=== PATIENT | female | born 1950 | race Caucasian/White ===

== ENCOUNTER 2017-11-27 02:08 | Emergency (ER) | payer MEDICARE, SELFPAY ==
[2017-11-27 02:10] VITALS: BP 146/85; PULSE 65; RESP 23; TEMP 35.8; O2SAT 98; BMI 32.9
--- NOTE | 2017-11-27 02:29 | RAD_ITS ---
STUDY: X-RAY CHEST REASON FOR EXAM: Female, 67 years old. Chest pressure TECHNIQUE: Frontal view COMPARISON: None. FINDINGS: There are NO active infiltrates. There are mild fibrotic changes. There is NO pleural effusion. There is NO pneumothorax. Normal size heart. Normal mediastinum and felicitas. Normal visualized pulmonary arteries. Normal visualized aortic arch and descending thoracic aorta. Normal visualized thoracic spine. Normal visualized ribs, clavicles, and shoulders. There is no demonstrated abnormality of the visualized soft tissue structures of the upper abdomen. RAD/Chest 1 View (Portable) IMPRESSION: There are NO active infiltrates. There are mild fibrotic changes. There is NO pleural effusion. There is NO pneumothorax. Normal size heart. Electronically Signed: Alex Rios MD at 3:19 EDT , Service support ,
--- NOTE | 2017-11-27 02:29 | EKG12_ITS ---
Test Reason : CP Blood Pressure : / mmHG Vent. Rate : 062 BPM Atrial Rate : 062 BPM P-R Int : 212 ms QRS Dur : 102 ms QT Int : 434 ms P-R-T Axes : 031 -52 010 degrees QTc Int : 440 ms Sinus rhythm with 1st degree A-V block Left axis deviation Incomplete right bundle branch block Cannot rule out Anterior infarct , age undetermined Abnormal ECG Confirmed by HANNAH DE PAZ, BETTY ([id number]), script editor LILIBETH PATRICIA ([id number]) on 11/30/2017 3:08:43 PM Referred By: MIKKI Confirmed By:BETTY YOUNG MD
--- NOTE | 2017-11-27 02:29 | CT_ITS ---
STUDY: CT ABDOMEN AND PELVIS WITHOUT CONTRAST REASON FOR EXAM: Female, 67 years old. Abdominal pain RADIATION DOSAGE (If Supplied By Facility): CTDIvol = ( 18.68 ) mGy, DLP = ( 1202.27 ) mGycm TECHNIQUE: Transaxial images were obtained from the dome of the diaphragm to the symphysis pubis without oral contrast, and without intravenous contrast. Sagittal and coronal images were reconstructed. Individualized dose optimization techniques were used for this CT. COMPARISON: None. FINDINGS: There is a 5 mm noncalcified nodule at the RIGHT lung base which could be a granuloma. Liver is fatty. There is NO mass. There has been a cholecystectomy. Normal spleen. Normal pancreas. Normal bilateral adrenal glands. Normal right kidney. There is a 5 mm stone in the proximal LEFT ureter causing mild LEFT hydronephrosis and hydroureter. There is a 2 mm stone in the lower pole of the LEFT kidney. Normal visualized stomach. Normal small intestine. Normal colon. The appendix is visualized and appears normal. Normal abdominal aorta. Normal inferior vena cava. Normal retroperitoneum. Normal urinary bladder. Uterus and ovaries are unremarkable. There is NO ascites or free air, abscess or adenopathy. Normal abdominal wall. Normal osseous structures. CT/Abdomen/Pelvis W IV Cont ONLY IMPRESSION: Liver is fatty. There is NO mass. There has been a cholecystectomy. There is a 5 mm stone in the proximal LEFT ureter causing mild LEFT hydronephrosis and hydroureter. There is a 2 mm stone in the lower pole of the LEFT kidney. Normal visualized stomach. Normal small intestine. Normal colon. The appendix is visualized and appears normal. Uterus and ovaries are unremarkable. There is NO ascites or free air, abscess or adenopathy. Electronically Signed: Alex Rios MD at 3:40 EDT , Service support ,
[2017-11-27 02:40] LABS: Absolute Lymphocyte Count 5.15 X10^3/ul (0.83-4.51); Absolute Neutrophil Count 6.2 X10^3/uL (2.0-7.7); Basophil# 0.04 X10^3/uL; Basophil% 0.3 % (0-1); Eosinophil# 0.13 X10^3/uL; Eosinophils% 1.1 % (0-5); Hematocrit 40.9 % (37-47); Hemoglobin 14.1 g/dl (12.0-15.0); Lymphocyte # 5.15 X10^3/ul (4.0); Lymphocyte % 42.3 % (19-41); Mean Corp Hgb Conc 34.5 g/gl (32-36); Mean Corpuscular Hgb 30.1 pg (27.0-32.0); Mean Corpuscular Volume 87.4 fL (81-99); Mean Platelet Vol. 10.3 fl (6.2-12.0); Monocyte# 0.65 X10^3/uL; Monocyte% 5.3 % (0-10); Neutrophil % 50.9 % (47-70); Platelet Count 234 K/mm3 (150-450); RBC Distribution Width CV 12.9 % (11.6-14.6); RBC Distribution Width SD 40.6 fl (35.1-43.9); Red Blood Count 4.68 M/mm3 (4.2-5.4); White Blood Count 12.2 K/mm3 (4.4-11.0)
[2017-11-27] MEDS: 0.9% Normal Saline 1,000 ML 1000 ML IV (02:42)
[2017-11-27] MEDS: Ondansetron 4 MG/2 ML Vial IV (02:43)
[2017-11-27 02:44] LABS: Differential Indicated SCAN CRITERIA MET; POSITIVE COUNT NO; POSITIVE DIFFERENTIAL YES; POSITIVE MORPHOLOGY NO
[2017-11-27] MEDS: Morphine 4 MG/ML Syringe IV ×2 (02:48→04:08)
[2017-11-27 02:49] LABS: Bacteria 0 SEEN /hpf (None Seen); Color, Urine Yellow (Yellow); Glucose, Dipstick Normal (Normal); Ketone-Dipstick Negative (Negative); Leukocyte Esterase-Dipstick 25 /ul (Negative); Mucous, Urine 0 SEEN /hpf (<or=2+); Nitrite-Dipstick Negative (Negative); Occult Blood-Urine 250 /ul (Negative); Protein-Dipstick 30 mg/dl (Negative); Urine Bilirubin Dipstick Negative (Negative); Urine Clarity Sl. Cloudy (Clear); Urine Urobilinogen Normal (Normal)
[2017-11-27 02:51] LABS: ALB/GLOB Ratio 1.2 RATIO (0.9-2.4); AST(SGOT) 16 U/L (15-37); Alanine Aminotransfer ALT/SGPT 23 U/L (13-56); Albumin, Serum 3.8 g/dL (3.2-5.0); Alkaline Phosphatase 78 U/L (45-117); Anion Gap 10 (5-15); BUN 24 mg/dL (7-18); BUN/Creat Ratio 21.1 RATIO (10-20); Calcium,Total 9.5 mg/dL (8.5-10.1); Chloride 105 mmol/L (98-107); Creatinine, Serum 1.14 mg/dL (0.55-1.02); EST Glomerular Filtration Rate 50 mL/min (>60); Est Glom Filt Rate - Afr Amer 61 mL/min (>60); Globulin 3.1 g/dL (2.2-4.2); Glucose 146 mg/dL (74-106); Lipase 349 U/L (73-393); Potassium 3.3 mmol/L (3.5-5.1); Protein, Total 6.9 g/dL (6.4-8.2); Sodium Level 142 mmol/L (136-145)
[2017-11-27 03:08] LABS: Red Blood Cells-Urine > 100 SEEN /hpf (0-5); White Blood Cells 5-10 SEEN /hpf (0-5)
[2017-11-27 03:09] LABS: Squamous Epithelial Cells - UA 5-10 SEEN /hpf (5-10)
--- NOTE | 2017-11-27 03:55 | ED.VISSUMM ---
- ER Visit Summary Date of Service: 11/27/17 Chief Complaint: Chest pain and back pain History of Present Illness: The patient is a 67 F with left sided chest pain that radiates into her left mid back and also lower abdomen. This started suddenly around midnight this evening. Associated with nausea and vomiting. Nothing seemed to make this better or worse. Patient has a history of kidney stones, hypertension, osteoarthritis, and skin cancer. She also has a history of lithotripsy, cholecystectomy, and knee surgery. Denies any history of coronary disease. She had a negative stress test years ago. No history of DVT or PE. No history of aortic disease. Non-smoker. No fevers or chills. No shortness of breath or respiratory symptoms. No other GI symptoms. No weakness or numbness. No urinary symptoms. Physical Examination: Blood pressure 146/85. Respiratory rate 23. Otherwise vitals unremarkable. Afebrile. Patient appears uncomfortable but not toxic or in distress. Heart regular rate and rhythm. Lungs clear throughout. Abdomen soft and nontender. Left CVA tender palpation. Extremities nontender with no edema. Skin is normal in color without diaphoresis or pallor. Test Results: EKG on arrival showed sinus rhythm with an incomplete right bundle branch block pattern. Rate is 62. No sign of acute ischemia or infarction pattern. White count 12.2. Potassium 3.3. Glucose 146. BUN 24. Creatinine 1.14. Hepatic panel and lipase normal. Urinalysis shows 5-10 white cells, 5-10 epithelial cells, and over 100 red cells. Troponin normal. Urine culture pending. Chest x-ray showed chronic changes. Nothing acute. CT abdomen showed fatty liver, lung nodule, postoperative changes, and a 5 mm proximal left ureter stone with hydronephrosis and hydroureter. Emergency Department Course and Treatment: Patient treated with fluids, Zofran, and morphine while awaiting results. I did consider cardiac, respiratory, GI, , RESIN SHAVER, and vascular etiologies primarily. Patient did have multiple episodes of emesis while awaiting workup. On reevaluation, she was feeling better. Workup showed a 5 mm stone on the left. I believe this is causing her pain and nausea, and vomiting. She has a white count of 12.2. No fevers. We will send a culture. Her urinalysis does not show definite signs of infection. I have low suspicion for infection. Creatinine stable. Hepatic and lipase normal. Troponin, EKG, and chest x-ray unremarkable. I have low suspicion for ACS. Nothing to suggest PE or dissection. No further workup indicated. This was discussed with the patient who agreed. Patient was advised that she may not pass the stone spontaneously. She would like to try outpatient follow-up with Dr. Orta. She was given a prescription for Ultram as this has helped in the past. Also Zofran and Flomax. Return for any new or worsening issues. Treatment Plan: As above Disposition: Discharged Impression: 1. Left ureteral colic This note was generated with [employer] dictation software. It may contain incorrect words, spelling, and punctuation that were not noted in review of the chart prior to signing ED Disposition - Plan for ED Patient: Chief Complaint: Chest Pain Referrals: Keith Garcia MD [Primary Care Provider] -
--- NOTE | 2017-11-27 04:04 | ED.DEP ---
ED Disposition - Plan for ED Patient: Chief Complaint: Chest Pain Instructions: ED Stone Renal W Colic Prescriptions: traMADol [Ultram] 50 mg PO Q6H PRN PRN 2 Days #8 tab PRN Reason: Pain Ondansetron [Zofran Odt] 4 mg PO Q8H PRN PRN #10 tab PRN Reason: Nausea Tamsulosin HCl [Flomax] 0.4 mg PO DAILY #7 cap Referrals: Homar Orta MD [STAFF PHYSICIAN] -
[2017-11-27 04:07] VITALS: BP 139/74; PULSE 82; RESP 16; O2SAT 95
[2017-11-27] MEDS: traMADol 50 MG Tablet PO (04:08)
== END 2017-11-27 04:20 | disposition home or self-care (01) ==
PROVIDERS: Emergency Provider Emergency Medicine; Family Provider Family Medicine; PCP Family Medicine
DX: N13.2 Hydronephrosis with renal and ureteral calculous obstruction (principal); I45.10 Unspecified right bundle-branch block; K76.0 Fatty (change of) liver, not elsewhere classified; R91.1 Solitary pulmonary nodule; I10 Essential (primary) hypertension; M19.90 Unspecified osteoarthritis, unspecified site; Z87.442 Personal history of urinary calculi; Z85.828 Personal history of other malignant neoplasm of skin; Z90.49 Acquired absence of other specified parts of digestive tract; Z79.899 Other long term (current) drug therapy
CPT/HCPCS: 71045; 74177; 80053; 81001; 83690; 84484; 85025; 87086; 87088; 93005; 96361; 96374; 96375; 96376; 99285; J7030; A4216; J2405

== ENCOUNTER → 2017-11-30 10:54 | Outpatient (CLI) | payer MEDICARE, SELFPAY ==
--- NOTE | 2017-11-30 10:58 | RAD_ITS ---
STUDY: X-RAY - ABDOMEN/PELVIS REASON FOR EXAM: Female, 67 years old. Kidney stone TECHNIQUE: Two AP supine views of the abdomen and pelvis. COMPARISON: CT abdomen and pelvis dated 11/27/2017 FINDINGS: Normal visualized lung bases. There is an abundance of fecal material throughout the colon. There is no demonstrated free abdominal air. The visualized liver, spleen and kidneys are grossly normal in size and morphology. Normal soft tissue structures. There are diffuse degenerative changes of the visualized lumbar spine. Probable stone in the mid left ureter measuring 6.1 mm, corresponding to recent CT findings. RAD/Abdomen Single View IMPRESSION: As above Electronically Signed: Dutch Mar DO at 8:27 EDT Tel , Service support ,
== END ==
PROVIDERS: Family Provider Family Medicine; PCP Family Medicine; Visit Provider Urology
DX: N20.0 Calculus of kidney (principal)
CPT/HCPCS: 74018

== ENCOUNTER 2017-12-01 02:50 | Observation (INO) | payer MEDICARE, SELFPAY ==
[2017-12-01] VITALS (11 sets, daily range): BP systolic 116–178; BP diastolic 65–91; PULSE 70–90; RESP 16–18; TEMP 36.6–37.6; O2SAT 92–97; BMI 29.0; BMI 35.6
[2017-12-01 03:06] LABS: Absolute Lymphocyte Count 2.71 X10^3/ul (0.83-4.51); Absolute Neutrophil Count 8.3 X10^3/uL (2.0-7.7); Basophil# 0.02 X10^3/uL; Basophil% 0.2 % (0-1); Eosinophil# 0.08 X10^3/uL; Eosinophils% 0.7 % (0-5); Hemoglobin 14.3 g/dl (12.0-15.0); Lymphocyte # 2.71 X10^3/ul (4.0); Lymphocyte % 23.1 % (19-41); Mean Corpuscular Volume 88.1 fL (81-99); Mean Platelet Vol. 9.9 fl (6.2-12.0); Monocyte# 0.61 X10^3/uL; Monocyte% 5.2 % (0-10); Neutrophil % 70.6 % (47-70); Platelet Count 206 K/mm3 (150-450); RBC Distribution Width CV 13.2 % (11.6-14.6); RBC Distribution Width SD 42.1 fl (35.1-43.9); Red Blood Count 4.77 M/mm3 (4.2-5.4); White Blood Count 11.7 K/mm3 (4.4-11.0)
[2017-12-01] MEDS: 0.9% Normal Saline 1,000 ML 250 ML IV (03:06)
[2017-12-01 03:07] LABS: POSITIVE COUNT NO; POSITIVE DIFFERENTIAL NO; POSITIVE MORPHOLOGY NO
[2017-12-01] MEDS: Ondansetron 4 MG/2 ML Vial IV (03:07)
[2017-12-01] MEDS: Ketorolac 15 MG/ML Vial IV (03:08)
[2017-12-01] MEDS: Morphine 4 MG/ML Syringe IV (03:09)
[2017-12-01 03:14] LABS: Mucous, Urine 0 SEEN /hpf (<or=2+)
[2017-12-01 03:15] LABS: Glucose, Dipstick Normal (Normal); Ketone-Dipstick Negative (Negative); Leukocyte Esterase-Dipstick 25 /ul (Negative); Nitrite-Dipstick Negative (Negative); Occult Blood-Urine 250 /ul (Negative); Protein-Dipstick 30 mg/dl (Negative); Specific Gravity, Urine 1.025 (1.002-1.030); Urine Bilirubin Dipstick Negative (Negative); Urine Urobilinogen Normal (Normal)
[2017-12-01 03:17] LABS: Color, Urine Straw (Yellow); Urine Clarity Sl Cloudy (Clear)
[2017-12-01 03:20] LABS: Anion Gap 9 (5-15); BUN 17 mg/dL (7-18); BUN/Creat Ratio 13.1 RATIO (10-20); Calcium,Total 9.6 mg/dL (8.5-10.1); Chloride 104 mmol/L (98-107); EST Glomerular Filtration Rate 43 mL/min (>60); Est Glom Filt Rate - Afr Amer 52 mL/min (>60); Estimated Creatinine Clearance 38.23 ml/min; Glucose 130 mg/dL (74-106); Potassium 4.2 mmol/L (3.5-5.1); Sodium Level 142 mmol/L (136-145)
[2017-12-01 03:25] LABS: Squamous Epithelial Cells - UA 5-10 SEEN /hpf (5-10); White Blood Cells 0-5 SEEN /hpf (0-5)
[2017-12-01 03:26] LABS: Red Blood Cells-Urine > 100 SEEN /hpf (0-5)
[2017-12-01 03:27] LABS: Bacteria RARE /hpf (None Seen)
--- NOTE | 2017-12-01 05:24 | ED.VISSUMM ---
- ER Visit Summary Date of Service: 12/01/17 Chief Complaint: Left flank pain History of Present Illness: The patient is a 67 F with left-sided kidney stone diagnosed on the . Measured 5 mm in the proximal to mid left ureter. Patient states she took tramadol for 1 or 2 days and her pain improved. She was seen by Dr. Orta in the office yesterday. Plan is to lithotripsy next week. Pain returned around 11:30 PM last evening. She took tramadol at that time and took Zofran 03/16/1931. She presented here shortly after 230. Patient states the tramadol has not helped her pain this morning. She did vomit ?2. Physical Examination: Blood pressure is 178/80, temperature 99.5, heart rate 74, respiratory rate 16, pulse ox 96% on room air. Head and neck examination unremarkable. Heart is regular rate and rhythm. Lung sounds are clear. Abdomen is soft with tenderness in the most lateral portion of the left lower quadrant. No guarding or rebound. Back examination was no true CVA tenderness but she does have left lower lumbar tenderness. Test Results: CBC was a white count 11.7 with 70% neutrophils. Chemistry studies revealed creatinine 1.3. Urinalysis shows grade 100 RBCs but no sign of section. Patient had a KUB performed yesterday that I did review, although official read is not back. There appears to be a calcification around the level of L4 which likely corresponds to a ureteral stone. This looks to be in similar location as the CT on the . Emergency Department Course and Treatment: Patient was given morphine, Zofran, 15 mg of Toradol, IV fluids. On repeat evaluation she is resting comfortably. I spoke with Dr. Orta and he will admit the patient for a stent. Treatment Plan: [] Disposition: Admit Impression: Left ureterolithiasis This note was generated with [employer] dictation software. It may contain incorrect words, spelling, and punctuation that were not noted in review of the chart prior to signing ED Disposition - Plan for ED Patient: Chief Complaint: Flank Pain Referrals: Keith Garcia MD [Primary Care Provider] -
[2017-12-01] MEDS: 0.9% Normal Saline 1,000 ML 75 ML IV ×2 (07:05→13:07)
--- NOTE | 2017-12-01 07:53 | HP.PCM_ITS ---
Problem List (1) Left ureteral calculus Status: Acute History of Present Illness Date of Admission: 12/01/17 Chief Complaint: Kidney stone The patient is a 67 year old female with a stone in the left mid ureter I saw her in the office yesterday we are planning for surgery and at this point she presented to the ER in severe pain again so we will take her to surgery today and place a stent to the left side and then plan for left left ESWL when the machine is available. Past Medical History Past Medical History (Chronic Problems): Chronic Problems Hypertension (Chronic) Skin cancer of forehead (Chronic) Osteoarthritis (Chronic) Nephrolithiasis (Chronic) Allergies Penicillins Allergy (Verified 12/01/17 02:51) Swelling Home Medications: Ambulatory Orders Medication Instructions Recorded Amlodipine [Norvasc] 10 mg PO DAILY 06/07/13 Cholecalciferol (Vitamin D3) 1,000 unit PO DAILY 06/07/13 [Vitamin D] Lisinopril/Hydrochlorothiazide 2.5 tablet PO DAILY 06/07/13 [Zestoretic 12/25.5 Tablet] Multivitamins,Ther W-Minerals 1 tablet PO DAILY 06/07/13 [Multivitamin With Minerals] Potassium Chloride [Klor-Con 10] 20 meq PO DAILY 06/07/13 Sertraline HCl [Zoloft] 50 mg PO DAILY 06/07/13 Latanoprost [Latanoprost] 1 drop EACH EYE DAILY 01/03/14 Lactobacillus Rhamnosus GG 1 each PO DAILY 11/27/17 [Culturelle] Ondansetron [Zofran Odt] 4 mg PO Q8H PRN PRN #10 tab 11/27/17 Tamsulosin HCl [Flomax] 0.4 mg PO DAILY #7 cap 11/27/17 traMADol [Ultram] 50 mg PO Q6H PRN PRN 2 Days #8 tab 11/27/17 Surgical History: noncontributory, - - BL TKR, dental implants, x 2, skin CA excisions. 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 Smoking Status: Never smoker Review of Systems Constitutional: Denies: Chills, Fever, Weight Change HEENT: Denies: Head Aches, Sinus Congestion, Sinus Drainage Cardiovascular: Denies: Chest Pain, Palpitations Respiratory: Denies: Cough, Shortness of breath at rest, Sputum production Gastrointestinal: Denies: Abdominal Pain, Nausea, Vomiting Genitourinary: Denies: Dysuria Musculoskeletal: Denies: Joint Pain, Joint Tenderness Skin: Denies: Rash, Wounds Neurological: Denies: Numbness, Tingling, Focal weakness Psychiatric: Denies: Anxiety, Depression, Homicidal Ideations, Suicidal Ideations Hematologic/ Lymphatic: Denies: Easy Bruising, Easy Bleeding VTE Information - Inpt Only VTE Present on Admission: No VTE Mechan Device Prophylaxis: SCD's Patient Problems: Active and Suspected Problems Left ureteral calculus (Acute) - Physical Exam General: Alert, Oriented x3, Cooperative HEENT: Atraumatic, PERRLA, EOMI, Normocephalic Neck: Supple, No JVD, Negative Carotid Bruits Lungs: Clear to auscultation, Normal air movement Cardiovascular: Regular rate, No murmurs Abdomen: Bowel Sounds Present, Soft, Non Tender Extremities: No edema, Capillary Refill Less than 3 Seconds Skin: No rashes, No breakdown Musculoskeletal: No Tenderness to Palpation of Joints or Extremities Neurological: Cranial nerves II-XII grossly intact Psych/Mental Status: Normal Affect, Appropriate Vital Signs Temp Pulse Resp BP Pulse Ox 98.6 F 90 16 149/83 H 94 12/01/17 06:36 12/01/17 06:36 12/01/17 06:36 12/01/17 06:36 12/01/17 06:36 Oxygen Delivery Method Room Air Weight: 100.1 kg Body Mass Index (BMI) 35.6 Intake and Output for Last 24 Hours 11/29/17 11/30/17 12/01/17 23:59 23:59 23:59 Output Total 50 / 50 Balance -50 / -50 Assessment/Plan All Active Problems Left ureteral calculus (Acute) Plan for cystoscopy and left stent placement today and will discharge plan for outpatient treatment of the stone. Plan to place a stent today to control pain.
[2017-12-01] MEDS: Morphine 2 MG/ML Syringe IV (10:44)
--- NOTE | 2017-12-01 11:23 | NURSING ---
REPORT CALLED TO [facility]
--- NOTE | 2017-12-01 12:46 | PCM.OPRPT ---
Problem List (1) Left ureteral calculus Status: Acute Report of Operation Date of Procedure: 12/01/17 Pre-Operative Diagnosis: Obstructing left ureteral calculi with severe pain Post-Operative Diagnosis: Same Surgery/Procedure Performed:: Cystoscopy and left stent placement Description of Surgical Findings:: 67-year-old female taken back to the operating room after smooth induction of MAC local she is placed in dorsal lithotomy position went to the bladder with a 21 Serbian rigid cystourethroscope identified the left ureteral orifice advanced a wire up the left kidney I then saw the stone in the distal left ureter over the wire then place a stent stent coiled in the kidney bladder good position a lot of purulent debris in urine from the left kidney this was sent off for culture the bladder was drained the patient's anesthetic anesthesia was reversed taken back to PACU good condition plan to keep her on the schedule for shockwave lithotripsy of the stone. Type of Anesthesia:: Local MAC Drains: stent left side - Admit VTE Documentation VTE Present on Admission: No VTE Mechan Device Prophylaxis: SCD's
--- NOTE | 2017-12-01 12:47 | PCM.DC.URO ---
Discharge Diet: No Restrictions Discharge Activity: Return to Normal Activity, May Not Drive - for 2 days. Additional Activity Instructions:: f you have a catheter, remove on ___. If you have any problems after catheter is removed, call [phone] and ask for your doctor to be paged. Please be aware that pain medications may cause nausea. You should typically eat light foods as you take your pain medication. Pain medication may cause constipation, if this is a problem for you, please discuss with your doctor. Allergies/Adverse Reactions: Allergies Penicillins Allergy (Verified 12/01/17 02:51) Swelling Medications to take at Discharge Amlodipine [Norvasc] 10 mg PO DAILY 06/07/13 Cholecalciferol (Vitamin D3) [Vitamin D] 1,000 unit PO DAILY 06/07/13 Lisinopril/Hydrochlorothiazide [Zestoretic 10.5 Tablet] 2.5 tablet PO DAILY 06/07/13 Multivitamins,Ther W-Minerals [Multivitamin With Minerals] 1 tablet PO DAILY 06/07/13 Potassium Chloride [Klor-Con 10] 20 meq PO DAILY 06/07/13 Sertraline HCl [Zoloft] 50 mg PO DAILY 06/07/13 Latanoprost [Latanoprost] 1 drop EACH EYE DAILY 01/03/14 Lactobacillus Rhamnosus GG [Culturelle] 1 each PO DAILY 11/27/17 Ondansetron [Zofran Odt] 4 mg PO Q8H PRN PRN #10 tab 11/27/17 Tamsulosin HCl [Flomax] 0.4 mg PO DAILY #7 cap 11/27/17 traMADol [Ultram] 50 mg PO Q6H PRN PRN 2 Days #8 tab 11/27/17 Hydrocodone/Acetaminophen [Coello 5-325 Tablet] 1 ea PO Q4H PRN PRN 5 Days #14 tab 12/01/17 The following prescriptions were given: Hydrocodone/Acetaminophen [Coello 5-325 Tablet] 1 ea PO Q4H PRN PRN 5 Days #14 tab PRN Reason: Pain Primary Care Physician: Keith Garcia MD [Primary Care Provider] - Test Results: Test results from this visit will be discussed in further detail at your follow-up appointment, if applicable. Please Follow Up With: Homar Orta MD
--- NOTE | 2017-12-01 13:14 | PCA ---
pt off floor
== END 2017-12-01 17:20 | disposition home or self-care (01) ==
LOC: ED 03:27 → MS3 05:47
PROVIDERS: Admitting Provider Urology; Emergency Provider Emergency Medicine; Family Provider Family Medicine; PCP Family Medicine; Visit Provider Urology
PROC: (CPT 52332; principal; 2017-12-01 09:20)
DX: N20.1 Calculus of ureter (principal); F32.9 Major depressive disorder, single episode, unspecified; K58.9 Irritable bowel syndrome, unspecified; Z79.899 Other long term (current) drug therapy; I10 Essential (primary) hypertension; M19.90 Unspecified osteoarthritis, unspecified site
CPT/HCPCS: 52332; 76000; 80048; 81001; 85025; 87086; 96361; 96374; 96375; 96376; 99218; 99283; J7030; A4216; C1769; C2617; G0378; J2405

== ENCOUNTER 2017-12-09 10:27 | Day surgery (SDC) | payer MEDICARE, SELFPAY ==
[2017-12-09] VITALS (8 sets, daily range): BP systolic 128–158; BP diastolic 53–96; PULSE 71–81; RESP 16–18; TEMP 36.3–36.6; O2SAT 92–99; BMI 34.6
[2017-12-09] MEDS: Cefazolin 2 GM in 0.9% Normal Saline 100 ML IV (13:00)
--- NOTE | 2017-12-09 13:44 | DCINST_ITS ---
Discharge Diet: No Restrictions Discharge Activity: Return to Normal Activity, May Not Drive - for 2 days. Additional Activity Instructions:: Please be aware that pain medications may cause nausea. You should typically eat light foods as you take your pain medication. Pain medication may cause constipation, if this is a problem for you, please discuss with your doctor. Allergies/Adverse Reactions: Allergies Penicillins Allergy (Verified 12/04/17 14:04) Swelling Medications to take at Discharge Amlodipine [Norvasc] 10 mg PO DAILY 06/07/13 Cholecalciferol (Vitamin D3) [Vitamin D] 1,000 unit PO DAILY 06/07/13 Lisinopril/Hydrochlorothiazide [Zestoretic 10/.5 Tablet] 0.5 tablet PO DAILY 06/07/13 Multivitamins,Ther W-Minerals [Multivitamin With Minerals] 1 tablet PO DAILY 06/07/13 Potassium Chloride [Klor-Con 10] 20 meq PO DAILY 06/07/13 Sertraline HCl [Zoloft] 50 mg PO DAILY 06/07/13 Latanoprost 1 drop EACH EYE DAILY 01/03/14 Lactobacillus Rhamnosus GG [Culturelle] 1 each PO DAILY 11/27/17 traMADol [Ultram] 50 mg PO Q6H PRN PRN 2 Days #8 tab 11/27/17 Primary Care Physician: Keith Garcia MD [Primary Care Provider] - Test Results: Test results from this visit will be discussed in further detail at your follow- up appointment, if applicable. Please Follow Up With: Homar Orta MD When: in 2 weeks, please call to make an appointment.
--- NOTE | 2017-12-09 13:56 | PCM.OPRPT ---
Report of Operation Date of Procedure: 12/09/17 Pre-Operative Diagnosis: Left ureteral calculi status post stent Post-Operative Diagnosis: The same Surgery/Procedure Performed:: Left extracorporeal shockwave lithotripsy and cystoscopy and left stent removal Description of Surgical Findings:: 67-year-old female taken back to the operating room at the smooth induction of general anesthesia she was placed supine on the table, the stent on the left side was a seen by fluoroscopy we could identify a stone in the distal left ureter next to the stent. We placed the stone in the F2 focal point of the lithotripter machine and delivered a total of 4000 shockwaves to the stone fragment. The fragment change significantly in the's broke up in the tiny little pieces. We completed 4000 shockwaves. The urethra and vaginal area were then prepped and draped in usual sterile fashion went into the bladder with a 21 Hebrew rigid cystourethroscope grabbed the existing stent pulled out the meatus and remove the entire stent. Patient bladder was then drained. After fragmenting and breaking the stone completely the stent was removed patient has anesthetic was reversed taken back to PACU in good condition will see her back in a few weeks. Type of Anesthesia:: General Drains: stent removed. - Admit VTE Documentation VTE Present on Admission: No VTE Mechan Device Prophylaxis: SCD's
[2017-12-09] MEDS: Ketorolac 15 MG/ML Vial IV (15:37)
== END 2017-12-09 16:29 | disposition home or self-care (01) ==
LOC: SDC 10:28 → AC 10:29
PROVIDERS: Family Provider Family Medicine; PCP Family Medicine; Visit Provider Urology
PROC: (CPT 50590; principal; 2017-12-09 12:20)
DX: N20.1 Calculus of ureter (principal); F32.9 Major depressive disorder, single episode, unspecified; Z79.899 Other long term (current) drug therapy; K58.9 Irritable bowel syndrome, unspecified; I10 Essential (primary) hypertension; F41.9 Anxiety disorder, unspecified; M19.90 Unspecified osteoarthritis, unspecified site; Z85.828 Personal history of other malignant neoplasm of skin
CPT/HCPCS: 50590; J7120; J2405

== ENCOUNTER → 2017-12-29 12:48 | Outpatient (CLI) | payer MEDICARE, SELFPAY ==
--- NOTE | 2017-12-29 12:51 | RAD_ITS ---
STUDY: X-RAY - ABDOMEN/PELVIS REASON FOR EXAM: Female, 67 years old. Kidney stone follow-up TECHNIQUE: Single AP view of the abdomen / pelvis. COMPARISON: None. FINDINGS: There is a moderate amount of colonic fecal material. There is no demonstrated free abdominal air. The visualized liver, spleen and kidneys are grossly normal in size and morphology. Previously identified stone in the mid left ureter is no longer identified Normal soft tissue structures. There are diffuse degenerative changes of the visualized lumbar spine. RAD/Abdomen Single View IMPRESSION: Previously identified left mid ureteral stone is no longer seen. Electronically Signed: Dutch Mar DO at 11:59 EDT Tel , Service support ,
== END ==
PROVIDERS: Family Provider Family Medicine; PCP Family Medicine; Referring Provider Urology; Visit Provider Urology
DX: N20.0 Calculus of kidney (principal)
CPT/HCPCS: 74018

== ENCOUNTER → 2018-11-10 | Outpatient (CLI) | payer MEDICARE, SELFPAY ==
--- NOTE | 2018-11-10 12:58 | BI_ITS ---
MAMMOGRAPHY - BILATERAL SCREENING REASON FOR EXAM: Female, 68 years old. Routine annual screening examination. PERTINENT HISTORY: Mother with breast cancer. Remote right excisional breast biopsy. TECHNIQUE: Digital bilateral breast adelfo (3D mammographic acquisition) in the CC and MLO projections. 2-D mediolateral oblique (MLO) and craniocaudad (CC) views of both breasts were obtained. CAD: Full Field Digital Mammography with Computer Added Detection was performed. COMPARISON: Comparison is made with prior examination is December 04, 2016 and February 22, 2015. FINDINGS: Breast Composition: There are scattered areas of fibroglandular density. There are no dominant masses or suspicious calcifications. Stable small bilateral axillary lymph nodes. No other significant abnormalities are identified. There has been no significant change since the prior study. BI/SCREEN MAMM (CAD) W/ADELFO BILAT IMPRESSION: Stable bilateral screening mammogram. Yearly follow-up mammogram recommended. (A) ASSESSMENT CATEGORY: BIRADS Category 2: Benign. A letter regarding these results will be sent to the patient by the facility within 30 days. Approximately 10% of breast cancers are not detected by mammography. A normal mammogram should not delay biopsy of a clinically suspicious abnormality. [id number] Electronically Signed: Pierre Hollins, at 14:41 EDT , Service support ,
== END | disposition home or self-care (01) ==
PROVIDERS: Family Provider Family Medicine; PCP Family Medicine; Referring Provider Family Medicine; Visit Provider Family Medicine
DX: Z12.31 Encounter for screening mammogram for malignant neoplasm of breast (principal)
CPT/HCPCS: 77063; 77067

== ENCOUNTER → 2018-12-21 09:22 | Outpatient (CLI) | payer MEDICARE, SELFPAY ==
[2017-12-09 10:46] VITALS: BMI 34.6
[2018-12-21 10:46] LABS: Anion Gap 7 (5-15); BUN 17 mg/dL (7-18); BUN/Creat Ratio 17.1 RATIO (10-20); Chloride 108 mmol/L (98-107); Cholesterol 211 mg/dL (200); Creatinine, Serum 0.99 mg/dL (0.55-1.02); EST Glomerular Filtration Rate 59 mL/min (>60); Est Glom Filt Rate - Afr Amer 71 mL/min (>60); Glucose 93 mg/dL (74-106); High Density Lipoprotein 60 mg/dL; Potassium 3.7 mmol/L (3.5-5.1); Sodium Level 144 mmol/L (136-145); Triglycerides 94 mg/dL; Very Low Density Lipoprotein 19 mg/dL (5-40)
== END ==
PROVIDERS: Family Provider Family Medicine; PCP Family Medicine; Referring Provider Family Medicine; Visit Provider Family Medicine
DX: E78.00 Pure hypercholesterolemia, unspecified (principal); I10 Essential (primary) hypertension
CPT/HCPCS: 36415; 80048; 80061

== ENCOUNTER → 2018-12-23 10:16 | Outpatient (CLI) | payer MEDICARE, SELFPAY ==
[2017-12-09 10:46] VITALS: BMI 34.6
[2018-12-23 10:29] LABS: Mucous, Urine 0 SEEN /hpf (<or=2+); Red Blood Cells-Urine 0 SEEN /hpf (0-5); White Blood Cells 0 SEEN /hpf (0-5)
[2018-12-23 12:24] LABS: Absolute Lymphocyte Count 2.67 X10^3/uL (0.83-4.51); Basophil# 0.05 X10^3/uL; Basophil% 0.8 % (0-1); Eosinophil# 0.09 X10^3/uL; Eosinophils% 1.4 % (0-5); Hematocrit 43.8 % (37-47); Hemoglobin 14.6 g/dL (12.0-15.0); Lymphocyte # 2.67 X10^3/ul (4.0); Lymphocyte % 42.8 % (19-41); Mean Corp Hgb Conc 33.3 g/dL (32-36); Mean Corpuscular Hgb 29.7 pg (27.0-32.0); Mean Platelet Vol. 10.3 fl (6.2-12.0); Monocyte# 0.43 X10^3/uL; Monocyte% 6.9 % (0-10); NRBC Flagged by Analyzer 0 % (0-5); Neutrophil # 2.98 X10^3/uL (2.7-7.7); Neutrophil % 47.8 % (47-70); Platelet Count 207 K/mm3 (150-450); RBC Distribution Width CV 12.5 % (11.6-14.6); RBC Distribution Width SD 41.2 fl (35.1-43.9); Red Blood Count 4.92 M/mm3 (4.2-5.4); White Blood Count 6.2 K/mm3 (4.4-11.0)
[2018-12-23 12:26] LABS: Color, Urine Yellow (Yellow); Glucose, Dipstick Normal (Normal); Ketone-Dipstick Negative (Negative); Leukocyte Esterase-Dipstick Negative /ul (Negative); Nitrite-Dipstick Negative (Negative); Occult Blood-Urine Negative /ul (Negative); Protein-Dipstick Negative (Negative); Urine Bilirubin Dipstick Negative (Negative); Urine Clarity Sl. Cloudy (Clear); Urine Urobilinogen Normal (Normal)
[2018-12-23 12:31] LABS: Protein, Urine (Random) 18.7 mg/dL (<11.9); Protein:Creat Ratio 122 mg/g CRE (0-200)
[2018-12-23 12:44] LABS: Vitamin D,25 Hydroxy 61.7 ng/mL (29.95-100.01)
[2018-12-23 12:46] LABS: PTHIN 33.1 pg/mL (18.4-80.1)
[2018-12-23 12:51] LABS: AST(SGOT) 20 U/L (15-37); Alanine Aminotransfer ALT/SGPT 29 U/L (13-56); Albumin, Serum 3.8 g/dL (3.2-5.0); Alkaline Phosphatase 82 U/L (45-117); Bilirubin, Direct 0.12 mg/dL (0.00-0.30); Globulin 3.3 g/dL (2.2-4.2); Phosphorus 2.6 mg/dL (2.5-4.9); Protein, Total 7.1 g/dL (6.4-8.2); Thyroid Stim Hormone (TSH) 0.34 uIU/mL (0.358-3.74)
[2018-12-23 12:54] LABS: Bacteria RARE /hpf (None Seen); Calcium Oxalate Crystals Ur 2+ /hpf (<or=2+); Squamous Epithelial Cells - UA 0-5 SEEN /hpf (5-10)
[2018-12-24 13:10] LABS: T4 Free Direct 0.84 ng/dL (0.76-1.46)
[2018-12-27 20:08] LABS: Thyroid Stim Immunoglob <0.10 IU/L (0.00-0.55)
[2018-12-27 20:54] LABS: Anti-Thyroglobulin AB < 1.0 IU/mL (0.0-0.9); Thyroglobulin, Serum Qt. 90.9 ng/mL (1.5-38.5); Thyroid Peroxidase AB 15 IU/mL (0-34)
== END ==
PROVIDERS: Family Provider Family Medicine; PCP Family Medicine; Referring Provider Family Medicine; Visit Provider Family Medicine
DX: I12.9 Hypertensive chronic kidney disease with stage 1 through stage 4 chronic kidney disease, or unspecified chronic kidney disease (principal); N18.3 Chronic kidney disease, stage 3 (moderate); E66.9 Obesity, unspecified; M85.80 Other specified disorders of bone density and structure, unspecified site; R79.89 Other specified abnormal findings of blood chemistry
CPT/HCPCS: 80076; 81001; 82306; 82570; 83970; 84100; 84156; 84432; 84439; 84443; 84445; 85025; 86376; 86800

== ENCOUNTER → 2018-12-28 09:50 | Outpatient (CLI) | payer MEDICARE, SELFPAY ==
--- NOTE | 2018-12-28 09:59 | BD_ITS ---
STUDY: DUAL ENERGY X-RAY ABSORPTIOMETRY / DXA REASON FOR EXAM: Female, 68 years old. The patient is postmenopausal. No loss of height. TECHNIQUE: Bone Mineral Density (BMD) measurements of lumbar spine and bilateral hips were obtained. COMPARISON: Comparison is made with prior study dated October 12, 2012. FINDINGS: Lumbar Spine (L1-L4): g/cm2 (1.865) / T-score (5.5) / Z-score (7.2) Findings are suggestive of normal bone density with a low fracture risk. Left Femur Total: g/cm2 (0.820) / T-score (-1.5) / Z-score (0.0) Left Femoral Neck: g/cm2 (0.769) / T-score (-1.9) / Z-score (-0.2) Right Femur Total: g/cm2 (0.864) / T-score (-1.1) / Z-score (0.4) Right Femoral Neck: g/cm2 (0.748) / T-score (-2.1) / Z-score (-0.4) The T-Scores on the most recent prior examination were: Lumbar Spine (L1-L4): There has been worsening of bone density since the previous examination. Left Femur Total: which represents a worsening of 8.4%. Right Femur Total: which represents a worsening of 6.6%. BD/Dexa Bone Density Study IMPRESSION: The patient is considered osteopenic as outlined below according to World Bill Organization (WHO) criteria with a moderate fracture risk. There has been worsening of bone density since the previous examination. Reference Information: The T-score is the number of standard deviations above or below the standard which is normal for young adults at their peak bone mineral density. The World Health Organization (WHO) interprets the T-scores as follows: Above -1 Normal bone density Between -1 and -2.5 Osteopenia Equal to / or below -2.5 Osteoporosis As a practical clinical guideline, osteopenia may be graded as follows: Mild -1 through -1.5 Moderate -1.6 through -2.0 Severe -2.1 through -2.4 The Z-score is the number of standard deviations above or below age-matched controls. A Z-score of less than -1.5 would be considered abnormal. References: 1. NIH Osteoporosis and Related Bone Diseases http://www.osteo.org 2. International Society for Clinical Densitometry http://www.iscd.org 3. National Osteoporosis Foundation http://www.nof.org Electronically Signed: Pierre Hollins, at 15:38 EDT , Service support ,
== END ==
PROVIDERS: Family Provider Family Medicine; PCP Family Medicine; Referring Provider Family Medicine; Visit Provider Family Medicine
DX: M85.80 Other specified disorders of bone density and structure, unspecified site (principal); Z78.0 Asymptomatic menopausal state
CPT/HCPCS: 77080

== ENCOUNTER → 2019-01-03 12:07 | Outpatient (CLI) | payer MEDICARE, SELFPAY ==
--- NOTE | 2019-01-03 12:11 | US_ITS ---
STUDY: THYROID ULTRASOUND REASON FOR EXAM: Female, 68 years old. Elevated TSH TECHNIQUE: Ultrasound evaluation of the thyroid was performed with real-time and static good-scale imaging. COMPARISON: None. FINDINGS: RIGHT LOBE: The right lobe of the thyroid gland measures 4.6 x 1.7 x 2.1 cm. There is a heterogeneous echotexture. There is a solid/cystic 2.2 cm nodule LEFT LOBE: The left lobe of the thyroid gland measures 4.3 x 1.7 x 1.7 cm. There is a heterogeneous echotexture. There is a solid 1.5 cm nodule ISTHMUS: The isthmus measures 0.3 cm. The regional lymph nodes are normal. US/Thyroid IMPRESSION: Normal size heterogeneous thyroid gland. There is a solid 1.5 cm nodule in the left thyroid lobe which needs further evaluation with a thyroid uptake study. If the nodule should demonstrate suspicious characteristics on the uptake study, biopsy would be recommended for further evaluation, if not, six-month follow-up recommended Complex 2.2 cm solid/cystic nodule in the right thyroid lobe Electronically Signed: Perry Lopez MD at 14:44 EDT , Service support ,
== END ==
PROVIDERS: Family Provider Family Medicine; PCP Family Medicine; Referring Provider Family Medicine; Visit Provider Family Medicine
DX: R79.89 Other specified abnormal findings of blood chemistry (principal)
CPT/HCPCS: 76536

== ENCOUNTER → 2019-01-18 12:42 | Outpatient (CLI) | payer MEDICARE, SELFPAY ==
[2019-01-18 08:10] VITALS: BMI 34.6
--- NOTE | 2019-01-18 08:10 | ASPS_PTH ---
PATIENT: DANIELE TOLEDO [facility] U#:[id number] AGE/SX: 74/F ROOM: RE01/18/[address]: Dr. Cornelio Mayberry MD : 1950 BED: DIS: SPEC #: [id number] RECD: 01/18/19 11:13 STATUS: TAMERA WILLIAM #: [id number] YOLANDA: 01/18/19 08:[address]: Cornelio Mayberry DEPT: CYTOLOGY RECD BY: Alejandro Maldonado ENTERED: 01/18/19 13:05 SP TYPE: ASPIRATION OTHR DR: Dr. Keith Nichole MD Tissues: A - Thyroid gland, NOS B - Thyroid gland, NOS Procedures: Special Stain Group II Cytology Other HEADER OPERATION: Ultrasound-guided fine needle aspiration bilateral thyroid PRE-OP DIAGNOSIS: Multinodular goiter E04.2 TISSUE SUBMITTED: A - Fine needle aspiration right thyroid (12 slides), B - Fine needle aspiration left thyroid (12 slides) DIAGNOSIS CYTOLOGY A. Fine needle aspiration, right thyroid nodule (smears): Adequate for evaluation. Consistent with cystic colloid nodule. B. Fine needle aspiration, left thyroid nodule (smears): Adequate for evaluation. Consistent with cystic colloid nodule. AM:marquez 01/19/19 COMMENT This case was reviewed and diagnosis discussed with Dr. Mayberry on 01/25/19. CYTOLOGY STUDY Slides are reviewed. CYTOLOGY GROSS A - Received are 12 smears labeled with the patient's name and designated per the requisition as right thyroid. Submitted for staining. B - Received are 12 smears labeled with the patient's name and designated per the requisition as left thyroid. Submitted for staining. / marquez 01/18/19 TC:5 : 80692 x2 ADDENDUM ADDENDUM ADDENDUM ADDENDUM ADDENDUM ADDENDUM ADDENDUM ADDENDUM 01/25/2019 11:44 ADDENDUM 01/25/2019 11:44 ADDENDUM 01/25/2019 11:44 ADDENDUM 01/25/2019 11:44 ADDENDUM 01/25/2019 11:44 A & B. Focal H?rthle cell change and mild reactive epithelial changes noted. AM:marquez 01/19/19 AM:marquez 01/25/19 Case has been reviewed in consultation with Dr. Lawrence who concurs with the above diagnosis. IDC:SJ
--- NOTE | 2019-01-18 08:10 | ASPS_PTH ---
PATIENT: DANIELE TOLEDO [facility] U[facility][id number] AGE/SX: 74/F ROOM: RE01/18/[address]: Dr. Cornelio Mayberry MD : 1950 BED: DIS: SPEC #: [id number] RECD: 01/18/19 11:13 STATUS: TAMERA WILLIAM #: [id number] YOLANDA: 01/18/19 08:[address]: Cornelio Mayberry DEPT: CYTOLOGY RECD BY: Alejandro Maldonado ENTERED: 01/18/19 13:05 SP TYPE: ASPIRATION OTHR DR: Dr. Keith Nichole MD Tissues: A - Thyroid gland, NOS B - Thyroid gland, NOS Procedures: Special Stain Group II Cytology Other HEADER OPERATION: Ultrasound-guided fine needle aspiration bilateral thyroid PRE-OP DIAGNOSIS: Multinodular goiter E04.2 TISSUE SUBMITTED: A - Fine needle aspiration right thyroid (12 slides), B - Fine needle aspiration left thyroid (12 slides) DIAGNOSIS CYTOLOGY A. Fine needle aspiration, right thyroid nodule (smears): Adequate for evaluation. Consistent with cystic colloid nodule. B. Fine needle aspiration, left thyroid nodule (smears): Adequate for evaluation. Consistent with cystic colloid nodule. AM:marquez 01/19/19 CYTOLOGY STUDY Slides are reviewed. CYTOLOGY GROSS A - Received are 12 smears labeled with the patient's name and designated per the requisition as right thyroid. Submitted for staining. B - Received are 12 smears labeled with the patient's name and designated per the requisition as left thyroid. Submitted for staining. / marquez 01/18/19 TC:5 CPT: 24352 x2 ADDENDUM ADDENDUM ADDENDUM ADDENDUM ADDENDUM ADDENDUM ADDENDUM 01/19/2019 15:09 ADDENDUM 01/19/2019 15:09 ADDENDUM 01/19/2019 15:09 ADDENDUM 01/19/2019 15:09 ADDENDUM 01/19/2019 15:09 A & B. Focal H?rthle cell change and mild reactive atypia noted. AM:rg 01/19/19 Case has been reviewed in consultation with Dr. Lawrence who concurs with the above diagnosis. IDC:SJ
== END ==
PROVIDERS: Family Provider Family Medicine; PCP Family Medicine; Visit Provider Surgery
DX: E04.2 Nontoxic multinodular goiter (principal)
CPT/HCPCS: 88161; 88313

== ENCOUNTER → 2019-05-23 15:46 | Outpatient (CLI) | payer MEDICARE, SELFPAY ==
[2019-01-25 09:39] VITALS: BMI 34.6
[2019-05-23 18:12] LABS: Absolute Neutrophil Count 3.6 X10^3/uL (2.0-7.7); Basophil# 0.04 X10^3/uL; Basophil% 0.5 % (0-1); Eosinophil# 0.15 X10^3/uL; Eosinophils% 1.9 % (0-5); Hematocrit 44.2 % (37-47); Hemoglobin 14.6 g/dL (12.0-15.0); Lymphocyte % 45.1 % (19-41); Mean Corpuscular Hgb 29.6 pg (27.0-32.0); Mean Corpuscular Volume 89.5 fL (81-99); Mean Platelet Vol. 10.6 fl (6.2-12.0); Monocyte# 0.59 X10^3/uL; Monocyte% 7.4 % (0-10); NRBC Flagged by Analyzer 0 % (0-5); Neutrophil # 3.58 X10^3/uL (2.7-7.7); Neutrophil % 44.7 % (47-70); Platelet Count 222 K/mm3 (150-450); RBC Distribution Width CV 12.7 % (11.6-14.6); Red Blood Count 4.94 M/mm3 (4.2-5.4)
[2019-05-23 18:37] LABS: Vitamin D,25 Hydroxy 62.8 ng/mL
[2019-05-23 18:46] LABS: Anion Gap 6 (5-15); BUN 18 mg/dL (7-18); BUN/Creat Ratio 17.5 RATIO (10-20); Calcium,Total 9.5 mg/dL (8.5-10.1); Chloride 110 mmol/L (98-107); Creatinine, Serum 1.03 mg/dL (0.55-1.02); EST Glomerular Filtration Rate 56 mL/min (>60); Est Glom Filt Rate - Afr Amer 68 mL/min (>60); Glucose 88 mg/dL (74-106); Potassium 3.9 mmol/L (3.5-5.1); Sodium Level 143 mmol/L (136-145); T4 Free Direct 0.84 ng/dL (0.76-1.46); Thyroid Stim Hormone (TSH) 0.26 uIU/mL (0.358-3.74)
== END ==
PROVIDERS: PCP Family Medicine; Referring Provider Family Medicine; Visit Provider Family Medicine
DX: I12.9 Hypertensive chronic kidney disease with stage 1 through stage 4 chronic kidney disease, or unspecified chronic kidney disease (principal); N18.3 Chronic kidney disease, stage 3 (moderate); R79.89 Other specified abnormal findings of blood chemistry
CPT/HCPCS: 36415; 80048; 82306; 84439; 84443; 85025

== ENCOUNTER → 2019-06-01 10:32 | Outpatient (CLI) | payer MEDICARE, SELFPAY ==
[2019-01-25 09:39] VITALS: BMI 34.6
[2019-06-01 13:00] LABS: ALB/GLOB Ratio 1.5 RATIO (0.9-2.4); AST(SGOT) 18 U/L (15-37); Alanine Aminotransfer ALT/SGPT 32 U/L (13-56); Alkaline Phosphatase 84 U/L (45-117); Anion Gap 8 (5-15); BUN 20 mg/dL (7-18); BUN/Creat Ratio 21.7 RATIO (10-20); Calcium,Total 9.6 mg/dL (8.5-10.1); Chloride 109 mmol/L (98-107); Creatinine, Serum 0.92 mg/dL (0.55-1.02); EST Glomerular Filtration Rate 64 mL/min (>60); Est Glom Filt Rate - Afr Amer 77 mL/min (>60); Globulin 2.7 g/dL (2.2-4.2); Glucose 111 mg/dL (74-106); Potassium 4.2 mmol/L (3.5-5.1); Protein, Total 6.7 g/dL (6.4-8.2); Sodium Level 144 mmol/L (136-145)
[2019-06-02 09:41] LABS: Hemoglobin A1c 5.7 % (4.2-6.3)
== END ==
PROVIDERS: PCP Family Medicine; Referring Provider Family Medicine; Visit Provider Family Medicine
DX: I10 Essential (primary) hypertension (principal); R73.09 Other abnormal glucose
CPT/HCPCS: 36415; 80053; 83036

== ENCOUNTER → 2019-07-25 08:51 | Outpatient (CLI) | payer MEDICARE, SELFPAY ==
[2019-01-25 09:39] VITALS: BMI 34.6
--- NOTE | 2019-07-25 08:52 | US_ITS ---
STUDY: THYROID ULTRASOUND REASON FOR EXAM: Female, 69 years old. NODULE TECHNIQUE: Ultrasound evaluation of the thyroid was performed with real-time and static good-scale imaging. COMPARISON: Comparison is made with prior examination January 03, 2019. FINDINGS: RIGHT LOBE: The right lobe of the thyroid gland measures 4.6 cm x 2.1 cm x 2.0 cm. There is a homogeneous echotexture. There is a 2.4 cm x 1.8 cm x 1.8 cm inhomogeneous solid/cystic nodule in the midpole of the right lobe. This has increased slightly in size as compared to prior study. LEFT LOBE: The left lobe of the thyroid gland measures 4.2 cm x 1.9 cm x 1.8 cm. There is a homogeneous echotexture. Stable 1.1 cm x 1 cm x 0.9 cm solid nodule in the lower pole. There are 3 subcentimeters cyst in the left lobe as well. ISTHMUS: The isthmus measures 3.0 mm. The regional lymph nodes are normal. US/Thyroid IMPRESSION: Mild enlargement of the complex nodule in the midpole of the right lobe. A biopsy is recommended. Electronically Signed: Pierre Hollins, at 10:28 EDT , Service support ,
== END ==
PROVIDERS: PCP Family Medicine; Referring Provider Surgery; Visit Provider Surgery
DX: E04.2 Nontoxic multinodular goiter (principal)
CPT/HCPCS: 76536

== ENCOUNTER → 2019-10-31 09:27 | Outpatient (CLI) | payer MEDICARE, SELFPAY ==
[2019-07-27 13:07] VITALS: BMI 34.6
[2019-10-31 12:21] LABS: Absolute Neutrophil Count 3.3 X10^3/uL (2.0-7.7); Basophil# 0.07 X10^3/uL; Basophil% 0.9 % (0-1); Eosinophil# 0.42 X10^3/uL; Eosinophils% 5.6 % (0-5); Hematocrit 44.9 % (37-47); Hemoglobin 14.8 g/dL (12.0-15.0); Lymphocyte % 42.8 % (19-41); Mean Corpuscular Hgb 29.6 pg (27.0-32.0); Mean Corpuscular Volume 89.8 fL (81-99); Mean Platelet Vol. 10.8 fl (6.2-12.0); Monocyte# 0.46 X10^3/uL; Monocyte% 6.1 % (0-10); NRBC Flagged by Analyzer 0 % (0-5); Neutrophil # 3.32 X10^3/uL (2.7-7.7); Neutrophil % 44.5 % (47-70); Platelet Count 206 K/mm3 (150-450); RBC Distribution Width CV 12.8 % (11.6-14.6); RBC Distribution Width SD 42.2 fl (35.1-43.9); White Blood Count 7.5 K/mm3 (4.4-11.0)
[2019-10-31 12:37] LABS: ALB/GLOB Ratio 1.3 RATIO (0.9-2.4); AST(SGOT) 17 U/L (15-37); Alanine Aminotransfer ALT/SGPT 25 U/L (13-56); Albumin, Serum 3.9 g/dL (3.2-5.0); Alkaline Phosphatase 73 U/L (45-117); Anion Gap 6 (5-15); BUN 20 mg/dL (7-18); BUN/Creat Ratio 19.6 RATIO (10-20); Calcium,Total 9.7 mg/dL (8.5-10.1); Chloride 110 mmol/L (98-107); Cholesterol 223 mg/dL (200); Creatinine, Serum 1.02 mg/dL (0.55-1.02); EST Glomerular Filtration Rate 57 mL/min (>60); Est Glom Filt Rate - Afr Amer 69 mL/min (>60); Glucose 102 mg/dL (74-106); High Density Lipoprotein 54 mg/dL; Phosphorus 3.4 mg/dL (2.5-4.9); Potassium 3.7 mmol/L (3.5-5.1); Protein, Total 6.9 g/dL (6.4-8.2); Sodium Level 143 mmol/L (136-145); Triglycerides 140 mg/dL; Very Low Density Lipoprotein 28 mg/dL (5-40)
[2019-10-31 12:39] LABS: Vitamin D,25 Hydroxy 66.6 ng/mL
[2019-10-31 12:44] LABS: Hemoglobin A1c 5.4 % (3.8-5.6)
[2019-10-31 12:48] LABS: Protein, Urine (Random) 14.8 mg/dL (<11.9); Protein:Creat Ratio 114 mg/g CRE (0-200)
[2019-10-31 12:53] LABS: PTHIN 35.7 pg/mL (18.4-80.1)
== END ==
PROVIDERS: PCP Family Medicine; Referring Provider Family Medicine; Visit Provider Family Medicine
DX: M85.80 Other specified disorders of bone density and structure, unspecified site (principal); R73.02 Impaired glucose tolerance (oral); I12.9 Hypertensive chronic kidney disease with stage 1 through stage 4 chronic kidney disease, or unspecified chronic kidney disease; N18.3 Chronic kidney disease, stage 3 (moderate); E78.00 Pure hypercholesterolemia, unspecified
CPT/HCPCS: 36415; 80053; 80061; 82306; 82570; 83036; 83970; 84100; 84156; 85025

== ENCOUNTER → 2020-02-10 09:16 | Outpatient (CLI) | payer MEDICARE, SELFPAY ==
[2019-07-27 13:07] VITALS: BMI 34.6
[2020-02-10 11:06] LABS: Protein, Urine (Random) 17.6 mg/dL (<11.9); Protein:Creat Ratio 97 mg/g CRE (0-200)
[2020-02-10 11:13] LABS: ALB/GLOB Ratio 1.3 RATIO (0.9-2.4); AST(SGOT) 21 U/L (15-37); Alanine Aminotransfer ALT/SGPT 25 U/L (13-56); Albumin, Serum 3.7 g/dL (3.2-5.0); Alkaline Phosphatase 72 U/L (45-117); Anion Gap 5 (5-15); BUN 22 mg/dL (7-18); BUN/Creat Ratio 22.2 RATIO (10-20); Calcium,Total 9.3 mg/dL (8.5-10.1); Chloride 109 mmol/L (98-107); Cholesterol 135 mg/dL (200); Creatinine, Serum 0.99 mg/dL (0.55-1.02); EST Glomerular Filtration Rate 59 mL/min (>60); Est Glom Filt Rate - Afr Amer 71 mL/min (>60); Globulin 2.9 g/dL (2.2-4.2); Glucose 102 mg/dL (74-106); High Density Lipoprotein 64 mg/dL; Phosphorus 2.9 mg/dL (2.5-4.9); Potassium 3.9 mmol/L (3.5-5.1); Protein, Total 6.6 g/dL (6.4-8.2); Sodium Level 142 mmol/L (136-145); Triglycerides 89 mg/dL; Very Low Density Lipoprotein 18 mg/dL (5-40)
[2020-02-10 11:14] LABS: Hemoglobin A1c 5.3 % (3.8-5.6)
[2020-02-10 14:35] LABS: Vitamin D,25 Hydroxy 55.9 ng/mL
== END ==
PROVIDERS: PCP Family Medicine; Referring Provider Family Medicine; Visit Provider Family Medicine
DX: R73.02 Impaired glucose tolerance (oral) (principal); E78.00 Pure hypercholesterolemia, unspecified; M85.80 Other specified disorders of bone density and structure, unspecified site; I12.9 Hypertensive chronic kidney disease with stage 1 through stage 4 chronic kidney disease, or unspecified chronic kidney disease; N18.30 Chronic kidney disease, stage 3 unspecified
CPT/HCPCS: 36415; 80053; 80061; 82306; 82570; 83036; 84100; 84156

== ENCOUNTER → 2020-02-17 07:53 | Outpatient (CLI) | payer MEDICARE, SELFPAY ==
[2019-07-27 13:07] VITALS: BMI 34.6
--- NOTE | 2020-02-17 07:58 | US_ITS ---
STUDY: THYROID ULTRASOUND REASON FOR EXAM: Female, 69 years old. F/u nodules TECHNIQUE: Ultrasound evaluation of the thyroid was performed with real-time and static good-scale imaging. COMPARISON: Comparison is made with prior examination dated 07/25/2019. FINDINGS: RIGHT LOBE: The right lobe of the thyroid gland measures 4.6 cm x 2.1 cm x 1.9 cm. There is a heterogeneous echotexture. There is a dominant 2.4 cm x 2 cm x 1.9 cm heterogeneous solid/cystic nodule in the midpole of the right lobe. There are nodular and intralobular nodular vascularity is seen. This is unchanged. There is also evidence of a 5 mm x 5 mm x 4 mm hypoechoic nodule in the upper pole. LEFT LOBE: The left lobe of the thyroid gland measures 4.2 cm x 1.9 cm x 1.4 cm. There is a heterogeneous echotexture. 5 nodules are seen. The largest nodule measures 1.2 cm x 1.2 cm x 0.8 cm. This is a solid nodule in the lower pole. This is essentially unchanged. ISTHMUS: The isthmus measures 3 mm. There is a 6 mm x 5 mm x 4 mm solid nodule in the isthmus. Adjacent to this, a similar-appearing nodule measuring 6 mm x 6 mm x 4 mm is seen as well. The regional lymph nodes are normal. US/Thyroid IMPRESSION: Multiple bilateral thyroid nodules with dominant nodule in the midpole of the right lung. This is unchanged. Electronically Signed: Pierre Hollins, at 10:39 EST , Service support ,
== END ==
PROVIDERS: PCP Family Medicine; Referring Provider Family Medicine; Visit Provider Family Medicine
DX: E04.1 Nontoxic single thyroid nodule (principal)
CPT/HCPCS: 76536

== ENCOUNTER → 2020-03-28 14:46 | Outpatient (CLI) | payer MEDICARE, SELFPAY ==
[2019-07-27 13:07] VITALS: BMI 34.6
--- NOTE | 2020-03-28 14:50 | RAD_ITS ---
STUDY: X-RAY - LEFT FOOT CLINICAL: Female, 69 years old. Injury to left foot, bruising and pain to lateral foot, across 5th metatarsal TECHNIQUE: 3 view(s) of the foot. COMPARISON: None. FINDINGS: Normal talus, calcaneus, and tarsal bones. Normal visualized subtalar, talonavicular, calcaneocuboid, tarsal and tarsometatarsal articulations. Nondisplaced oblique fracture through the mid and distal shaft of the fifth metatarsal. There is degenerative arthrosis of the metatarsophalangeal joint of the hallux . Normal tibial and fibular sesamoid bones. Normal interphalangeal joint of the great toe. Normal phalanges of the great toe. Normal second through fifth metatarsophalangeal joints. Normal interphalangeal joints and phalanges of the lesser toes. Soft tissue swelling. RAD/Foot min 3 Views IMPRESSION: Nondisplaced oblique fracture of the mid and distal portion of the fifth metatarsal with overlying soft tissue swelling. Electronically Signed: Pierre Hollins, at 15:12 EST , Service support ,
== END ==
PROVIDERS: PCP Family Medicine; Referring Provider Family Medicine; Visit Provider Family Medicine
DX: M79.672 Pain in left foot (principal)
CPT/HCPCS: 73630

== ENCOUNTER → 2020-06-19 08:49 | Outpatient (CLI) | payer MEDICARE, SELFPAY ==
[2019-07-27 13:07] VITALS: BMI 34.6
[2020-06-19 10:06] LABS: Absolute Lymphocyte Count 3.25 X10^3/uL (0.83-4.51); Absolute Neutrophil Count 3.1 X10^3/uL (2.0-7.7); Basophil# 0.08 X10^3/uL; Basophil% 1.1 % (0-1); Eosinophil# 0.24 X10^3/uL; Eosinophils% 3.4 % (0-5); Hemoglobin 14.4 g/dL (12.0-15.0); Lymphocyte # 3.25 X10^3/ul (4.0); Lymphocyte % 45.6 % (19-41); Mean Corp Hgb Conc 32.7 g/dL (32-36); Mean Corpuscular Hgb 29.5 pg (27.0-32.0); Mean Corpuscular Volume 90.2 fL (81-99); Mean Platelet Vol. 10.4 fl (6.2-12.0); Monocyte# 0.43 X10^3/uL; NRBC Flagged by Analyzer 0 % (0-5); Neutrophil # 3.11 X10^3/uL (2.7-7.7); Neutrophil % 43.8 % (47-70); Platelet Count 207 K/mm3 (150-450); RBC Distribution Width CV 12.9 % (11.6-14.6); RBC Distribution Width SD 42.1 fl (35.1-43.9); Red Blood Count 4.88 M/mm3 (4.2-5.4); White Blood Count 7.1 K/mm3 (4.4-11.0)
[2020-06-19 10:36] LABS: ALB/GLOB Ratio 1.2 RATIO (0.9-2.4); AST(SGOT) 20 U/L (15-37); Alanine Aminotransfer ALT/SGPT 26 U/L (13-56); Albumin, Serum 3.7 g/dL (3.2-5.0); Alkaline Phosphatase 75 U/L (45-117); Anion Gap 3 (5-15); BUN 22 mg/dL (7-18); BUN/Creat Ratio 19.6 RATIO (10-20); Calcium,Total 9.2 mg/dL (8.5-10.1); Chloride 107 mmol/L (98-107); Cholesterol 139 mg/dL (200); Creatinine, Serum 1.12 mg/dL (0.55-1.02); EST Glomerular Filtration Rate 51 mL/min (>60); Est Glom Filt Rate - Afr Amer 62 mL/min (>60); Globulin 3.1 g/dL (2.2-4.2); Glucose 103 mg/dL (74-106); High Density Lipoprotein 65 mg/dL; Potassium 3.9 mmol/L (3.5-5.1); Protein, Total 6.8 g/dL (6.4-8.2); Sodium Level 142 mmol/L (136-145); Triglycerides 81 mg/dL; Very Low Density Lipoprotein 16 mg/dL (5-40)
[2020-06-19 10:44] LABS: Hemoglobin A1c 5.4 % (3.8-5.6); Vitamin D,25 Hydroxy 52.6 ng/mL
== END ==
PROVIDERS: PCP Family Medicine; Referring Provider Family Medicine; Visit Provider Family Medicine
DX: I10 Essential (primary) hypertension (principal); R73.02 Impaired glucose tolerance (oral); M85.80 Other specified disorders of bone density and structure, unspecified site; E78.00 Pure hypercholesterolemia, unspecified
CPT/HCPCS: 36415; 80053; 80061; 82306; 83036; 85025

== ENCOUNTER → 2020-11-06 08:18 | Outpatient (CLI) | payer MEDICARE, SELFPAY ==
[2019-07-27 13:07] VITALS: BMI 34.6
--- NOTE | 2020-11-06 08:19 | BI_ITS ---
MAMMOGRAPHY - BILATERAL SCREENING REASON FOR EXAM: Female, 70 years old. Routine annual screening examination. PERTINENT HISTORY: Mother with breast cancer. Remote right excisional breast biopsy. TECHNIQUE: Digital bilateral breast adelfo (3D mammographic acquisition) in the CC and MLO projections. 2-D mediolateral oblique (MLO) and craniocaudad (CC) views of both breasts were obtained. CAD: Full Field Digital Mammography with Computer Added Detection was performed. COMPARISON: Comparison is made with prior study dated 11/10/2018 and 12/04/2016. FINDINGS: Breast Composition: There are scattered areas of fibroglandular density. There are no dominant masses or suspicious calcifications. Stable small benign-appearing bilateral axillary lymph nodes. No other significant abnormalities are identified. There has been no significant change since the prior study. BI/SCRN MAMM (CAD)W/ADELFO BILAT IMPRESSION: Stable bilateral screening mammogram. Yearly follow-up mammogram recommended. (A) ASSESSMENT CATEGORY: BIRADS Category 2: Benign. A letter regarding these results will be sent to the patient by the facility within 30 days. Approximately 10% of breast cancers are not detected by mammography. A normal mammogram should not delay biopsy of a clinically suspicious abnormality. [id number] Electronically Signed: Pierre Hollins MD at 9:23 EDT , Service support ,
== END ==
PROVIDERS: PCP Family Medicine; Referring Provider Family Medicine; Visit Provider Family Medicine
DX: Z12.31 Encounter for screening mammogram for malignant neoplasm of breast (principal)
CPT/HCPCS: 77063; 77067

== ENCOUNTER → 2020-12-21 09:02 | Outpatient (CLI) | payer MEDICARE, SELFPAY ==
[2020-12-21 13:10] LABS: Absolute Lymphocyte Count 3.96 X10^3/uL (0.83-4.51); Absolute Neutrophil Count 3.1 X10^3/uL (2.0-7.7); Basophil# 0.06 X10^3/uL; Basophil% 0.8 % (0-1); Eosinophil# 0.31 X10^3/uL; Eosinophils% 3.9 % (0-5); Hematocrit 44.1 % (37-47); Hemoglobin 14.6 g/dL (12.0-15.0); Lymphocyte # 3.96 X10^3/ul (0.83-4.51); Lymphocyte % 49.9 % (19-41); Mean Corp Hgb Conc 33.1 g/dL (32-36); Mean Corpuscular Hgb 29.7 pg (27.0-32.0); Mean Corpuscular Volume 89.6 fL (81-99); Mean Platelet Vol. 10.3 fl (6.2-12.0); Monocyte# 0.44 X10^3/uL; Monocyte% 5.5 % (0-10); NRBC Flagged by Analyzer 0 % (0-5); Neutrophil # 3.14 X10^3/uL (2.7-7.7); Neutrophil % 39.6 % (47-70); Platelet Count 220 K/mm3 (150-450); RBC Distribution Width CV 12.9 % (11.6-14.6); RBC Distribution Width SD 42.5 fl (35.1-43.9); Red Blood Count 4.92 M/mm3 (4.2-5.4); White Blood Count 7.9 K/mm3 (4.4-11.0)
[2020-12-21 13:38] LABS: Hemoglobin A1c 5.4 % (3.8-5.6)
[2020-12-21 13:40] LABS: ALB/GLOB Ratio 1.2 RATIO (0.9-2.4); AST(SGOT) 18 U/L (15-37); Alanine Aminotransfer ALT/SGPT 23 U/L (13-56); Albumin, Serum 3.8 g/dL (3.2-5.0); Alkaline Phosphatase 71 U/L (45-117); Anion Gap 7 (5-15); BUN 21 mg/dL (7-18); Calcium,Total 9.7 mg/dL (8.5-10.1); Chloride 108 mmol/L (98-107); Cholesterol 217 mg/dL (200); EST Glomerular Filtration Rate 58 mL/min (>60); Est Glom Filt Rate - Afr Amer 70 mL/min (>60); Globulin 3.1 g/dL (2.2-4.2); Glucose 90 mg/dL (74-106); High Density Lipoprotein 59 mg/dL; Phosphorus 2.9 mg/dL (2.5-4.9); Potassium 3.8 mmol/L (3.5-5.1); Protein, Total 6.9 g/dL (6.4-8.2); Sodium Level 143 mmol/L (136-145); Triglycerides 151 mg/dL; Very Low Density Lipoprotein 30 mg/dL (5-40)
[2020-12-21 13:46] LABS: Vitamin D,25 Hydroxy 58.8 ng/mL
[2020-12-21 13:48] LABS: Protein, Urine (Random) 19.2 mg/dL (<11.9); Protein:Creat Ratio 122 mg/g CRE (0-200)
== END ==
PROVIDERS: PCP Family Medicine; Referring Provider Family Medicine; Visit Provider Family Medicine
DX: R73.02 Impaired glucose tolerance (oral) (principal); N18.30 Chronic kidney disease, stage 3 unspecified; E78.00 Pure hypercholesterolemia, unspecified
CPT/HCPCS: 36415; 80053; 80061; 82306; 82570; 83036; 83970; 84100; 84156; 85025

== ENCOUNTER 2021-05-21 08:25 | Outpatient (CLI) | payer MEDICARE, SELFPAY ==
[2021-05-21 10:13] LABS: Absolute Lymphocyte Count 3.71 X10^3/uL (0.83-4.51); Absolute Neutrophil Count 4.5 X10^3/uL (2.0-7.7); Basophil# 0.08 X10^3/uL; Basophil% 0.9 % (0-1); Eosinophil# 0.26 X10^3/uL; Eosinophils% 2.8 % (0-5); Hematocrit 42.5 % (37-47); Hemoglobin 13.9 g/dL (12.0-15.0); Lymphocyte # 3.71 X10^3/ul (0.83-4.51); Lymphocyte % 40.5 % (19-41); Mean Corp Hgb Conc 32.7 g/dL (32-36); Mean Corpuscular Hgb 29.6 pg (27.0-32.0); Mean Corpuscular Volume 90.6 fL (81-99); Mean Platelet Vol. 10.6 fl (6.2-12.0); Monocyte# 0.56 X10^3/uL; Monocyte% 6.1 % (0-10); NRBC Flagged by Analyzer 0 % (0-5); Neutrophil # 4.54 X10^3/uL (2.7-7.7); Neutrophil % 49.6 % (47-70); Platelet Count 209 K/mm3 (150-450); RBC Distribution Width CV 13.2 % (11.6-14.6); RBC Distribution Width SD 43.8 fl (35.1-43.9); Red Blood Count 4.69 M/mm3 (4.2-5.4); White Blood Count 9.2 K/mm3 (4.4-11.0)
[2021-05-21 10:33] LABS: ALB/GLOB Ratio 1.2 RATIO (0.9-2.4); AST(SGOT) 18 U/L (15-37); Alanine Aminotransfer ALT/SGPT 28 U/L (13-56); Albumin, Serum 3.7 g/dL (3.2-5.0); Alkaline Phosphatase 68 U/L (45-117); Anion Gap 3 (5-15); BUN 23 mg/dL (7-18); BUN/Creat Ratio 21.5 RATIO (10-20); Calcium,Total 9.6 mg/dL (8.5-10.1); Chloride 108 mmol/L (98-107); Cholesterol 142 mg/dL (200); Creatinine, Serum 1.07 mg/dL (0.55-1.02); EST Glomerular Filtration Rate 53 mL/min (>60); Est Glom Filt Rate - Afr Amer 65 mL/min (>60); Globulin 3.1 g/dL (2.2-4.2); Glucose 92 mg/dL (74-106); High Density Lipoprotein 67 mg/dL; Potassium 3.8 mmol/L (3.5-5.1); Protein, Total 6.8 g/dL (6.4-8.2); Sodium Level 142 mmol/L (136-145); Triglycerides 69 mg/dL; Very Low Density Lipoprotein 14 mg/dL (5-40); Vitamin D,25 Hydroxy 60.6 ng/mL
[2021-05-21 11:38] LABS: Hemoglobin A1c 5.5 % (3.8-5.6)
== END 2021-05-21 23:59 | disposition home or self-care (01) ==
LOC: MTLAB 08:26
PROVIDERS: PCP Family Medicine; Referring Provider Family Medicine; Visit Provider Family Medicine
DX: I10 Essential (primary) hypertension (principal); M85.80 Other specified disorders of bone density and structure, unspecified site; E78.00 Pure hypercholesterolemia, unspecified; R73.02 Impaired glucose tolerance (oral)
CPT/HCPCS: 36415; 80053; 80061; 82306; 83036; 85025

== ENCOUNTER 2021-10-15 10:26 | Outpatient (CLI) | payer MEDICARE, SELFPAY ==
--- NOTE | 2021-10-15 10:31 | BD_ITS ---
STUDY: DUAL ENERGY X-RAY ABSORPTIOMETRY / DXA REASON FOR EXAM: Female, 71 years old. M85.89. Patient is postmenopausal. TECHNIQUE: Bone Mineral Density (BMD) measurements of lumbar spine and bilateral hips were obtained. COMPARISON: Comparison is made with prior study dated 12/28/2018. FINDINGS: Lumbar Spine (L1-L4): g/cm2 (0.998) / T-score (0.2) / Z-score (2.3) Findings are suggestive of normal bone density with a low fracture risk. Left Femur Total: g/cm2 (0.782) / T-score (-1.3) / Z-score (0.4) Left Femoral Neck: g/cm2 (0.658) / T-score (-1.7) / Z-score (0.3) Right Femur Total: g/cm2 (0.808) / T-score (-1.1) / Z-score (0.6) Right Femoral Neck: g/cm2 (0.665) / T-score (-1.7) / Z-score (0.3) The T-Scores on the most recent prior examination were: Lumbar Spine (L1-L4): There has been worsening of bone density since the previous examination. Left Femur Total: which represents an improvement of 3%. Right Femur Total: which represents an improvement of 0.7%. BD/Dexa Bone Density Study IMPRESSION: The patient is considered osteopenic as outlined below according to World Bill Organization (WHO) criteria with a moderate fracture risk. There has been improvement of bone density since the previous examination. Reference Information: The T-score is the number of standard deviations above or below the standard which is normal for young adults at their peak bone mineral density. The World Health Organization (WHO) interprets the T-scores as follows: Above -1 Normal bone density Between -1 and -2.5 Osteopenia Equal to / or below -2.5 Osteoporosis As a practical clinical guideline, osteopenia may be graded as follows: Mild -1 through -1.5 Moderate -1.6 through -2.0 Severe -2.1 through -2.4 The Z-score is the number of standard deviations above or below age-matched controls. A Z-score of less than -1.5 would be considered abnormal. References: 1. NIH Osteoporosis and Related Bone Diseases www osteo.org 2. International Society for Clinical Densitometry www iscd.org 3. National Osteoporosis Foundation www nof.org Electronically Signed: Pierre Hollins MD at 9:03 EDT ,
== END 2021-10-15 23:59 | disposition home or self-care (01) ==
LOC: OPBD 10:27
PROVIDERS: PCP Family Medicine; Visit Provider Family Medicine
DX: M85.89 Other specified disorders of bone density and structure, multiple sites (principal); Z78.0 Asymptomatic menopausal state
CPT/HCPCS: 77080

== ENCOUNTER → 2021-11-28 | Outpatient (CLI) | payer MEDICARE, SELFPAY ==
[2021-11-28 10:01] LABS: Absolute Lymphocyte Count 4.51 X10^3/uL (0.83-4.51); Absolute Neutrophil Count 3.2 X10^3/uL (2.0-7.7); Basophil# 0.05 X10^3/uL; Basophil% 0.6 % (0-1); Eosinophil# 0.23 X10^3/uL; Eosinophils% 2.7 % (0-5); Hematocrit 43.7 % (37-47); Hemoglobin 14.3 g/dL (12.0-15.0); Lymphocyte # 4.51 X10^3/ul (0.83-4.51); Lymphocyte % 53.6 % (19-41); Mean Corp Hgb Conc 32.7 g/dL (32-36); Mean Corpuscular Hgb 29.6 pg (27.0-32.0); Mean Corpuscular Volume 90.5 fL (81-99); Mean Platelet Vol. 10.8 fl (6.2-12.0); Monocyte# 0.45 X10^3/uL; Monocyte% 5.4 % (0-10); NRBC Flagged by Analyzer 0 % (0-5); Neutrophil # 3.16 X10^3/uL (2.7-7.7); Neutrophil % 37.6 % (47-70); Platelet Count 205 K/mm3 (150-450); RBC Distribution Width CV 12.7 % (11.6-14.6); RBC Distribution Width SD 41.8 fl (35.1-43.9); Red Blood Count 4.83 M/mm3 (4.2-5.4); White Blood Count 8.4 K/mm3 (4.4-11.0)
[2021-11-28 10:20] LABS: Color, Urine Yellow (Yellow); Glucose, Dipstick Normal (Normal); Ketone-Dipstick Negative (Negative); Leukocyte Esterase-Dipstick 25 /ul (Negative); Nitrite-Dipstick Negative (Negative); Occult Blood-Urine 25 /ul (Negative); Protein-Dipstick 30 mg/dl (Negative); Specific Gravity, Urine 1.025 (1.002-1.030); Urine Bilirubin Dipstick Negative (Negative); Urine Clarity Clear (Clear); Urine Urobilinogen Normal (Normal); Vitamin D,25 Hydroxy 65.7 ng/mL
[2021-11-28 10:22] LABS: ALB/GLOB Ratio 1.2 RATIO (0.9-2.4); AST(SGOT) 16 U/L (15-37); Alanine Aminotransfer ALT/SGPT 26 U/L (13-56); Albumin, Serum 3.7 g/dL (3.2-5.0); Alkaline Phosphatase 66 U/L (45-117); Anion Gap 8 (5-15); BUN 17 mg/dL (7-18); BUN/Creat Ratio 15.3 RATIO (10-20); Calcium,Total 9.4 mg/dL (8.5-10.1); Chloride 107 mmol/L (98-107); Cholesterol 128 mg/dL (200); Creatinine, Serum 1.11 mg/dL (0.55-1.02); EST Glomerular Filtration Rate 51 mL/min (>60); Est Glom Filt Rate - Afr Amer 62 mL/min (>60); Globulin 3.2 g/dL (2.2-4.2); Glucose 107 mg/dL (74-106); High Density Lipoprotein 53 mg/dL; Phosphorus 3.1 mg/dL (2.5-4.9); Potassium 3.8 mmol/L (3.5-5.1); Protein, Total 6.9 g/dL (6.4-8.2); Sodium Level 142 mmol/L (136-145); Triglycerides 119 mg/dL; Very Low Density Lipoprotein 24 mg/dL (5-40)
[2021-11-28 10:23] LABS: Hemoglobin A1c 5.5 % (3.8-5.6)
[2021-11-28 10:30] LABS: Protein, Urine (Random) 30.1 mg/dL (<11.9); Protein:Creat Ratio 148 mg/g CRE (0-200)
[2021-11-28 10:40] LABS: PTHIN 40.9 pg/mL (18.4-80.1)
== END | disposition home or self-care (01) ==
LOC: MFPLAB 08:16
PROVIDERS: PCP Family Medicine; Referring Provider Family Medicine; Visit Provider Family Medicine
DX: I12.9 Hypertensive chronic kidney disease with stage 1 through stage 4 chronic kidney disease, or unspecified chronic kidney disease (principal); N18.30 Chronic kidney disease, stage 3 unspecified; R73.02 Impaired glucose tolerance (oral); E78.00 Pure hypercholesterolemia, unspecified; M85.80 Other specified disorders of bone density and structure, unspecified site
CPT/HCPCS: 36415; 80053; 80061; 81002; 82306; 82570; 83036; 83970; 84100; 84156; 85025

== ENCOUNTER 2022-02-13 23:57 | Observation (INO) | payer MEDICARE, SELFPAY ==
[2022-02-13 23:58] VITALS: BP 159/85; PULSE 79; RESP 16; TEMP 36.1; O2SAT 98; BMI 36.1
[2022-02-14] VITALS (12 sets, daily range): BP systolic 113–153; BP diastolic 52–84; PULSE 68–93; RESP 16–18; TEMP 36.6–37.8; O2SAT 87–100; BMI 35.9
--- NOTE | 2022-02-14 00:21 | EDS_ITS ---
HPI History of Present Illness Chief Complaint: Flank Pain Narrative Narrative: 71-year-old female here with flank pain. Pain is located left side. Pain started tonight has been constant severe nonradiating with no alleviating factors. Denies any shortness of breath. Nausea vomiting, fever, frequency urgency or dysuria. Old chart reviewed: History of nephrolithiasis CT scan from November 2017 shows a 5 mm left ureteral calculus with left hydronephrosis PFSH PFS Medical History (Updated 02/14/22 @ 05:12 by Nila Grady) Depression High cholesterol Hypertension Left ureteral calculus Multinodular goiter Nephrolithiasis Osteoarthritis Post-menopausal Skin cancer of forehead Home Medications amlodipine 10 mg tablet 10 mg PO QHS blood pressure 06/07/13 [History Last Taken 12/09/17 09:00 Y] multivitamin,wu-uraa-[id number] 27 mg-0.4 mg tablet 1 tab PO DAILY supplement 06/07/13 [History Last Taken 06/07/13] sertraline 50 mg tablet 50 mg PO DAILY mood 06/07/13 [History Last Taken 06/07/13] lisinopril 10 mg-hydrochlorothiazide 12.5 mg tablet 0.5 tab PO QHS blood pressure 01/11/19 [History Last Taken Unknown] calcium carbonate 500 mg calcium (1,250 mg) tablet (Calcium 500) 1,200 mg PO BID supplement 07/27/19 [History Last Taken Unknown] lactobacillus combination no.4 3 billion cell capsule (Probiotic) 3,000 mmu cells PO DAILY supplement 02/14/22 [History Last Taken Unknown] latanoprost 0.005 % eye drops 1 drp EACH EYE QHS glaucoma 02/14/22 [History Last Taken Unknown] rosuvastatin 10 mg tablet 10 mg PO QHS cholesterol 02/14/22 [History Last Taken Unknown] Allergy/AdvReac Type Severity Reaction Status Date / Time Penicillins Allergy Swelling Verified 02/13/22 23:58 Family History Father Diabetes Heart disease Mother Breast cancer Surgical History (Updated 02/14/22 @ 05:12 by Nila Grady) History of blepharoplasty History of History of knee replacement History of laparoscopic cholecystectomy History of lithotripsy History of Mohs micrographic surgery for skin cancer Social History (Updated 07/27/19 @ 13:[address] Cornelio Mayberry MD) Smoking Status: Never smoker alcohol intake: current substance use type: does not use ROS ROS ED ROS Narrative Constitutional: Denies fever HEENT: Denies sore throat Neck: Denies neck pain Cardiovascular: Denies chest pain, syncope Respiratory: Denies shortness of breath GI: Denies nausea vomiting or abdominal pain : endorses flank pain Musculoskeletal: Denies muscle or joint pain Neurologic: Denies numbness weakness or loss of sensation Skin denies rash EXAM Physical Exam Narrative Exam Narrative: Nursing triage notes reviewed, Vital signs reviewed Constitutional: please see mdm HENT: MMM Eyes: Pupils equal round and reactive to light, Extraocular muscles intact Neck: No stridor, no JVD, full neck ROM Lungs: Clear to auscultation, No wheezing or rales. No increased work of breathing, no conversational dyspnea, no accessory muscle use, no nasal flaring. No respiratory distress noted Heart: Regular rate and rhythm, No murmurs, No rubs and No gallops, 2+ distal pulses (radial, femoral, posterior tibial) in all extremities Abdomen: Soft, there is no tenderness, rigidity, rebound or guarding, no obvious peritoneal signs, no palpable pulsatile abdominal masses, no auscultated abdominal bruit : Left CVAT Extremities: No edema Neuro: Mental status at baseline, does not respond to commands, moves all 4 extremities, appears to have sensation all 4 extremities. Skin: No rash or lesions noted Const Vital Signs: 02/13/22 23:58 02/14/22 00:09 02/14/22 02:40 Temperature 96.9 F L 98.2 F Temperature Source Temporal Temporal Pulse Rate 79 72 Respiratory Rate 16 16 Respiratory Pattern Normal Blood Pressure 159/85 H 113/70 Blood Pressure Mean 109 84 Pulse Ox 98 97 Oxygen Delivery Method Room Air Room Air [facility] [place] Narrative Medical decision making narrative: 71-year-old female here with left flank pain in setting of nephrolithiasis. Patient was hemodynamically stable, afebrile, nontoxic-appearing. Exam with positive CVA tenderness. CT scan showed evidence of an 11 mm left UPJ stone. Given this large size and low likelihood of spontaneous resolution I consulted urology spoke with Dr. Orta (urology) who recommended admission to his service for likely surgical intervention. Gave the patient 1 dose of ceftriaxone given elevated leukocyte esterase. Patient remained hemodynamically stable is appropriate for inpatient admission. Accepted by Dr. Orta (urology). Gave ceftriaxone given leukocytosis and signs of urinary inflammation. Lab Data Attestation: I reviewed the patient's lab results. Lab results narrative: CBC with leukocytosis, no anemia, no thrombocytopenia BMP without significant electrolyte abnormalities, no anion gap, mild renal insufficiency Urinalysis with evidence of urinary inflammation Labs: Laboratory Results - last 24 hr 02/14/22 02/14/22 02/14/22 00:10 00:10 00:10 WBC 15.1 H RBC 4.79 Hgb 14.3 Hct 42.9 MCV 89.6 MCH 29.9 MCHC 33.3 RDW Std Deviation 42.0 RDW Coeff of Alphonso 12.8 Plt Count 223 MPV 10.5 Immature Gran % (Auto) 0.300 Neut % (Auto) 62.9 Lymph % (Auto) 29.6 [place] % (Auto) 5.2 Eos % (Auto) 1.6 Baso % (Auto) 0.4 Absolute Neuts (auto) 9.5 H Absolute Lymphs (auto) 4.47 Nucleated RBC % 0 Sodium 142 Potassium 3.7 Chloride 106 Carbon Dioxide 31.0 Anion Gap 5 BUN 18 Creatinine 1.29 H Estim Creat Clear Calc 36.36 Est GFR (MDRD) Af Amer 52 L Est GFR (MDRD) Non-Af 43 L BUN/Creatinine Ratio 14.0 Glucose 123 H Calcium 10.0 Troponin I High Sens Urine Color Yellow Urine Clarity Sl. Cloudy Urine pH 6.0 Ur Specific [place] 1.025 Urine Protein 30 H Urine Glucose (UA) Normal Urine Ketones Negative Urine Occult Blood 250 H Urine Nitrite Negative Urine Bilirubin Negative Urine Urobilinogen Normal Ur Leukocyte Esterase 25 H Urine RBC 50-100 SEEN Urine WBC 0 SEEN Ur Squamous Epith Cells 5-10 SEEN Calcium Oxalate Crystal 2+ Urine Bacteria 1+ Urine Mucus 0 SEEN 02/14/22 03:03 WBC RBC Hgb Hct MCV MCH MCHC RDW Std Deviation RDW Coeff of Alphonso Plt Count MPV Immature Gran % (Auto) Neut % (Auto) Lymph % (Auto) [place] % (Auto) Eos % (Auto) Baso % (Auto) Absolute Neuts (auto) Absolute Lymphs (auto) Nucleated RBC % Sodium Potassium Chloride Carbon Dioxide Anion Gap BUN Creatinine Estim Creat Clear Calc Est GFR (MDRD) Af Amer Est GFR (MDRD) Non-Af BUN/Creatinine Ratio Glucose Calcium Troponin I High Sens 7 Urine Color Urine Clarity Urine pH Ur Specific [place] Urine Protein Urine Glucose (UA) Urine Ketones Urine Occult Blood Urine Nitrite Urine Bilirubin Urine Urobilinogen Ur Leukocyte Esterase Urine RBC Urine WBC Ur Squamous Epith Cells Calcium Oxalate Crystal Urine Bacteria Urine Mucus Radiography Diagnostic Testing: Clinical Impression(s) from Imaging Studies Abdomen/Pelvis CT 02/14/22 00:23 IMPRESSION: 1. Bilateral nephrolithiasis with moderate left obstructive uropathy secondary to 11 mm left UPJ stone. 2. Other nonurgent findings within body of report. Electronically Signed: Zak Cedillo MD at 1:27 EST , EKG Initial EKG: Comments: EKG with normal sinus rhythm, left axis deviation, prolonged MS interval, no STEMI Treatment and Re-Evaluation Narrative: Patient's pain improved after morphine she remained hemodynamically stable and appropriate for discharge home. The patient did complain of some chest tightness to me during my reevaluation her EKG was nonischemic I did add on a troponin level. Troponin negative making ACS less likely. Discharge Plan Dx/Rx/DC Orders Clinical Impression: Nephrolithiasis, Leukocytosis, Hydronephrosis Disposition Disposition: Acute Care Hospital [facility] Discharge Date/Time: 02/14/22 05:00
--- NOTE | 2022-02-14 00:23 | CT_ITS ---
INDICATION: Kidney Stone. Left flank pain with history of kidney stones. EXAMINATION: CT ABDOMEN AND PELVIS WITHOUT CONTRAST TECHNIQUE: Helically acquired images were obtained of the abdomen and pelvis without IV contrast. 2-D reconstructions reviewed. A radiation dose optimization technique was used for this scan. IV Contrast dosage and agent: None. Oral contrast: None. COMPARISON: Contrast-enhanced CT of abdomen and pelvis from 11/27/2017 FINDINGS: LOWER CHEST: Mild dependent atelectatic changes. Heart size within normal limits. LIVER: Homogeneous. No discrete mass. GALLBLADDER AND BILIARY TREE: Status post cholecystectomy. No significant biliary ductal dilation. PANCREAS: No discrete mass or peripancreatic edema. SPLEEN: Normal size without discrete mass. ADRENAL GLANDS: Unremarkable. KIDNEYS AND URETERS: Edematous left kidney with perinephric fat stranding. Moderate left hydronephrosis secondary to 11 mm craniocaudal length ureteropelvic junction stone. There are a few small 2 to 3 mm bilateral renal calyceal stones. No hydronephrosis on the right. PERITONEUM: No peritoneal free air or significant free fluid. No other fluid collection. RETROPERITONEUM: No retroperitoneal mass or pathologic fluid collection. BOWEL: No evidence of acute appendicitis. No abnormal stomach or bowel distension. No focal inflammatory change. LYMPH NODES: No enlarged mesenteric or retroperitoneal lymph nodes. URINARY BLADDER: Unremarkable as visualized. REPRODUCTIVE ORGANS: No pelvic masses. ABDOMINAL WALL: Stable small umbilical and left inguinal fat hernias. BONES: Degenerative changes and mild scoliotic curvature along spine. CT/Abdomen/Pelvis without Cont IMPRESSION: 1. Bilateral nephrolithiasis with moderate left obstructive uropathy secondary to 11 mm left UPJ stone. 2. Other nonurgent findings within body of report. Electronically Signed: Zak Cedillo MD at 1:27 EST ,
[2022-02-14 00:36] LABS: Mucous, Urine 0 SEEN /hpf (<or=2+); White Blood Cells 0 SEEN /hpf (0-5)
[2022-02-14 00:37] LABS: Absolute Lymphocyte Count 4.47 X10^3/uL (0.83-4.51); Absolute Neutrophil Count 9.5 X10^3/uL (2.0-7.7); Basophil# 0.06 X10^3/uL; Basophil% 0.4 % (0-1); Eosinophil# 0.24 X10^3/uL; Eosinophils% 1.6 % (0-5); Hematocrit 42.9 % (37-47); Hemoglobin 14.3 g/dL (12.0-15.0); Lymphocyte # 4.47 X10^3/ul (0.83-4.51); Lymphocyte % 29.6 % (19-41); Mean Corp Hgb Conc 33.3 g/dL (32-36); Mean Corpuscular Hgb 29.9 pg (27.0-32.0); Mean Corpuscular Volume 89.6 fL (81-99); Mean Platelet Vol. 10.5 fl (6.2-12.0); Monocyte# 0.78 X10^3/uL; Monocyte% 5.2 % (0-10); NRBC Flagged by Analyzer 0 % (0-5); Neutrophil # 9.52 X10^3/uL (2.7-7.7); Neutrophil % 62.9 % (47-70); Platelet Count 223 K/mm3 (150-450); RBC Distribution Width CV 12.8 % (11.6-14.6); Red Blood Count 4.79 M/mm3 (4.2-5.4); White Blood Count 15.1 K/mm3 (4.4-11.0)
[2022-02-14] MEDS: 0.9% Normal Saline 1,000 ML 999 ML IV (00:38)
[2022-02-14] MEDS: Ondansetron 4 MG/2 ML Vial IV ×2 (00:40→06:54)
[2022-02-14] MEDS: Ketorolac 15 MG/ML Vial IV (00:40)
[2022-02-14] MEDS: Morphine 4 MG/ML Syringe IV (00:40)
[2022-02-14 00:45] LABS: Color, Urine Yellow (Yellow); Glucose, Dipstick Normal (Normal); Ketone-Dipstick Negative (Negative); Leukocyte Esterase-Dipstick 25 /ul (Negative); Nitrite-Dipstick Negative (Negative); Occult Blood-Urine 250 /ul (Negative); Protein-Dipstick 30 mg/dl (Negative); Specific Gravity, Urine 1.025 (1.002-1.030); Urine Bilirubin Dipstick Negative (Negative); Urine Clarity Sl. Cloudy (Clear); Urine Urobilinogen Normal (Normal)
[2022-02-14 00:56] LABS: Anion Gap 5 (5-15); BUN 18 mg/dL (7-18); Chloride 106 mmol/L (98-107); Creatinine, Serum 1.29 mg/dL (0.55-1.02); EST Glomerular Filtration Rate 43 mL/min (>60); Est Glom Filt Rate - Afr Amer 52 mL/min (>60); Estimated Creatinine Clearance 36.36 ml/min; Glucose 123 mg/dL (74-106); Potassium 3.7 mmol/L (3.5-5.1); Sodium Level 142 mmol/L (136-145)
[2022-02-14 01:06] LABS: Red Blood Cells-Urine 50-100 SEEN /hpf (0-5)
[2022-02-14 01:08] LABS: Bacteria 1+ /hpf (None Seen); Calcium Oxalate Crystals Ur 2+ /hpf (<or=2+); Squamous Epithelial Cells - UA 5-10 SEEN /hpf (5-10)
[2022-02-14] MEDS: Ceftriaxone 1 GM/50 ML BAG IV (02:34)
[2022-02-14 03:44] LABS: Troponin-I HS 7 pg/mL (3.0-54.0)
[2022-02-14] MEDS: 0.9% Normal Saline 1,000 ML 50 ML IV (05:48)
[2022-02-14 06:04] LABS: Absolute Lymphocyte Count 1.39 X10^3/uL (0.83-4.51); Absolute Neutrophil Count 7.3 X10^3/uL (2.0-7.7); Basophil# 0.03 X10^3/uL; Basophil% 0.3 % (0-1); Eosinophil# 0.01 X10^3/uL; Eosinophils% 0.1 % (0-5); Hematocrit 38.9 % (37-47); Hemoglobin 12.7 g/dL (12.0-15.0); Lymphocyte # 1.39 X10^3/ul (0.83-4.51); Lymphocyte % 15.4 % (19-41); Mean Corp Hgb Conc 32.6 g/dL (32-36); Mean Corpuscular Hgb 29.6 pg (27.0-32.0); Mean Corpuscular Volume 90.7 fL (81-99); Mean Platelet Vol. 10.6 fl (6.2-12.0); Monocyte# 0.26 X10^3/uL; Monocyte% 2.9 % (0-10); NRBC Flagged by Analyzer 0 % (0-5); Neutrophil # 7.33 X10^3/uL (2.7-7.7); Platelet Count 173 K/mm3 (150-450); RBC Distribution Width CV 12.9 % (11.6-14.6); RBC Distribution Width SD 41.9 fl (35.1-43.9); Red Blood Count 4.29 M/mm3 (4.2-5.4); White Blood Count 9.1 K/mm3 (4.4-11.0)
[2022-02-14 06:34] LABS: Anion Gap 6 (5-15); BUN 19 mg/dL (7-18); BUN/Creat Ratio 14.4 RATIO (10-20); Calcium,Total 8.8 mg/dL (8.5-10.1); Chloride 108 mmol/L (98-107); Creatinine, Serum 1.32 mg/dL (0.55-1.02); EST Glomerular Filtration Rate 42 mL/min (>60); Est Glom Filt Rate - Afr Amer 51 mL/min (>60); Estimated Creatinine Clearance 35.53 ml/min; Glucose 137 mg/dL (74-106); Sodium Level 140 mmol/L (136-145)
[2022-02-14] MEDS: 0.9% Saline Lock 10 ML Syringe IV (06:54)
[2022-02-14] MEDS: Morphine 2 MG/ML Syringe IV ×2 (06:54→14:18)
--- NOTE | 2022-02-14 07:31 | HP.PCM_ITS ---
HPI - General General Date of Admission: 02/14/22 HPI Narrative DANIELE TOLEDO, is a 71 F who presents with a left kindey stone large and obstruction admitted to resolve obstructing stone. ?Bilateral nephrolithiasis with moderate left obstructive uropathy secondary to 11 mm left UPJ stone. 2.? Other nonurgent findings within body of report. [facility] Medical History (Updated 02/14/22 @ 07:[address] Homar Orta MD) Depression High cholesterol Hypertension Left ureteral calculus Multinodular goiter Nephrolithiasis Osteoarthritis Post-menopausal Skin cancer of forehead Home Medications amlodipine 10 mg tablet 10 mg PO QHS blood pressure 06/07/13 [History Last Taken 12/09/17 09:00 Y] multivitamin,wm-arrn-[id number] 27 mg-0.4 mg tablet 1 tab PO DAILY supplement [History Last Taken 06/07/13] sertraline 50 mg tablet 50 mg PO DAILY mood 06/07/13 [History Last Taken 06/07/13] lisinopril 10 mg-hydrochlorothiazide 12.5 mg tablet 0.5 tab PO QHS blood pressure 01/11/19 [History Last Taken Unknown] calcium carbonate 500 mg calcium (1,250 mg) tablet (Calcium 500) 1,200 mg PO BID supplement 07/27/19 [History Last Taken Unknown] lactobacillus combination no.4 3 billion cell capsule (Probiotic) 3,000 mmu cells PO DAILY supplement 02/14/22 [History Last Taken Unknown] latanoprost 0.005 % eye drops 1 drp EACH EYE QHS glaucoma 02/14/22 [History Last Taken Unknown] rosuvastatin 10 mg tablet 10 mg PO QHS cholesterol 02/14/22 [History Last Taken Unknown] Allergy/AdvReac Type Severity Reaction Status Date / Time Penicillins Allergy Swelling Verified 02/13/22 23:58 Family History Father Diabetes Heart disease Mother Breast cancer Surgical History (Updated 02/14/22 @ 05:12 by Nila Grady) History of blepharoplasty History of History of knee replacement History of laparoscopic cholecystectomy History of lithotripsy History of Mohs micrographic surgery for skin cancer Social History (Updated 07/27/19 @ 13:[address] Cornelio Mayberry MD) Smoking Status: Never smoker alcohol intake: current substance use type: does not use ROS Constitutional Constitutional: Denies chills, fever(s) or malaise Eyes Eyes: Denies blurry vision or change in vision ENT HEENT: Reports none Cardiovascular Cardiovascular: Denies chest pain or palpitations Respiratory/Chest Respiratory/Chest: Denies cough or shortness of breath with exertion Gastrointestinal Gastrointestinal: Denies abdominal pain, constipation or diarrhea Musculoskeletal Musculoskeletal: Denies back pain, joint stiffness or joint swelling Integumentary Integumentary: Denies dry skin, jaundice, lesions or rash Neurologic Neurologic: Denies confusion, syncope or weakness Psychiatric Psychiatric: Reports none; Denies anxiety or depression Endocrine Endocrinology: Denies excessive sweating, fatigue or flushing Hematologic/Lymphatic Hematologic/Lymphatic: Denies anemia, easy bleeding or easy bruising Vital Signs Vital Signs Vital Signs: 02/13/22 23:58 02/14/22 00:09 02/14/22 02:40 Temperature 96.9 F L 98.2 F Temperature Source Temporal Temporal Pulse Rate 79 72 Respiratory Rate 16 16 Respiratory Effort Respiratory Depth Respiratory Pattern Normal Blood Pressure 159/85 H 113/70 Blood Pressure Mean 109 84 Blood Pressure Source Blood Pressure Position Blood Pressure Location Pulse Ox 98 97 Oxygen Delivery Method Room Air Room Air 02/14/22 04:47 02/14/22 04:47 02/14/22 06:02 Temperature 97.9 F 97.9 F Temperature Source Oral Oral Pulse Rate 75 75 Respiratory Rate 16 16 Respiratory Effort Normal Non-Labored Respiratory Depth Normal Respiratory Pattern Normal Blood Pressure 131/84 H 131/84 H Blood Pressure Mean 99 99 Blood Pressure Source Monitor Blood Pressure Position Semi-Fowlers Blood Pressure Location Left Arm Pulse Ox 93 93 Oxygen Delivery Method Room Air Room Air Room Air Weight Weight: 100.788 kg Body Mass Index (BMI) 35.9 Physical Exam Const alert and oriented x3 General Appearance: cooperative HEENT normocephalic, head/scalp atraumatic, EAC's normal and TM's normal bilaterally Eyes PERRL and EOMs intact bilaterally Pupil: sluggish Neck no lymphadenopathy, supple and no JVD General: trachea midline Lymph Lymphatic: no lymphadenopathy noted, lymphedema and lymphadenopathy Resp normal respiratory effort, normal air movement and clear to auscultation bilaterally Cardio regular rate, regular rhythm and peripheral pulses 2+ throughout GI soft to palpation, non-tender and non-distended Extremity normal capillary refill and no clubbing, cyanosis or edema General Extremity: no tenderness to palpation of joints or extremities Skin no rashes or lesions noted General Skin Exam: turgor normal Lesions: no lesions Rashes: no rashes Neuro CN's II-XII intact bilaterally Speech: speech normal Motor Exam: strength 5/5 throughout; Negative for general weakness Psych thought process normal, cooperative and affect normal Appearance: appropriate Results Lab / Micro Data Result Diagrams: 02/14/22 05:32 02/14/22 05:32 Labs: Laboratory Results - last 24 hr 02/14/22 00:10: WBC 15.1 H, RBC 4.79, Hgb 14.3, Hct 42.9, MCV 89.6, MCH 29.9, MCHC 33.3, RDW Std Deviation 42.0, RDW Coeff of Alphonso 12.8, Plt Count 223, MPV 10.5, Immature Gran % (Auto) 0.300, Neut % (Auto) 62.9, Lymph % (Auto) 29.6, [place] % (Auto) 5.2, Eos % (Auto) 1.6, Baso % (Auto) 0.4, Absolute Neuts (auto) 9.5 H, Absolute Lymphs (auto) 4.47, Nucleated RBC % 0 02/14/22 00:10: Sodium 142, Potassium 3.7, Chloride 106, Carbon Dioxide 31.0, Anion Gap 5, BUN 18, Creatinine 1.29 H, Estim Creat Clear Calc 36.36, Est GFR (MDRD) Af Amer 52 L, Est GFR (MDRD) Non-Af 43 L, BUN/Creatinine Ratio 14.0, Glucose 123 H, Calcium 10.0 02/14/22 00:10: Urine Color Yellow, Urine Clarity Sl. Cloudy, Urine pH 6.0, Ur Specific Key[place] 1.025, Urine Protein 30 H, Urine Glucose (UA) Normal, Urine Ketones Negative, Urine Occult Blood 250 H, Urine Nitrite Negative, Urine Bilirubin Negative, Urine Urobilinogen Normal, Ur Leukocyte Esterase 25 H, Urine RBC 50-100 SEEN, Urine WBC 0 SEEN, Ur Squamous Epith Cells 5-10 SEEN, Calcium Oxalate Crystal 2+, Urine Bacteria 1+, Urine Mucus 0 SEEN 02/14/22 03:03: Troponin I High Sens 7 02/14/22 05:32: WBC 9.1, RBC 4.29, Hgb 12.7, Hct 38.9, MCV 90.7, MCH 29.6, MCHC 32.6, RDW Std Deviation 41.9, RDW Coeff of Alphonso 12.9, Plt Count 173, MPV 10.6, Immature Gran % (Auto) 0.300, Neut % (Auto) 81.0 H, Lymph % (Auto) 15.4 L, [place] % (Auto) 2.9, Eos % (Auto) 0.1, Baso % (Auto) 0.3, Absolute Neuts (auto) 7.3, Absolute Lymphs (auto) 1.39, Nucleated RBC % 0 02/14/22 05:32: Sodium 140, Potassium 4.0, Chloride 108 H, Carbon Dioxide 26.0, Anion Gap 6, BUN 19 H, Creatinine 1.32 H, Estim Creat Clear Calc 35.53, Est GFR (MDRD) Af Amer 51 L, Est GFR (MDRD) Non-Af 42 L, BUN/Creatinine Ratio 14.4, Glucose 137 H, Calcium 8.8 Radiology Impression Abdomen/Pelvis CT 02/14/22 00:23 IMPRESSION: 1. Bilateral nephrolithiasis with moderate left obstructive uropathy secondary to 11 mm left UPJ stone. 2. Other nonurgent findings within body of report. Electronically Signed: Zak Cedillo MD at 1:27 EST , Assessment & Plan Assessment/Plan (1) Left renal stone: PLAN: plan for left eswl and stent today., NPO
--- NOTE | 2022-02-14 09:49 | NURSING ---
pt made aware, planned poultry picker time for surgery is [id number]
--- NOTE | 2022-02-14 10:18 | CASEMGMT ---
HERIBERTO VEGAS Assessment: Face to Face with pt for initial transition planning/care coordination assessment. RN SHASTA introduced self and role at [facility], pt voices understanding and consents to assessment. Pt is A/O x4 and answers all questions appropriately at this time. Pt lying in bed in no distress. Care providers, pharmacy, and demographics verified/updated. Admitting Dx: nephrolithiasis PCP:[facility] Specialists:Macy, gurmeet; Joni, derm; You uro Preferred Pharmacy: [facility] Insurance: [facility] Prescription Benefit: yes LNOK: Haris Clarke, ; Terry Clarke, son Living Arrangements: Pt lives with in a single story house with 4 steps to enter. Pt reports being I in ADL's and denies concerns at home. Transportation: Pt drives self and denies concerns with transportation. DME/HHC/SNF: Pt has a grab bar in the tub, no other AD. Pt denies hx of HHC or SNF stays. Pt states no concerns with going home at time of dc. Pt states no further concerns/needs. CM to follow. Advised pt to ask CM if any further question/concerns/needs arise, voices understanding. Pt Goal: Home Plan: Home
--- NOTE | 2022-02-14 15:14 | NURSING ---
pt off floor for surgery
[2022-02-14] MEDS: Cefazolin 2 GM in 0.9% Normal Saline 100 ML IV (16:01)
--- NOTE | 2022-02-14 16:21 | DCINST_ITS ---
Discharge Instructions Diet Discharge Diet: No restrictions, Light diet - advance as tolerated and Soft diet Activity Discharge Activity: Return to Normal Activity Follow Up Care Please Follow Up With: Homar Orta MD When: call for appt to remove stent Test Results: Test results from this visit will be discussed in further detail at your follow- up appointment, if applicable. Discharge Plan Admission Admit Date/Time: 02/14/22 03:13 Primary Reason for Your Visit: kidney stone Attending Provider: Homar Orta Primary Care Provider: Keith Nichole Discharge Orders/Prescriptions Prescriptions: New ciprofloxacin HCl [Cipro] 500 mg tablet 500 mg PO BID Qty: 10 0RF oxycodone-acetaminophen 5-325 mg tablet 1 tab PO Q6H PRN (Reason: pain) 7 Days Qty: 20 0RF Continued calcium carbonate [Calcium 500] 500 mg calcium (1,250 mg) tablet 1,200 mg PO BID amlodipine 10 MG tablet 10 mg PO QHS Label Comments: blood pressure sertraline 50 MG tablet 50 mg PO DAILY Label Comments: depression multivitamin,ih-oucn-tvgtgogo 1 TABLET tablet 1 tab PO DAILY Label Comments: vitamin lisinopril-hydrochlorothiazide 10-12.5 mg tablet 0.5 tab PO QHS Label Comments: blood pressure latanoprost 0.005 % drops 1 drp EACH EYE QHS Label Comments: instill 1 drop into both eyes at bedtime rosuvastatin 10 mg tablet 10 mg PO QHS Probiotic 3 billion cell Capsule 3,000 mmu cells PO DAILY Rx Instructions: administer with a meal Referrals / Follow Up: Homar Orta MD [Med Staff - Active Staff] - Keith Nichole MD [Primary Care Provider] - Disposition Discharge Orders: Discharge Patient (Routine); Ordered 02/14/22 Ordered By: Dr. Homar Orta
--- NOTE | 2022-02-14 16:22 | PCM.OPRPT ---
Report of Operation Date of Procedure: 02/14/22 Pre-Operative Diagnosis: left kidney stone Post-Operative Diagnosis: same Surgery/Procedure Performed:: cystoscopy and left stent placement, and extracorporeal shockwave lithotripsy Description of Surgical Findings:: Patient presents to the hospital for treatment of a kidney stone with shockwave lithotripsy. In the preoperative area and x-ray was done to confirm the location of the stone. The x-ray was reviewed and the stone location was reviewed. In the preoperative setting I spoke with the patient regarding the treatment of the stone how the treatment would be conducted and the expectations after surgery. The patient understands there is a risk of bleeding and infection. Also discussed the very rare risk of hematoma or damage to the kidney. We also discussed the risk that the shockwave machine will fail to break the stone adequately and that the patient may need other surgical procedures. We also discussed the possibility that the patient may need a stent after the procedure. After reviewing the procedure with the patient, the patient is signed the consent form all the patient's questions were addressed and was taken back to the operating room for treatment of a kidney stone. The urethra and genitals were prepped and draped in usual sterile fashion. Using a 21 Italian rigid cystourethroscope the entire length of the urethra was normal then went into the bladder. Identified the trigone the left and right ureteral orifice. I then cannulated the Left orifice and advanced a wire up into the kidney. I then backloaded a 5 Italian open ended catheter over the wire and injected contrast to delineate the anatomy. After the retrograde was performed I then used fluoroscopic images and guidance to advanced a wire up into the kidney and over the 0.038 glidewire I advanced a 6 Italian by 26 cm double pigtail stent. I then pulled the 0.038 Glidewire off and the stent coiled in the kidney bladder good position. The bladder was then drained. We confirmed the position of the stent by fluoroscopy. Patient was taken back to the operating room, patient was identified by the nursing staff, we identified the side of the treatment and the patient side of treatment had been marked by my initials. The patient underwent general anesthetic and was placed supine on the lithotripter table. We then used fluoroscopy to identify the stone on the left side. We then positioned the patient under the lithotripter and we used triangulation technique to identify the location of the stone and then we made sure that the stone was engaged in the F2 focal point of F2 Donier lithoprior machine. Once the patient was positioned appropriately and the stone was identified and placed in the F2 focal point of the lithotripter machine we then proceeded with shockwave lithotripsy. In the beginning the shockwave was delivered at a rate of 90 shocks per minute, we monitor the EKG for any ectopy. The power was slowly increased to 5 kV and subsequently at the 7 kV. We then proceeded with the treatment we move the therapy had around during the treatment to make sure the stone stayed in the F2 focal point during the entire treatment and after 3000 shockwaves were delivered to the stone under fluoroscopic guidance the treatment was completed. The patient was given instructions to call the office to make an a follow-up appointment with an xray to evaluate the success of the treatment, pateint understands that its possible the stones may need another procedure.At this point the patient's anesthetic was reversed patient was extubated and taken back to the PACU in stable condition. Surgeon: Homar Orta Type of Anesthesia: General Drains: stent Admit VTE Documentation VTE Present on Admission: No VTE Mechan Device Prophylaxis: SCD's VTE Pharm Prophylaxis ordered?: No
--- NOTE | 2022-02-14 17:24 | CHAPLAIN ---
Type of Pastoral Visit ___ Initial Visit ___ Follow-up Visit ___ On-call Visit ___ General Patient Visit ___ Spiritual Assessment ___ Family Conference ___ Bereavement ___ Rapid Response ___ Code Blue ___ Other (describe below) Pastoral Care Referral From ___ Patient ___ Family ___ Nurse ___ Physician ___ Cable Mechanic ___ Medical Billing Specialist ___ Other (describe below) Sacrament/Intervention ___ Active listening ___ Anointing ___ Scientologist ___ Bereavement ___ Communion ___ Concepcion exploration ___ ___ Life review ___ Prayer ___ Reconciliation ___ Sacrament of Sick ___ Supportive presence ___ Wedding ___ Other (describe below) Pastoral Comments patient and bed are not in the room; calling card left
== END 2022-02-14 18:55 | disposition home or self-care (01) | DRG 661 ==
LOC: ED 02-14 02:45 → MS3 02-14 03:27
PROVIDERS: Admitting Provider Urology; Emergency Provider Emergency Medicine; PCP Family Medicine; Visit Provider Urology
PROC: (CPT 50590; principal; 2022-02-14 09:15)
DX: N13.2 Hydronephrosis with renal and ureteral calculous obstruction (principal); E78.00 Pure hypercholesterolemia, unspecified; I10 Essential (primary) hypertension; M19.90 Unspecified osteoarthritis, unspecified site; Z78.0 Asymptomatic menopausal state; F32.A Depression, unspecified; Z79.899 Other long term (current) drug therapy
CPT/HCPCS: 52332; 36415; 74176; 80048; 81001; 84484; 85025; 93005; 96365; 96375; 96376; 99218; 99283; J7030; A4216; C1769; C2617; G0378; J2405

== ENCOUNTER → 2022-03-18 | Outpatient (CLI) | payer MEDICARE, SELFPAY ==
[2022-03-18 12:18] LABS: Absolute Lymphocyte Count 3.63 X10^3/uL (0.83-4.51); Absolute Neutrophil Count 3.2 X10^3/uL (2.0-7.7); Basophil# 0.06 X10^3/uL; Basophil% 0.8 % (0-1); Eosinophil# 0.15 X10^3/uL; Hematocrit 41.9 % (37-47); Hemoglobin 14.6 g/dL (12.0-15.0); Lymphocyte # 3.63 X10^3/ul (0.83-4.51); Lymphocyte % 48.1 % (19-41); Mean Corp Hgb Conc 34.8 g/dL (32-36); Mean Corpuscular Hgb 30.6 pg (27.0-32.0); Mean Corpuscular Volume 87.8 fL (81-99); Mean Platelet Vol. 10.8 fl (6.2-12.0); Monocyte# 0.47 X10^3/uL; Monocyte% 6.2 % (0-10); NRBC Flagged by Analyzer 0 % (0-5); Neutrophil # 3.22 X10^3/uL (2.7-7.7); Neutrophil % 42.6 % (47-70); Platelet Count 202 K/mm3 (150-450); RBC Distribution Width SD 42.2 fl (35.1-43.9); Red Blood Count 4.77 M/mm3 (4.2-5.4); White Blood Count 7.6 K/mm3 (4.4-11.0)
[2022-03-18 12:21] LABS: Color, Urine Yellow (Yellow); Glucose, Dipstick Normal (Normal); Ketone-Dipstick Negative (Negative); Leukocyte Esterase-Dipstick 25 /ul (Negative); Nitrite-Dipstick Negative (Negative); Occult Blood-Urine Negative /ul (Negative); Protein-Dipstick 30 mg/dl (Negative); Specific Gravity, Urine 1.025 (1.002-1.030); Urine Bilirubin Dipstick Negative (Negative); Urine Clarity Clear (Clear); Urine Urobilinogen Normal (Normal)
[2022-03-18 12:42] LABS: Vitamin D,25 Hydroxy 71.9 ng/mL
[2022-03-18 12:48] LABS: ALB/GLOB Ratio 1.6 RATIO (0.9-2.4); AST(SGOT) 20 U/L (15-37); Alanine Aminotransfer ALT/SGPT 29 U/L (13-56); Albumin, Serum 3.9 g/dL (3.2-5.0); Alkaline Phosphatase 61 U/L (45-117); Anion Gap 8 (5-15); BUN 23 mg/dL (7-18); BUN/Creat Ratio 21.5 RATIO (10-20); Calcium,Total 9.5 mg/dL (8.5-10.1); Chloride 109 mmol/L (98-107); Cholesterol 138 mg/dL (200); Creatinine, Serum 1.07 mg/dL (0.55-1.02); EST Glomerular Filtration Rate 53 mL/min (>60); Est Glom Filt Rate - Afr Amer 65 mL/min (>60); Globulin 2.4 g/dL (2.2-4.2); Glucose 108 mg/dL (74-106); High Density Lipoprotein 60 mg/dL; Potassium 4.1 mmol/L (3.5-5.1); Protein, Total 6.3 g/dL (6.4-8.2); Sodium Level 143 mmol/L (136-145); Triglycerides 105 mg/dL; Very Low Density Lipoprotein 21 mg/dL (5-40)
[2022-03-18 12:57] LABS: Protein, Urine (Random) 23.1 mg/dL (<11.9); Protein:Creat Ratio 91 mg/g CRE (0-200)
[2022-03-18 13:28] LABS: Hemoglobin A1c 5.5 % (3.8-5.6)
== END | disposition home or self-care (01) ==
LOC: MFPLAB 09:32
PROVIDERS: PCP Family Medicine; Referring Provider Family Medicine; Visit Provider Family Medicine
DX: N18.30 Chronic kidney disease, stage 3 unspecified (principal); R73.02 Impaired glucose tolerance (oral); E78.00 Pure hypercholesterolemia, unspecified; M85.80 Other specified disorders of bone density and structure, unspecified site; I12.9 Hypertensive chronic kidney disease with stage 1 through stage 4 chronic kidney disease, or unspecified chronic kidney disease
CPT/HCPCS: 36415; 80053; 80061; 81001; 81002; 82306; 82570; 83036; 84156; 85025

== ENCOUNTER → 2022-04-03 | Outpatient (CLI) | payer MEDICARE, SELFPAY ==
--- NOTE | 2022-04-03 09:30 | RAD_ITS ---
EXAM: XR RIGHT FOOT COMPLETE, 3 OR MORE VIEWS CLINICAL INDICATION: pain TECHNIQUE: Frontal, lateral and oblique views of the right foot. This report was created using Loop report generation technology. COMPARISON: None. FINDINGS: BONES/JOINTS: There is a calcaneal spur. There is an enthesophyte involving the posterior superior calcaneus at the site of insertion of the Achilles tendon. No acute fracture. No subluxation. Normal alignment. Preservation of the joint space. No sclerotic or destructive changes observed. SOFT TISSUES: Unremarkable. No soft tissue swelling or gas. No radiopaque foreign body. RAD/Foot min 3 Views IMPRESSION: There is a calcaneal spur. There is an enthesophyte involving the posterior superior calcaneus at the site of insertion of the Achilles tendon. Electronically Signed: Anthony Solomon MD at 17:46 EST ,
== END | disposition home or self-care (01) ==
LOC: MTRAD 09:30
PROVIDERS: PCP Family Medicine; Referring Provider Nurse Practitioner Family; Visit Provider Nurse Practitioner Family
DX: M77.31 Calcaneal spur, right foot (principal)
CPT/HCPCS: 73630

== ENCOUNTER → 2022-06-12 | Outpatient (CLI) | payer MEDICARE, SELFPAY ==
--- NOTE | 2022-06-12 14:56 | CT_ITS ---
STUDY: CT ABDOMEN AND PELVIS WITHOUT CONTRAST REASON FOR EXAM: Female, 72 years old. GROSS HEMATURIA. PRIOR CHOLECYSTECTOMY RADIATION DOSAGE (If Supplied By Facility): CTDIvol = ( 18.22 ) mGy, DLP = ( 879.33 ) mGycm TECHNIQUE: Transaxial images were obtained from the dome of the diaphragm to the symphysis pubis without oral contrast, and without intravenous contrast. Sagittal and coronal images were reconstructed. Individualized dose optimization techniques were used for this CT. COMPARISON: February 14, 2022. FINDINGS: The visualized lung bases are unremarkable. The visualized portions of the heart are within normal limits. Normal liver. Status post cholecystectomy. No significant dilatation of extrahepatic biliary system. Normal spleen. Normal pancreas. Normal bilateral adrenal glands. 6 mm stone in the right kidney. Normal left kidney. Normal visualized stomach. Normal small intestine. Normal colon. The appendix is visualized and appears normal. Normal abdominal aorta. Normal inferior vena cava. Normal retroperitoneum. Normal urinary bladder. Normal abdominal wall. Degenerative vertebral changes. CT/Abdomen/Pelvis without Cont IMPRESSION: Nonobstructive right renal stone. Electronically Signed: Magdaleno Cabezas DO at 21:43 EDT Reading Location ID and State: [facility] / [place] Tel [phone], Service support ,
== END | disposition home or self-care (01) ==
LOC: CT 14:55
PROVIDERS: PCP Family Medicine; Referring Provider Urology; Visit Provider Urology
DX: R31.0 Gross hematuria (principal); N20.0 Calculus of kidney
CPT/HCPCS: 74176

== ENCOUNTER → 2022-07-04 | Outpatient (CLI) | payer MEDICARE, SELFPAY ==
--- NOTE | 2022-07-04 13:31 | MRI_ITS ---
INDICATION: TORN FLEXOR TENDON 1ST METATARSAL EXAMINATION: MRI - RIGHT MR Forefoot W/O Contrast TECHNIQUE: Multiplanar and multisequence MR images of the RIGHT foot. IV Contrast Dosage and Agent: None. COMPARISON: Foot radiograph March 28, 2020. FINDINGS: BONE: Normal forefoot alignment.] [No fracture or marrow edema. JOINTS: No joint effusion. MUSCLES: Normal bulk and signal. LIGAMENTS: The Lisfranc ligament is intact. TENDONS: Normal internal signal within the flexor digitorum tendons and the flexor hallucis longus tendon. No evidence of complete flexor pollicis longus tendon disruption. There is mild circumferential peritendinous fluid about the flexor pollicis longus tendon at the first interphalangeal joint with mild thinning and increased signal along the medial lico. Subcutaneous soft tissue edema along the plantar medial aspect of the great toe superficial to the medial lico. The extensor tendons are intact. MISCELLANEOUS: Intact plantar fascia. OTHER SOFT TISSUES: Unremarkable. MRI/Lower Ext/No Jt/w/o IMPRESSION: Findings concerning for partial tear of the medial lico for flexor pollicis longus tendon at the first interphalangeal joint with mild flexor pollicis longus tenosynovitis. Electronically Signed: Kranthi Hanson MD at 7:55 EDT ,
== END | disposition home or self-care (01) ==
LOC: MRI 13:16
PROVIDERS: PCP Family Medicine; Referring Provider Podiatrist; Visit Provider Podiatrist
DX: M84.374A Stress fracture, right foot, initial encounter for fracture (principal)
CPT/HCPCS: 73718

== ENCOUNTER → 2022-08-21 | Outpatient (CLI) | payer MEDICARE, SELFPAY ==
[2022-08-21 08:32] LABS: Mucous, Urine 0 SEEN /hpf (<or=2+)
[2022-08-21 10:17] LABS: Absolute Lymphocyte Count 3.71 X10^3/uL (0.83-4.51); Absolute Neutrophil Count 2.6 X10^3/uL (2.0-7.7); Basophil# 0.04 X10^3/uL; Basophil% 0.6 % (0-1); Eosinophil# 0.13 X10^3/uL; Eosinophils% 1.9 % (0-5); Hematocrit 43.1 % (37-47); Hemoglobin 14.4 g/dL (12.0-15.0); Lymphocyte # 3.71 X10^3/ul (0.83-4.51); Lymphocyte % 53.8 % (19-41); Mean Corp Hgb Conc 33.4 g/dL (32-36); Mean Corpuscular Hgb 30.4 pg (27.0-32.0); Mean Corpuscular Volume 91.1 fL (81-99); Mean Platelet Vol. 10.6 fl (6.2-12.0); Monocyte# 0.43 X10^3/uL; Monocyte% 6.2 % (0-10); NRBC Flagged by Analyzer 0 % (0-5); Neutrophil # 2.58 X10^3/uL (2.7-7.7); Neutrophil % 37.4 % (47-70); Platelet Count 199 K/mm3 (150-450); RBC Distribution Width CV 12.6 % (11.6-14.6); RBC Distribution Width SD 41.7 fl (35.1-43.9); Red Blood Count 4.73 M/mm3 (4.2-5.4); White Blood Count 6.9 K/mm3 (4.4-11.0)
[2022-08-21 10:26] LABS: Color, Urine Yellow (Yellow); Glucose, Dipstick Normal (Normal); Ketone-Dipstick Negative (Negative); Leukocyte Esterase-Dipstick 500 /ul (Negative); Nitrite-Dipstick Negative (Negative); Occult Blood-Urine 25 /ul (Negative); Protein-Dipstick 30 mg/dl (Negative); Urine Bilirubin Dipstick Negative (Negative); Urine Clarity Sl. Cloudy (Clear); Urine Urobilinogen Normal (Normal)
[2022-08-21 10:32] LABS: Protein, Urine (Random) 31.6 mg/dL (<11.9); Protein:Creat Ratio 113 mg/g CRE (0-200)
[2022-08-21 10:39] LABS: Bacteria 1+ /hpf (None Seen); Red Blood Cells-Urine 0-5 SEEN /hpf (0-5); Squamous Epithelial Cells - UA 5-10 SEEN /hpf (5-10); White Blood Cells 25-50 SEEN /hpf (0-5)
[2022-08-21 10:40] LABS: Calcium Oxalate Crystals Ur RARE /hpf (<or=2+)
[2022-08-21 10:56] LABS: Hemoglobin A1c 5.4 % (3.8-5.6)
[2022-08-21 11:10] LABS: ALB/GLOB Ratio 1.3 RATIO (0.9-2.4); AST(SGOT) 20 U/L (15-37); Alanine Aminotransfer ALT/SGPT 26 U/L (13-56); Albumin, Serum 3.7 g/dL (3.2-5.0); Alkaline Phosphatase 66 U/L (45-117); Anion Gap 6 (5-15); BUN 20 mg/dL (7-18); BUN/Creat Ratio 19.6 RATIO (10-20); Calcium,Total 9.4 mg/dL (8.5-10.1); Chloride 110 mmol/L (98-107); Cholesterol 125 mg/dL (200); Creatinine, Serum 1.02 mg/dL (0.55-1.02); EST Glomerular Filtration Rate 56 mL/min (>60); Est Glom Filt Rate - Afr Amer 68 mL/min (>60); Globulin 2.9 g/dL (2.2-4.2); Glucose 106 mg/dL (74-106); High Density Lipoprotein 57 mg/dL; Phosphorus 3.1 mg/dL (2.5-4.9); Potassium 3.8 mmol/L (3.5-5.1); Protein, Total 6.6 g/dL (6.4-8.2); Sodium Level 141 mmol/L (136-145); Thyroid Stim Hormone (TSH) 0.18 uIU/mL (0.358-3.74); Triglycerides 122 mg/dL; Very Low Density Lipoprotein 24 mg/dL (5-40)
[2022-08-21 11:39] LABS: Vitamin D,25 Hydroxy 81.5 ng/mL
== END | disposition home or self-care (01) ==
LOC: MFPLAB 08:29
PROVIDERS: PCP Family Medicine; Visit Provider Family Medicine
DX: I12.9 Hypertensive chronic kidney disease with stage 1 through stage 4 chronic kidney disease, or unspecified chronic kidney disease (principal); N18.30 Chronic kidney disease, stage 3 unspecified; R73.02 Impaired glucose tolerance (oral); M85.80 Other specified disorders of bone density and structure, unspecified site
CPT/HCPCS: 36415; 80053; 80061; 81001; 82306; 82570; 83036; 83970; 84100; 84156; 84443; 85025

== ENCOUNTER → 2022-12-17 | Outpatient (CLI) | payer MEDICARE, SELFPAY ==
[2022-12-17 09:08] LABS: Bacteria 0 SEEN /hpf (None Seen); Mucous, Urine 0 SEEN /hpf (<or=2+)
[2022-12-17 10:11] LABS: Absolute Lymphocyte Count 3.67 X10^3/uL (0.83-4.51); Absolute Neutrophil Count 3.2 X10^3/uL (2.0-7.7); Basophil# 0.08 X10^3/uL; Eosinophil# 0.41 X10^3/uL; Eosinophils% 5.2 % (0-5); Hematocrit 43.6 % (37-47); Hemoglobin 14.4 g/dL (12.0-15.0); Lymphocyte # 3.67 X10^3/ul (0.83-4.51); Lymphocyte % 46.8 % (19-41); Mean Corpuscular Hgb 29.9 pg (27.0-32.0); Mean Corpuscular Volume 90.6 fL (81-99); Mean Platelet Vol. 10.3 fl (6.2-12.0); Monocyte# 0.44 X10^3/uL; Monocyte% 5.6 % (0-10); NRBC Flagged by Analyzer 0 % (0-5); Neutrophil # 3.24 X10^3/uL (2.7-7.7); Neutrophil % 41.3 % (47-70); Platelet Count 194 K/mm3 (150-450); RBC Distribution Width CV 12.8 % (11.6-14.6); Red Blood Count 4.81 M/mm3 (4.2-5.4); White Blood Count 7.9 K/mm3 (4.4-11.0)
[2022-12-17 10:23] LABS: Color, Urine Yellow (Yellow); Glucose, Dipstick Normal (Normal); Ketone-Dipstick Negative (Negative); Leukocyte Esterase-Dipstick 100 /ul (Negative); Nitrite-Dipstick Negative (Negative); Occult Blood-Urine 25 /ul (Negative); Protein-Dipstick 30 mg/dl (Negative); Urine Bilirubin Dipstick Negative (Negative); Urine Clarity Sl. Cloudy (Clear); Urine Urobilinogen Normal (Normal); Urine pH 6.5 (5.0 - 8.0)
[2022-12-17 10:39] LABS: Vitamin D,25 Hydroxy 68.6 ng/mL
[2022-12-17 11:09] LABS: Protein, Urine (Random) 19.3 mg/dL (<11.9); Protein:Creat Ratio 108 mg/g CRE (0-200)
[2022-12-17 11:13] LABS: ALB/GLOB Ratio 1.2 RATIO (0.9-2.4); AST(SGOT) 19 U/L (15-37); Alanine Aminotransfer ALT/SGPT 28 U/L (13-56); Albumin, Serum 3.7 g/dL (3.2-5.0); Alkaline Phosphatase 78 U/L (45-117); Anion Gap 5 (5-15); BUN 18 mg/dL (7-18); Calcium,Total 9.8 mg/dL (8.5-10.1); Chloride 109 mmol/L (98-107); Cholesterol 130 mg/dL (200); Creatinine, Serum 1.06 mg/dL (0.55-1.02); EST Glomerular Filtration Rate 54 mL/min (>60); Est Glom Filt Rate - Afr Amer 65 mL/min (>60); Globulin 3.1 g/dL (2.2-4.2); Glucose 101 mg/dL (74-106); High Density Lipoprotein 62 mg/dL; Potassium 3.6 mmol/L (3.5-5.1); Protein, Total 6.8 g/dL (6.4-8.2); Sodium Level 142 mmol/L (136-145); Thyroid Stim Hormone (TSH) 0.16 uIU/mL (0.358-3.74); Triglycerides 97 mg/dL; Very Low Density Lipoprotein 19 mg/dL (5-40)
[2022-12-17 11:23] LABS: Red Blood Cells-Urine 0-5 SEEN /hpf (0-5); Squamous Epithelial Cells - UA 0-5 SEEN /hpf (5-10); White Blood Cells 10-25 SEEN /hpf (0-5)
[2022-12-17 11:24] LABS: Calcium Oxalate Crystals Ur 2+ /hpf (<or=2+); Transitional Epithelial - Ur 0-5 SEEN /hpf (0-5)
[2022-12-17 11:25] LABS: Other Crystals-Urine RARE /hpf (None Seen)
[2022-12-17 12:37] LABS: Hemoglobin A1c 5.3 % (3.8-5.6)
[2022-12-18 16:32] LABS: T4 Total, Thyroxin 8.3 ug/dL (4.8-13.9)
[2022-12-23 09:09] LABS: Anti-Thyroglobulin AB < 1.0 IU/mL (0.0-0.9); Thyroglobulin, Serum Qt. 85.9 ng/mL (1.5-38.5); Thyroid Peroxidase AB < 9 IU/mL (0-34); Thyroid Stim Immunoglob <0.10 IU/L (0.00-0.55)
== END | disposition home or self-care (01) ==
PROVIDERS: PCP Family Medicine; Referring Provider Family Medicine; Visit Provider Family Medicine
DX: I12.9 Hypertensive chronic kidney disease with stage 1 through stage 4 chronic kidney disease, or unspecified chronic kidney disease (principal); N18.30 Chronic kidney disease, stage 3 unspecified; R73.02 Impaired glucose tolerance (oral); M85.80 Other specified disorders of bone density and structure, unspecified site; E78.00 Pure hypercholesterolemia, unspecified
CPT/HCPCS: 36415; 80053; 80061; 81001; 82306; 82570; 83036; 84156; 84432; 84436; 84443; 84445; 85025; 86376; 86800

== ENCOUNTER 2023-02-26 05:49 | Observation (INO) | payer MEDICARE, SELFPAY ==
[2023-02-26] VITALS (8 sets, daily range): BP systolic 96–164; BP diastolic 54–76; PULSE 51–73; RESP 12–18; TEMP 35.8–37.2; O2SAT 75–99; BMI 34.4; BMI 33.0
--- NOTE | 2023-02-26 06:15 | CT_ITS ---
EXAM: CT ABDOMEN AND PELVIS WITHOUT INTRAVENOUS CONTRAST CLINICAL INDICATION: Kidney Stone TECHNIQUE: Helically acquired images were obtained of the abdomen and pelvis without intravenous contrast. This CT exam was performed using one or more of the following dose reduction techniques: automated exposure control, adjustment of the mA and/or kV according to patient size, and/or use of iterative reconstruction technique. RADIATION DOSE: CTDIvol = 17.88 mGy, DLP = 893.17 mGy-cm COMPARISON: CT abdomen and pelvis 06/12/2022 FINDINGS: LOWER THORAX: Unremarkable. Lung bases are clear. No cardiomegaly. No significant pericardial effusion. ABDOMEN: LIVER: Unremarkable. Homogeneous. GALLBLADDER AND BILE DUCTS: Cholecystectomy. No intra- or extrahepatic biliary ductal dilation. PANCREAS: Unremarkable. No focal cystic mass. SPLEEN: Unremarkable. Normal size without focal cystic or solid mass. ADRENALS: Unremarkable. No nodules. KIDNEYS AND URETERS: There is a large, 1.1 cm stone in the right ureteropelvic junction causing moderate obstructive changes. Small nonobstructing stones in the kidneys bilaterally. STOMACH AND BOWEL: Unremarkable. No stomach or bowel distention. No focal inflammatory change. PELVIS: APPENDIX: The appendix is normal. BLADDER: Unremarkable. REPRODUCTIVE: Unremarkable as visualized. No mass. ABDOMEN and PELVIS: INTRAPERITONEAL SPACE: Unremarkable. No ascites or other fluid collection. No free air. BONES/JOINTS: Degenerative changes of the spine. No suspicious lytic or blastic abnormality. SOFT TISSUES: Unremarkable. No discrete abdominal or pelvic wall hernia. VASCULATURE: Unremarkable. Abdominal aorta is non-dilated. LYMPH NODES: Unremarkable. No enlarged lymph nodes. CT/Abdomen/Pelvis without Cont IMPRESSION: 1. There is a large, 1.1 cm stone in the right ureteropelvic junction causing moderate obstructive changes. 2. Small nonobstructing stones in the kidneys bilaterally. Electronically Signed: Anthony Monk MD at 7:08 EST ,
--- NOTE | 2023-02-26 06:20 | EDS_ITS ---
HPI History of Present Illness Chief Complaint: Flank Pain Informant: patient Narrative Narrative: Patient is a 72-year-old female with history of kidney stones, follows with Dr. Orta, presenting with sudden onset of right flank pain. Patient states it woke her up from sleep around 2 AM. The pain radiates to her back. Initially she thought she had a stomach ache but the pain is worsened. Initially she took Imodium thinking maybe that was what was causing her issues. She has some nausea but no vomiting. Denies any diarrhea. Denies any dysuria or hematuria. Notes that her urination flow has seemed off since the symptoms started at 2 AM. This does feel like her prior kidney stones. No other abdominal pain, chest pain, shortness of breath or any other complaints at this time. Was in her normal state of health when she went to bed last night. Did not take any other qvqw-tut-wjigzoi medications including Tylenol ibuprofen prior to arrival. States she has required instrumentation in the past for kidney stones. States her last kidney stone was a couple years ago. [facility] Medical History Depression High cholesterol Hypertension Left ureteral calculus Multinodular goiter Nephrolithiasis Osteoarthritis Post-menopausal Skin cancer of forehead Home Medications amlodipine 10 mg tablet 10 mg PO QHS blood pressure 06/07/13 [History Last Taken 12/09/17 09:00 Y] multivitamin,iq-kvnk-lpmlqtbj 27 mg-0.4 mg tablet 1 tab PO DAILY supplement 06/07/13 [History Last Taken 06/07/13] sertraline 50 mg tablet 50 mg PO DAILY mood 06/07/13 [History Last Taken 06/07/13] lisinopril 10 mg-hydrochlorothiazide 12.5 mg tablet 0.5 tab PO QHS blood pressure 01/11/19 [History Last Taken Unknown] calcium carbonate 500 mg calcium (1,250 mg) tablet (Calcium 500) 1,200 mg PO BID supplement 07/27/19 [History Last Taken Unknown] ciprofloxacin HCl 500 mg tablet (Cipro) 500 mg PO BID #10 tabs 02/14/22 [Rx Last Taken Unknown] lactobacillus combination no.4 3 billion cell capsule (Probiotic) 3,000 mmu cells PO DAILY supplement 02/14/22 [History Last Taken Unknown] latanoprost 0.005 % eye drops 1 p EACH EYE QHS glaucoma 02/14/22 [History Last Taken Unknown] oxycodone-acetaminophen 5 mg-325 mg tablet 1 tab PO Q6H PRN pain 7 days #20 tabs 02/14/22 [Rx Last Taken Unknown] rosuvastatin 10 mg tablet 10 mg PO QHS cholesterol 02/14/22 [History Last Taken Unknown] Allergy/AdvReac Type Severity Reaction Status Date / Time Penicillins Allergy Swelling Verified 02/26/23 05:52 Family History Father Diabetes Heart disease Mother Breast cancer Surgical History History of blepharoplasty History of History of knee replacement History of laparoscopic cholecystectomy History of lithotripsy History of Mohs micrographic surgery for skin cancer Social History Smoking Status: Never smoker alcohol intake: current substance use type: does not use ROS ROS ED Constitutional Constitutional ED: Denies chills or fever(s) Cardiovascular Cardiovascular: Denies chest pain Respiratory/Chest Respiratory/Chest: Denies cough Gastrointestinal Gastrointestinal: Reports abdominal pain and nausea; Denies constipation, diarrhea or vomiting Genitourinary Genitourinary ED: Denies dysuria, hematuria or urinary frequency Musculoskeletal Musculoskeletal: Reports back pain; Denies arthralgias or myalgias Integumentary Denies rash Neurologic Neurologic: Denies headache(s) Hematologic/Lymphatic Hematologic/Lymphatic: Denies easy bleeding or easy bruising EXAM Physical Exam Const Vital Signs: 02/26/23 05:49 02/26/23 08:14 Temperature 96.5 F L Temperature Source Temporal Pulse Rate 68 51 L Respiratory Rate 16 12 Blood Pressure 164/66 H 96/58 L Blood Pressure Mean 98 70 Pulse Ox 98 97 Oxygen Delivery Method Room Air Room Air Positive well nourished and well developed General Appearance ED: well developed and NAD HEENT Reports moist mucous membranes Eyes PERRL and EOMs intact bilaterally Neck supple Chest Wall inspection of chest normal and palpation of chest normal Resp normal respiratory effort and clear to auscultation bilaterally Cardio regular rate and regular rhythm GI normal to inspection, nondistended, normoactive bowel sounds and non-tender GI Narrative: Negative Chaudhry sign Palpation: Negative for guarding Back/Spine no CVA tenderness Back/Spine Narrative: Points to her right flank as area of pain however it is not reproducible on palpation Thoracic Spine / Upper Back: Negative for thoracic spinal tenderness or paraspinal muscle tenderness Extremity normal to inspection General Extremety ED: Negative for edema General Extremity: Negative for edema Neuro oriented x3 Sensorium / Orientation: alert Motor Exam: Negative for general weakness Psych mental status grossly normal Skin no rashes or lesions noted and no wounds MDM MDM MDM Narrative Medical decision making narrative: Evaluate for sudden onset of right flank pain. Given her history high suspicion for renal colic as a cause of her pain. Will obtain CT of the abdomen pelvis to further evaluate as well as CBC, BMP, liver panel and urinalysis. Patient is given IV morphine and Zofran as well as IV fluids for symptom control. CT reviewed by myself is consistent with a large obstructing proximal kidney stone. Radiologist read agreed shows a 1.1 cm stone at the right UPJ causing moderate obstructive changes. Patient does notify nursing staff that she is developing chest pain. She states it is on the left side of her chest. Does not radiate. Has not had chest pain like this before. EKG is obtained which shows sinus bradycardia no acute ischemic changes. Will add on a cardiac workup as well. Patient is then ordered fentanyl and Zofran. Her blood pressure is now soft at 96/58. She states she does not feel lightheaded. She notes her blood pressures normally 120s. Lab Data Attestation: I reviewed the patient's lab results. Labs: Laboratory Results - last 24 hr 02/26/23 02/26/23 06:05 07:20 WBC 11.2 H RBC 4.77 Hgb 14.0 Hct 42.6 MCV 89.3 MCH 29.4 MCHC 32.9 RDW Std Deviation 41.7 RDW Coeff of Alphonso 12.7 Plt Count 195 MPV 10.2 Immature Gran % (Auto) 0.300 Neut % (Auto) 61.2 Lymph % (Auto) 31.9 Stone % (Auto) 4.8 Eos % (Auto) 1.3 Baso % (Auto) 0.5 Absolute Neuts (auto) 6.8 Absolute Lymphs (auto) 3.56 Nucleated RBC % 0 Sodium 143 Potassium 3.5 Chloride 108 H Carbon Dioxide 29.0 Anion Gap 6 BUN 23 H Creatinine 1.11 H Estim Creat Clear Calc 43.24 Est GFR (MDRD) Af Amer 62 Est GFR (MDRD) Non-Af 51 L BUN/Creatinine Ratio 20.7 H Glucose 128 H Calcium 9.6 Total Bilirubin 0.40 Direct Bilirubin 0.13 AST 23 ALT 26 Alkaline Phosphatase 78 Troponin I High Sens 10 Total Protein 6.8 Albumin 3.9 Globulin 2.9 Urine Color Yellow Urine Clarity Clear Urine pH 6.0 Ur Specific [place] 1.025 Urine Protein 15 H Urine Glucose (UA) Normal Urine Ketones Negative Urine Occult Blood 150 H Urine Nitrite Negative Urine Bilirubin Negative Urine Urobilinogen Normal Ur Leukocyte Esterase 25 H Urine RBC 10-25 SEEN Urine WBC 0-5 SEEN Ur Squamous Epith Cells 0-5 SEEN Urine Bacteria RARE Urine Mucus 0 SEEN Radiography Diagnostic Testing: Clinical Impression(s) from Imaging Studies Abdomen/Pelvis CT 02/26/23 06:15 IMPRESSION: 1. There is a large, 1.1 cm stone in the right ureteropelvic junction causing moderate obstructive changes. 2. Small nonobstructing stones in the kidneys bilaterally. Electronically Signed: Anthony Monk MD at 7:08 EST , Rhythm Strip Rhythm Strip: Sinus Rhythm Rate: 55 Ectopy: None EKG Initial EKG: Attestation: I personally reviewed and interpreted this EKG as follows: Interpretation: Sinus Bradycardia Comments: Sinus bradycardia at a rate of 55 bpm Left axis deviation Incomplete right bundle tash block Normal ST segments Prior EKG tracings: available for review Prior: Unchanged Discharge Plan Triage Chief Complaint: Flank Pain ED Provider: Lina Berman Dx/Rx/DC Orders Prescriptions: No Action calcium carbonate [Calcium 500] 500 mg calcium (1,250 mg) tablet 1,200 mg PO BID amlodipine 10 MG tablet 10 mg PO QHS Patient Comments: blood pressure sertraline 50 MG tablet 50 mg PO DAILY Patient Comments: depression multivitamin,mu-djke-nmeqtqmz 1 TABLET tablet 1 tab PO DAILY Patient Comments: vitamin lisinopril-hydrochlorothiazide 10-12.5 mg tablet 0.5 tab PO QHS Patient Comments: blood pressure latanoprost 0.005 % drops 1 drp EACH EYE QHS Patient Comments: instill 1 drop into both eyes at bedtime rosuvastatin 10 mg tablet 10 mg PO QHS Probiotic 3 billion cell Capsule 3,000 mmu cells PO DAILY Rx Instructions: administer with a meal ciprofloxacin HCl [Cipro] 500 mg tablet 500 mg PO BID Qty: 10 0RF oxycodone-acetaminophen 5-325 mg tablet 1 tab PO Q6H PRN (Reason: pain) 7 Days Qty: 20 0RF Primary Care Provider: Keith Nichole Referrals: Keith Nichole MD [Primary Care Provider] -
[2023-02-26 06:35] LABS: Absolute Lymphocyte Count 3.56 X10^3/uL (0.83-4.51); Absolute Neutrophil Count 6.8 X10^3/uL (2.0-7.7); Basophil# 0.06 X10^3/uL; Basophil% 0.5 % (0-1); Eosinophil# 0.15 X10^3/uL; Eosinophils% 1.3 % (0-5); Hematocrit 42.6 % (37-47); Lymphocyte # 3.56 X10^3/ul (0.83-4.51); Lymphocyte % 31.9 % (19-41); Mean Corp Hgb Conc 32.9 g/dL (32-36); Mean Corpuscular Hgb 29.4 pg (27.0-32.0); Mean Corpuscular Volume 89.3 fL (81-99); Mean Platelet Vol. 10.2 fl (6.2-12.0); Monocyte# 0.54 X10^3/uL; Monocyte% 4.8 % (0-10); NRBC Flagged by Analyzer 0 % (0-5); Neutrophil # 6.83 X10^3/uL (2.7-7.7); Neutrophil % 61.2 % (47-70); Platelet Count 195 K/mm3 (150-450); RBC Distribution Width CV 12.7 % (11.6-14.6); RBC Distribution Width SD 41.7 fl (35.1-43.9); Red Blood Count 4.77 M/mm3 (4.2-5.4); White Blood Count 11.2 K/mm3 (4.4-11.0)
[2023-02-26] MEDS: Ondansetron 4 MG/2 ML Vial IV ×3 (06:46→22:26)
[2023-02-26] MEDS: 0.9% Normal Saline (1000mL) 1,000 ML 250 ML IV (06:46)
[2023-02-26] MEDS: Morphine 4 MG/ML Syringe IV (06:47)
[2023-02-26 06:53] LABS: Anion Gap 6 (5-15); BUN 23 mg/dL (7-18); BUN/Creat Ratio 20.7 RATIO (10-20); Calcium,Total 9.6 mg/dL (8.5-10.1); Chloride 108 mmol/L (98-107); Creatinine, Serum 1.11 mg/dL (0.55-1.02); EST Glomerular Filtration Rate 51 mL/min (>60); Est Glom Filt Rate - Afr Amer 62 mL/min (>60); Estimated Creatinine Clearance 43.24 ml/min; Glucose 128 mg/dL (74-106); Potassium 3.5 mmol/L (3.5-5.1); Sodium Level 143 mmol/L (136-145)
[2023-02-26 06:59] LABS: AST(SGOT) 23 U/L (15-37); Alanine Aminotransfer ALT/SGPT 26 U/L (13-56); Albumin, Serum 3.9 g/dL (3.2-5.0); Alkaline Phosphatase 78 U/L (45-117); Bilirubin, Direct 0.13 mg/dL (0.00-0.30); Globulin 2.9 g/dL (2.2-4.2); Protein, Total 6.8 g/dL (6.4-8.2)
[2023-02-26 07:36] LABS: Mucous, Urine 0 SEEN /hpf (<or=2+)
--- NOTE | 2023-02-26 07:36 | EKG12_ITS ---
Test Reason : CHEST PAIN Blood Pressure : / mmHG Vent. Rate : 055 BPM Atrial Rate : 055 BPM P-R Int : 198 ms QRS Dur : 096 ms QT Int : 456 ms P-R-T Axes : 039 -48 029 degrees QTc Int : 436 ms Sinus bradycardia Left axis deviation Incomplete right bundle branch block Possible Anterior infarct , age undetermined Abnormal ECG Confirmed by RACQUEL DE PAZ, CATHY ([id number]), order editor SAROJ RM ([id number]) on 03/02/2023 1:57:47 P M Referred By: NESSA Confirmed By:KIARA CLEMENT MD
[2023-02-26 07:44] LABS: Color, Urine Yellow (Yellow); Glucose, Dipstick Normal (Normal); Ketone-Dipstick Negative (Negative); Leukocyte Esterase-Dipstick 25 /ul (Negative); Nitrite-Dipstick Negative (Negative); Occult Blood-Urine 150 /ul (Negative); Protein-Dipstick 15 mg/dl (Negative); Specific Gravity, Urine 1.025 (1.002-1.030); Urine Bilirubin Dipstick Negative (Negative); Urine Clarity Clear (Clear); Urine Urobilinogen Normal (Normal)
[2023-02-26] MEDS: Aspirin 81 MG TAB.CHEW 324 MG PO (07:58)
[2023-02-26] MEDS: fentaNYL 100 MCG/2 ML Ampul 50 MCG IV (08:01)
[2023-02-26 08:02] LABS: Bacteria RARE /hpf (None Seen); Red Blood Cells-Urine 10-25 SEEN /hpf (0-5); Squamous Epithelial Cells - UA 0-5 SEEN /hpf (5-10); White Blood Cells 0-5 SEEN /hpf (0-5)
[2023-02-26 08:04] LABS: Troponin-I HS 10 pg/mL (3.0-54.0)
--- NOTE | 2023-02-26 08:41 | PCM.HP.STD ---
HPI - General General Date of Admission: 02/26/23 Date of Service: 02/26/23 HPI Narrative DANIELE TOLEDO, is a 72 F who presented to [facility] ED on 02/26/2023 with acute onset right flank pain. Patient seen at bedside in the ED, present. Patient received IV pain medication and IV nausea medication prior to my arrival to the room. On my exam, patient appeared fairly comfortable in bed and stated she felt significantly improved after those medications were given. States that she had acute onset right-sided flank pain earlier this morning. She has a history of recurrent kidney stones and this pain felt very similar to previous pain. She follows with urology outpatient. Her last kidney stone was back in February of last year and she required stent placement and lithotripsy at that time. Stent has since been removed. She otherwise states she has been fairly healthy at baseline, lives at home with her and does everything around home for his without issue. Denies any fevers or chills. No other acute concerns. [facility] Medical History Depression High cholesterol Hypertension Left ureteral calculus Multinodular goiter Nephrolithiasis Osteoarthritis Post-menopausal Skin cancer of forehead Home Medications amlodipine 10 mg tablet 10 mg PO QHS blood pressure 06/07/13 [History Last Taken 12/09/17 09:00 Y] multivitamin,rh-kflh-ltltygrb 27 mg-0.4 mg tablet 1 tab PO DAILY supplement 06/07/13 [History Last Taken 06/07/13] sertraline 50 mg tablet 50 mg PO DAILY mood 06/07/13 [History Last Taken 06/07/13] lisinopril 10 mg-hydrochlorothiazide 12.5 mg tablet 0.5 tab PO QHS blood pressure 01/11/19 [History Last Taken Unknown] calcium carbonate 500 mg calcium (1,250 mg) tablet (Calcium 500) 1,200 mg PO BID supplement 07/27/19 [History Last Taken Unknown] ciprofloxacin HCl 500 mg tablet (Cipro) 500 mg PO BID #10 tabs 02/14/22 [Rx Last Taken Unknown] lactobacillus combination no.4 3 billion cell capsule (Probiotic) 3,000 mmu cells PO DAILY supplement 02/14/22 [History Last Taken Unknown] latanoprost 0.005 % eye drops 1 drp EACH EYE QHS glaucoma 02/14/22 [History Last Taken Unknown] oxycodone-acetaminophen 5 mg-325 mg tablet 1 tab PO Q6H PRN pain 7 days #20 tabs 02/14/22 [Rx Last Taken Unknown] rosuvastatin 10 mg tablet 10 mg PO QHS cholesterol 02/14/22 [History Last Taken Unknown] Allergy/AdvReac Type Severity Reaction Status Date / Time Penicillins Allergy Swelling Verified 02/26/23 05:52 Family History Father Diabetes Heart disease Mother Breast cancer Surgical History History of blepharoplasty History of History of knee replacement History of laparoscopic cholecystectomy History of lithotripsy History of Mohs micrographic surgery for skin cancer Social History Smoking Status: Never smoker alcohol intake: current substance use type: does not use ROS Constitutional Constitutional: Denies change in weight, chills, fatigue, fever(s) or weakness Cardiovascular Cardiovascular: Denies chest pain or dyspnea on exertion Respiratory/Chest Respiratory/Chest: Denies cough Gastrointestinal Gastrointestinal: Reports nausea; Denies abdominal pain, constipation, diarrhea or vomiting Genitourinary Genitourinary: Reports dysuria, flank pain and low back pain Musculoskeletal Musculoskeletal: Denies arthralgias Neurologic Neurologic: Denies dizziness or focal weakness Vital Signs Vital Signs Vital Signs: 02/26/23 05:49 02/26/23 08:14 Temperature 96.5 F L Temperature Source Temporal Pulse Rate 68 51 L Respiratory Rate 16 12 Blood Pressure 164/66 H 96/58 L Blood Pressure Mean 98 70 Pulse Ox 98 97 Oxygen Delivery Method Room Air Room Air Weight Weight: 99.8 kg Body Mass Index (BMI) 34.4 Physical Exam Const alert, oriented x3, no apparent distress, healthy appearing and well nourished Constitutional Narrative: Pleasant elderly female, obese, sitting comfortably bed, conversing normally, no acute distress. General Appearance: cooperative, comfortable, well kempt and well developed HEENT normocephalic, head/scalp atraumatic, hearing grossly normal bilaterally, nasal mucous membranes and turbinates normal and moist oral mucous membranes Eyes PERRL, EOMs intact bilaterally and conjunctivae normal Neck full ROM, no lymphadenopathy and supple Lymph Lymphatic: no lymphadenopathy noted Chest inspection of chest normal Resp normal respiratory effort, normal air movement, no use of accessory muscles and clear to auscultation bilaterally Cardio regular rate, regular rhythm, no murmurs and peripheral pulses 2+ throughout GI normal to inspection, nondistended, normoactive bowel sounds, soft to palpation, non-tender and non-distended Back/Spine normal ROM Extremity normal to inspection, full ROM and no pedal edema Skin no rashes or lesions noted Neuro moves all extremities and no focal motor deficits Speech: speech normal Psych mental status grossly normal Results Lab / Micro Data 02/26/23 06:05 02/26/23 06:05 Labs: Laboratory Results - last 24 hr 02/26/23 06:05: WBC 11.2 H, RBC 4.77, Hgb 14.0, Hct 42.6, MCV 89.3, MCH 29.4, MCHC 32.9, RDW Std Deviation 41.7, RDW Coeff of Alphonso 12.7, Plt Count 195, MPV 10.2, Immature Gran % (Auto) 0.300, Neut % (Auto) 61.2, Lymph % (Auto) 31.9, [place] % (Auto) 4.8, Eos % (Auto) 1.3, Baso % (Auto) 0.5, Absolute Neuts (auto) 6.8, Absolute Lymphs (auto) 3.56, Nucleated RBC % 0, Sodium 143, Potassium 3.5, Chloride 108 H, Carbon Dioxide 29.0, Anion Gap 6, BUN 23 H, Creatinine 1.11 H, Estim Creat Clear Calc 43.24, Est GFR (MDRD) Af Amer 62, Est GFR (MDRD) Non-Af 51 L, BUN/Creatinine Ratio 20.7 H, Glucose 128 H, Calcium 9.6, Total Bilirubin 0.40, Direct Bilirubin 0.13, AST 23, ALT 26, Alkaline Phosphatase 78, Troponin I High Sens 10, Total Protein 6.8, Albumin 3.9, Globulin 2.9 02/26/23 07:20: Urine Color Yellow, Urine Clarity Clear, Urine pH 6.0, Ur Specific [place] 1.025, Urine Protein 15 H, Urine Glucose (UA) Normal, Urine Ketones Negative, Urine Occult Blood 150 H, Urine Nitrite Negative, Urine Bilirubin Negative, Urine Urobilinogen Normal, Ur Leukocyte Esterase 25 H, Urine RBC 10-25 SEEN, Urine WBC 0-5 SEEN, Ur Squamous Epith Cells 0-5 SEEN, Urine Bacteria RARE, Urine Mucus 0 SEEN Rhythm Strip Rhythm Strip: Sinus Rhythm Rate: 55 Ectopy: None Imagaing Radiology Impression Abdomen/Pelvis CT 02/26/23 06:15 IMPRESSION: 1. There is a large, 1.1 cm stone in the right ureteropelvic junction causing moderate obstructive changes. 2. Small nonobstructing stones in the kidneys bilaterally. Electronically Signed: Anthony Monk MD at 7:08 EST , Assessment & Plan Assessment/Plan (1) Right ureteral calculus: (2) Renal colic on right side: PLAN: Plan Patient is a 72-year-old female who presented to [facility] ED on 02/26/2023 with acute onset right flank pain. 1. Right sided nephrolithiasis with renal colic CT abdomen pelvis on admit showed a large 1.1 cm stone in the right ureteropelvic junction causing moderate obstructive changes. UA showed 150 occult blood, 15 protein, no findings concerning for UTI. Hemodynamically stable on admission. Patient had significant improvement in her pain in the ED with IV pain medication. S/p 1 L IV fluids in the ED as well. ? Admit under inpatient status to [facility]. Urology consulted. Planning for cystoscopy and right ureteral stent placement tomorrow afternoon. N.p.o. at midnight. Pain control with IV Toradol as needed, tramadol as needed. Zofran and Compazine as needed for nausea. Okay for p.o. intake for now, can consider maintenance IV fluids if patient's p.o. intake is very poor. 2. Mild leukocytosis ? WBC count 11.2 on admit. Suspect secondary to acute stress reaction in setting of nephrolithiasis noted above. Follow-up a.m. CBC. 3. History of recurrent nephrolithiasis ? Follows outpatient with Dr. Orta with urology. Last kidney stone was in 02/2022, had left kidney stone at that time that was 1.1 cm and required cystoscopy with left stent placement and extracorporeal shockwave lithotripsy. Stent has since been removed without issue. Chronic medical conditions: ? Hypertension: Holding home amlodipine, lisinopril and hydrochlorothiazide given mild hypotension on admission and was planned for procedure tomorrow. Will plan to restart postoperatively as able. ? Hyperlipidemia: Continue home rosuvastatin. ? Depression: Continue home sertraline. DVT prophylaxis: Lovenox CODE STATUS: Full code, verified Expected disposition: Home, 2 to 3 days Total clinical time spent by myself addressing the patient's medical issues, reviewing all the data, and collaborating with patient's care team: 55 minutes. Charges/Coding Visit Charges Inpatient E&M: 83595 Init Hosp L2
[2023-02-26] MEDS: Ketorolac 15 MG/ML Vial IV ×3 (10:10→22:24)
[2023-02-26] MEDS: 0.9% Saline Lock 10 ML Syringe IV ×3 (10:12→22:24)
[2023-02-26 10:13] LABS: Troponin-I HS 8 pg/mL (3.0-54.0)
[2023-02-26] MEDS: Sertraline 50 MG Tablet PO (10:13)
[2023-02-26] MEDS: Enoxaparin 40 MG/0.4 ML Syringe SC (10:13)
--- NOTE | 2023-02-26 13:44 | CON.PCM.UR_ITS ---
Assessment & Plan Assessment/Plan (1) Renal colic on right side: PLAN: npo at midnight plan for right stent placement at [facility] for stone. (2) Right ureteral calculus: HPI Consult Data Date of Consult: 02/26/23 HPI Narrative Reason for Consultation: right kidney stone HPI Narrative: DANIELE TOLEDO, is a 72 F who presents female admitted to hospital has a large stone in right UPJ plan do do a cysto and right stent placement for stone tomorrow. [facility] Medical History Depression High cholesterol Hypertension Left ureteral calculus Multinodular goiter Nephrolithiasis Osteoarthritis Post-menopausal Skin cancer of forehead Home Medications amlodipine 10 mg tablet 10 mg PO QHS blood pressure 06/07/13 [History Last Taken 12/09/17 09:00 Y] multivitamin,sd-gvvp-ujdvmsln 27 mg-0.4 mg tablet 1 tab PO DAILY supplement 06/07/13 [History Last Taken 06/07/13] sertraline 50 mg tablet 50 mg PO DAILY mood 06/07/13 [History Last Taken 06/07/13] lisinopril 10 mg-hydrochlorothiazide 12.5 mg tablet 0.5 tab PO QHS blood pressure 01/11/19 [History Last Taken Unknown] calcium carbonate 500 mg calcium (1,250 mg) tablet (Calcium 500) 1,200 mg PO BID supplement 07/27/19 [History Last Taken Unknown] ciprofloxacin HCl 500 mg tablet (Cipro) 500 mg PO BID #10 tabs 02/14/22 [Rx Last Taken Unknown] lactobacillus combination no.4 3 billion cell capsule (Probiotic) 3,000 mmu cells PO DAILY supplement 02/14/22 [History Last Taken Unknown] latanoprost 0.005 % eye drops 1 drp EACH EYE QHS glaucoma 02/14/22 [History Last Taken Unknown] oxycodone-acetaminophen 5 mg-325 mg tablet 1 tab PO Q6H PRN pain 7 days #20 tabs 02/14/22 [Rx Last Taken Unknown] rosuvastatin 10 mg tablet 10 mg PO QHS cholesterol 02/14/22 [History Last Taken Unknown] Allergy/AdvReac Type Severity Reaction Status Date / Time Penicillins Allergy Swelling Verified 02/26/23 05:52 Family History Father Diabetes Heart disease Mother Breast cancer Surgical History History of blepharoplasty History of History of knee replacement History of laparoscopic cholecystectomy History of lithotripsy History of Mohs micrographic surgery for skin cancer Social History Smoking Status: Never smoker alcohol intake: current substance use type: does not use Physical Exam Const alert and oriented x3 General Appearance: cooperative HEENT normocephalic, head/scalp atraumatic, EAC's normal and TM's normal bilaterally Eyes PERRL and EOMs intact bilaterally Pupil: sluggish Neck no lymphadenopathy, supple and no JVD General: trachea midline Lymph Lymphatic: no lymphadenopathy noted, lymphedema and lymphadenopathy Resp normal respiratory effort, normal air movement and clear to auscultation bi laterally Cardio regular rate, regular rhythm and peripheral pulses 2+ throughout GI soft to palpation, non-tender and non-distended Extremity normal capillary refill and no clubbing, cyanosis or edema General Extremity: no tenderness to palpation of joints or extremities Skin no rashes or lesions noted General Skin Exam: turgor normal Lesions: no lesions Rashes: no rashes Neuro CN's II-XII intact bilaterally Speech: speech normal Motor Exam: strength 5/5 throughout; Negative for general weakness Psych thought process normal, cooperative and affect normal Appearance: appropriate Medical Records Data Attestation: I reviewed the patient's medical records Lab / Micro Data 02/26/23 06:05 02/26/23 06:05 Labs: Laboratory Results - last 24 hr 02/26/23 06:05: WBC 11.2 H, RBC 4.77, Hgb 14.0, Hct 42.6, MCV 89.3, MCH 29.4, MCHC 32.9, RDW Std Deviation 41.7, RDW Coeff of Alphonso 12.7, Plt Count 195, MPV 10.2, Immature Gran % (Auto) 0.300, Neut % (Auto) 61.2, Lymph % (Auto) 31.9, [place] % (Auto) 4.8, Eos % (Auto) 1.3, Baso % (Auto) 0.5, Absolute Neuts (auto) 6.8, Absolute Lymphs (auto) 3.56, Nucleated RBC % 0, Sodium 143, Potassium 3.5, Chloride 108 H, Carbon Dioxide 29.0, Anion Gap 6, BUN 23 H, Creatinine 1.11 H, Estim Creat Clear Calc 43.24, Est GFR (MDRD) Af Amer 62, Est GFR (MDRD) Non-Af 51 L, BUN/Creatinine Ratio 20.7 H, Glucose 128 H, Calcium 9.6, Total Bilirubin 0.40, Direct Bilirubin 0.13, AST 23, ALT 26, Alkaline Phosphatase 78, Troponin I High Sens 10, Total Protein 6.8, Albumin 3.9, Globulin 2.9 02/26/23 07:20: Urine Color Yellow, Urine Clarity Clear, Urine pH 6.0, Ur Specific [place] 1.025, Urine Protein 15 H, Urine Glucose (UA) Normal, Urine Ketones Negative, Urine Occult Blood 150 H, Urine Nitrite Negative, Urine Bilirubin Negative, Urine Urobilinogen Normal, Ur Leukocyte Esterase 25 H, Urine RBC 10-25 SEEN, Urine WBC 0-5 SEEN, Ur Squamous Epith Cells 0-5 SEEN, Urine Bacteria RARE, Urine Mucus 0 SEEN 02/26/23 09:01: Troponin I High Sens 8 Rhythm Strip Rhythm Strip: Sinus Rhythm Rate: 55 Ectopy: None Imagaing Radiology Impression Abdomen/Pelvis CT 02/26/23 06:15 IMPRESSION: 1. There is a large, 1.1 cm stone in the right ureteropelvic junction causing moderate obstructive changes. 2. Small nonobstructing stones in the kidneys bilaterally. Electronically Signed: Anthony Monk MD at 7:08 EST ,
[2023-02-26] MEDS: Atorvastatin Calcium 20 MG Tablet PO (20:47)
[2023-02-26] MEDS: Calcium (Elemental) 500 MG Tablet PO (20:47)
[2023-02-26] MEDS: Latanoprost 0.005% 1 Bottle 1 DRP EACH EYE (20:50)
[2023-02-27] VITALS (7 sets, daily range): BP systolic 115–145; BP diastolic 56–84; PULSE 65–81; RESP 16–19; TEMP 36.2–37.4; O2SAT 95–99; BMI 33.0
[2023-02-27 06:42] LABS: Hematocrit 38.3 % (37-47); Hemoglobin 12.6 g/dL (12.0-15.0); Mean Corp Hgb Conc 32.9 g/dL (32-36); Mean Corpuscular Hgb 29.7 pg (27.0-32.0); Mean Corpuscular Volume 90.3 fL (81-99); Mean Platelet Vol. 10.3 fl (6.2-12.0); Platelet Count 160 K/mm3 (150-450); RBC Distribution Width CV 12.9 % (11.6-14.6); RBC Distribution Width SD 42.5 fl (35.1-43.9); Red Blood Count 4.24 M/mm3 (4.2-5.4); White Blood Count 7.2 K/mm3 (4.4-11.0)
[2023-02-27 07:03] LABS: Anion Gap 5 (5-15); BUN 25 mg/dL (7-18); Calcium,Total 9.1 mg/dL (8.5-10.1); Chloride 110 mmol/L (98-107); Creatinine, Serum 1.67 mg/dL (0.55-1.02); EST Glomerular Filtration Rate 32 mL/min (>60); Est Glom Filt Rate - Afr Amer 39 mL/min (>60); Estimated Creatinine Clearance 28.74 ml/min; Glucose 102 mg/dL (74-106); Sodium Level 143 mmol/L (136-145)
--- NOTE | 2023-02-27 10:50 | CASEMGMT ---
RN SHASTA Assessment: Face to Face with pt for initial transition planning/care coordination assessment. RN SHASTA introduced self and role at [facility], pt voices understanding and consents to assessment. Pt is A&O x4 and answers all questions appropriately at this time. Pt sitting up in bed in no distress with at bedside. Care providers, pharmacy, and demographics verified/updated. Admitting Dx: nephrolithiasis PCP:[facility] Specialists:You, uro; gurmeet Cavazos, Joni, srini Preferred [facility]: [facility] Prescription Benefit: yes LNOK: Haris Clarke, ; Terry Clarke, son Living Arrangements: Pt lives with in a single story home with 2 steps to enter. Pt reports she is I in ADL's and denies concerns at home. Transportation: Pt drives self and denies concerns with transportation. DME:cane, grab bars in the tub HHC/SNF: Denies hx of Pt states no concerns with going home at time of dc. Pt states no further concerns/needs. CM to follow. Advised pt to ask CM if any further question/concerns/needs arise, voices understanding. Pt Goal: Home Plan: Home
--- NOTE | 2023-02-27 13:51 | PN.HOSP_ITS ---
Reason for Visit Reason for Visit: Diagnoses Calculus of ureter (02/26/23) Unspecified renal colic (02/26/23) Subjective Subjective Patient seen at bedside this morning. Sitting comfortably in bed, conversing normally, no acute distress. Denies any right-sided flank pain or low back pain this morning, states pain medications have been very helpful for her. Is looking forward to her procedure today and wants to go home soon afterward if possible. No other acute concerns today. Objective Data Objective Data Vital Signs: Vital Signs Temp Pulse Resp BP Pulse Ox O2 Del Method O2 Flow Rate 97.8 F 66 16 126/63 H 99 Room Air 2 02/27/23 09:44 02/27/23 09:44 02/27/23 09:44 02/27/23 09:44 02/27/23 09:44 02/27/23 11:30 02/26/23 08:25 Oxygen Flow Rate (L/min) 2 Oxygen Delivery Method Room Air Weight: 95.5 kg Body Mass Index (BMI) 33.0 Intake & Output: Intake and Output for Last 24 Hours 02/25/23 02/26/23 02/27/23 23:59 23:59 23:59 Intake Total 1640 / 1640 Balance 1640 / 1640 Lab / Micro Data 02/27/23 06:27 02/27/23 06:27 Labs: Laboratory Results - last 24 hr 02/27/23 06:27: WBC 7.2, RBC 4.24, Hgb 12.6, Hct 38.3, MCV 90.3, MCH 29.7, MCHC 32.9, RDW Std Deviation 42.5, RDW Coeff of Alphonso 12.9, Plt Count 160, MPV 10.3, Sodium 143, Potassium 4.0, Chloride 110 H, Carbon Dioxide 28.0, Anion Gap 5, BUN 25 H, Creatinine 1.67 H, Estim Creat Clear Calc 28.74, Est GFR (MDRD) Af Amer 39 L, Est GFR (MDRD) Non-Af 32 L, BUN/Creatinine Ratio 15.0, Glucose 102, Calcium 9.1 Rhythm Strip Rhythm Strip: Sinus Rhythm Rate: 55 Ectopy: None Physical Exam Const alert, oriented x3, no apparent distress, healthy appearing and well nourished Constitutional Narrative: Pleasant elderly female, obese, sitting comfortably bed, conversing normally, no acute distress. General Appearance: cooperative, comfortable, well kempt and well developed HEENT normocephalic, head/scalp atraumatic, hearing grossly normal bilaterally, nasal mucous membranes and turbinates normal and moist oral mucous membranes Eyes PERRL, EOMs intact bilaterally and conjunctivae normal Neck full ROM, no lymphadenopathy and supple Lymph Lymphatic: no lymphadenopathy noted Chest inspection of chest normal Resp normal respiratory effort, normal air movement, no use of accessory muscles and clear to auscultation bilaterally Cardio regular rate, regular rhythm, no murmurs and peripheral pulses 2+ throughout GI normal to inspection, nondistended, normoactive bowel sounds, soft to palpation, non-tender and non-distended Negative for no CVA tenderness Back/Spine normal ROM Extremity normal to inspection, full ROM and no pedal edema Skin no rashes or lesions noted Neuro moves all extremities and no focal motor deficits Speech: speech normal Psych mental status grossly normal Assessment & Plan Assessment/Plan (1) Right ureteral calculus: (2) Renal colic on right side: PLAN: Plan Patient is a 72-year-old female who presented to [facility] ED on 02/26/2023 with acute onset right flank pain. 1. Right sided nephrolithiasis with renal colic CT abdomen pelvis on admit showed a large 1.1 cm stone in the right ureteropelvic junction causing moderate obstructive changes. UA showed 150 occult blood, 15 protein, no findings concerning for UTI. Hemodynamically stable on admission. Patient had significant improvement in her pain in the ED with IV pain medication. S/p 1 L IV fluids in the ED as well. ? Urology following. Planning for cystoscopy and right ureteral stent placement this afternoon. Pain control with IV Toradol as needed, tramadol as needed. Zofran and Compazine as needed for nausea. Possibly home this evening versus tomorrow depending on patient does with procedure. 2. Mild leukocytosis, resolved ? WBC count 11.2 on admit, improved to 7 on 02/27. Suspect secondary to acute stress reaction versus hemoconcentration. No need to monitor further. 3. History of recurrent nephrolithiasis ? Follows outpatient with Dr. Orta with urology. Last kidney stone was in 02/2022, had left kidney stone at that time that was 1.1 cm and required cystoscopy with left stent placement and extracorporeal shockwave lithotripsy. Stent has since been removed without issue. Chronic medical conditions: ? Hypertension: Holding home amlodipine, lisinopril and hydrochlorothiazide given mild hypotension on admission and procedure today. Will plan to restart postoperatively as able. ? Hyperlipidemia: Continue home rosuvastatin. ? Depression: Continue home sertraline. DVT prophylaxis: Lovenox CODE STATUS: Full code, verified Expected disposition: Home, 1 to 2 days Total clinical time spent by myself addressing the patient's medical issues, reviewing all the data, and collaborating with patient's care team: 35 minutes. Charges/Coding Visit Charges Inpatient E&M: 36021 Subs Hosp L2
--- NOTE | 2023-02-27 14:28 | NURSING ---
Pt taken via bed to surgery.
[2023-02-27] MEDS: Lactated Ringers 1,000 ML 15 ML IV (14:44)
--- NOTE | 2023-02-27 16:33 | DCINST_ITS ---
Discharge Instructions Diet Discharge Diet: No restrictions Activity Discharge Activity: Return to Normal Activity and May Not Drive (while taking narcotic pain medications.) Dressing / Incision Call your doctor if you observe: Fever of 101 or Higher Follow Up Care Please Follow Up With: Homar Orta MD When: Call [phone] for an appointment Test Results: Test results from this visit will be discussed in further detail at your follow- up appointment, if applicable. Discharge Plan Admission Admit Date/Time: 02/26/23 08:48 Attending Provider: Roberth Allison Primary Care Provider: Keith Nichole Consulting Providers: Homar Orta Discharge Orders/Prescriptions Prescriptions: No Action calcium carbonate [Calcium 500] 500 mg calcium (1,250 mg) tablet 1,200 mg PO BID amlodipine 10 MG tablet 10 mg PO QHS Patient Comments: blood pressure sertraline 50 MG tablet 50 mg PO DAILY Patient Comments: depression multivitamin,rn-kwkc-cxypnynh 1 TABLET tablet 1 tab PO DAILY Patient Comments: vitamin lisinopril-hydrochlorothiazide 10-12.5 mg tablet 0.5 tab PO QHS Patient Comments: blood pressure latanoprost 0.005 % drops 1 drp EACH EYE QHS Patient Comments: instill 1 drop into both eyes at bedtime rosuvastatin 10 mg tablet 10 mg PO QHS Probiotic 3 billion cell Capsule 3,000 mmu cells PO DAILY Rx Instructions: administer with a meal ciprofloxacin HCl [Cipro] 500 mg tablet 500 mg PO BID Qty: 10 0RF oxycodone-acetaminophen 5-325 mg tablet 1 tab PO Q6H PRN (Reason: pain) 7 Days Qty: 20 0RF lisinopril 20 mg tablet 20 mg PO BID Vitamin D 1000unit 1,000 units 1,000 unit PO DAILY calcium carbonate [Calcium 600] 600 mg calcium (1,500 mg) tablet 600 mg PO DAILY Referrals / Follow Up: Keith Nichole MD [Primary Care Provider] -
--- NOTE | 2023-02-27 16:35 | PCM.OPRPT ---
Report of Operation Date of Procedure: 02/27/23 Pre-Operative Diagnosis: Right kidney stone Post-Operative Diagnosis: same Surgery/Procedure Performed:: Cystoscopy, retrograde pyelogram and right stent placement Description of Surgical Findings:: Patient was taken back to the operating room after smooth induction of anesthesia she was placed in dorsolithotomy position the urethral vaginal area prepped and draped in usual sterile fashion went into the bladder with a 21 Stateless rigid cystourethroscope, cannulated the right ureteral orifice with a Glidewire advanced a wire up in the kidney could see a stone impacted in the right UPJ advance the stone passed the UPJ and passed the stone I then advanced the Pollick catheter performed retrograde pyelogram sick contrast going up past the stone and then beyond the stone and filling the kidney with calyx or severe hydronephrosis. Then after this then advance the wire past the stone and then I advanced the stent once the stent got to the stone it was quite difficult had to push a little bit hard and then finally the stent was able to get past the stone and pulled the wire and the stent appeared to coil above the stone in the renal pelvis in the bladder I then drained the bladder and remove the wire and the stent coil in the kidney and bladder good position and look like the stent was in good position above the stone alleviating the obstruction and in the bladder. She will be able to go home with antibiotics I will have my office call her to get her set up for outpatient treatment of the stone with laser lithotripsy. Surgeon: Homar Orta Type of Anesthesia: MAC and Topical Anesth Drains: stent right Estimated Blood Loss (mL): 0 Admit VTE Documentation VTE Present on Admission: No VTE Mechan Device Prophylaxis: SCD's VTE Pharm Prophylaxis ordered?: No
[2023-02-27] MEDS: Lidocaine Jelly 2% 20 ML Syringe (URO-JET) 1 APPLIC (16:50)
[2023-02-27] MEDS: traMADol 50 MG Tablet PO (17:50)
--- NOTE | 2023-02-27 19:10 | DCINST_ITS ---
Discharge Instructions Diet Discharge Diet: No restrictions Activity Discharge Activity: Return to Normal Activity Dressing / Incision Call your doctor if you observe: Fever of 101 or Higher Follow Up Care Please Follow Up With: Homar Orta MD Test Results: Test results from this visit will be discussed in further detail at your follow- up appointment, if applicable. Discharge Plan Admission Admit Date/Time: 02/26/23 08:48 Primary Reason for Your Visit: kidney stone Attending Provider: Roberth Allison Primary Care Provider: Keith Nichole Consulting Providers: Homar Orta Instructions Additional Instructions / Restrictions: Take new medications as noted below. Discharge Orders/Prescriptions Prescriptions: New tamsulosin [Flomax] 0.4 mg capsule 0.4 mg PO DAILY Qty: 10 0RF phenazopyridine [Pyridium] 100 mg tablet 100 mg PO TID Qty: 15 0RF No Action calcium carbonate [Calcium 500] 500 mg calcium (1,250 mg) tablet 1,200 mg PO BID amlodipine 10 MG tablet 10 mg PO QHS Patient Comments: blood pressure sertraline 50 MG tablet 50 mg PO DAILY Patient Comments: depression multivitamin,sg-nddi-fbbdxlqp 1 TABLET tablet 1 tab PO DAILY Patient Comments: vitamin lisinopril-hydrochlorothiazide 10-12.5 mg tablet 0.5 tab PO QHS Patient Comments: blood pressure latanoprost 0.005 % drops 1 drp EACH EYE QHS Patient Comments: instill 1 drop into both eyes at bedtime rosuvastatin 10 mg tablet 10 mg PO QHS Probiotic 3 billion cell Capsule 3,000 mmu cells PO DAILY Rx Instructions: administer with a meal ciprofloxacin HCl [Cipro] 500 mg tablet 500 mg PO BID Qty: 10 0RF oxycodone-acetaminophen 5-325 mg tablet 1 tab PO Q6H PRN (Reason: pain) 7 Days Qty: 20 0RF lisinopril 20 mg tablet 20 mg PO BID Vitamin D 1000unit 1,000 units 1,000 unit PO DAILY calcium carbonate [Calcium 600] 600 mg calcium (1,500 mg) tablet 600 mg PO DAILY Referrals / Follow Up: Keith Nichole MD [Primary Care Provider] - Disposition Disposition (needs filled in before D/C Order can be placed): Home, Self Care
--- NOTE | 2023-02-27 19:15 | DS.PCM_ITS ---
Providers Date of Admission: 02/26/23 Date of Discharge: 02/27/23 Primary Care Physician: Dr. Keith Nichole MD Consultations 02/26/23 08:46 Consult: Urology Routine Consulting Provider: Homar Orta Reason for Consult: stone EMERGENT Consult: No MD Notified: Yes Date Notified: 02/26/23 Time Notified: 08:47 Method of Notification: ED Physician Initiated Reason For Visit: NEPHROLITHIASIS Diagnosis Discharge Diagnosis (1) Right ureteral calculus: Status: Acute Code(s): N20.1 - Calculus of ureter (2) Renal colic on right side: Status: Acute Code(s): N23 - Unspecified renal colic Medications at Discharge Home Medications amlodipine 10 mg tablet 10 mg PO QHS blood pressure 06/07/13 multivitamin,pi-upld-ujzsobxr 27 mg-0.4 mg tablet 1 tab PO DAILY supplement 06/07/13 sertraline 50 mg tablet 50 mg PO DAILY mood 06/07/13 lisinopril 10 mg-hydrochlorothiazide 12.5 mg tablet 0.5 tab PO QHS blood pressure 01/11/19 calcium carbonate 500 mg calcium (1,250 mg) tablet (Calcium 500) 1,200 mg PO BID supplement 07/27/19 ciprofloxacin HCl 500 mg tablet (Cipro) 500 mg PO BID #10 tabs 02/14/22 lactobacillus combination no.4 3 billion cell capsule (Probiotic) 3,000 mmu cells PO DAILY supplement 02/14/22 latanoprost 0.005 % eye drops 1 drp EACH EYE QHS glaucoma 02/14/22 oxycodone-acetaminophen 5 mg-325 mg tablet 1 tab PO Q6H PRN pain 7 days #20 tabs 02/14/22 rosuvastatin 10 mg tablet 10 mg PO QHS cholesterol 02/14/22 Vitamin D 1000unit 1,000 unit PO DAILY supplement 02/27/23 calcium carbonate 600 mg calcium (1,500 mg) tablet (Calcium) 600 mg PO DAILY supplement 02/27/23 lisinopril 20 mg tablet 20 mg PO BID high blood pressure 02/27/23 phenazopyridine 100 mg tablet (Pyridium) 100 mg PO TID #15 tabs 02/27/23 tamsulosin 0.4 mg capsule (Flomax) 0.4 mg PO DAILY #10 caps 02/27/23 Hospital Course Operations None Procedures - (cystoscopy, retrograde pyelogram and right ureteral stent placement; CT abdomen/pelvis) Summary of Care Provided Minutes Spent on Discharge: 25 Hospital Course: Patient is a 72-year-old female who presented to [facility] ED on 02/26/2023 with acute onset right flank pain. Short hospital course as noted below. Patient was discharged home in stable condition on 02/27. 1. Right sided nephrolithiasis with renal colic CT abdomen pelvis on admit showed a large 1.1 cm stone in the right ureteropelvic junction causing moderate obstructive changes. UA showed 150 occult blood, 15 protein, no findings concerning for UTI. Hemodynamically stable on admission. Patient had significant improvement in her pain in the ED with IV pain medication. S/p 1 L IV fluids in the ED as well. ? Urology followed. S/p cystoscopy, retrograde pyelogram and right ureteral stent placement with Dr. Orta on 02/27. Patient tolerated procedure well. Per Urology, patient okay to go home with antibiotics and their office with call to get her set up for outpatient treatment of the stone with laser lithotripsy. 2. Mild leukocytosis, resolved ? WBC count 11.2 on admit, improved to 7 on 02/27. Suspect secondary to acute stress reaction versus hemoconcentration. No need to monitor further. 3. History of recurrent nephrolithiasis ? Follows outpatient with Dr. Orta with urology. Last kidney stone was in 02/2022, had left kidney stone at that time that was 1.1 cm and required cystoscopy with left stent placement and extracorporeal shockwave lithotripsy. Stent has since been removed without issue. Chronic medical conditions: ? Hypertension: Held home BP medications on day of procedure. Okay to resume on discharge. ? Hyperlipidemia: Continued home rosuvastatin. ? Depression: Continued home sertraline. Total clinical time spent by myself addressing the patient's discharge needs: 25 minutes. Physical Exam Const alert, oriented x3, no apparent distress, healthy appearing and well nourished Constitutional Narrative: Pleasant elderly female, obese, sitting comfortably bed, conversing normally, no acute distress. General Appearance: cooperative, comfortable, well kempt and well developed HEENT normocephalic, head/scalp atraumatic, hearing grossly normal bilaterally, nasal mucous membranes and turbinates normal and moist oral mucous membranes Eyes PERRL, EOMs intact bilaterally and conjunctivae normal Neck full ROM, no lymphadenopathy and supple Lymph Lymphatic: no lymphadenopathy noted Chest inspection of chest normal Resp normal respiratory effort, normal air movement, no use of accessory muscles and clear to auscultation bilaterally Cardio regular rate, regular rhythm, no murmurs and peripheral pulses 2+ throughout GI normal to inspection, nondistended, normoactive bowel sounds, soft to palpation, non-tender and non-distended Negative for no CVA tenderness Back/Spine normal ROM Extremity normal to inspection, full ROM and no pedal edema Skin no rashes or lesions noted Neuro moves all extremities and no focal motor deficits Speech: speech normal Psych mental status grossly normal Weight / BMI Weight Weight: 95.5 kg Body Mass Index (BMI) 33.0 ABG / Lab / Microbiology Data 02/27/23 06:27 02/27/23 06:27 Laboratory: Laboratory Results - last 24 hr 02/27/23 06:27: WBC 7.2, RBC 4.24, Hgb 12.6, Hct 38.3, MCV 90.3, MCH 29.7, MCHC 32.9, RDW Std Deviation 42.5, RDW Coeff of Alphonso 12.9, Plt Count 160, MPV 10.3, Sodium 143, Potassium 4.0, Chloride 110 H, Carbon Dioxide 28.0, Anion Gap 5, BUN 25 H, Creatinine 1.67 H, Estim Creat Clear Calc 28.74, Est GFR (MDRD) Af Amer 39 L, Est GFR (MDRD) Non-Af 32 L, BUN/Creatinine Ratio 15.0, Glucose 102, Calcium 9.1 D/C Instructions Discharge Diet: No restrictions Call your doctor if you observe: Fever of 101 or Higher Please Follow Up With: Homar Orta MD When: Call [phone] for an appointment Meaningful Use Info Meaningful Use Diagnoses (Choose all that apply): None applicable Discharge Plan Admission Admit Date/Time: 02/26/23 08:48 Primary Reason for Your Visit: kidney stone Attending Provider: Roberth Allison Primary Care Provider: Keith Nichole Consulting Providers: Homar Orta Instructions Additional Instructions / Restrictions: Take new medications as noted below. Discharge Orders/Prescriptions Prescriptions: New tamsulosin [Flomax] 0.4 mg capsule 0.4 mg PO DAILY Qty: 10 0RF phenazopyridine [Pyridium] 100 mg tablet 100 mg PO TID Qty: 15 0RF No Action calcium carbonate [Calcium 500] 500 mg calcium (1,250 mg) tablet 1,200 mg PO BID amlodipine 10 MG tablet 10 mg PO QHS Patient Comments: blood pressure sertraline 50 MG tablet 50 mg PO DAILY Patient Comments: depression multivitamin,em-oshx-yxoglbdo 1 TABLET tablet 1 tab PO DAILY Patient Comments: vitamin lisinopril-hydrochlorothiazide 10-12.5 mg tablet 0.5 tab PO QHS Patient Comments: blood pressure latanoprost 0.005 % drops 1 drp EACH EYE QHS Patient Comments: instill 1 drop into both eyes at bedtime rosuvastatin 10 mg tablet 10 mg PO QHS Probiotic 3 billion cell Capsule 3,000 mmu cells PO DAILY Rx Instructions: administer with a meal ciprofloxacin HCl [Cipro] 500 mg tablet 500 mg PO BID Qty: 10 0RF oxycodone-acetaminophen 5-325 mg tablet 1 tab PO Q6H PRN (Reason: pain) 7 Days Qty: 20 0RF lisinopril 20 mg tablet 20 mg PO BID Vitamin D 1000unit 1,000 units 1,000 unit PO DAILY calcium carbonate [Calcium 600] 600 mg calcium (1,500 mg) tablet 600 mg PO DAILY Referrals / Follow Up: Keith Nichole MD [Primary Care Provider] - Disposition Disposition (needs filled in before D/C Order can be placed): Home, Self Care Charges/Coding Visit Charges Inpatient E&M: 21243 Disch Hosp
== END 2023-02-27 20:15 | disposition home or self-care (01) | DRG 661 ==
LOC: ED 08:58 → MS3 10:44
PROVIDERS: Urology; Admitting Provider Hospitalist; Emergency Provider Emergency Medicine; PCP Family Medicine; Visit Provider Hospitalist
PROC: (CPT 52332; principal; 2023-02-27 15:20)
DX: N13.2 Hydronephrosis with renal and ureteral calculous obstruction (principal); E66.9 Obesity, unspecified; I10 Essential (primary) hypertension; F32.A Depression, unspecified; E78.00 Pure hypercholesterolemia, unspecified; Z68.33 Body mass index [BMI] 33.0-33.9, adult; Z90.49 Acquired absence of other specified parts of digestive tract; Z79.899 Other long term (current) drug therapy; Z87.442 Personal history of urinary calculi
CPT/HCPCS: 52332; 36415; 74176; 80048; 80076; 81001; 84484; 85025; 85027; 93005; 94668; 96361; 96372; 96374; 96375; 96376; 97802; 99221; 99283; A4216; C1769; C2617; G0378; J2405

== ENCOUNTER → 2023-05-21 | Outpatient (CLI) | payer MEDICARE, SELFPAY ==
--- OUTSIDE RECORDS SUMMARY | 2023-05-21 08:39 | XMS RPT_ITS | CCD ---
Author Name Unknown Address [address] [facility] [address] [place] [address] Organization [facility] Care Team Providers Care Talent Acquisition Relationship Manager Name Role Phone Mando Patricia MD Primary Care Provider [phone] RANI TREJO Attending Unavailable MANDO PATRICIA Referring Unavailable MANDO PATRICIA Primary Care Unavailable RANI TREJO Referring Unavailable MANDO PATRICIA Primary Care Unavailable Mando Patricia MD Primary Care Provider Allergies Allergy Classification Reported Allergen(s) Allergy Type Date of Onset Reaction(s) Facility (4 sources) Amoxicillin; Translations: [AMOXICILLIN] Drug Allergy 9 Other: See Comments [facility] (4 sources) Amoxicillin / Clavulanate; Translations: [AMOXICILLIN-POT CLAVULANATE] Drug Allergy 9 Diarrhea [facility] (4 sources) NITROFURANTOIN, MACROCRYSTALS / Nitrofurantoin, Monohydrate; Translations: [NITROFURANTOIN MONOHYD/M-CRYST] Drug Allergy 9 GI Upset [facility] (4 sources) Penicillin G; Translations: [PENICILLIN G] Drug Allergy 6 Other: See Comments [facility] Medications Completed/Discontinued Medications Medication Drug Class(es) Dates Sig (Normalized) Sig (Original) acetaminophen 500 mg oral tablet (3 sources) acetaminophen (T YLENOL) 500 mg tablet Take 500 mg by mouth as needed. 0 Active Problems Active Problems Problem Classification Problem Date Documented Da te Episodic/Chronic Adjustment disorders (3 sources) Adjustment disorder with depressed mood; Translations: [Adjustment disorder with depressed mood] 04-14-2005 Chronic Essential hypertension (3 sources) Benign essential hypertension; Translations: [Essential (primary) hypertension] 04-14-2005 Chronic Other connective tissue disease (2 sources) Pain in right foot; Translations: [Pain in right foot] Episodic Other connective tissue disease (2 sources) Dysfunction of posterior tibial tendon; Translations: [Posterior tibial tendinitis, unspecified leg] Episodic Other connective tissue disease (1 source) Pain in right foot; Translations: [Right foot pain] Onset: 04-16-2022 Episodic Other connective tissue disease (1 source) Posterior tibial tendinitis, unspecified leg; Translations: [Posterior tibial tendon dysfunction] Onset: 04-16-2022 Episodic Past or Other Problems Problem Classification Problem Date Documented Da te Episodic/Chronic Fracture of lower limb (3 sources) Closed fracture of metatarsal bone; Translations: [Fracture of unspecified metatarsal bone(s), unspecified foot, initial encounter for closed fracture] Onset: 04-28-2005 04-28-2005 Episodic Nonmalignant breast conditions (3 sources) Solitary cyst of breast; Translations: [Solitary cyst of unspecified breast] Onset: 09-13-2008 09-13-2008 Episodic Other connective tissue disease (3 sources) Ganglion of joint; Translations: [Ganglion, unspecified site] Onset: 05-19-2005 05-19-2005 Episodic Other screening for suspected conditions (not mental disorders or infectious disease) (3 sources) Mammography abnormal; Translations: [Other abnormal and inconclusive findings on diagnostic imaging of breast] Onset: 08-24-2008 08-24-2008 Episodic Results Test Name Value Interpretation Reference Range Facil ity Encounters Encounter Date Encounter Type Care Provider Facility Start: 04-21-2022 Telephone encounter Rani Sumeet pablo Work Phone: Podiatry Procedures Date Procedure Procedure Detail Performing Clinician Start: 04-16-2022 Radex foot complete minimum 3 views Rani Trejo Work Phone: Plan of Treatment Date Care Activity Detail Author Start: 11-14-2022 Covid-19 Vaccine ( season) Covid-19 Vaccine () [facility] Start: 11-14-2022 Influenza vaccination Influenza Vaccine (#1) [facility] Start: 03-16-2022 ADVANCE DIRECTIVE DISCUSSION ADVANCE DIRECTIVE DISCUSSION [facility] Start: 03-16-2022 DEPRESSION ASSESSMENT DEPRESSION ASSESSMENT [facility] Start: 2013 BONE DENSITY BONE DENSITY [facility] Start: 2013 Bone Density Screening Bone Density Screening [facility] Start: 2013 Pneumococcal Vaccine: 65+ (1 - PCV) Pneumococcal Vaccine: 65+ (1 - PCV) [facility] Start: 2013 PNEUMOCOCCAL: 65+ (1 - PCV) PNEUMOCOCCAL: 65+ (1 - PCV) [facility] Start: 1998 SHINGRIX VACCINE (1 of 2) SHINGRIX VACCINE (1 of 2) [facility] Start: 1993 COLOGUARD (FIT-DNA) COLOGUARD (FIT-DNA) [facility] Start: 1993 Colonoscopy COLONOSCOPY [facility] Start: 1993 COLORECTAL CANCER SCREENING COLORECTAL CANCER SCREENING [facility] Start: [address] COLONOGRAPHY [facility] Start: 1993 DIABETES SCREEN DIABETES SCREEN [facility] Start: 1993 Diabetes Screening Diabetes Screening [facility] Start: 1993 FECAL OCCULT BLOOD FECAL OCCULT BLOOD [facility] Start: 1993 Lipid 1996 panel - Serum or Plasma Lipid Screening [facility] Start: 1993 LIPID SCREEN LIPID SCREEN [facility] Start: 1993 SIGMOIDOSCOPY SIGMOIDOSCOPY [facility] Start: 1988 Mammography [facility] Start: 1967 Urine microalbumin profile [facility] Start: 1966 ANNUAL PCP TEAM CHRONIC DISEASE VISIT ANNUAL PCP TEAM CHRONIC DISEASE VISIT [facility] Start: 1966 BP CONTROLLED (<130/80) BP CONTROLLED (<130/80) [facility] Start: 1966 HEPATITIS C SCREENING HEPATITIS C SCREENING [facility] End: 05-16-2023 XR FOOT GENERAL 3V AP/LAT/OBL RIGHT XR FOOT GENERAL 3V AP/LAT/OBL RIGHT Radiology Routine Right foot pain Posterior tibial tendon dysfunction 1 Occurrences starting 04/16/2022 until 05/16/2023 Work Phone: Immunizations Immunization Date Immunization Notes Care Provider Naomie walton 12-23-2021 influenza virus vacc ine, unspecified formulation [employer] Work Phone: [facility] Payers Date Payer Category Payer Medicare [employer] MEDICARE A ETNA MEDICARE PPO [id number] 2018-Present [phone] [address] [place] [address] PPO [id number] 2018 Medicare [id number] Social History Date Type Detail Facility Start: 04-16-2022 Tobacco smoking stat us NHIS Never smoked tobacco [facility] Work Phone: Start: 04-16-2022 Tobacco use and exposure Smokeless tobacco non-user [facility] Work Phone: Start: 04-16-2022 Alcohol intake Current drinke r of alcohol (finding) [facility] Start: 1950 Sex Assigned At Not on file [facility] Start: 04-16-2022 History of Social function [facility] Start: 04-16-[address] [facility] Clinical Notes 10-01-2018 to 04-22-2022 Telephone Encounter - Marisela Grider LPN - 04/22/2022 9:21 AM ESTTelephone Encounter - Rani Trejo - 04/21/2022 7:45 PM Titus Decker RN - 04/16/2022 3:44 PM ESTPatient Instructions Note Date & Type Note Facility 04-22-2022 Miscellaneous Notes Patient notified of results and provider's instructions. Patient verbalizes understanding. Marisela Grider LPN Please call patient to inform her that her xrays do not show any acute findings Would continue with boot until pain resolves and then can use powerstep insert Rani Trejo DPM documented in this encounter [facility] 04-16-2022 Note HNO ID: [id number] Author: Corazon Decker RN Service: ? Author Type: Registered Nurse Type: Progress Notes Filed: 04/16/2022 7:05 PM Note Text: Per Dr. Trejo Tammi was provided with airselect short boot, size Large, and instructed/educated in its application, wear, and care. All questions were answered, and patient was able to demonstrate competence with the necessary skills to utilize the above equipment. Patient signed DJO Patient agreement. [employer] to bill patient's insurance for product. Corazon Decker RN [facility] 04-16-2022 Note HNO ID: [id number] Author: RT Gertrudis(R) Service: ? Author Type: Technologist Type: Progress Notes Filed: 04/16/2022 4:14 PM Note Text: Radiology Service Progress Note PATIENT NAME: Tammi Clarke DATE OF SERVICE: April 16, 2022 TIME: 4:14 PM PATIENT IDENTITY VERIFICATION COMPLETED USING TWO (2) IDENTIFIERS: Name and Date of confirmed by patient verbally. FALL SCREENING: Has the patient had 2 falls in the last year or 1 fall with injury or currently using an Ambulatory Assistive Device (Walker, Cane, Wheelchair, Crutches, etc.)? No PATIENT GENDER DATA: Female. status: : No status: NO. PATIENT RELEVANT IMPLANT DATA REVIEWED: Not Applicable RADIOLOGY DEPARTMENT: General X-ray: Exam(s) Completed: Lower Extremity X-Ray(s): Foot, Right and Wt. Bearing PERIPHERAL IV DATA: Not applicable SIGNED BY: RT Gertrudis(R) April 16, 2022 4:14 PM [facility] 04-16-2022 Note HNO ID: [id number] Author: Rani Trejo Service: ? Author Type: Physician Type: Progress Notes Filed: 04/16/2022 7:05 PM Note Text: Initial Podiatric Office Visit: Chief Complaint: This 72 year old female who presents with chief complaint:right foot pain HPI Patient presents to clinic for evaluation of her right foot. She complains of pain and swelling to her right medial instep and first ray. This has been going on since the middle of March. She states the pain in her right foot bothers her when she is more ambulatory and more active. Patient recently presented to her primary care provider. She saw the nurse practioner who recommended rest, ice and advil. She states that resting has helped but as soon as she walks long distance the pain returns. She does have xrays from an outside facility and was significant for posterior heel spur. PAIN EVALUATION 04/16/2022 1432 Pain Level: 7 Pain Location: Foot-Right Description: Sharp;Aching Duration Amount of Time: 1 Duration Units: Months Frequency: Intermittent Intervention/Comfort measure: Reposition;Relaxation;Medicatio n;Cold No results found for: HBA1C PCP: Mando Patricia MD PAST MEDICAL HISTORY Diagnosis Date Adjustment disorder with depressed mood Essential hypertension, benign Current Outpatient Medications Medication Sig rosuvastatin (CRESTOR) 10 mg tablet latanoprost (XALATAN) 0.005 % ophthalmic solution terbinafine HCl (LAMISIL) 250 mg tablet lactobacillus combination no.4 (PROBIOTIC) 3 billion cell cap Take by mouth. calcium carbonate (OS-MADALYN 500) 500 mg calcium (1,250 mg) tablet Take by mouth. Cholecalciferol, Vitamin D3, 25 mcg (1,000 unit) cap Cholecalciferol (Vitamin D3) Active 1000 UNIT DAILY June 07, 2013 3:57pm LISINOPRIL-HYDROCHLOROTHIAZIDE 10 MG-12.5 MG TAB TAKE 1/2 TAB DAILY amlodipine besylate(NORVASC 10 MG TAB) Take one(1) tablet daily. multivitamins(DAILY VITAMIN TAB) Take one(1) tablet daily. ZOLOFT 50 MG TAB Take one(1) tablet daily. acetaminophen (TYLENOL) 500 mg tablet Take 500 mg by mouth as needed. (Patient not taking: Reported on 04/16/2022) potassium chloride(KLOR-CON M20 20 MEQ TAB) Take one(1) tablet daily. (Patient not taking: Reported on 04/16/2022) ATIVAN 1 MG TAB Take one(1) tablet daily. No current facility-administered medications for this visit. ALLERGIES Allergen Reactions Amoxicillin Other: See Comments did not work Augmentin [Amoxicil* Diarrhea Macrobid [Nitrofura* GI Upset Penicillin G Other: See Comments patient states she got very weak and had to go to hospital . Not sure if reaction to PCN or the fact she had low potassium. Also lips and mouth tingling. PAST SURGICAL HISTORY Procedure Laterality Date ARTHROSCOPY KNEE DIAGNOSTIC W/WO SYNOVIAL BX SPX Arthroscopy, knee right DELIVERY ONLY , low cervical x2 LAPAROSCOPY SURG CHOLECYSTECTOMY Cholecystectomy, lap PAST SURGICAL HISTORY OF basket extraction of kidney stone US FNA BREAST 09/13/08 U/S FNA outer mid right breast cyst No family history on file. Social History Tobacco Use Smoking status: Never Smokeless tobacco: Never Substance Use Topics Alcohol use: Yes Comment: occassional Drug use: Never REVIEW OF SYSTEMS GENERAL: Negative for Malaise, significant weight loss, fever RESPIRATORY: Negative for cough, wheezing and shortness of breath CARDIOVASCULAR: Negative for chest pain, leg swelling and palpitations GI: Negative for abdominal discomfort, blood in stools or black stools and change in bowel habits : Negative for dysuria, frequency and incontinence MUSCULOSKELETAL: Negative for joint pain or swelling, back pain, and muscle pain. SKIN: Negative for lesions, rash, and itching. HEMATOLOGY/LYMPHOLOGY Negative for prolonged bleeding, bruising easily, and swollen nodes. ENDOCRINE: Negative for cold or heat intolerance, polyuria, polydipsia and goiter. NEURO: negative Physical Exam: Constitutional: Pt is a well developed 72 year old female who is alert, oriented and cooperative Eyes: Following during examination. No redness or drainage. Respiratory: RR normal and nonlabored. Even breathing. No evidence of distress or shortness of breath. Psychology: Patient is engaged during conversation. Normal affect and mood. Does not appear depressed or anxious during encounter. Vascular: Dorsalis pedis and posterior tibial pulses palpable as b/l Capillary Fill time < 5 seconds to digits 1-5 b/l Skin temperature warm to warm proximal to distal b/l Hair growth present to digits Neurological: intact light touch/epicritic sensation b/l intact protective sensation no significant neurological deficits Dermatological: Nails 1-5 b/l appear normal. Webspaces clean and dry 1-4 b/l. Skin appears well hydrated and supple. good color, texture, turgor. No open lesions present. No callosities present. Musculoskeletal/Orthopaedic: P (more content not included)... [facility] 04-16-2022 Note HNO ID: [id number] Author: Marisela Grider LPN Service: ? Author Type: LICENSED NURSE Type: Progress Notes Filed: 04/16/2022 7:05 PM Note Text: AMB ROOMING INTAKE FLOWSHEET DATA Risk Screening Do you have concerns about personal safety or safety in the home?: No Pain Pain Level: 7 Pain Location: Foot-Right Description: Sharp, Aching Duration Amount of Time: 1 Duration Units: Months Frequency: Intermittent Intervention/Comfort measure: Reposition, Relaxation, Medication, Cold Patient presents with: Right Foot - New, Pain Marisela JERRI Grider [facility] 04-16-2022 History of Presen t illness Narrative Per Dr. Trejo, Tammi was provided with airselect short boot, size Large, and instructed/educated in its application, wear, and care. All questions were answered, and patient was able to demonstrate competence with the necessary skills to utilize the above equipment. Patient signed DJO Patient agreement. [employer] to bill patient's insurance for product. Corazon Decker RN Initial Podiatric Office Visit: Chief Complaint: This 72 year old female who presents with chief complaint:right foot pain HPI Patient presents to clinic for evaluation of her right foot. She complains of pain and swelling to her right medial instep and first ray. This has been going on since the middle of March. She states the pain in her right foot bothers her when she is more ambulatory and more active. Patient recently presented to her primary care provider. She saw the nurse practioner who recommended rest, ice and advil. She states that resting has helped but as soon as she walks long distance the pain returns. She does have xrays from an outside facility and was significant for posterior heel spur. PAIN EVALUATION 04/16/2022 1432 Pain Level: 7 Pain Location: Foot-Right Description: Sharp;Aching Duration Amount of Time: 1 Duration Units: Months Frequency: Intermittent Intervention/Comfort measure: Reposition;Relaxation;Medicatio n;Cold No results found for: HBA1C PCP: Mando Patricia MD PAST MEDICAL HISTORY Diagnosis Date Adjustment disorder with depressed mood Essential hypertension, benign Current Outpatient Medications Medication Sig rosuvastatin (CRESTOR) 10 mg tablet latanoprost (XALATAN) 0.005 % ophthalmic solution terbinafine HCl (LAMISIL) 250 mg tablet lactobacillus combination no.4 (PROBIOTIC) 3 billion cell cap Take by mouth. calcium carbonate (OS-MADALYN 500) 500 mg calcium (1,250 mg) tablet Take by mouth. Cholecalciferol, Vitamin D3, 25 mcg (1,000 unit) cap Cholecalciferol (Vitamin D3) Active 1000 UNIT DAILY June 07, 2013 3:57pm LISINOPRIL-HYDROCHLOROTHIAZIDE 10 MG-12.5 MG TAB TAKE 1/2 TAB DAILY amlodipine besylate(NORVASC 10 MG TAB) Take one(1) tablet daily. multivitamins(DAILY VITAMIN TAB) Take one(1) tablet daily. ZOLOFT 50 MG TAB Take one(1) tablet daily. acetaminophen (TYLENOL) 500 mg tablet Take 500 mg by mouth as needed. (Patient not taking: Reported on 04/16/2022) potassium chloride(KLOR-CON M20 20 MEQ TAB) Take one(1) tablet daily. (Patient not taking: Reported on 04/16/2022) ATIVAN 1 MG TAB Take one(1) tablet daily. No current facility-administered medications for this visit. ALLERGIES Allergen Reactions Amoxicillin Other: See Comments did not work Augmentin [Amoxicil* Diarrhea Macrobid [Nitrofura* GI Upset Penicillin G Other: See Comments patient states she got very weak and had to go to hospital . Not sure if reaction to PCN or the fact she had low potassium. Also lips and mouth tingling. PAST SURGICAL HISTORY Procedure Laterality Date ARTHROSCOPY KNEE DIAGNOSTIC W/WO SYNOVIAL BX SPX Arthroscopy, knee right DELIVERY ONLY , low cervical x2 LAPAROSCOPY SURG CHOLECYSTECTOMY Cholecystectomy, lap PAST SURGICAL HISTORY OF basket extraction of kidney stone US FNA BREAST 09/13/08 U/S FNA outer mid right breast cyst No family history on file. Social History Tobacco Use Smoking status: Never Smokeless tobacco: Never Substance Use Topics Alcohol use: Yes Comment: occassional Drug use: Never REVIEW OF SYSTEMS GENERAL: Negative for Malaise, significant weight loss, fever RESPIRATORY: Negative for cough, wheezing and shortness of breath CARDIOVASCULAR: Negative for chest pain, leg swelling and palpitations GI: Negative for abdominal discomfort, blood in stools or black stools and change in bowel habits : Negative for dysuria, frequency and incontinence MUSCULOSKELETAL: Negative for joint pain or swelling, back pain, and muscle pain. SKIN: Negative for lesions, rash, and itching. HEMATOLOGY/LYMPHOLOGY Negative for prolonged bleeding, bruising easily, and swollen nodes. ENDOCRINE: Negative for cold or heat intolerance, polyuria, polydipsia and goiter. NEURO: negative Physical Exam: Constitutional: Pt is a well developed 72 year old female who is alert, oriented and cooperative Eyes: Following during examination. No redness or drainage. Respiratory: RR normal and nonlabored. Even breathing. No evidence of distress or shortness of breath. Psychology: Patient is engaged during conversation. Normal affect and mood. Does not appear depressed or anxious during encounter. Vascular: Dorsalis pedis and posterior tibial pulses palpable as b/l Capillary Fill time < 5 seconds to digits 1-5 b/l Skin temperature warm to warm proximal to distal b/l Hair growth present to digits Neurological: intact light touch/epicritic sensation b/l intact protective sensation no significant neurological deficits Dermatological: Nails 1-5 b/l appear normal. Webspaces clean and dry 1-4 b/l. Skin appears well hydrated and supple. good color, texture, turgor. No open lesions present. No callosities present. Musculoskeletal/Orthopaedic: Patient has pain to palpation of right medial arch along 1st metatarsal cun joint and medial navicular Foot type is pronated structurally AJ ROM is decreased with knee extended and flexed 1st MPJ is full when loaded and no pain or crepitus are noted with ROM. MTJ, STJ are full and free of pain and crepitus. +5/5 muscle strength dorsiflexion, plantarflexion, inversion, eversion b/l Radiographs: no xrays to review ASSESSMENT: (M79.671) Right foot pain (primary encounter diagnosis) (M76.829) Posterior tibial tendon dysfunction PLAN: 1. History and physical examination performed. 2. Discussed right ankle pain. Suspect component of flatfoot/posterior tibial tendon dysfunction. She has already used powerstep insert but no help. Will place her in boot. Discussed risk of dvt while in boot 3. Once pain resolves, return to powerstep insert 4. Oral steroid ordered 5. F/u in 3 weeks Rani Trejo DPM Podiatry [address] [facility] [address] Dept: [phone] Dept AMB ROOMING INTAKE FLOWSHEET DATA Risk Screening Do you have concerns about personal safety or safety in the home?: No Pain Pain Level: 7 Pain Location: Foot-Right Description: Sharp, Aching Duration Amount of Time: 1 Duration Units: Months Frequency: Intermittent Intervention/Comfort measure: Reposition, Relaxation, Medication, Cold Patient presents with: Right Foot - New, Pain Marisela Grider LPN documented in this encounter [facility] 04-16-2022 History of Presen t illness Narrative Radiology Service Progress Note PATIENT NAME: Tammi Clarke DATE OF SERVICE: April 16, 2022 TIME: 4:14 PM PATIENT IDENTITY VERIFICATION COMPLETED USING TWO (2) IDENTIFIERS: Name and Date of confirmed by patient verbally. FALL SCREENING: Has the patient had 2 falls in the last year or 1 fall with injury or currently using an Ambulatory Assistive Device (Walker, Cane, Wheelchair, Crutches, etc.)? No PATIENT GENDER DATA: Female. status: : No status: NO. PATIENT RELEVANT IMPLANT DATA REVIEWED: Not Applicable RADIOLOGY DEPARTMENT: General X-ray: Exam(s) Completed: Lower Extremity X-Ray(s): Foot, Right and Wt. Bearing PERIPHERAL IV DATA: Not applicable SIGNED BY: RT Gertrudis(R) April 16, 2022 4:14 PM documented in this encounter [facility] 04-16-2022 Instructions Rani Trejo - 04/16/2022 2:57 PM EST Recommend boot immobilization for 2-3 weeks or until pain is resolved One pain is resolved, return to powerstep insert Ice foot and ankle x10 minutes twice daily. Use of cold water bath tub would suffice. Take oral steroid as prescribed If you develop any shortness of breath or calf pain, present to the hospital ER. Rani Trejo DPM documented in this encounter [facility] documented as of this encounter (statuses as of 04/17/2022) [facility]07-19-2019 History of Past illness Narrative* Problem Noted Date Resolved Date Dermatochalasis of both upper eyelids 10/01/2018 10/01/2018 documented as of this encounter (statuses as of 04/22/2022) [facility]07-19-2019 History of Past illness Narrative* Problem Noted Date Diagnosed Date Resolved Date Dermatochalasis of both upper eyelids 10/01/2018 10/01/2018 documented as of this encounter (statuses as of 01/17/2023) [facility] Diagnosis Right foot pain- Primary Pain in limb Posterior tibial tendon dysfunction Other disorders of synovium, tendon, and bursa [facility] Diagnosis Right foot pain Pain in limb Posterior tibial tendon dysfunction Other disorders of synovium, tendon, and bursa documented in this encounter [facility] for referral (narrative)* Diagnostic Procedure Only (Routine) - Closed Specialty Diagnoses / Procedures Referred By Contac t Referred To Contact XR IMAGING Diagnoses Right foot pain Posterior tibial tendon dysfunction Procedures XR FOOT GENERAL 3V AP/LAT/OBL RIGHT RADEX FOOT COMPLETE MINIMUM 3 VIEWS Rani Trejo [address] [place] [address] Xr Imaging Referral ID Status Reason Start Date Expiration Date V isits Requested Visits Authorized [id number] Closed Auto-Generate d Referral 04/16/2022 05/16/2023 1 1 [facility] for referral (narrative)* Diagnostic Procedure Only (Routine) - Closed Specialty Diagnoses / Procedures Referred By Contac t Referred To Contact XR IMAGING Diagnoses Right foot pain Posterior tibial tendon dysfunction Procedures XR FOOT GENERAL 3V AP/LAT/OBL RIGHT RADEX FOOT COMPLETE MINIMUM 3 VIEWS Rani Trejo[address] [place] [address] [place] [address] Referral ID Status Reason Start Date Expiration Date V isits Requested Visits Authorized [id number] Closed Auto-Generate d Referral 04/16/2022 05/16/2023 1 1 [facility] for visit Narrative* Diagnostic Procedure Only (Routine) - Closed Specialty Diagnoses / Procedures Referred By Contac t Referred To Contact XR IMAGING Diagnoses Right foot pain Posterior tibial tendon dysfunction Procedures XR FOOT GENERAL 3V AP/LAT/OBL RIGHT RADEX FOOT COMPLETE MINIMUM 3 VIEWS Rani [address]jo[address] [place] [address] [place] [address] Referral ID Status Reason Start Date Expiration Date V isits Requested Visits Authorized [id number] Closed Auto-Generate d Referral 04/16/2022 05/16/2023 1 1 [facility] Summary Purpose Family History No Family History Records FoundNo Family History Records Found Advance Directives No Advanced Directives Records FoundNo Advanced Directives Records Found Additional Source Comments INFORMATION SOURCE (unrecogn ized section and content) DATE CREATED AUTHOR AUTHOR'S ORGANIZ ATION 04/23/2022 [facility] Source Comments (unrecognize d section and content) In the event this informatio n is protected by the Federal Confidentiality of Alcohol and Drug Abuse Patient Records regulations: The Federal rules restrict any use of the information to criminally investigate or prosecute any alcohol or drug abuse patient.[facility] the event this information is protected by the Federal Confidentiality of Alcohol and Drug Abuse Patient Records regulations: The Federal rules restrict any use of the information to criminally investigate or prosecute any alcohol or drug abuse patient.[facility] the event this information is protected by the Federal Confidentiality of Alcohol and Drug Abuse Patient Records regulations: The Federal rules restrict any use of the information to criminally investigate or prosecute any alcohol or drug abuse patient.[facility] Reason for Visit (unrecogniz ed section and content) Reason Comments Results Care Teams (unrecognized sec tion and content) Talent Acquisition Relationship Manager Relationship Specialty Start Date End Date Mando Patricia MD [address] [place] [address] PCP - General 06/26/00 Talent Acquisition Relationship Manager Relationship Specialty Start Date End Date Mando Patricia MD [address] [place] [address] PCP - General 06/26/00 FOR RECORDS PERTAINING TO PATIENTS WHO ARE OR HAVE BEEN ENROLLED IN A CHEMICAL DEPENDENCY/SUBSTANCEABUSE PROGRAM, SOME INFORMATION MAY BE OMITTED. This clinical summary was aggregated from multiple sources. Caution should be exercised in using it in the provision of clinical care. This summary normalizes information from multiple sources, and as a consequence, information in this document may materially change the coding, format and clinical context of patient data. In addition, data may be omitted in some cases. CLINICAL DECISIONS SHOULD BE BASED ON THE PRIMARY CLINICAL RECORDS. [facility] [employer] [facility]. provides no warranty or guarantee of the accuracy or completeness of information in this document.
[2023-05-21 10:06] LABS: Absolute Lymphocyte Count 3.71 X10^3/uL (0.83-4.51); Absolute Neutrophil Count 3.7 X10^3/uL (2.0-7.7); Basophil# 0.05 X10^3/uL; Basophil% 0.6 % (0-1); Eosinophil# 0.19 X10^3/uL; Eosinophils% 2.3 % (0-5); Hematocrit 42.6 % (37-47); Hemoglobin 14.1 g/dL (12.0-15.0); Lymphocyte # 3.71 X10^3/ul (0.83-4.51); Lymphocyte % 45.4 % (19-41); Mean Corp Hgb Conc 33.1 g/dL (32-36); Mean Corpuscular Hgb 29.4 pg (27.0-32.0); Mean Corpuscular Volume 88.8 fL (81-99); Mean Platelet Vol. 10.5 fl (6.2-12.0); Monocyte# 0.49 X10^3/uL; NRBC Flagged by Analyzer 0 % (0-5); Neutrophil # 3.73 X10^3/uL (2.7-7.7); Neutrophil % 45.6 % (47-70); Platelet Count 208 K/mm3 (150-450); RBC Distribution Width CV 12.9 % (11.6-14.6); RBC Distribution Width SD 42.4 fl (35.1-43.9); White Blood Count 8.2 K/mm3 (4.4-11.0)
[2023-05-21 10:52] LABS: Vitamin D,25 Hydroxy 68.5 ng/mL
[2023-05-21 11:02] LABS: Color, Urine Yellow (Yellow); Glucose, Dipstick Normal (Normal); Ketone-Dipstick Negative (Negative); Leukocyte Esterase-Dipstick 500 /ul (Negative); Nitrite-Dipstick Negative (Negative); Occult Blood-Urine 250 /ul (Negative); Protein-Dipstick 100 mg/dl (Negative); Urine Bilirubin Dipstick Negative (Negative); Urine Clarity Cloudy (Clear); Urine Urobilinogen Normal (Normal); Urine pH 6.5 (5.0 - 8.0)
[2023-05-21 11:12] LABS: Protein, Urine (Random) 35.9 mg/dL (<11.9); Protein:Creat Ratio 188 mg/g CRE (0-200)
[2023-05-21 11:19] LABS: Red Blood Cells-Urine 25-50 SEEN /hpf (0-5); White Blood Cells 0-5 SEEN /hpf (0-5)
[2023-05-21 11:20] LABS: Bacteria 2+ /hpf (None Seen); Mucous, Urine RARE /hpf (<or=2+); Squamous Epithelial Cells - UA 5-10 SEEN /hpf (5-10)
[2023-05-21 11:21] LABS: ALB/GLOB Ratio 1.3 RATIO (0.9-2.4); AST(SGOT) 21 U/L (15-37); Alanine Aminotransfer ALT/SGPT 23 U/L (13-56); Albumin, Serum 3.9 g/dL (3.2-5.0); Alkaline Phosphatase 76 U/L (45-117); Anion Gap 9 (5-15); BUN 19 mg/dL (7-18); BUN/Creat Ratio 18.6 RATIO (10-20); Calcium,Total 9.6 mg/dL (8.5-10.1); Chloride 109 mmol/L (98-107); Cholesterol 151 mg/dL (200); Creatinine, Serum 1.02 mg/dL (0.55-1.02); EST Glomerular Filtration Rate 56 mL/min (>60); Est Glom Filt Rate - Afr Amer 68 mL/min (>60); Globulin 2.9 g/dL (2.2-4.2); Glucose 104 mg/dL (74-106); High Density Lipoprotein 59 mg/dL; Potassium 3.7 mmol/L (3.5-5.1); Protein, Total 6.8 g/dL (6.4-8.2); Sodium Level 144 mmol/L (136-145); Triglycerides 102 mg/dL; Very Low Density Lipoprotein 20 mg/dL (5-40)
[2023-05-21 12:05] LABS: Hemoglobin A1c 5.3 % (3.8-5.6)
== END | disposition home or self-care (01) ==
LOC: MTLAB 08:18
PROVIDERS: PCP Family Medicine; Referring Provider Family Medicine; Visit Provider Family Medicine
DX: R73.02 Impaired glucose tolerance (oral) (principal); N18.30 Chronic kidney disease, stage 3 unspecified; I12.9 Hypertensive chronic kidney disease with stage 1 through stage 4 chronic kidney disease, or unspecified chronic kidney disease; M85.80 Other specified disorders of bone density and structure, unspecified site
CPT/HCPCS: 80053; 80061; 81001; 82306; 82570; 83036; 84156; 85025

== ENCOUNTER 2023-06-11 11:52 | Outpatient (CLI) | payer MEDICARE, SELFPAY ==
--- NOTE | 2023-06-11 11:52 | US_ITS ---
INDICATION: NODULE EXAMINATION: Ultrasound US Thyroid (eg thyroid, parathyroid, parotid) TECHNIQUE: Aquino scale and color doppler imaging was performed of the thyroid gland. COMPARISON: No relevant prior comparison studies available. FINDINGS: RIGHT THYROID LOBE: 4.8 x 1.8 x 2.0 cm. Homogeneous echotexture with normal vascularity. [ 8 x 6 x 4 mm solid, isoechoic, wider than tall, smoothly marginated nodule without calcifications; Ti RADS Category 3 mildly suspicious nodule for which no follow-up is indicated. 19 x 17 x 20 mm, mixed solid and cystic, isoechoic, wider than tall, smoothly marginated nodule without echogenic foci, not suspicious, category 2 nodule; no follow-up indicated. 7 x 4 x 7 mm solid, isoechoic, wider than tall, smoothly margined nodule without calcifications; Ti RADS category 3, mildly suspicious nodule for which no follow-up indicated. LEFT THYROID LOBE: 4.9 x 1.7 x 1.5 cm. Homogeneous echotexture with normal vascularity. [Superior pole, 12 x 10 x 6 mm, mixed, solid and cystic isoechoic nodule, wider than tall with smooth margins and no echogenic foci; Ti RADS category 2 not suspicious nodule. No follow-up indicated. Mid pole, 12 x 10 mm x 13 mixed solid and cystic, isoechoic, wider than tall, smooth margin nodule without calcifications; Ti RADS category 2, not suspicious nodule. No follow-up indicated. 7 x 7 x 4 mm, lower pole, mixed solid and cystic, isoechoic, wider than tall, smoothly marginated nodule without calcifications. Not suspicious nodule. No follow-up indicated. ISTHMUS: 2 mm. 12 x 7 x 4 mm solid, hypoechoic, wider than tall, smooth margined nodule without calcifications. US/Thyroid IMPRESSION: Heterogeneous multinodular thyroid gland with numerous not suspicious or mildly suspicious nodules. None of which meet [employer] Ti RADS criteria for follow-up imaging. Electronically Signed: Amol Quiros DO at 20:35 EDT ,
== END 2023-06-11 23:59 | disposition home or self-care (01) ==
LOC: US 11:52
PROVIDERS: PCP Family Medicine; Referring Provider Family Medicine; Visit Provider Family Medicine
DX: E04.1 Nontoxic single thyroid nodule (principal)
CPT/HCPCS: 76536

== ENCOUNTER → 2023-09-29 | Outpatient (CLI) | payer MEDICARE, SELFPAY ==
[2023-09-29 12:20] LABS: Vitamin D,25 Hydroxy 69.3 ng/mL
[2023-09-29 12:22] LABS: Absolute Lymphocyte Count 3.47 X10^3/uL (0.83-4.51); Absolute Neutrophil Count 2.5 X10^3/uL (2.0-7.7); Basophil# 0.07 X10^3/uL; Eosinophil# 0.26 X10^3/uL; Eosinophils% 3.9 % (0-5); Hemoglobin 13.9 g/dL (12.0-15.0); Lymphocyte # 3.47 X10^3/ul (0.83-4.51); Lymphocyte % 51.6 % (19-41); Mean Corp Hgb Conc 33.1 g/dL (32-36); Mean Corpuscular Hgb 29.5 pg (27.0-32.0); Mean Corpuscular Volume 89.2 fL (81-99); Mean Platelet Vol. 11.1 fl (6.2-12.0); NRBC Flagged by Analyzer 0 % (0-5); Neutrophil # 2.51 X10^3/uL (2.7-7.7); Neutrophil % 37.4 % (47-70); Platelet Count 197 K/mm3 (150-450); RBC Distribution Width CV 13.2 % (11.6-14.6); RBC Distribution Width SD 42.9 fl (35.1-43.9); Red Blood Count 4.71 M/mm3 (4.2-5.4); White Blood Count 6.7 K/mm3 (4.4-11.0)
[2023-09-29 12:25] LABS: PTHIN 58.3 pg/mL (18.4-80.1)
[2023-09-29 12:52] LABS: ALB/GLOB Ratio 1.4 RATIO (0.9-2.4); AST(SGOT) 20 U/L (15-37); Alanine Aminotransfer ALT/SGPT 23 U/L (13-56); Albumin, Serum 3.8 g/dL (3.2-5.0); Alkaline Phosphatase 65 U/L (45-117); Anion Gap 8 (5-15); BUN 22 mg/dL (7-18); BUN/Creat Ratio 21.6 RATIO (10-20); Calcium,Total 9.6 mg/dL (8.5-10.1); Chloride 108 mmol/L (98-107); Cholesterol 136 mg/dL (200); Creatinine, Serum 1.02 mg/dL (0.55-1.02); EST Glomerular Filtration Rate 56 mL/min (>60); Est Glom Filt Rate - Afr Amer 68 mL/min (>60); Globulin 2.8 g/dL (2.2-4.2); Glucose 97 mg/dL (74-106); High Density Lipoprotein 63 mg/dL; Phosphorus 2.7 mg/dL (2.5-4.9); Potassium 3.7 mmol/L (3.5-5.1); Protein, Total 6.6 g/dL (6.4-8.2); Sodium Level 140 mmol/L (136-145); T4 Free Direct 0.87 ng/dL (0.76-1.46); Triglycerides 89 mg/dL; Very Low Density Lipoprotein 18 mg/dL (5-40)
[2023-09-29 13:22] LABS: Hemoglobin A1c 5.2 % (3.8-5.6)
[2023-10-01 08:13] LABS: Thyroid Stim Immunoglob <0.10 IU/L (0.00-0.55)
== END | disposition home or self-care (01) ==
LOC: MTLAB 09:15
PROVIDERS: PCP Family Medicine; Referring Provider Family Medicine; Visit Provider Family Medicine
DX: R79.89 Other specified abnormal findings of blood chemistry (principal); N18.30 Chronic kidney disease, stage 3 unspecified; E04.1 Nontoxic single thyroid nodule; E78.00 Pure hypercholesterolemia, unspecified; M85.80 Other specified disorders of bone density and structure, unspecified site; R73.02 Impaired glucose tolerance (oral)
CPT/HCPCS: 36415; 80053; 80061; 82306; 83036; 83970; 84100; 84439; 84443; 84445; 85025

== ENCOUNTER → 2023-11-20 | Outpatient (CLI) | payer MEDICARE, SELFPAY ==
--- NOTE | 2023-11-20 09:54 | BD_ITS ---
STUDY: DUAL ENERGY X-RAY ABSORPTIOMETRY / DXA REASON FOR EXAM: Female, 73 years old. 733.90OsteopeniaBONE DENSITY REASON FOR EXAM TECHNIQUE: Bone Mineral Density (BMD) measurements of lumbar spine and bilateral hips were obtained. COMPARISON: Comparison is made with prior study October 15, 2021. FINDINGS: Lumbar Spine (L1-L4): g/cm2 (1.004) / T-score (0.2) / Z-score (2.5) Findings are suggestive of normal bone density with a low fracture risk. Left Femur Total: g/cm2 (0.773) / T-score (-1.4) / Z-score (0.4) Left Femoral Neck: g/cm2 (0.643) / T-score (-1.9) / Z-score (0.3) Right Femur Total: g/cm2 (0.783) / T-score (-1.3) / Z-score (0.5) Right Femoral Neck: g/cm2 (0.6-0) / T-score (-2.1) / Z-score (0.0) The T-Scores on the most recent prior examination were: Lumbar Spine (L1-L4): There has been improvement of bone density since the previous examination. Left Femur Total: which represents a worsening of 1.1%. Right Femur Total: which represents a worsening of 3%. BD/Dexa Bone Density Study IMPRESSION: The patient is considered osteopenic as outlined below according to World Bill Organization (WHO) criteria with a high fracture risk. There has been worsening of bone density since the previous examination. Reference Information: The T-score is the number of standard deviations above or below the standard which is normal for young adults at their peak bone mineral density. The World Health Organization (WHO) interprets the T-scores as follows: Above -1 Normal bone density Between -1 and -2.5 Osteopenia Equal to / or below -2.5 Osteoporosis As a practical clinical guideline, osteopenia may be graded as follows: Mild -1 through -1.5 Moderate -1.6 through -2.0 Severe -2.1 through -2.4 The Z-score is the number of standard deviations above or below age-matched controls. A Z-score of less than -1.5 would be considered abnormal. References: 1. NIH Osteoporosis and Related Bone Diseases www osteo.org 2. International Society for Clinical Densitometry www iscd.org 3. National Osteoporosis Foundation www nof.org Electronically Signed: Pierre Hollins MD at 14:32 EDT ,
--- NOTE | 2023-11-20 09:54 | BI_ITS ---
MAMMOGRAPHY - BILATERAL SCREENING REASON FOR EXAM: Female, 73 years old. Routine annual screening examination. PERTINENT HISTORY: Mother with breast cancer. Remote right excisional breast biopsy. TECHNIQUE: Digital bilateral breast adelfo (3D mammographic acquisition) in the CC and MLO projections. 2-D mediolateral oblique (MLO) and craniocaudad (CC) views of both breasts were obtained. CAD: Full Field Digital Mammography with Computer Added Detection was performed. COMPARISON: Comparison is made with prior study dated November 06, 2020. FINDINGS: Breast Composition: The breasts are heterogeneously dense, which may obscure small masses. There are no dominant masses or suspicious calcifications. Stable small benign-appearing bilateral axillary lymph nodes. No other significant abnormalities are identified. There has been no significant change since the prior study. BI/SCRN MAMM (CAD)W/ADELFO BILAT IMPRESSION: Stable bilateral screening mammogram. Yearly follow-up mammogram recommended. (A) ASSESSMENT CATEGORY: BIRADS Category 2: Benign. A letter regarding these results will be sent to the patient by the facility within 30 days. Approximately 10% of breast cancers are not detected by mammography. A normal mammogram should not delay biopsy of a clinically suspicious abnormality. [id number] Electronically Signed: Pierre Hollins MD at 11:51 EDT ,
== END | disposition home or self-care (01) ==
LOC: OPBD 09:53
PROVIDERS: PCP Family Medicine; Referring Provider Family Medicine; Visit Provider Family Medicine
DX: Z12.31 Encounter for screening mammogram for malignant neoplasm of breast (principal); Z80.3 Family history of malignant neoplasm of breast; M85.80 Other specified disorders of bone density and structure, unspecified site
CPT/HCPCS: 77063; 77067; 77080

== ENCOUNTER → 2023-12-01 | Outpatient (CLI) | payer MEDICARE, SELFPAY ==
--- NOTE | 2023-12-01 10:05 | RAD_ITS ---
STUDY: X-RAY CHEST REASON FOR EXAM: Female, 73 years old. Preoperative evaluation. TECHNIQUE: Frontal and lateral views of the chest. COMPARISON: November 27, 2017 FINDINGS: The lungs are clear and expanded. There is no demonstrated pleural abnormality. Stable borderline cardiomegaly. Normal mediastinum and felicitas. Normal visualized pulmonary arteries. Aortic tortuosity with calcification unchanged. Stable mild thoracic spondylosis. Normal visualized ribs, clavicles, and shoulders. No abnormality of the visualized soft tissue structures of the upper abdomen. RAD/Chest PA and Lateral IMPRESSION: Stable chest with no acute or active cardiopulmonary disease. Electronically Signed: Coy Lorenzo MD at 10:35 EDT ,
[2023-12-01 10:52] LABS: Absolute Lymphocyte Count 3.31 X10^3/uL (0.83-4.51); Basophil# 0.07 X10^3/uL; Eosinophil# 0.18 X10^3/uL; Eosinophils% 2.6 % (0-5); Hematocrit 43.4 % (37-47); Hemoglobin 14.1 g/dL (12.0-15.0); Lymphocyte # 3.31 X10^3/ul (0.83-4.51); Lymphocyte % 47.5 % (19-41); Mean Corp Hgb Conc 32.5 g/dL (32-36); Mean Corpuscular Hgb 29.3 pg (27.0-32.0); Mean Corpuscular Volume 90.2 fL (81-99); Monocyte# 0.43 X10^3/uL; Monocyte% 6.2 % (0-10); NRBC Flagged by Analyzer 0 % (0-5); Neutrophil # 2.97 X10^3/uL (2.7-7.7); Neutrophil % 42.6 % (47-70); Platelet Count 205 K/mm3 (150-450); RBC Distribution Width CV 12.7 % (11.6-14.6); RBC Distribution Width SD 41.9 fl (35.1-43.9); Red Blood Count 4.81 M/mm3 (4.2-5.4)
[2023-12-01 11:19] LABS: Albumin, Serum 3.8 g/dL (3.2-5.0); Anion Gap 4 (5-15); BUN 17 mg/dL (7-18); BUN/Creat Ratio 15.2 RATIO (10-20); Calcium,Total 10.6 mg/dL (8.5-10.1); Chloride 107 mmol/L (98-107); Creatinine, Serum 1.12 mg/dL (0.55-1.02); EST Glomerular Filtration Rate 50 mL/min (>60); Est Glom Filt Rate - Afr Amer 61 mL/min (>60); Glucose 94 mg/dL (74-106); Potassium 3.8 mmol/L (3.5-5.1); Sodium Level 143 mmol/L (136-145)
== END | disposition home or self-care (01) ==
PROVIDERS: PCP Family Medicine; Referring Provider Orthopaedic Surgery; Visit Provider Orthopaedic Surgery
DX: Z01.810 Encounter for preprocedural cardiovascular examination (principal); Z01.811 Encounter for preprocedural respiratory examination; Z01.818 Encounter for other preprocedural examination
CPT/HCPCS: 36415; 71046; 80048; 82040; 85025; 93005

== ENCOUNTER → 2023-12-11 | Outpatient (CLI) | payer MEDICARE, SELFPAY ==
[2023-12-11 17:43] LABS: Absolute Lymphocyte Count 4.05 X10^3/uL (0.83-4.51); Absolute Neutrophil Count 2.8 X10^3/uL (2.0-7.7); Basophil# 0.06 X10^3/uL; Basophil% 0.8 % (0-1); Eosinophil# 0.21 X10^3/uL; Eosinophils% 2.8 % (0-5); Hematocrit 43.8 % (37-47); Hemoglobin 14.5 g/dL (12.0-15.0); Lymphocyte # 4.05 X10^3/ul (0.83-4.51); Lymphocyte % 53.4 % (19-41); Mean Corp Hgb Conc 33.1 g/dL (32-36); Mean Corpuscular Hgb 29.7 pg (27.0-32.0); Mean Corpuscular Volume 89.6 fL (81-99); Monocyte% 6.6 % (0-10); NRBC Flagged by Analyzer 0 % (0-5); Neutrophil # 2.75 X10^3/uL (2.7-7.7); Neutrophil % 36.1 % (47-70); Platelet Count 195 K/mm3 (150-450); RBC Distribution Width CV 12.5 % (11.6-14.6); RBC Distribution Width SD 41.1 fl (35.1-43.9); Red Blood Count 4.89 M/mm3 (4.2-5.4); White Blood Count 7.6 K/mm3 (4.4-11.0)
[2023-12-11 18:30] LABS: Vitamin D,25 Hydroxy 74.2 ng/mL
[2023-12-11 18:36] LABS: Hemoglobin A1c 5.5 % (3.8-5.6)
[2023-12-11 18:38] LABS: ALB/GLOB Ratio 1.2 RATIO (0.9-2.4); AST(SGOT) 23 U/L (15-37); Alanine Aminotransfer ALT/SGPT 27 U/L (13-56); Albumin, Serum 3.8 g/dL (3.2-5.0); Alkaline Phosphatase 80 U/L (45-117); Anion Gap 6 (5-15); BUN 16 mg/dL (7-18); BUN/Creat Ratio 15.8 RATIO (10-20); Calcium,Total 9.8 mg/dL (8.5-10.1); Chloride 109 mmol/L (98-107); Cholesterol 141 mg/dL (200); Creatinine, Serum 1.01 mg/dL (0.55-1.02); EST Glomerular Filtration Rate 57 mL/min (>60); Est Glom Filt Rate - Afr Amer 69 mL/min (>60); Globulin 3.2 g/dL (2.2-4.2); Glucose 115 mg/dL (74-106); High Density Lipoprotein 62 mg/dL; Phosphorus 2.8 mg/dL (2.5-4.9); Potassium 3.7 mmol/L (3.5-5.1); Sodium Level 142 mmol/L (136-145); Triglycerides 183 mg/dL; Very Low Density Lipoprotein 37 mg/dL (5-40)
== END | disposition home or self-care (01) ==
LOC: MFPLAB 15:57
PROVIDERS: PCP Family Medicine; Visit Provider Family Medicine
DX: R73.02 Impaired glucose tolerance (oral) (principal); N18.30 Chronic kidney disease, stage 3 unspecified; E78.00 Pure hypercholesterolemia, unspecified
CPT/HCPCS: 36415; 80053; 80061; 82306; 83036; 83970; 84100; 85025

== ENCOUNTER → 2023-12-28 | Outpatient (CLI) | payer MEDICARE, SELFPAY ==
--- NOTE | 2023-12-28 | FEM._PTH ---
PATIENT: DANIELE [place]OL[place]O [facility] U#:[id number] AGE/SX: 73/F ROOM: RE12/28/[address]: Dr. Glenroy Garcia MD : 1950 BED: DIS: 12/28/2023 SPEC #: [id number] RECD: 12/29/23 11:05 STATUS: TAMERA REDaniel #: [id number] YOLANDA: 12/28/23 00:[address]: Glenroy Garcia DEPT: SURGICAL PATHOLOGY RECD BY: Paolo Waddell ENTERED: 12/29/23 11:05 SP TYPE: FEM HEAD OTHR DR: Dr. Keith Nichole MD [facility] Tissues: Hip, NOS Procedures: Decalcification bone/plaque Surgery Specimen Level IV HEADER OPERATION: Left total hip replacement PRE-OP DIAGNOSIS: Left hip progressive primary osteoarthritis TISSUE SUBMITTED: Left femoral head, bone and soft tissue MICROSCOPIC DIAGNOSIS Bone and tissue of left hip, total hip resection: Degenerative joint disease. AM: 01/01/2024 MICROSCOPIC DESCRIPTION Slides are reviewed. GROSS DESCRIPTION Received is one container labeled with the patient's name and designated bone and soft tissue left hip. The specimen consists of a dorantes femoral head with portion of femoral neck. The femoral head measures 4.5 x 4.5 x 3.5 cm and portion of the femoral neck measures 1.5 cm in length. The articular surface displays prominent osteophyte formation, eburnation and bone erosion. Also present in the specimen container are multiple irregular fragments of pink-yellow soft tissue and multiple pieces of fibrocartilaginous tissue measuring in aggregate 7.0 x 6.0 x 1.5 cm. Carrot Tier sections are submitted in two cassettes as follows: 1 - soft tissue, 2 - bone after decalcification. 12/29/2023 TC:5 CPT: 24651, 01219
== END | disposition home or self-care (01) ==
PROVIDERS: PCP Family Medicine; Referring Provider Orthopaedic Surgery; Visit Provider Orthopaedic Surgery
DX: M16.12 Unilateral primary osteoarthritis, left hip (principal)
CPT/HCPCS: 88305; 88311

== ENCOUNTER → 2024-03-25 | Outpatient (CLI) | payer MEDICARE, SELFPAY ==
[2024-03-25 12:04] LABS: Hematocrit 42.2 % (37-47); Hemoglobin 13.9 g/dL (12.0-15.0); Mean Corp Hgb Conc 32.9 g/dL (32-36); Mean Corpuscular Volume 88.1 fL (81-99); Mean Platelet Vol. 10.7 fl (6.2-12.0); Platelet Count 215 K/mm3 (150-450); RBC Distribution Width CV 12.9 % (11.6-14.6); RBC Distribution Width SD 41.8 fl (35.1-43.9); Red Blood Count 4.79 M/mm3 (4.2-5.4); White Blood Count 7.6 K/mm3 (4.4-11.0)
[2024-03-25 12:24] LABS: Anion Gap 5 (5-15); BUN 18 mg/dL (7-18); BUN/Creat Ratio 17.5 RATIO (10-20); Chloride 108 mmol/L (98-107); Cholesterol 124 mg/dL (200); Creatinine, Serum 1.03 mg/dL (0.55-1.02); EST Glomerular Filtration Rate 55 mL/min (>60); Est Glom Filt Rate - Afr Amer 67 mL/min (>60); Glucose 100 mg/dL (74-106); High Density Lipoprotein 53 mg/dL; Potassium 3.6 mmol/L (3.5-5.1); Sodium Level 141 mmol/L (136-145); T4 Free Direct 0.92 ng/dL (0.76-1.46); Thyroid Stim Hormone (TSH) 0.122 uIU/mL (0.358-3.740); Triglycerides 113 mg/dL; Very Low Density Lipoprotein 23 mg/dL (5-40)
[2024-03-25 12:38] LABS: Protein, Urine (Random) 23.6 mg/dL (<11.9); Protein:Creat Ratio 170 mg/g CRE (0-200)
[2024-03-25 14:28] LABS: Hemoglobin A1c 5.5 % (3.8-5.6)
[2024-03-28 18:07] LABS: Vitamin D 1,25-Dihydroxy 43.1 pg/mL (24.8-81.5)
== END | disposition home or self-care (01) ==
LOC: MFPLAB 09:41
PROVIDERS: PCP Family Medicine; Referring Provider Family Medicine; Visit Provider Family Medicine
DX: R73.02 Impaired glucose tolerance (oral) (principal); N18.30 Chronic kidney disease, stage 3 unspecified; E78.00 Pure hypercholesterolemia, unspecified; R79.89 Other specified abnormal findings of blood chemistry; I12.9 Hypertensive chronic kidney disease with stage 1 through stage 4 chronic kidney disease, or unspecified chronic kidney disease
CPT/HCPCS: 80048; 80061; 82570; 82652; 83036; 84156; 84439; 84443; 85027

== ENCOUNTER → 2024-07-20 | Outpatient (CLI) | payer MEDICARE, SELFPAY ==
--- NOTE | 2024-07-20 08:02 | CT_ITS ---
PROCEDURE: SOFT TISSUE NECK WITH CONTRAST 07/20/2024 REASON FOR EXAM: NECK MASS TECHNIQUE: CT of the soft tissues of the neck from the orbits to the upper mediastinum with intravenous contrast. CONTRAST: 75 cc Isovue 370 One or more dose reduction techniques were used (e.g., Automated exposure control, adjustment of the mA and/or kV according to patient size, use of iterative reconstruction technique). RADIATION DOSE SUMMARY: CTDlvol: ? MGy DLP: ? MGycm COMPARISON: None FINDINGS: Scanning performed from inferior to superior. Orbits symmetric. Nasopharynx unremarkable. No parotid mass or asymmetry. No submandibular glandular asymmetry. Heterogeneous density seen in both thyroid lobes. No proximal esophageal compression. No mucosal asymmetry. No pathologic adenopathy. CT/Soft Tissue Neck WITH Contrast IMPRESSION: No visible neck mass or mucosal abnormality. Reading [facility]
== END | disposition home or self-care (01) ==
PROVIDERS: PCP Family Medicine; Referring Provider Otolaryngology; Visit Provider Otolaryngology
DX: R22.1 Localized swelling, mass and lump, neck (principal)
CPT/HCPCS: 70491; Q9967

== ENCOUNTER 2024-07-22 09:04 | Outpatient (CLI) | payer MEDICARE, SELFPAY ==
[2024-07-22 10:25] LABS: Absolute Lymphocyte Count 2.73 X10^3/uL (0.83-4.51); Absolute Neutrophil Count 1.2 X10^3/uL (2.0-7.7); Basophil# 0.04 X10^3/uL; Basophil% 0.9 % (0-1); Eosinophil# 0.21 X10^3/uL; Eosinophils% 4.6 % (0-5); Hematocrit 41.1 % (37-47); Hemoglobin 13.7 g/dL (12.0-15.0); Lymphocyte # 2.73 X10^3/ul (0.83-4.51); Lymphocyte % 59.7 % (19-41); Mean Corp Hgb Conc 33.3 g/dL (32-36); Mean Corpuscular Hgb 29.5 pg (27.0-32.0); Mean Corpuscular Volume 88.4 fL (81-99); Mean Platelet Vol. 10.7 fl (6.2-12.0); Monocyte# 0.35 X10^3/uL; Monocyte% 7.7 % (0-10); NRBC Flagged by Analyzer 0 % (0-5); Neutrophil # 1.24 X10^3/uL (2.7-7.7); Neutrophil % 27.1 % (47-70); Platelet Count 135 K/mm3 (150-450); RBC Distribution Width CV 12.8 % (11.6-14.6); RBC Distribution Width SD 41.1 fl (35.1-43.9); Red Blood Count 4.65 M/mm3 (4.2-5.4); White Blood Count 4.6 K/mm3 (4.4-11.0)
[2024-07-22 10:59] LABS: ALB/GLOB Ratio 1.5 RATIO (0.9-2.4); AST(SGOT) 29 U/L (<=31); Alanine Aminotransfer ALT/SGPT 22 U/L (<=34); Albumin, Serum 4.1 g/dL (3.4-4.8); Alkaline Phosphatase 79 U/L (35-104); Anion Gap 13 (5-15); BUN 15 mg/dL (4-19); BUN/Creat Ratio 15.4 RATIO (10-20); Calcium,Total 9.2 mg/dL (7.6-11.0); Chloride 107 mmol/L (98-108); Cholesterol 132 mg/dL (<=200); Creatinine, Serum 0.95 mg/dL (0.70-1.20); EST Glomerular Filtration Rate 62 (>60); Globulin 2.7 g/dL (2.2-4.2); Glucose 107 mg/dL (70-99); High Density Lipoprotein 44 mg/dL; Low Density Lipoprotein Calc. 70 mg/dL; Potassium 3.5 mmol/L (3.3-5.1); Protein, Total 6.7 g/dL (5.9-8.4); Sodium Level 143 mmol/L (133-145); Thyroid Stim Hormone (TSH) 0.207 uIU/mL (0.300-4.200); Total Bilirubin 0.45 mg/dL (0.00-1.30); Triglycerides 87 mg/dL; Very Low Density Lipoprotein 17 mg/dL (5-40); Vitamin D,25 Hydroxy 67.9 ng/mL (30-100); cholesterol:hdl ratio screen 2.99
[2024-07-22 11:10] LABS: Hemoglobin A1c 5.5 % (<=5.6)
== END 2024-07-22 23:59 | disposition home or self-care (01) ==
LOC: MFPLAB 09:04
PROVIDERS: PCP Family Medicine; Referring Provider Family Medicine; Visit Provider Family Medicine
DX: E78.00 Pure hypercholesterolemia, unspecified (principal); R79.89 Other specified abnormal findings of blood chemistry; R73.02 Impaired glucose tolerance (oral); M85.80 Other specified disorders of bone density and structure, unspecified site
CPT/HCPCS: 36415; 80053; 80061; 82306; 83036; 84439; 84443; 85025

== ENCOUNTER → 2025-01-13 | Outpatient (CLI) | payer MEDICARE, SELFPAY ==
--- NOTE | 2025-01-13 12:24 | BI_ITS ---
EXAM: SCRN MAMM (CAD)W/ADELFO BILAT DATE: 01/13/2025 CLINICAL HISTORY: F, Age 74 y/o , SCREENING TECHNIQUE: Procedure Code: [id number] Modality: MG Procedure: SCRN MAMM (CAD)W/ADELFO BILAT COMPARISON: Prior exam(s) dated 11/20/2023, 11/06/2020. FINDINGS: TISSUE DENSITY: There are scattered areas of fibroglandular density. Bilateral Breast Mammographic Findings: There is an irregular high density spiculated mass in the lower inner left breast at middle depth. No significant masses, calcifications or other abnormalities are identified in the right breast. BI/SCRN MAMM (CAD)W/ADELFO BILAT IMPRESSION: The irregular high density spiculated mass in the lower inner left breast at mi ddle depth requires further evaluation. Recommend diagnostic mammogram and ultrasound of the left breast. OVERALL FINAL ASSESSMENT BI-RADS 0: INCOMPLETE - NEED ADDITIONAL IMAGING EVALUATION. RECOMMENDATION: Additional Views obtained/call backs Additional Recommendation none A letter with findings and recommendations will be mailed to the patient. Reading Location: [id number]
== END | disposition home or self-care (01) ==
LOC: OPBI 12:22
PROVIDERS: PCP Family Medicine; Referring Provider Family Medicine; Visit Provider Family Medicine
DX: Z12.31 Encounter for screening mammogram for malignant neoplasm of breast (principal)
CPT/HCPCS: 77063; 77067

== ENCOUNTER → 2025-01-18 | Outpatient (CLI) | payer MEDICARE, SELFPAY ==
--- NOTE | 2025-01-18 13:46 | NEURO ---
NCS and/or EMG Patient Report Ordering Doctor: Keith Nichole DATE OF SERVICE: 01/18/25 Tammi presents for electrodiagnostic testing of the lower limbs. She reports numbness and tingling in both feet and ankles. Electrodiagnostic findings: Peroneal motor nerve demonstrates normal distal latency, amplitude on the right side with diminished conduction velocity. Left peroneal motor nerve demonstrates normal distal latency with normal amplitude and reduced conduction velocity. Tibial motor conduction velocity is borderline slowed. Prolonged tibial and peroneal F–waves. Prolonged H–reflex bilaterally. Decreased right sural conduction velocity. Needle EMG testing was performed in the lower limbs. All muscles tested showed no evidence of denervation with normal motor unit action potentials. Electrodiagnostic impression: This an abnormal study in the lower limbs. 1. Electrodiagnostic findings are suggestive of peripheral polyneuropathy, motor and sensory, with evidence of demyelination. Multi Select Codes Neurology Neurology Interp Codes: 89837-04 Musc test done w/n test comp (interp) (2) and 16619-53 Nrv cndj test 9-10 studies (interp)
== END | disposition home or self-care (01) ==
PROVIDERS: PCP Family Medicine; Referring Provider Family Medicine; Visit Provider Family Medicine
DX: G57.93 Unspecified mononeuropathy of bilateral lower limbs (principal)
CPT/HCPCS: 95886; 95911

== ENCOUNTER → 2025-01-19 | Outpatient (CLI) | payer MEDICARE, SELFPAY ==
--- NOTE | 2025-01-19 12:53 | BI_ITS ---
EXAM: DIAG MAMM W/CAD, UNILAT 01/19/2025 CLINICAL HISTORY: F, Age 74 y/o , DENSITY. Abnormal screening mammogram. TECHNIQUE: Procedure Code: [id number] Modality: MG Procedure: DIAG MAMM W/CAD, UNILAT. Compression spot views of the left breast were obtained. COMPARISON: Prior exam(s) dated prior mammogram dated January 13, 2025.. FINDINGS: TISSUE DENSITY: There are scattered areas of fibroglandular density. Bilateral Breast Mammographic Findings: Persistent 1.8 cm in the of the left breast. This is suspicious. Sonographic correlation recommended. BI/DIAG MAMM W/CAD, UNILAT IMPRESSION: Persistent spiculated nodule in the central medial aspect of the left breast as described. Sonographic correlation recommended. OVERALL FINAL ASSESSMENT BI-RADS 0: INCOMPLETE - NEED ADDITIONAL IMAGING EVALUATION. RECOMMENDATION: Ultrasound Recommended Additional Recommendation none A letter with findings and recommendations will be mailed to the patient. Reading Location: [facility]
--- NOTE | 2025-01-19 12:53 | US_ITS ---
PROCEDURE: BREAST LIMITED UNILATERAL 01/19/2025 REASON FOR EXAM: F, Age 74 y/o , ABNORMAL MAMMOGRAM DIAGNOSITC LEFT BREAST Abnormal screening mammogram. COMPARISON: . TECHNIQUE: Procedure Code: USBRSTLIMIT Modality: US Procedure: BREAST LIMITED UNILATERAL. The mid inferior quadrant of the left breast was examined with ultrasound. FINDINGS: The mammographic abnormality corresponds to a 1.8 cm 1.5 cm 2.1 cm irregular spiculated mass at the 8 o'clock position of the breast at 4 cm from the nipple. There is posterior acoustical shadowing. A neoplastic process should be ruled out. Biopsy recommended. There is also evidence of a 3 mm x 4 mm x 3 mm hypoechoic nodular density at the 8 o'clock position of the breast at 6 cm pole. A similar-appearing hypoechoic nodule is seen at the 9 o'clock position of the breast at 4 cm from the nipple from the nipple measuring 4 mm 3 mm. These are not typical cysts. Imaging of the left axilla was obtained. There is a 2.5 cm 1.4 cm x 0.7 cm. 4 cm lymph node. US/Breast Limited Unilateral IMPRESSION: Complex dominant measuring 1.8 cm by 92 1 cm at. Nodules and 9 o'clock positio n of the breast this is commended. Enlarged left axillary lymph nodes. BI-RADS 4: SUSPICIOUS RECOMMENDATION: Biopsy Recommended Reading Location: [id number]
== END | disposition home or self-care (01) ==
LOC: OPBI 12:51
PROVIDERS: PCP Family Medicine; Referring Provider Family Medicine; Visit Provider Family Medicine
DX: R92.8 Other abnormal and inconclusive findings on diagnostic imaging of breast (principal)
CPT/HCPCS: 76642; 77061; 77065; G0279

== ENCOUNTER → 2025-01-25 | Outpatient (CLI) | payer MEDICARE, SELFPAY ==
--- NOTE | 2025-01-25 | BRBX_PTH ---
PATIENT: DANIELE TOLEDO LOC: [facility] U#:[id number] AGE/SX: 74/F ROOM: RE01/25/[address]: Dr. Nataliya Chavez MD : 1950 BED: DIS: 01/25/2025 SPEC #: [id number] RECD: 01/25/25 12:18 STATUS: TAMERA REDaniel #: [id number] YOLANDA: 01/25/25 00:[address]: Nataliya Chavez DEPT: SURGICAL PATHOLOGY RECD BY: Kam Allen ENTERED: 01/25/25 13:42 SP TYPE: BREAST BX OTHR DR: Dr. Keith Nichole MD Tissues: A - Left breast, NOS B - Left breast, NOS C - Left breast, NOS D - LYMPH NODE BIOPSY Procedures: Immunohistochemical Stains Surgery Specimen Level IV IHC Stain ADDITIONAL HEADER OPERATION: Left breast biopsy x3, left axilla lymph node PRE-OP DIAGNOSIS: Left breast masses, abnormal lymph node TISSUE SUBMITTED: A- Left breast, 9:30, 5cm from nipple, B- Left breast, 9o'clock, 5cm from nipple, C- Left breast mass, 8:30, 4cm from nipple, D- Left lymph node MICROSCOPIC DIAGNOSIS A. Left breast, 930, 5 cm FN, needle biopsies: - Focus of atypical ductal hyperplasia - One atrophic breast lobule with an intraductal aggregate of acellular calcification B. Left breast, 9:00, 5 cm FN: * Small amount of atrophic breast tissue and adipose tissue with extensive areas of extravasated blood C. Left breast, 830, 4 cm FN: * Infiltrating ductal adenocarcinoma, grade III (See Comments) D. Left axilla lymph node: - Benign lymph node COMMENT The longest positive core length is 11 mm. The tubule formation score = 3, the nuclear pleomorphism score = 2, and the mitoses score = 3, for a total of 8, consistent with grade III. ER: positive (>90%, strong intensity) SD: positive (~ 50%, strong intensity) Her-2/lanette overexpression: negative (1+) E-cadherin: positive, consistent with infiltrating ductal adenocarcinoma ll controls have appropriate reactivity. Estrogen receptor (ER) and progesterone receptor (SD) are evaluated by manual quantitative immunohistochemistry on formalin-fixed (for >6 hours and <72 hours if possible), paraffin-embedded tissue, using clone SP1 ([place]) for ER, clone SD 1E2 ([place]) for SD, and polymer detection system on a [place] auto-stainer. For both ER and SD, the percentage of positive tumor cell nuclei is determined; <1% is considered negative, and =1% positive. For both ER and SD, the overall intensity of staining in the tumor is categorized as weak, moderate, or strong. HER2 protein expression is evaluated by manual quantitative immunohistochemistry on formalin-fixed (for >6 hours and <72 hours if possible), paraffin-embedded tissue, using FDA approved clone [id number] (rabbit monoclonal, [place]) on a [place] autostainer, and scored according to ASCO/CAP criteria. Membrane staining of tumor cells is evaluated and graded as follows, as readily appreciated using a low power objective. 0 (negative): no staining, or membrane staining that is incomplete and faint/barely perceptible in <10% of invasive tumor cells; 1+ (negative): incomplete membrane staining that is faint/barely perceptible in >10% of invasive tumor cells; 2+ (equivocal): circumferential membrane staining that is incomplete, and/or weak/moderate in a homogeneous, contiguous population within >10% of invasive tumor cells or complete and circumferential membrane staining that is intense within <10% of invasive tumor cells; 3+ (positive): circumferential, complete, intense membrane staining observed in a homogeneous contiguous population within >10% of invasive tumor cells. If the specimen has been decalcified, exceeds cold-ischemic time, or is outside the recommended range for formalin fixation time, the results should be interpreted with caution. This assay has not been validated for decalcified specimens, cytology specimens, and specimens in which the cold ischemic time/fixation time is unknown. These tests were developed and their performance characteristics determined by [facility]. They may not have been cleared or approved by the U.S. Food and Drug Administration. [facility], [address] [place] [address] Rory SEGURA, et al. [place] Society of Clinical Oncology/College of [place]ologists Guideline Recommendations for Immunohistochemical Testing of Estrogen and Progesterone Receptors in Breast Cancer, Arch Pathol Lab Med, 2010; 134:907-922. Nanci SMITH, et al. Human Epidermal Growth Factor Receptor 2 Testing in Breast Cancer: [place] Society of Clinical Oncology/College of [place] Pathologists Clinical Practice Guideline Focused Update; Arch Pathol Lab Med, 2018; 142:1364-138 MICROSCOPIC DESCRIPTION Slides are reviewed. . GROSS DESCRIPTION Received in 4 formalin containers labeled with the patient's name and date of . Designated as: A. Kelly breast blue 9:30 5 cm is a 1.4 x 0.8 x 0.2 cm aggregate of dorantes-pink to yellow tissue core fragments. Entirely submitted in 1 cassette. Cold ischemic time: <1-minuteFormalin fixation time: 8 hours, 30 minutes BAlexi Mendoza breast pink 9:00 5 cm is a is a 2.0 x 1.1 x 0.1 cm aggregate of clotted blood and dorantes-yellow fragmented tissue cores. Entirely submitted in 1 cassette. Cold ischemic time: <1-minuteFormalin fixation time: 8 hours, 20 minutes CAlexi Mendoza breast 8:30 4 cm are 4 dorantes-pink to yellow tissue core fragments, 0.3 cm to 1.6 cm in length by 0.1 cm in diameter. Entirely submitted in 1 cassette. Cold ischemic time: <1-minuteFormalin fixation time: 8 hours, 5 minutes D. Kelly axilla lymph node are 3 dorantes-pink to yellow tissue cores, 1.0 cm to 1.3 cm in length by 0.1 cm in diameter. Entirely submitted in 1 cassette. [place] 01/25/2025 CPT:24789b5,74193,97574b3
--- NOTE | 2025-01-25 09:42 | US_ITS ---
PROCEDURE: US BREAST BIOPSY 1ST LESION 01/25/2025 REASON FOR EXAM: F, Age 74 y/o , BREAST MASS Core biopsies of breast masses and axillary lymph nodes. TECHNIQUE: Procedure Code: [id number] Modality: US Procedure: US BREAST BIOPSY 1ST LESION. Under direct sonographic guidance, the surgeon performed core biopsies of the 1.2 cm 1.1 cm 1.3 cm hypoechoic nodule at the 9 o'clock position of the breast at 5 cm from the nipple as well as the 0.5 cm x 0.3 cm 0.4 cm hypoechoic nodule at the 9:30 position of the breast at 5 cm from the nipple. Core biopsies were also obtained of the 2.6 cm by 1.9 cm the 0.5 cm left axillary lymph node. Core biopsy also obtained from a subcentimeter hypoechoic nodule at the 8:30 position of the breast at 4 cm from the nipple. COMPARISON: Prior exam(s) dating back to January 19, 2025.. FINDINGS: Successful biopsies. US/US Breast Biopsy 1st Lesion IMPRESSION: OVERALL FINAL ASSESSMENT: BIRADS 11 WAITING PATHOLOGY RECOMMENDATION: Routine annual follow-up in 1 Year Reading Location: [place] [address]
--- NOTE | 2025-01-25 13:05 | OP.PCM_ITS ---
Operative Report (Standard) Operative Information Date of Procedure: 01/25/25 Pre-Operative Diagnosis: Left breast mass x 3, left axillary lymph node adenopathy Post-Operative Diagnosis: Same Surgery/Procedure Performed: Ultrasound-guided left breast mass x 3, left axillary lymph node ultrasound-guided biopsy nanny caregiver: No Type of Anesthesia: Local Procedure Start Time: 10:40 Procedure Stop Time: 11:10 Select all DRAINS/GRAFTS/IMPLANTS that apply: Implanted device Implanted device details: BARD MaxCore dual ultra clip ribbon at 930 5 cm from the nipple, coil at 9:00 5 cm from the nipple, left axillary lymph node, mammotome clip at 834 cm from nipple Estimated Blood Loss: 5 cc Specimen collected: Yes Description of specimen(s) removed: 1. Left breast mass 930 5 cm from the nipple, 2. Left breast mass 9:00 5 cm from the nipple, 3. Left breast mass a 830 4 cm from the nipple, left axillary lymph node Description of surgery: Procedure: Left breast ultrasound-guided core biopsy x 3, left axillary lymph node x 1 Indications: 74 year-old female with irregular hypoechoic nodule at 830 4 cm from the nipple as well as 2 smaller hypoechoic nodules at 930 and 9:00 5 cm from the nipple, an enlarged left axillary lymph node. Risk benefits were discussed the patient and she elected to proceed with ultrasound guided core biopsy with clip placement Description of procedure: Patient was brought into the ultrasound room in the le ft breast and axilla were marked. A timeout was completed verifying correct patient, procedure, site, specially, prior to beginning procedure. The left breast and axilla were prepped and draped in usual sterile fashion and using local anesthesia was obtained with 1% lidocaine with epi. All procedures were done similarly. The lesion was located with the ultrasound. Small incision was made with 11 blade to introduced the mammotome/BARD MaxCore (mammotome for 9:00 and 935 cm from nipple nodule; BARD MaxCore for the 830 4 cm and axillary lymph node) through the skin. Under ultrasound guidance multiple core samples were obtained using then 13-gauge mammotome/14-gauge BARD MaxCore and sent in formalin for pathology. The mammotome mammostar/Bard dual ultra clip (Bard dual ultra coil clip at 9:00 5 cm the nipple and left axilla, ribbon clip at 930 5 cm from nipple; Mammotome clip at 830 4 cm from nipple) was then deployed into the biopsy cavity under ultrasound guidance and a picture was taken. Upon completion procedure hemostasis was obtained and a Steri-Strip and OpSite were placed. Patient was then taken to the mammography suite for clip verification. The clips were verified. The patient tolerated the procedure well and was discharged from the breast imaging department good condition. Surgical Findings: See operative report Complications Complications: No
== END | disposition home or self-care (01) ==
PROVIDERS: PCP Family Medicine; Referring Provider Surgery; Visit Provider Surgery
DX: N63.23 Unspecified lump in the left breast, lower outer quadrant (principal); R59.0 Localized enlarged lymph nodes; N63.20 Unspecified lump in the left breast, unspecified quadrant; N63.25 Unspecified lump in the left breast, overlapping quadrants; R92.8 Other abnormal and inconclusive findings on diagnostic imaging of breast
CPT/HCPCS: 19083; 19084; 88305; 88341; 88342

== ENCOUNTER 2025-03-03 06:28 | Day surgery (SDC) | payer MEDICARE, SELFPAY ==
--- NOTE | 2025-02-24 16:08 | PAT.ANE_ITS ---
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 When Was Last Pacemaker Check QUESTION #4 FULL TEXT: You/Your Family Experience fever (hyperthermia) with Anesthesia Last Oral Intake Last Oral intake: Last Oral Intake NPO since Meds taken in AM with sips of water? Meds patient instructed to take am of surgery PONV PONV - parcel post weigher: PONV - parcel post weigher Female Yes 02/24/25 14:21 HX of Motion Sickness Yes 02/24/25 14:21 HX of N/V After Surgery Yes 02/24/25 14:21 Non-Smoker Yes 02/24/25 14:21 Duration of Surgery greater Yes 02/24/25 14:21 than 60 minutes Number of Risk Factors 5 02/24/25 14:21 PONV Score Severe Risk 02/24/25 14:21 Height & Weight Height & Weight: Anesthesia: Height & Weight Height 5 ft 7 in 02/21/25 08:59 Respiratory Assessment Respiratory Assessment - parcel post weigher: Respiratory Tract Infection Hx - parcel post weigher Hx Respiratory Tract Infection No 02/24/25 14:21 STOP Sleep Apnea STOP Sleep Apnea - parcel post weigher: STOP Sleep Apnea - parcel post weigher Hx Hypertension No 02/24/25 14:21 Hx Sleep Apnea No 02/24/25 14:21 CPAP No 02/27/23 17:02 BIPAP No 02/26/23 09:40 Do you snore loudly (louder No 02/24/25 14:21 than talking or can be heard Do you often feel tired/ No 02/24/25 14:21 fatigued/ sleepy during daytime? Has anyone observed you stop No 02/24/25 14:21 breathing during sleep? STOP Results Negative 02/24/25 14:21 QUESTION #5 FULL TEXT : Do you snore loudly (louder than talking or can be heard through closed doors)? 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 Specify any problems Hx of Preganancy in last 3 No 02/24/25 14:21 Months Nurse Filling Out Transfusion VCHRISTIN 02/24/25 14:21 & Questions: Date: 02/24/25 02/24/25 14:21 Time: 14:22 02/24/25 14:21 Patient unable to answer at this time (ie. confused, unrespo /Reproduction History /Reproductive History - parcel post weigher: /Reproductive Hx- parcel post weigher Hx Now No 02/24/25 14:21 Gestational Age (in weeks): EDC: Hx Hx Para Hx Section SAB No 02/24/25 14:21 Does the father of the baby or his family experience fever w Father of the baby Malignant Hypertension history comment [facility] Medical History (Updated 02/24/25 @ 14:20 by Neelima Joshua) Cancer Anxiety Alcohol use Arthritis Easy bruising Injury of head and neck GERD (gastroesophageal reflux disease) Neuropathy of both feet Post-menopausal High cholesterol Multinodular goiter Depression Left ureteral calculus Hypertension Skin cancer of forehead Osteoarthritis Nephrolithiasis Home Medications ?Medication ?Instructions ?Recorded ?Last Taken ?Type amlodipine 10 mg tablet 10 mg PO QHS blood pressure 06/07/13 12/09/17 09:00 History Y multivitamin,ht-rcle-jhprfivj 27 1 tab PO DAILY supple ment 06/07/13 06/07/13 History mg-0.4 mg tablet sertraline 50 mg tablet 50 mg PO DAILY mood 06/07/13 06/07/13 History lactobacillus combination no.4 3 3,000 mmu cells PO DA BOB supplement 02/14/22 Unknown History billion cell capsule (Probiotic) latanoprost 0.005 % eye drops 1 drp EACH EYE QHS glauc itz 02/14/22 Unknown History rosuvastatin 10 mg tablet 10 mg PO QHS cholesterol 05/07 Unknown History lisinopril 20 mg tablet 20 mg PO BID high blood pres sure 02/27/23 Unknown History omeprazole 20 mg capsule,delayed 20 mg PO QDAY 5 Unknown History release calcium 600 mg (as 1 tab PO DAILY 02/24/25 Unkn own History carbonate)-vitamin D3 5 mcg (200 unit) tablet (Calcium 600 + D(3)) Allergy/AdvReac Type Severity Reaction Status Date / Time Penicillins Allergy Swelling Verified 02/24/25 14:08 nitrofurantoin (From AdvReac Mild Other Verified 02/24/25 14:08 Macrobid) Family History Father Diabetes Heart disease Mother Breast cancer Surgical History (Updated 02/24/25 @ 14:20 by Neelima Joshua) History of total left hip arthroplasty History of cystoscopy History of Mohs micrographic surgery for skin cancer History of History of laparoscopic cholecystectomy History of lithotripsy History of knee replacement History of blepharoplasty Social History Smoking Status: Never smoker alcohol intake: current substance use type: does not use Audit: Pertinent Findings Pertinent Findings EKG Perinent findings: 12/01/2023. Normal sinus rhythm 76 bpm. Left axis deviation. Anterior lateral infarct, age undetermined. Recommendation Anesthesia Recommendation Anesthesia recommendation: OPTIMIZED for anesthesia
[2025-03-03] VITALS (13 sets, daily range): BP systolic 98–134; BP diastolic 60–92; PULSE 68–87; RESP 12–20; TEMP 36.2–37.2; O2SAT 85–98; BMI 34.2
--- OUTSIDE RECORDS SUMMARY | 2025-03-03 06:50 | XMS RPT_ITS | CCD ---
Author Organization [facility] Care Team Providers Care Account Advisor Name Role Phone Mando Patricia MD Primary Care Provider RANI ALVARADO Attending Unavailable MANDO PATRICIA Referring Unavailable MANDO PATRICIA Primary Care Unavailable RANI ALVARADO Referring Unavailable MANDO PATRICIA Primary Care Unavailable Mando Patricia MD Primary Care Provider Dr. Mando Nichole Primary Care Provider Dr. Lina Berman Emergency Provider [phone] Dr. Roberth Allison Admit Provider [phone] Roberth Allison Attending Provider Dr. Roberth Allison Other Provider [phone] Homar Orta Other Provider Dr. Mando Nichole Primary Care Provider Dr. Lina Berman Emergency Provider Dr. Roberth Allison Admit Provider [phone] Roberth Allison Attending Provider [phone] Dr. Roberth Allison Other Provider Dr. Homar Orta Other Provider Dr. Mando Nichole MD Primary Care Provider Dr. Nathaniel Henson MD Attending Provider Dr. Nathaniel Henson MD Referring Provider Dr. Mando Nichole MD Attending Provider Dr. Mando Nichole MD Referring Provider [phone] Mando Nichole Primary Care Unavailable SchMando bush E Consulting Unavailable Marcelo Conte Attending Unavailable DeidranerMando E Referring Unavailable SchnegarnerMando E Primary Care Unavailable Robotham, Nataliya Consulting Unavailable Robotham, Nataliya Attending Unavailable Robotham, Nataliya Referring Unavailable Schinner, Mando E Primary Care Unavailable Robotham, Nataliya Attending Unavailable Schinner, Mando E Referring Unavailable Schinner, Mando E Referring Unavailable SchinnerMando E Attending Unavailable Schinner, Mando E Primary Care Unavailable Schinner, Mando E Referring Unavailable Schinner, Mando E Attending Unavailable Schinner, Mando E Primary Care Unavailable Schinner, Mando E Primary Care Unavailable Robotham, Nataliya Attending Unavailable Robotham, Nataliya Referring Unavailable Schinner, Mando E Primary Care Unavailable Nathaniel Henson Attending Unavailabl e Nathaniel Henson Referring Unavailabl e SchMando bush E Attending Unavailable Schinner, Mando E Referring Unavailable Schinner, Mando E Primary Care Unavailable SchMando bush E Attending Unavailable Schinner, Mando E Referring Unavailable Schinner, Mando E Primary Care Unavailable Schinner, Mando E Referring Unavailable SchinnerMando E Attending Unavailable Schinner, Mando E Primary Care Unavailable Allergies Allergy Classification Reported Allergen(s) Allergy Type Date of Onset Reaction(s) Facility (14 sources) Penicillins; Translations: [Penicillins] Allergy to substance 0 Swelling [facility] (4 sources) Amoxicillin; Translations: [AMOXICILLIN] Drug Allergy 9 Other: See Comments [facility] (4 sources) Amoxicillin / Clavulanate; Translations: [AMOXICILLIN-POT CLAVULANATE] Drug Allergy 9 Diarrhea [facility] (4 sources) NITROFURANTOIN, MACROCRYSTALS / Nitrofurantoin, Monohydrate; Translations: [NITROFURANTOIN MONOHYD/M-CRYST] Drug Allergy 9 GI Upset [facility] (4 sources) Penicillin G; Translations: [PENICILLIN G] Drug Allergy 6 Other: See Comments [facility] (1 source) Nitrofurantoin Drug Allergy 5 [facility] Repository Medications Current Medications Medication Drug Class(es) Dates Sig (Normalized) Sig (Original) acetaminophen 325 mg / oxyCODONE hydrochloride 5 mg oral tablet (10 sources) Opioid Agonist Start: 02-14-2022 take 1 tablet by mouth every six hours as needed for pain Oxycodone-Acetami nophen 5-325 mg tablet Active 1 {tbl} PO EVERY 6 HOURS as needed for pain 02 10February 14, 2022 Start: 02-14-2022 take 1 tablet by marty th every six hours Oxycodone-Acetaminophen Active 1 TABLET PO EVERY 6 HOURS 02 10February 14, 2022 amLODIPine 10 mg oral tablet (16 sources) Dihydropyridine Calcium Channel Pam Start: 08-24-2008 take 1 tablet by mouth at bedtime Amlodipine 10 MG tablet Active 10 mg PO AT BEDTIME June 07, 2013 12:00am Comment on above: Take one(1) tablet d aily. calcium carbonate 1500 mg oral tablet (20 sources) Start: 02-27-2023 take 1 tablet by mouth once daily Calcium Carbonate (Calcium 600) 600 mg calcium (1,500 mg) tablet Active 600 mg PO DAILY February 27, 2023 1:00am Start: 07-27-2019 Calcium Carbon ate (Calcium 500) 500 mg calcium (1,250 mg) tablet Active 1200 mg PO TWICE A DAY July 27, 2019 12:00am Start: 07-27-2019 Calcium Carbon ate (Calcium 500) 500 mg calcium (1,250 mg) tablet Active 1200 MG PO DAILY July 26, 2019 11:00pm Start: 07-27-2019 take 1 tablet by marty th once daily Calcium Carbonate (Calcium 500) 500 mg calcium (1,250 mg) tablet Active 500 MG PO DAILY July 27, 2019 12:00am Comment on above: Take by mouth. ciprofloxacin 500 mg oral tablet (10 sources) Quinolone Antimicrobial Start: take 1 tablet by mouth twice daily Ciprofloxacin Hcl (Cipro) 500 mg tablet Active 500 mg PO TWICE A DAY February 14, 2022 1:00am hydroCHLOROthiazide 12.5 mg / lisinopril 10 mg oral tablet (20 sources) Thiazide Diuretic, Angiotensin Converting Enzyme Inhibitor Start: 019 Lisinopril-Hydrochl orothiazide 10-12.5 mg tablet Active 0.5 {tbl} PO AT BEDTIME January 11, 2019 8:35am Start: 01-11-2019 take 0.5 tablet by mouth at bedtime Lisinopril-Hydrochlorothiazide Active 0. 5 TABLET PO AT BEDTIME January 11, 2019 8:35am Start: 06-07-2013 End: 01-11-2019 take 0.5 tablet by mouth once daily Lisinopril-Hydrochlorothiazide Discontin ued 0.5 TABLET PO DAILY June 07, 2013 12:00am January 11, 2019 8:36am Start: 08-24-2008 End: 01-11-2019 Lisinopril-Hydrochlorothiazi de 1 TABLET tablet Discontinued 0.5 {tbl} PO DAILY June 07, 2013 12:00am January 11, 2019 8:36am Comment on above: TAKE 1/2 TAB DAILY Lactobacillus Combination No.4 (Probiotic) 3 billion cell Capsule (10 sources) Start: take 3 capsules by mouth once daily Lactobacillus Combination No.4 (Probiotic) 3 billion cell Capsule Active 3000 NMA PO DAILY February 14, 2022 1:00am administer with a meal Start: 02-14-2022 take 3 capsules by m outh once daily Lactobacillus Combination No.4 (Probiotic) 3 billion cell Capsule Active 3000 MMU CELLS PO DAILY February 14, 2022 1:00am administer with a meal Start: 02-14-2022 take 3 capsules by m outh once daily Lactobacillus Combination No.4 (Probiotic) 3 billion cell Capsule Active 3000 MMU CELLS PO DAILY February 14, 2022 12:00am administer with a meal latanoprost 0.05 mg/ml ophthalmic solution (20 sources) Prostaglandin Analog Start: 02-14-[address] 0.005 % drops Active 1 NMA EACH EYE AT BEDTIME February 14, 2022 1:00am Start: 02-14-2022 Latanoprost Ac tive 1 DRP EACH EYE AT BEDTIME February 14, 2022 1:00am Start: 01-06-2022 latanoprost (X ALATAN) 0.005 % ophthalmic solution Start: 01-03-2014 End: 01-11-2019 Latanoprost 2.5 ML drops Dis continued 1 NMA EACH EYE DAILY January 03, 2014 12:00am January 11, 2019 8:36am Start: 01-03-2014 End: 01-11-2019 Latanoprost Discontinued 1 D RP EACH EYE DAILY January 03, 2014 12:00am January 11, 2019 8:36am lisinopril 20 mg oral tablet (5 sources) Angiotensin Converting Enzyme Inhibitor Start: 02-27-2023 take 1 tablet by mouth twice daily Lisinopril 20 mg tablet Active 20 mg PO TWICE A DAY February 27, 2023 1:00am Multivitamin,Tx-Ir on-Minerals (11 sources) Start: 06-07-2013 take 1 tablet by mouth once daily Multivitamin,Tx-I jeannette-Minerals Active 1 TABLET PO DAILY June 06, 2013 11:00pm Start: 06-07-2013 take 1 tablet by marty th once daily Multivitamin,Ms-Cqml-Qmodspsh Active 1 T ABLET PO DAILY June 07, 2013 12:00am Multivitamin,Xu-Qilb-Qwcctcz s 1 TABLET tablet (2 sources) Start: 06-07-2013 take 1 tablet by mouth once daily Multivitamin,Jd-Mfod-Zojbgwzq 1 TABLET tablet Active 1 {tbl} PO DAILY June 07, 2013 12:00am phenazopyridine hydrochlorid e 100 mg oral tablet (5 sources) Start: 02-27-2023 take 1 tablet by mouth three times daily Phenazopyridine (Pyridium) 100 mg tablet Active 100 mg PO THREE TIMES A DAY February 27, 2023 1:00am rosuvastatin calcium 10 mg oral tablet (13 sources) HMG-Co A Reduct ase Inhibi tor Start: 01-27-2022 take 1 tablet by mouth at bedtime Rosuvastatin 10 mg tablet Active 10 mg PO AT BEDTIME February 14, 2022 1:00am sertraline 50 mg oral tablet (16 sources) Seroto jomar Reupta ke Inhibi tor Start: 04-14-2005 take 1 tablet by mouth once daily Sertraline 50 MG tablet Active 50 mg PO DAILY June 07, 2013 12:00am Comment on above: Take one(1) tablet d aily. tamsulosin hydrochloride 0.4 mg oral capsule (5 sources) alpha- Adrene alex louise Start: 02-27-2023 take 1 capsule by mouth once daily Tamsulosin (Flomax) 0.4 mg capsule Active 0.4 mg PO DAILY February 27, 2023 1:00am Vitamin D 1000unit (3 sources) Start: 02-27-2023 take 1000 [IU] by mouth once daily Vitamin D 1000unit Active 1000 UNIT PO DAILY February 27, 2023 1:00am Start: 02-27-2023 take 1000 [IU] by mo uth once daily Vitamin D 1000unit Active 1000 UNIT PO DAILY February 27, 2023 12:00am Vitamin D 1000unit 1,000 uni ts (2 sources) Start: 02-27-2023 Vitamin D 1000 unit 1,000 units Active 1000 U PO DAILY February 27, 2023 1:00am Completed/Discontinued Medications Medication Drug Class(es) Dates Sig (Normalized) Sig (Original) acetaminophen 500 mg oral tablet (3 sources) acetaminophen (TYLENOL) 500 mg tablet Take 500 mg by mouth as needed. 0 Active Comment on above: Take 500 mg by mouth as needed. cholecalciferol 0.025 mg oral capsule (5 sources) Vitamin D Start: 06-07-2013 Cholecalciferol, Vitamin D3, 25 mcg (1,000 unit) cap Cholecalciferol (Vitamin D3) Active 1000 UNIT DAILY June 07, 2013 3:57pm 0 06/07/2013 Active Comment on above: Cholecalciferol (Vit weldon D3) Active 1000 UNIT DAILY June 07, 2013 3:57pm lactobacillus combination no.4 (PROBIOTIC) 3 billion cell cap (3 sources) Start: 02-14-2022 lactobacillus combination no.4 (PROBIOTIC) 3 billion cell cap Take by mouth. 0 02/14/2022 Active Comment on above: Take by mouth. lactobacillus rhamnosus gg [id number] unt oral capsule (13 sources) Start: 11-27-2017 End: 01-11-2019 Lactobacillus Rhamnosus Gg 1 EACH capsule Discontinued 1 NMA PO DAILY November 27, 2017 12:00am January 11, 2019 8:36am Start: 11-27-2017 End: 01-11-2019 Lactobacillus Rhamnosus Gg D iscontinued 1 EACH PO DAILY November 27, 2017 12:00am January 11, 2019 8:36am LORazepam 1 mg oral tablet (3 sources) Benzodiazepine Start: 04-14-2005 ATIVAN 1 MG TAB Take one(1) tablet daily. 0 04/14/2005 Active Comment on above: Take one(1) tablet d aily. methylPREDNISolone (2 sources) Corticosteroid Start: 04-16-2022 End: 04-21-2022 methylPREDNISolone (MEDROL, CLAUDIA,) 4 mg Dose-Pack Take one package as directed 21 tablet 0 04/16/2022 04/21/2022 Start: 04-16-2022 End: 04-21-2022 methylPREDNISolone (MEDROL, CLAUDIA,) 4 mg Dose-Pack Take one package as directed 21 tablet 0 04/16/2022 04/21/2022 Active Comment on above: Take one package as directed multivitamins(DAILY VITAMIN TAB) (3 sources) Start: 08-24-2008 multivitamins(DAILY VITAMIN TAB) Take one(1) tablet daily. 0 08/24/2008 Active Comment on above: Take one(1) tablet d aily. potassium chloride 10 meq extended release oral tablet (16 sources) Start: 06-07-2013 End: 07-27-2019 take 2 tablets by mouth once daily Potassium Chloride 10 MEQ tablet extended release Discontinued 20 meq PO DAILY June 07, 2013 12:00am July 27, 2019 1:06pm Start: 06-07-2013 End: 07-27-2019 take 20 mEq by mouth once daily Potassium Chloride Discontinued 20 MEQ PO DAILY June 07, 2013 12:00am July 27, 2019 1:06pm Start: 08-24-2008 potassium chlo ride(KLOR-CON M20 20 MEQ TAB) Take one(1) tablet daily. 0 08/24/2008 Active Comment on above: Take one(1) tablet d aily. terbinafine 250 mg oral tablet (3 sources) Allylamine Antifungal Start: 2 terbinafine HCl (LAMISIL) 250 mg tablet traMADol hydrochloride 50 mg oral tablet (13 sources) Opioid Agonist Start: 8 End: 9 take 1 tablet by mouth every six hours as needed for pain Tramadol 50 MG tablet Discontinued 50 mg PO EVERY 6 HOURS NEEDED as needed for Pain 8 2 November 27, 2017 4:05am January 11, 2019 8:36am Problems Active Problems Problem Classification Problem Date Documented Date Episodic/Chronic Adjustment disorders (3 sources) Adjustment disorder with depressed mood; Translations: [Adjustment disorder with depressed mood] 04-14-2005 Chronic Calculus of urinary tract (20 sources) Kidney stone; Translations: [Calculus of kidney] Episodic Diseases of white blood cells (14 sources) Leukocytosis; Translations: [Elevated white blood cell count, unspecified] Chronic Disorders of lipid metabolism (1 source) Pure hypercholesterolemia, unspecified; Translations: [Pure hypercholesterolemia, unspecified] Onset: 07-28-2024 Chronic Essential hypertension (16 sources) Hypertensive disorder; Translations: [Essential (primary) hypertension] 04-14-2005 Chronic Lymphadenitis (1 source) Localized enlarged lymph nodes; Translations: [Localized enlarged lymph nodes] Onset: 01-25-2025 Episodic Nonmalignant breast conditions (5 sources) Solitary cyst of breast; Translations: [Solitary cyst of unspecified breast] Onset: 09-13-2008 09-13-2008 Episodic Nonspecific chest pain (10 sources) Chest pain; Translations: [Chest pain, unspecified] 02-26-2023 Episodic Osteoarthritis (13 sources) Osteoarthritis; Translations: [Unspecified osteoarthritis, unspecified site] 01-11-2019 Chronic Other connective tissue disease (2 sources) [...] [Posterior tibial tendon dysfunction] Onset: 04-16-2022 Episodic Other diseases of kidney and ureters (11 sources) Hydronephrosis; Translations: [Unspecified hydronephrosis] 02-14-2022 Episodic Other diseases of kidney and ureters (3 sources) Unspecified hydronephrosis; Translations: [Hydronephrosis] Episodic Other nervous system disorders (1 source) Unspecified mononeuropathy of bilateral lower limbs; Translations: [Unspecified mononeuropathy of bilateral lower limbs] Onset: 01-18-2025 Chronic Other non-epithelial cancer of skin (13 sources) Basal cell carcinoma of forehead; Translations: [Basal cell carcinoma of skin of other parts of face] 01-11-2019 Episodic Other screening for suspected conditions (not mental disorders or infectious disease) (5 sources) Mammography abnormal; Translations: [Other abnormal and inconclusive findings on diagnostic imaging of breast] Onset: 08-24-2008 08-24-2008 Episodic Unclassified (1 source) Unspecified lump in the left breast, overlapping quadrants; Translations: [Unspecified lump in the left breast, overlapping quadrants] Onset: 01-25-2025 Past or Other Problems Problem Classification Problem Date Documented Da te Episodic/Chronic Diabetes mellitus without complication (1 source) Impaired glucose tolerance (oral); Translations: [Impaired glucose tolerance (oral)] Onset: 04-18-2024 Episodic Fracture of lower limb (3 sources) Closed fracture of metatarsal bone; Translations: [Fracture of unspecified metatarsal bone(s), unspecified foot, initial encounter for closed fracture] Onset: 04-28-2005 04-28-2005 Episodic Other connective tissue disease (3 sources) Ganglion of joint; Translations: [Ganglion, unspecified site] Onset: 05-19-2005 05-19-2005 Episodic Other skin disorders (1 source) Localized swelling, mass and lump, neck; Translations: [Localized swelling, mass and lump, neck] Onset: 07-27-2024 Episodic Results Test Name Value Interpretation Reference Range Facility Operative Reporton Operative Report [facility] Medical Records Department [address] [place] [id number] Operative Report 01/25/25 1305 MR#: [id number] Acct: [id number] Name: TAMMI TOLEDO Rep #: [id number] : 1950 74 From: Nataliya Chavez MD PCP: Dr. Mando Nichole MD Status:REG CLI Location: OPUS Operative Report (Standard) Operative Information Date of Procedure: 01/25/25 Pre-Operative Diagnosis: Left breast mass x 3, left axillary lymph node adenopathy Post-Operative Diagnosis: Same Surgery/Procedure Performed: Ultrasound-guided left breast mass x 3, left axillary lymph node ultrasound-guided biopsy emr analyst: No Type of Anesthesia: Local Procedure Start Time: 10:40 Procedure Stop Time: 11:10 Select all DRAINS/GRAFTS/IMPLANTS that apply: Implanted device Implanted device details: BARD MaxCore dual ultra clip ribbon at 930 5 cm from the nipple, coil at 9:00 5 cm from the nipple, left axillary lymph node, mammotome clip at 834 cm from nipple Estimated Blood Loss: 5 cc Specimen collected: Yes Description of specimen(s) removed: 1. Left breast mass 930 5 cm from the nipple, 2. Left breast mass 9:00 5 cm from the nipple, 3. Left breast mass a 830 4 cm from the nipple, left axillary lymph node Description of surgery: Procedure: Left breast ultrasound-guided core biopsy x 3, left axillary lymph node x 1 Indications: 74 year-old female with irregular hypoechoic nodule at 830 4 cm from the nipple as well as 2 smaller hypoechoic nodules at 930 and 9:00 5 cm from the nipple, an enlarged left axillary lymph node. Risk benefits were discussed the patient and she elected to proceed with ultrasound guided core biopsy with clip placement Description of procedure: Patient was brought into the ultrasound room in the left breast and axilla were marked. A timeout was completed verifying correct patient, procedure, site, specially, prior to beginning procedure. The left breast and axilla were prepped and draped in usual sterile fashion and using local anesthesia was obtained with 1% lidocaine with epi. All procedures were done similarly. The lesion was located with the ultrasound. Small incision was made with 11 blade to introduced the mammotome/BARD MaxCore (mammotome for 9:00 and 935 cm from nipple nodule; BARD MaxCore for the 830 4 cm and axillary lymph node) through the skin. Under ultrasound guidance multiple core samples were obtained using then 13-gauge mammotome/14-gauge BARD MaxCore and sent in formalin for pathology. The mammotome mammostar/Bard dual ultra clip (Bard dual ultra coil clip at 9:00 5 cm the nipple and left axilla, ribbon clip at 930 5 cm from nipple; Mammotome clip at 830 4 cm from nipple) was then deployed into the biopsy cavity under ultrasound guidance and a picture was taken. Upon completion procedure hemostasis was obtained and a Steri-Strip and OpSite were placed. Patient was then taken to the mammography suite for clip verification. The clips were verified. The patient tolerated the procedure well and was discharged from the breast imaging department good condition. Surgical Findings: See operative report Complications Complications: No 01/25/25 1312 Cosigner Signature (if applicable): CC: Dr. Mando Nichole MD; Dr. Nataliya Chavez MD Signed Normal [facility] US Breast Biopsy 1st Lesiono n 01-25-2025 US Breast Biopsy 1st Lesion [facility] Imaging Services [address] [place] [address] US Breast Biopsy 1st Lesion MR#: [id number] Acct: [id number] Name: TAMMI TOLEDO Rep #: [id number] : 1950 F 74 From: Pierre solis MD PCP: Dr. Mando Nichole MD Status: [facility] CLI Study: US Breast Biopsy 1st Lesion Date of Exam: 01/14 05/10 Exam# [id number] Ordering Dr: Nataliya Chavez MD PROCEDURE: US BREAST BIOPSY 1ST LESION 01/25/2025 REASON FOR EXAM: F, Age 74 y/o , BREAST MASS Core biopsies of breast masses and axillary lymph nodes. TECHNIQUE: Procedure Code: [id number] Modality: US Procedure: US BREAST BIOPSY 1ST LESION. Under direct sonographic guidance, the surgeon performed core biopsies of the 1.2 cm 1.1 cm 1.3 cm hypoechoic nodule at the 9 o'clock position of the breast at 5 cm from the nipple as well as the 0.5 cm x 0.3 cm 0.4 cm hypoechoic nodule at the 9:30 position of the breast at 5 cm from the nipple. Core biopsies were also obtained of the 2.6 cm by 1.9 cm the 0.5 cm left axillary lymph node. Core biopsy also obtained from a subcentimeter hypoechoic nodule at the 8:30 position of the breast at 4 cm from the nipple. COMPARISON: Prior exam(s) dating back to January 19, 2025.. FINDINGS: Successful biopsies. US/US Breast Biopsy 1st Lesion IMPRESSION: OVERALL FINAL ASSESSMENT: BIRADS 11 WAITING PATHOLOGY RECOMMENDATION: Routine annual follow-up in 1 Year Reading Location: [facility] CC: Dr. Mando Nichole MD; Dr. Nataliya Chavez MD Control Clerk Auditing: Signed Normal [facility] Surgery Visit Reporton 01-24 Surgery Visit Report [facility] [address] [place] [address] OFFICE VISIT Date of Service: 01/24/25 MR#: [id number] Acct: [id number] Name: TAMMI TOLEDO Rep #: [id number] : 1950 Provider: Dr. Nataliya carbone MD Age/Sex: 74/F Location: [facility] Status: Signed Intake Vital Signs 02/27/23 14:09 01/24/25 15:22 Height 5 ft 7 in 5 ft 7 in Weight: 219 lb BMI 34.2 BP 163/84 H Blood Pressure Location Rt brachial Position Sitting Respiration 17 Pulse 77 Pulse Source Monitor Pulse Oximetry (%) 96 Oxygen Delivery Method room air Intake Visit Reasons: BIRADS 4 Chief Complaint: birads 4 Accompanied by: Is patient in pain?: No Allergies Penicillins Allergy (Verified 01/24/25 15:15) Swelling nitrofurantoin (From Macrobid) Adverse Reaction (Mild, Verified 01/24/25 15:15) Other Medications ???Medication ???Instructions ???Recorded ???Confirmed ???Type amlodipine 10 mg tablet 10 mg PO QHS blood pressure 01/24/25 History multivitamin,tx-iron-m inerals 27 1 tab PO DAILY supplement 06/07/13 01/24/25 History mg-0.4 mg tablet sertraline 50 mg tablet 50 mg PO DAILY mood 06/07/1301/24 History calcium carbonate (Calcium 500) 1,200 mg PO BID supplement 0 01/24/25 History lactobacillus combination no.4 3 3,000 mmu cells PO DAILY supplemen t 02/14/22 01/24/25 History billion cell capsule (Probiotic) latanoprost 0.005 % eye drops 1 drp EACH EYE QHS glaucoma 01/24/25 History rosuvastatin 10 mg tablet 10 mg PO QHS cholesterol 02/14/22 01/24/25 History Vitamin D 1000unit 1,000 unit PO DAILY supplement 01/24/25 History calcium carbonate (Calcium 600) 600 mg PO DAILY supplement 3 02/27/23 History lisinopril 20 mg tablet 20 mg PO BID high blood pressure 1 04/30/22 01/24/25 History aspirin 325 mg tablet 325 mg PO QDAY PRN 01/24/25 History omeprazole 20 mg capsule,delayed 20 mg PO QDAY 01/24/25 01/24/25 Hi story release Have you fallen in the past year?: No PFSH Medical History Depression High cholesterol Hypertension Left ureteral calculus Multinodular goiter Nephrolithiasis Osteoarthritis Post-menopausal Skin cancer of forehead Surgical History History of Mohs micrographic surgery for skin cancer History of History of laparoscopic cholecystectomy History of lithotripsy History of knee replacement History of blepharoplasty Family History Father Diabetes Heart disease Mother Breast cancer Social History Smoking Status: Never smoker alcohol intake: current substance use type: does not use HPI HPI HPI: 65-year-old female presents due to abnormal mammogram and ultrasound. Patient denies any breast lumps bilaterally or breast pain or nipple discharge. Patient's mammogram showed a spiculated mass on the left breast ultrasound showed a 1.8 x 2 cm irregular hypoechoic mass with posterior shadowing at 8:00 4 cm from the nipple as well as 2 small 3 x 4 cm hypoechoic lesions at 9:00 4 cm from nipple and as well as 8:00 6 cm from the nipple, as well as enlarged left axillary lymph nodes-- given a BI-RADS 4. Age of menses 11, age of of first child 28, family history of breast cancer mother in the late 70s, 1 previous breast biopsy was a cyst on the right. ROS General General: Yes fatigue; No weight change, appetite, colon cancer or breast cancer HEENT HEENT: Yes eye surgery; No difficulty swallowing, eye injury, swollen glands or hoarseness Endo Endocrine: No thyroid disease, diabetes mellitus, thyroid cancer, Hair loss, heat intolerance or cold intolerance Skin Skin: No rash or changing moles Breast Breast: Yes abnormal mammogram and abnormal US; No left breast lump, right breast lump, nipple discharge, breast pain or breast enlargement Musc Musculoskeletal: Yes arthritis; No back problems, rheumatoid arthritis, gout or joint pain Cardio Cardiovascular: Yes high blood pressure; No murmur, pacemaker, heart disease, atrial fibrillation, heart attack, heart stent, palpitations, shortness of breath with exertion or chest pain Psych Psychiatric: Yes depression and anxiety; No hearing voices Resp Respiratory: Yes shortness of breath, No sleep apnea, No cough, No COPD, No asthma, No emphysema and No wheezing Gastro Gastrointestinal: No abdominal pain, No nausea or vomiting, No diarrhea, No constipation, No blood in stool, Yes acid reflux, No hemorrhoids, No ulcers, No gallbladder problem and No black,tarry stools Paolo He (more content not included)... Normal [facility] Breast Limited Unilateralon 01-19-2025 Breast Limited Unilateral [facility] Imaging Services [address] [place] [address] Breast Limited Unilateral MR#: [id number] Acct: [id number] Name: TAMMI TOLEDO Rep #: [id number] : 1950 F 74 From: Pierre solis MD PCP: Dr. Mando Nichole MD Status: [facility] Study: Breast Limited Unilateral Date of Exam: Exam# [id number] Ordering Dr: Mando Nichole MD ADDENDUM by Dr. Pierre Hollins MD on 01/25/25 at 1137 Addendum report for voice recognition error. There is a 1.8 cm 1.5 cm 2.1 cm irregular heterogeneous spiculated mass with focal calcification at the 8 o'clock position of the breast at 4 cm from the nipple. Biopsy recommended. Prominent left axillary lymph nodes. Biopsy recommended. Reading Location: [facility] 01/25/25 1136 Date cc: Dr. Mando Nichole MD * Signed ADDENDUM by Dr. Pierre Hollins MD on 01/23/25 at 7019 Addendum report for voice recognition error. Impression 1.8 cm 1.5 cm 2.1 cm irregular spiculated mass at the 8 o'clock position of the breast at 4 cm from the nipple. Biopsy recommended. Reading Location: [facility] 01/23/25 1511 Date cc: Dr. Mando Nichole MD * Signed PROCEDURE: BREAST LIMITED UNILATERAL 01/19/2025 REASON FOR EXAM: F, Age 74 y/o , ABNORMAL MAMMOGRAM DIAGNOSITC LEFT BREAST Abnormal screening mammogram. COMPARISON: . TECHNIQUE: Procedure Code: USBRSTLIMIT Modality: US Procedure: BREAST LIMITED UNILATERAL. The mid inferior quadrant of the left breast was examined with ultrasound. FINDINGS: The mammographic abnormality corresponds to a 1.8 cm 1.5 cm 2.1 cm irregular spiculated mass at the 8 o'clock position of the breast at 4 cm from the nipple. There is posterior acoustical shadowing. A neoplastic process should be ruled out. Biopsy recommended. There is also evidence of a 3 mm x 4 mm x 3 mm hypoechoic nodular density at the 8 o'clock position of the breast at 6 cm pole. A similar-appearing hypoechoic nodule is seen at the 9 o'clock position of the breast at 4 cm from the nipple from the nipple measuring 4 mm 3 mm. These are not typical cysts. Imaging of the left axilla was obtained. There is a 2.5 cm 1.4 cm x 0.7 cm. 4 cm lymph node. US/Breast Limited Unilateral IMPRESSION: Complex dominant measuring 1.8 cm by 92 1 cm at. Nodules and 9 o'clock position of the breast this is commended. Enlarged left axillary lymph nodes. BI-RADS 4: SUSPICIOUS RECOMMENDATION: Biopsy Recommended Reading Location: [id number] CC: Dr. Mando Nichole MD Control Clerk Auditing: Signed Normal [facility] DIAG MAMM W/CAD, UNILATon DIAG MAMM W/CAD, UNILAT [facility] Imaging Services [address] [place] [address] DIAG MAMM W/CAD, UNILAT MR#: [id number] Acct: [id number] Name: TAMMI TOLEDO Rep #: [id number] : 1950 F 74 From: Pierre solis MD PCP: Dr. Mando Nichole MD Status: REG [facility] Study: DIAG MAMM W/CAD, UNILAT Date of Exam: 01/19/25 Exam# [id number] Ordering Dr: Mando Nichole MD EXAM: DIAG MAMM W/CAD, UNILAT 01/19/2025 CLINICAL HISTORY: F, Age 74 y/o , DENSITY. Abnormal screening mammogram. TECHNIQUE: Procedure Code: BIDMWCADU Modality: MG Procedure: DIAG MAMM W/CAD, UNILAT. Compression spot views of the left breast were obtained. COMPARISON: Prior exam(s) dated prior mammogram dated January 13, 2025.. FINDINGS: TISSUE DENSITY: There are scattered areas of fibroglandular density. Bilateral Breast Mammographic Findings: Persistent 1.8 cm in the of the left breast. This is suspicious. Sonographic correlation recommended. BI/DIAG MAMM W/CAD, UNILAT IMPRESSION: Persistent spiculated nodule in the central medial aspect of the left breast as described. Sonographic correlation recommended. OVERALL FINAL ASSESSMENT BI-RADS 0: INCOMPLETE - NEED ADDITIONAL IMAGING EVALUATION. RECOMMENDATION: Ultrasound Recommended Additional Recommendation none A letter with findings and recommendations will be mailed to the patient. Reading Location: [facility] CC: Dr. Mando Nichole MD Control Clerk Auditing: Signed Normal [facility] NCS and/or EMG Patienton NCS and/or EMG Patient [facility] Pulmonary Services/Neurology [address] [place] [address] MR#: [id number] Acct: [id number] Name: TAMMI TOLEDO Rep #: [id number] : 1950 74 From: Marcelo Conte MD Referring Dr: Mando Nichole MD Status: REG CL I Location: [facility] Date: 01/18/25 Sex: F C NCS and/or EMG Patient Report Ordering Doctor: Mando Nichole DATE OF SERVICE: 01/18/25 Tammi presents for electrodiagnostic testing of the lower limbs. She reports numbness and tingling in both feet and ankles. Electrodiagnostic findings: Peroneal motor nerve demonstrates normal distal latency, amplitude on the right side with diminished conduction velocity. Left peroneal motor nerve demonstrates normal distal latency with normal amplitude and reduced conduction velocity. Tibial motor conduction velocity is borderline slowed. Prolonged tibial and peroneal F???waves. Prolonged H???reflex bilaterally. Decreased right sural conduction velocity. Needle EMG testing was performed in the lower limbs. All muscles tested showed no evidence of denervation with normal motor unit action potentials. Electrodiagnostic impression: This an abnormal study in the lower limbs. 1. Electrodiagnostic findings are suggestive of peripheral polyneuropathy, motor and sensory, with evidence of demyelination. Multi Select Codes Neurology Neurology Interp Codes: 56597-46 Musc test done w/n test comp (interp) (2) and 56724-29 Nrv cndj test 9-10 studies (interp) 01/18/25 1434 Date Marcelo Conte MD CC: Dr. Marcelo Conte MD; Dr. Mando Nichole MD Date Dictated: 01/18/25 134 Date Transcribed: 01/18/251345 Control Clerk Auditing: CONCETTA Signed Normal [facility] SCRN MAMM (CAD)W/ADELFO BILATo n 01-13-2025 SCRN MAMM (CAD)W/ADELFO BILAT [facility] Imaging Services [address] [place] [address] SCRN MAMM (CAD)W/ADELFO BILAT MR#: [id number] Acct: [id number] Name: TAMMI TOLEDO Rep #: [id number] : 1950 F 74 From: Francia Drake MD PCP: Dr. Mando Nichole MD Status: [facility] Study: SCRN MAMM (CAD)W/ADELFO BILAT Date of Exam: 12/16 04/09 Exam# [id number] Ordering Dr: Mando Nichole MD EXAM: SCRN MAMM (CAD)W/ADELFO BILAT DATE: 01/13/2025 CLINICAL HISTORY: F, Age 74 y/o , SCREENING TECHNIQUE: Procedure Code: BISMWCADBTOM Modality: MG Procedure: SCRN MAMM (CAD)W/ADELFO BILAT COMPARISON: Prior exam(s) dated 11/20/2023, 11/06/2020. FINDINGS: TISSUE DENSITY: There are scattered areas of fibroglandular density. Bilateral Breast Mammographic Findings: There is an irregular high density spiculated mass in the lower inner left breast at middle depth. No significant masses, calcifications or other abnormalities are identified in the right breast. BI/SCRN MAMM (CAD)W/ADELFO BILAT IMPRESSION: The irregular high density spiculated mass in the lower inner left breast at middle depth requires further evaluation. Recommend diagnostic mammogram and ultrasound of the left breast. OVERALL FINAL ASSESSMENT BI-RADS 0: INCOMPLETE - NEED ADDITIONAL IMAGING EVALUATION. RECOMMENDATION: Additional Views obtained/call backs Additional Recommendation none A letter with findings and recommendations will be mailed to the patient. Reading Location: [facility] CC: Dr. Mando Nichole MD Control Clerk Auditing: Signed Normal [facility] Absolute lymphocyte countOrd ered By: Mando Nichole on 07-22-2024 Lymphocytes Auto (Unsp spec) [#/Vol] 2.73 10*3/uL 0.83-4.51 [facility] Absolute neutrophil countOrd ered By: Mando Nichole on 07-22-2024 Neutrophils (Bld) [#/Vol] 1.2 10*3/uL Low 2.0-7.7 [facility] Anion gap in Serum or Plasma Ordered By: Mando Nichole on 07-22-2024 Anion gap [Moles/Vol] 13 mmol/L 5-15 [facility] Automated lymphocyte count a s percentage of total leukocytesOrdered By: Mando Nichole on 07-22-2024 Lymphocytes/100 WBC Auto (Unsp spec) 59.7 % High 19-41 [facility] BUN/creatinine ratioOrdered By: Mando Nichole on 07-22-2024 Urea nitrogen/Creatinine [Mass ratio] 15.4 mg/mg 10-20 [facility] Basophil percentageOrdered B y: Mando Zunigaeleazar on 07-22-2024 Basophils/100 WBC (Bld) 0.9 % 0-1 [facility] Bilirubin, totalOrdered By: Mando Zunigaeleazar on 07-22-2024 Bilirubin [Mass/Vol] 0.45 mg/dL 0.00-1.30 [facility] CBC W/Diff, Automatedon Absolute Lymph 2.73 X10 3/uL Normal 0.83-4.51 [facility] Comment on above: Order Comment: Order Date: 03/25/24 Order Info: [id number] - CBC Performed By: #### L 100.0500 #### [facility] [address] [place], [address] Absolute Neut 1.2 X10 3/uL Low 2.0-7.7 [facility] Comment on above: Order Comment: Order Date: 03/25/24 Order Info: [id number] - CBC Performed By: #### L 100.0500 #### [facility] [address] [place], [address] Basophils/100 WBC (Bld) 0.9 % Normal 0-1 [facility] Comment on above: Order Comment: Order Date: 03/25/24 Order Info: [id number] - CBC Performed By: #### L 100.0500 #### [facility] [address] [place], [address] Eosinophils/100 WBC (Bld) 4.6 % Normal 0-5 [facility] Comment on above: Order Comment: Order Date: 03/25/24 Order Info: [id number] - CBC Performed By: #### L 100.0500 #### [facility] [address] [place], [address] Erythrocyte distribution width (RBC) [Ratio] 12.8 % Normal 11.6-14.6 [facility] Comment on above: Order Comment: Order Date: 03/25/24 Order Info: [id number] - CBC Performed By: #### L 100.0500 #### [facility] [address] [place], [address] Hematocrit (Bld) [Volume fraction] 41.1 % Normal 37-47 [facility] Comment on above: Order Comment: Order Date: 03/25/24 Order Info: [id number] - CBC Performed By: #### L 100.0500 #### [facility] [address] [place], [address] Hemoglobin (Bld) [Mass/Vol] 13.7 g/dL Normal 12.0-15.0 [facility] Comment on above: Order Comment: Order Date: 03/25/24 Order Info: [id number] - CBC Performed By: #### L 100.0500 #### [facility] [address] [place], [address] IG% 0.000 Normal 0.0-0.9 [facility] Comment on above: Order Comment: Order Date: 03/25/24 Order Info: [id number] - CBC Result Comment: IG% - Immature Granulocytes (promyelocytes, myelocytes and metamyelocytes) > 1% indicates that a LEFT SHIFT is Present. Performed By: #### L 100.0500 #### [facility] [address] [place], [address] Lymphocytes/100 WBC (Bld) 59.7 % High 19-41 [facility] Comment on above: Order Comment: Order Date: 03/25/24 Order Info: [id number] - CBC Performed By: #### L 100.0500 #### [facility] [address] [place], [address] MCH (RBC) [Entitic mass] 29.5 pg Normal 27.0-32.0 [facility] Comment on above: Order Comment: Order Date: 03/25/24 Order Info: [id number] - CBC Performed By: #### L 100.0500 #### [facility] [address] [place], [address] MCHC (RBC) [Mass/Vol] 33.3 g/dL Normal 32-36 [facility] Comment on above: Order Comment: Order Date: 03/25/24 Order Info: [id number] - CBC Performed By: #### L 100.0500 #### [facility] [address] [place], [address] MCV (RBC) [Entitic vol] 88.4 fL Normal 81-99 [facility] Comment on above: Order Comment: Order Date: 03/25/24 Order Info: [id number] - CBC Performed By: #### L 100.0500 #### [facility] [address] [place], [address] Monocytes/100 WBC (Bld) 7.7 % Normal 0-10 [facility] Comment on above: Order Comment: Order Date: 03/25/24 Order Info: [id number] - CBC Performed By: #### L 100.0500 #### [facility] [address] [place], [address] Neutrophils/100 WBC (Bld) 27.1 % Low 47-70 [facility] Comment on above: Order Comment: Order Date: 03/25/24 Order Info: [id number] - CBC Performed By: #### L 100.0500 #### [facility] [address] [place], [address] Nucleated RBC (Bld) [#/Vol] 0 10*3/uL Normal 0-5 [facility] Comment on above: Order Comment: Order Date: 03/25/24 Order Info: [id number] - CBC Performed By: #### L 100.0500 #### [facility] [address] [place], [address] Platelet mean volume (Bld) [Entitic vol] 10.7 fL Normal 6.2-12.0 [facility] Comment on above: Order Comment: Order Date: 03/25/24 Order Info: [id number] - CBC Performed By: #### L 100.0500 #### [facility] [address] [place], [address] Platelets (Bld) [#/Vol] 135 10*3/uL Low 150-450 [facility] Comment on above: Order Comment: Order Date: 03/25/24 Order Info: [id number] - CBC Performed By: #### L 100.0500 #### [facility] [address] [place], [address] RBC (Bld) [#/Vol] 4.65 10*6/uL Normal 4.2-5.4 [facility] Comment on above: Order Comment: Order Date: 03/25/24 Order Info: [id number] - CBC Performed By: #### L 100.0500 #### [facility] [address] [place], [address] RDW SD 41.1 fl Normal 35.1-43.9 [facility] Comment on above: Order Comment: Order Date: 03/25/24 Order Info: [id number] - CBC Performed By: #### L 100.0500 #### [facility] [address] [place], [address] WBC (Bld) [#/Vol] 4.6 10*3/uL Normal 4.4-11.0 [facility] Comment on above: Order Comment: Order Date: 03/25/24 Order Info: [id number] - CBC Performed By: #### L 100.0500 #### [facility] [address] [place], [address] Calculated very low density lipoprotein (VLDL) cholesterol measurementOrdered By: Mando Nichole on 07-22-2024 Calculated very low density lipoprotein (VLDL) cholesterol measurement 17 mg/dL 5-40 [facility] Carbon dioxide, total [Moles /volume] in Central venous bloodOrdered By: Mando Nichole on 07-22-2024 CO2 [Moles/Vol] 23.0 mmol/L 21.0-32.0 [facility] Chloride assayOrdered By: Bernie Nichole on 07-22-2024 Chloride [Moles/Vol] 107 mmol/L 98-108 [facility] Comprehensive Metabolic Prof ilon 07-22-2024 Albumin [Mass/Vol] 4.1 g/dL Normal 3.4-4.8 [facility] Comment on above: Order Comment: Order Date: 03/25/24 Order Info: [id number] - CBC Performed By: #### L 100.0500 #### [facility] [address] [place], [address] Albumin/Globulin [Mass ratio] 1.5 {ratio} Normal 0.9-2.4 [facility] Comment on above: Order Comment: Order Date: 03/25/24 Order Info: [id number] - CBC Performed By: #### L 100.0500 #### [facility] [address] [place], [address] ALK PHOS 79 U/L Normal 35-104 [facility] Comment on above: Order Comment: Order Date: 03/25/24 Order Info: [id number] - CBC Performed By: #### L 100.0500 #### [facility] [address] [place], [address] ALT [Catalytic activity/Vol] 22 U/L Normal <=34 [facility] Comment on above: Order Comment: Order Date: 03/25/24 Order Info: [id number] - CBC Performed By: #### L 100.0500 #### [facility] [address] [place], [address] AST [Catalytic activity/Vol] 29 U/L Normal <=31 [facility] Comment on above: Order Comment: Order Date: 03/25/24 Order Info: [id number] - CBC Performed By: #### L 100.0500 #### [facility] [address] [place], [address] Bilirubin [Mass/Vol] 0.45 mg/dL Normal 0.00-1.30 [facility] Comment on above: Order Comment: Order Date: 03/25/24 Order Info: [id number] - CBC Performed By: #### L 100.0500 #### [facility] [address] [place], [address] BUN/CRE 15.4 RATIO Normal 10-20 [facility] Comment on above: Order Comment: Order Date: 03/25/24 Order Info: [id number] - CBC Performed By: #### L 100.0500 #### [facility] [address] [place], [address] Calcium [Mass/Vol] 9.2 mg/dL Normal 7.6-11.0 [facility] Comment on above: Order Comment: Order Date: 03/25/24 Order Info: [id number] - CBC Performed By: #### L 100.0500 #### [facility] [address] [place], [address] Chloride [Moles/Vol] 107 mmol/L Normal 98-108 [facility] Comment on above: Order Comment: Order Date: 03/25/24 Order Info: [id number] - CBC Performed By: #### L 100.0500 #### [facility] [address] [place], [address] CO2 [Moles/Vol] 23.0 mmol/L Normal 21.0-32.0 [facility] Comment on above: Order Comment: Order Date: 03/25/24 Order Info: [id number] - CBC Performed By: #### L 100.0500 #### [facility] [address] [place], [address] Creatinine [Mass/Vol] 0.95 mg/dL Normal 0.70-1.20 [facility] Comment on above: Order Comment: Order Date: 03/25/24 Order Info: [id number] - CBC Performed By: #### L 100.0500 #### [facility] [address] [place], [address] GAP 13 Normal 5-15 [facility] Comment on above: Order Comment: Order Date: 03/25/24 Order Info: [id number] - CBC Performed By: #### L 100.0500 #### [facility] [address] [place], [address] GFR/1.73 sq M.predicted among non-blacks MDRD (S/P/Bld) [Vol rate/Area] 62 mL/min/{1.73_m2} Normal >60 [facility] Comment on above: Order Comment: Order Date: 03/25/24 Order Info: [id number] - CBC Result Comment: mL/m in/1.73m2 CKD-EPI Creatinine Equation (2020) Performed By: #### L 100.0500 #### [facility] [address] [place], [address] Globulin (S) [Mass/Vol] 2.7 g/dL Normal 2.2-4.2 [facility] Comment on above: Order Comment: Order Date: 03/25/24 Order Info: [id number] - CBC Performed By: #### L 100.0500 #### [facility] [address] [place], [address] Glucose [Mass/Vol] 107 mg/dL High 70-99 [facility] Comment on above: Order Comment: Order Date: 03/25/24 Order Info: [id number] - CBC Performed By: #### L 100.0500 #### [facility] [address] [place], [address] Potassium [Moles/Vol] 3.5 mmol/L Normal 3.3-5.1 [facility] Comment on above: Order Comment: Order Date: 03/25/24 Order Info: [id number] - CBC Performed By: #### L 100.0500 #### [facility] [address] [place], [id number] Sodium [Moles/Vol] 143 mmol/L Normal 133-145 [facility] Comment on above: Order Comment: Order Date: 03/25/24 Order Info: [id number] - CBC Performed By: #### L 100.0500 #### [facility] [address] [place], [id number] T PROT 6.7 g/dL Normal 5.9-8.4 [facility] Comment on above: Order Comment: Order Date: 03/25/24 Order Info: [id number] - CBC Performed By: #### L 100.0500 #### [facility] [address] [place], [address] Urea nitrogen [Mass/Vol] 15 mg/dL Normal 4-19 [facility] Comment on above: Order Comment: Order Date: 03/25/24 Order Info: [id number] - CBC Performed By: #### L 100.0500 #### [facility] [address] [place], [address] Eosinophil percentageOrdered By: Mando Nichole on 07-22-2024 Eosinophils/100 WBC (Bld) 4.6 % 0-5 [facility] Erythrocyte distribution wid th ratioOrdered By: Mando Nichole on 07-22-2024 Erythrocyte distribution width (RBC) [Ratio] 12.8 % 11.6-14.6 [facility] Erythrocyte distribution wid th standard deviationOrdered By: Mando Nichole on 07-22-2024 Erythrocyte distribution width (RBC) [Ratio] 41.1 fl 35.1-43.9 [facility] Glomerular filtration rate ( GFR) estimation/1.73 sq m using serum, plasma, or whole bOrdered By: Mando Nichole on 07-22-2024 GFR/1.73 sq M.predicted among non-blacks MDRD (S/P/Bld) [Vol rate/Area] 62 mL/min/{1.73_m2} >60 [facility] Comment on above: mL/min/1.73m2 CKD-EP I Creatinine Equation (2020) Hematocrit Auto (Bld) [Volum e fraction]Ordered By: Mando Nichole on 07-22-2024 Hematocrit (Bld) [Volume fraction] 41.1 % 37-47 [facility] Hemoglobin A1con 07-22-2024 HbA1c (Bld) [Mass fraction] 5.5 % Normal <=5.6 [facility] Comment on above: Order Comment: Order Date: 03/25/24 Order Info: [id number] - CBC Result Comment: Norm al < 5.7 % Prediabetic 5.7 - 6.4 % Diabetic >or= 6.5 % Please note range changes. Performed By: #### L 100.0500 #### [facility] [address] [place], [address] Hemoglobin A1c percentageOrd ered By: Mando Nichole on 07-22-2024 HbA1c (Bld) [Mass fraction] 5.5 % <5.7 [facility] Comment on above: Normal < 5.7 % Predi abetic 5.7 - 6.4 % Diabetic >or= 6.5 % Please note range changes. Hemoglobin measurementOrdere d By: Mando Nichole on 07-22-2024 Hemoglobin (Bld) [Mass/Vol] 13.7 g/dL 12.0-15.0 [facility] Immature granulocytes/100 WB C Auto (Bld)Ordered By: Mando Nichole on 07-22-2024 Immature granulocytes/100 WBC (Bld) 0.000 % 0.0-0.9 [facility] Comment on above: IG% - Immature Granu locytes (promyelocytes, myelocytes and metamyelocytes) > 1% indicates that a LEFT SHIFT is Present. LDL calc ser/plasOrdered By: Mando Nichole on 07-22-2024 Cholesterol in LDL [Mass/Vol] 70 mg/dL [facility] Comment on above: Rhivbgeqhi=423-756 m g/dL & Higher Lpvb=425 mg/dL or greater Laboratory - Chemistry and C hemistry - challengeOrdered By: Mando Nichole on 07-22-2024 AST [Catalytic activity/Vol] 29 U/L <32 [facility] Lipid Profileon 07-22-2024 CHOL:HDL 2.99 Normal [facility] Comment on above: Order Comment: Order Date: 03/25/24 Order Info: [id number] - CBC Performed By: #### L 100.0500 #### [facility] [address] [place], [address] Cholesterol [Mass/Vol] 132 mg/dL Normal <=200 [facility] Comment on above: Order Comment: Order Date: 03/25/24 Order Info: [id number] - CBC Result Comment: Chol esterol level, Desirable <200 mg/dL Borderline high cholesterol 200-239 mg/dL High cholesterol >=240 mg/dL Recommendations of the NCEP Adult Treatment Panel for the following risk-cutoff thresholds for the [place] population. Performed By: #### L 100.0500 #### [facility] [address] [place], [address] Cholesterol in HDL [Mass/Vol] 44 mg/dL Normal [facility] Comment on above: Order Comment: Order Date: 03/25/24 Order Info: [id number] - CBC Result Comment: Tram onal Cholesterol Education Program (NCEP) guidelines: <40 mg/dL: Low HDL-cholesterol (major risk factor for CHD) >= 60 mg/dL: High HDL-cholesterol (negative risk factor for CHD) HDL-cholesterol is affected by a number of factors, e.g. smoking, exercise, hormones, sex and age. Performed By: #### L 100.0500 #### [facility] [address] [place], [address] Cholesterol in LDL [Mass/Vol] 70 mg/dL Normal [facility] Comment on above: Order Comment: Order Date: 03/25/24 Order Info: [id number] - CBC Result Comment: Bord fqxieu=015-495 mg/dL Higher Mxxa=469 mg/dL or greater Performed By: #### L 100.0500 #### [facility] [address] [place], [address] Cholesterol in VLDL [Mass/Vol] 17 mg/dL Normal 5-40 [facility] Comment on above: Order Comment: Order Date: 03/25/24 Order Info: [id number] - CBC Performed By: #### L 100.0500 #### [facility] [address] [place], [address] Triglyceride [Mass/Vol] 87 mg/dL Normal [facility] Comment on above: Order Comment: Order Date: 03/25/24 Order Info: [id number] - CBC Result Comment: The drugs N-Acetylcysteine and Metamizole may falsely depress this assay. Normal range: <150 mg/dL Borderline High: 150-199 mg/dL High: 200-499 mg/dL Very High: >500 mg/dL Performed By: #### L 100.0500 #### [facility] [address] [place], [address] MCV (mean corpuscular volume ) determinationOrdered By: Mando Nichole on 07-22-2024 MCV (RBC) [Entitic vol] 88.4 fL 81-99 [facility] Mean corpuscular hemoglobin (MCH) determinationOrdered By: Mando Nichole on 07-22-2024 MCH (RBC) [Entitic mass] 29.5 pg 27.0-32.0 [facility] Mean corpuscular hemoglobin concentration (MCHC) determinationOrdered By: Mando Nichole on 07-22-2024 MCHC (RBC) [Mass/Vol] 33.3 g/dL 32-36 [facility] Mean platelet volume determi nationOrdered By: Mando Nichole on 07-22-2024 Platelet mean volume (Bld) [Entitic vol] 10.7 fL 6.2-12.0 [facility] Monocyte percentageOrdered B y: Mando Ncihole on 07-22-2024 Monocytes/100 WBC (Bld) 7.7 % 0-10 [facility] Neutrophil percentageOrdered By: Mando Nichole on 07-22-2024 Neutrophils/100 WBC (Bld) 27.1 % Low 47-70 [facility] Nucleated red blood cell per centageOrdered By: Mando Nichole on 07-22-2024 Nucleated RBC/100 WBC (Bld) [Ratio] 0 % 0-5 [facility] Platelet countOrdered By: Bernie Nichole on 07-22-2024 Platelets (Bld) [#/Vol] 135 10*3/uL Low 150-450 [facility] Potassium measurement (mass/ volume)Ordered By: Mando Nichole on 07-22-2024 Potassium (Unsp spec) [Mass/Vol] 3.5 mmol/L 3.3-5.1 [facility] RBC Auto (Bld) [#/Vol]Ordere d By: Mando Nichole on 07-22-2024 RBC (Bld) [#/Vol] 4.65 10*6/uL 4.2-5.4 [facility] Screening total cholesterol/ high density lipoprotein (HDL) cholesterol ratioOrdered By: Mando Nichole on 07-22-2024 Cholesterol.total/Choles terol in HDL [Mass ratio] 2.99 {ratio} [facility] Serum creatinine measurement (mass/volume)Ordered By: Mando Nichole on 07-22-2024 Creatinine [Mass/Vol] 0.95 mg/dL 0.70-1.20 [facility] Serum globulin measurementOr dered By: Mando Nichole on 07-22-2024 Globulin (S) [Mass/Vol] 2.7 g/dL 2.2-4.2 [facility] Serum glucose measurement (m ass/volume)Ordered By: Mando Nichole on 07-22-2024 Glucose [Mass/Vol] 107 mg/dL High 70-99 [facility] Serum or plasma alanine weldon otransferase (ALT) measurementOrdered By: Mando Nichole on 07-22-2024 ALT [Catalytic activity/Vol] 22 U/L <35 [facility] Serum or plasma albumin pascual urement (mass/volume)Ordered By: Mando Nichole on 07-22-2024 Albumin [Mass/Vol] 4.1 g/dL 3.4-4.8 [facility] Serum or plasma albumin/glob ulin mass ratioOrdered By: Mando Nichole on 05-09-2025 Albumin/Globulin [Mass ratio] 1.5 {ratio} 0.9-2.4 [facility] Serum or plasma alkaline maci sphatase measurementOrdered By: Mando Nichole on 07-22-2024 ALP [Catalytic activity/Vol] 79 U/L 35-104 [facility] Serum or plasma calcium pascual urement (mass/volume)Ordered By: Mando Nichole on 07-22-2024 Calcium [Mass/Vol] 9.2 mg/dL 7.6-11.0 [facility] Serum or plasma cholesterol in HDL measurement (mass/volume)Ordered By: Mando Nichole on 07-22-2024 Cholesterol in HDL [Mass/Vol] 44 mg/dL >40 [facility] Comment on above: National Cholesterol Education Program (NCEP) guidelines:<40 mg/dL: Low HDL-cholesterol (major risk factor for CHD)>= 60 mg/dL: High HDL-cholesterol (negative risk factor for CHD)HDL-cholesterol is affected by a number of factors, e.g. smoking, exercise, hormones, sex and age. Serum or plasma cholesterol measurement (mass/volume)Ordered By: Mando Nichole on 07-22-2024 Cholesterol [Mass/Vol] 132 mg/dL <201 [facility] Comment on above: Cholesterol level, D esirable <200 mg/dLBorderline high cholesterol 200-239 mg/dLHigh cholesterol >=240 mg/dLRecommendations of the NCEP Adult Treatment Panel for the following risk-cutoff thresholds for the [place] population. Serum or plasma urea nitroge n measurement (mass/volume)Ordered By: Mando Nichole on 07-22-2024 Urea nitrogen [Mass/Vol] 15 mg/dL 4-19 [facility] Sodium levelOrdered By: Mando Nichole on 07-22-2024 Sodium [Moles/Vol] 143 mmol/L 133-145 [facility] T4 Free Directon 07-22-2024 T4 FREE DIRECT 1.10 ng/dL Normal 0.76-1.46 [facility] Comment on above: Order Comment: Order Date: 03/25/24 Order Info: [id number] - CBC Performed By: #### L 100.0500 #### [facility] [address] [place], [place], [id number] T4 freeOrdered By: Mando fox on 07-22-2024 Free T4 [Mass/Vol] 1.10 ng/dL 0.76-1.46 [facility] TSH DL <= 0.005 mIU/L QnOrde red By: Mando Nichole on 07-22-2024 TSH Qn 0.207 uIU/mL Low 0.300-4.200 [facility] Thyroid Stim Hormone (TSH)on 07-22-2024 TSH 0.207 uIU/mL Low 0.300-4.200 [facility] Comment on above: Order Comment: Order Date: 03/25/24 Order Info: [id number] - CBC Performed By: #### L 100.0500 #### [facility] [address] [place], [address] Total proteinOrdered By: Stan Nichole on 07-22-2024 Protein [Mass/Vol] 6.7 g/dL 5.9-8.4 [facility] Triglycerides measurementOrd ered By: Mando Nichole on 07-22-2024 Triglyceride [Mass/Vol] 87 mg/dL <199 [facility] Comment on above: The drugs N-Acetylcy steine and Metamizole may falsely depress this assay. Normal range: <150 mg/dLBorderline High: 150-199 mg/dLHigh: 200-499 mg/dLVery High: >500 mg/dL Vitamin D,25 Hydroxyon 07-22 Vitamin D 25-OH 67.9 ng/mL Normal 30-100 [facility] Comment on above: Order Comment: Order Date: 04/01/24 Order Info: 0786-1 - CMP Order Info: [id number] - LIPID Order Info: 3016-3 - TSH Order Info: 3024-7 - T4F Result Comment: Nicole min D Status Deficiency: <20 ng/mL (50nmol/L) Insufficiency: 20-30 ng/mL (50-75 nmol/L) Sufficiency: 30-100 ng/mL (75-250 nmol/L) Toxicity: >100 ng/mL (>250 nmol/L) Performed By: #### L 506.1001 #### [facility] [address] [place], [place], [address] White blood cell (WBC) count Ordered By: Mando Nichole on 07-22-2024 WBC (Bld) [#/Vol] 4.6 10*3/uL 4.4-11.0 [facility] Soft Tissue Neck WITH Contra ston 07-20-2024 Soft Tissue Neck WITH Contrast [facility] Imaging Services [address] [place] [address] Soft Tissue Neck WITH Contrast MR#: [id number] Acct: [id number] Name: TAMMI TOLEDO Rep #: [id number] : [id number] F 74 From: Vin Umaña MD PCP: Dr. Mando Nichole MD Status: REG CLI Study: Soft Tissue Neck WITH Contrast Date of Exam: 0 07/20/24 Exam# [id number] Ordering Dr: Nathaniel Henson MD PROCEDURE: SOFT TISSUE NECK WITH CONTRAST 07/20/2024 REASON FOR EXAM: NECK MASS TECHNIQUE: CT of the soft tissues of the neck from the orbits to the upper mediastinum with intravenous contrast. CONTRAST: 75 cc Isovue 370 One or more dose reduction techniques were used (e.g., Automated exposure control, adjustment of the mA and/or kV according to patient size, use of iterative reconstruction technique). RADIATION DOSE SUMMARY: CTDlvol: ? MGy DLP: ? MGycm COMPARISON: None FINDINGS: Scanning performed from inferior to superior. Orbits symmetric. Nasopharynx unremarkable. No parotid mass or asymmetry. No submandibular glandular asymmetry. Heterogeneous density seen in both thyroid lobes. No proximal esophageal compression. No mucosal asymmetry. No pathologic adenopathy. CT/Soft Tissue Neck WITH Contrast IMPRESSION: No visible neck mass or mucosal abnormality. Reading Location: [facility] CC: Dr. Nathaniel Henson MD; Dr. Mando Nichole MD Control Clerk Auditing: Signed Normal [facility] Vitamin D 1,25-Dihydroxyon 0 03-28-2024 VIT D 1,25 DIHY 43.1 pg/mL Normal 24.8-81.5 [facility] Comment on above: Order Comment: Order Date: 03/25/24 Order Info: [id number] - [id number] Result Comment: Perf ormed at: BN - [facility] [address] [id number] Metal Cutter: Kylee Quesada MD, Phone: [phone] Performed By: #### L 1710.0960 #### [facility] [address] [place], [address] Basic Metabolic Profile (BMP )on 03-25-2024 BUN/CRE 17.5 RATIO Normal 10-20 [facility] Comment on above: Order Comment: Order Date: 03/25/24 Order Info: 666- - BMP Order Info: [id number] - LIPID Order Info: 3016-3 - TSH Order Info: 3024-7 - T4F Performed By: #### L 500.2500 #### [facility] [address] [place], [address] CA,Total 10.0 mg/dL Normal 8.5-10.1 [facility] Comment on above: Order Comment: Order Date: 03/25/24 Order Info: 666- - BMP Order Info: [id number] - LIPID Order Info: 3016-3 - TSH Order Info: 3024-7 - T4F Performed By: #### L 500.2500 #### [facility] [address] [place], [address] Chloride [Moles/Vol] 108 mmol/L High 98-107 [facility] Comment on above: Order Comment: Order Date: 03/25/24 Order Info: 666- - BMP Order Info: [id number] - LIPID Order Info: 3016-3 - TSH Order Info: 3024-7 - T4F Performed By: #### L 500.2500 #### [facility] [address] [place], [address] CO2 [Moles/Vol] 28.0 mmol/L Normal 21.0-32.0 [facility] Comment on above: Order Comment: Order Date: 03/25/24 Order Info: 666- - BMP Order Info: [id number] - LIPID Order Info: 3 - TSH Order Info: 7 - T4F Performed By: #### L 500.2500 #### [facility] [address] [place], [place], [address] (378) Creatinine [Mass/Vol] 1.03 mg/dL High 0.55-1.02 [facility] Comment on above: Order Comment: Order Date: 03/25/24 Order Info: 666-03 - BMP Order Info: - LIPID Order Info: 3015-05 - TSH Order Info: 7 - T4F Result Comment: The validity of the calculated GFR GFRAA in patients over 70 years has not been determined. Clinical correlation is essential. Performed By: #### L 500.2500 #### [facility] [address] [place], [address] EST GFR - AA 67 mL/min Normal >60 [facility] Comment on above: Order Comment: Order Date: 03/25/24 Order Info: 666-03 - BMP Order Info: [id number] - LIPID Order Info: 3 - TSH Order Info: 7 - T4F Result Comment: Afri can [place] GFR Calc Performed By: #### L 500.2500 #### [facility] [address] [place], [address] GAP 5 Normal 5-15 [facility] Comment on above: Order Comment: Order Date: 03/25/24 Order Info: 666-03 - BMP Order Info: [id number] - LIPID Order Info: 3 - TSH Order Info: 7 - T4F Performed By: #### L 500.2500 #### [facility] [address] [place], [address] GFR/1.73 sq M.predicted among non-blacks MDRD (S/P/Bld) [Vol rate/Area] 55 mL/min/{1.73_m2} Low >60 [facility] Comment on above: Order Comment: Order Date: 03/25/24 Order Info: 666-03 - BMP Order Info: - LIPID Order Info: 3 - TSH Order Info: 3024-7 - T4F Result Comment: Non- GFR Calc Performed By: #### L 500.2500 #### [facility] [address] [place], [address] Glucose [Mass/Vol] 100 mg/dL Normal 74-106 [facility] Comment on above: Order Comment: Order Date: 03/25/24 Order Info: 666-03 - BMP Order Info: - LIPID Order Info: 3 - TSH Order Info: 7 - T4F Result Comment: Fast ing Glucose result from 100 to 125 mg/dL suggests IMPAIRED HOMEOSTASIS per A.D.A. criteria. Performed By: #### L 500.2500 #### [facility] [address] [place], [address] Potassium [Moles/Vol] 3.6 mmol/L Normal 3.5-5.1 [facility] Comment on above: Order Comment: Order Date: 03/25/24 Order Info: 666-03 - BMP Order Info: [id number] - LIPID Order Info: 3 - TSH Order Info: 3024-7 - T4F Performed By: #### L 500.2500 #### [facility] [address] [place], [address] Sodium [Moles/Vol] 141 mmol/L Normal 136-145 [facility] Comment on above: Order Comment: Order Date: 03/25/24 Order Info: 666-03 - BMP Order Info: - LIPID Order Info: 3 - TSH Order Info: 3024-7 - T4F Performed By: #### L 500.2500 #### [facility] [address] [place], [address] Urea nitrogen [Mass/Vol] 18 mg/dL Normal 7-18 [facility] Comment on above: Order Comment: Order Date: 03/25/24 Order Info: 0667-1 - BMP Order Info: 64431-1 - LIPID Order Info: 3016-3 - TSH Order Info: 3024-7 - T4F Performed By: #### L 500.2500 #### [facility] [address] [place], [address] CBC-Complete Blood Cnt No Di ffon 03-25-2024 Erythrocyte distribution width (RBC) [Ratio] 12.9 % Normal 11.6-14.6 [facility] Comment on above: Order Comment: Order Date: 03/25/24 Order Info: 10776-6 - CBC Performed By: #### L 100.0500 #### [facility] [address] [place], [address] Hematocrit (Bld) [Volume fraction] 42.2 % Normal 37-47 [facility] Comment on above: Order Comment: Order Date: 03/25/24 Order Info: [id number] - CBC Performed By: #### L 100.0500 #### [facility] [address] [place], [address] Hemoglobin (Bld) [Mass/Vol] 13.9 g/dL Normal 12.0-15.0 [facility] Comment on above: Order Comment: Order Date: 03/25/24 Order Info: [id number] - CBC Performed By: #### L 100.0500 #### [facility] [address] [place], [address] MCH (RBC) [Entitic mass] 29.0 pg Normal 27.0-32.0 [facility] Comment on above: Order Comment: Order Date: 03/25/24 Order Info: [id number] - CBC Performed By: #### L 100.0500 #### [facility] [address] [place], [address] MCHC (RBC) [Mass/Vol] 32.9 g/dL Normal 32-36 [facility] Comment on above: Order Comment: Order Date: 03/25/24 Order Info: [id number] - CBC Performed By: #### L 100.0500 #### [facility] [address] [place], [address] MCV (RBC) [Entitic vol] 88.1 fL Normal 81-99 [facility] Comment on above: Order Comment: Order Date: 03/25/24 Order Info: [id number] - CBC Performed By: #### L 100.0500 #### [facility] [address] [place], [address] Platelet mean volume (Bld) [Entitic vol] 10.7 fL Normal 6.2-12.0 [facility] Comment on above: Order Comment: Order Date: 03/25/24 Order Info: [id number] - CBC Performed By: #### L 100.0500 #### [facility] [address] [place], [address] Platelets (Bld) [#/Vol] 215 10*3/uL Normal 150-450 [facility] Comment on above: Order Comment: Order Date: 03/25/24 Order Info: [id number] - CBC Performed By: #### L 100.0500 #### [facility] [address] [place], [address] RBC (Bld) [#/Vol] 4.79 10*6/uL Normal 4.2-5.4 [facility] Comment on above: Order Comment: Order Date: 03/25/24 Order Info: [id number] - CBC Performed By: #### L 100.0500 #### [facility] [address] [place], [address] RDW SD 41.8 fl Normal 35.1-43.9 [facility] Comment on above: Order Comment: Order Date: 03/25/24 Order Info: [id number] - CBC Performed By: #### L 100.0500 #### [facility] [address] [place], [place], [address] (081) WBC (Bld) [#/Vol] 7.6 10*3/uL Normal 4.4-11.0 [facility] Comment on above: Order Comment: Order Date: 03/25/24 Order Info: [id number] - CBC Performed By: #### L 100.0500 #### [facility] [address] [place], [address] Hemoglobin A1con 03-25-2024 HbA1c (Bld) [Mass fraction] 5.5 % Normal 3.8-5.6 [facility] Comment on above: Order Comment: Order Date: 03/25/24 Order Info: 4548-4 - A1C Result Comment: Norm al < 5.7 % Prediabetic 5.7 - 6.4 % Diabetic >or= 6.5 % Please note range changes. Performed By: #### L 501.9985 #### [facility] [address] [place], [place], [address] Lipid Profileon 03-25-2024 Cholesterol [Mass/Vol] 124 mg/dL Normal 200 [facility] Comment on above: Order Comment: Order Date: 03/25/24 Order Info: 0667-1 - BMP Order Info: 23445-0 - LIPID Order Info: 3 - TSH Order Info: 3023-09 - T4F Result Comment: <200 mg/dL Desirable 200-240 mg/dL Borderline >240 mg/dL High Risk Performed By: #### L 500.4107 #### [facility] [address] [place], [place], [address] Cholesterol in HDL [Mass/Vol] 53 mg/dL Normal [facility] Comment on above: Order Comment: Order Date: 03/25/24 Order Info: 0667-1 - BMP Order Info: [id number] - LIPID Order Info: 3015-3 - TSH Order Info: 7 - T4F Result Comment: The drugs N-Acetylcysteine and Metamizole may falsely depress this assay. Reference Range HDL <40 mg/dL Low HDL Cholesterol HDL >or= 60 mg/dL High HDL Cholesterol Performed By: #### L 500.4100 #### [facility] [address] [place], [address] Cholesterol in LDL [Mass/Vol] 48 mg/dL Normal 0-130 [facility] Comment on above: Order Comment: Order Date: 03/25/24 Order Info: 666- - BMP Order Info: 79918-9 - LIPID Order Info: 3016-3 - TSH Order Info: 3027 - T4F Performed By: #### L 500.4100 #### [facility] [address] [place], [address] Cholesterol in VLDL [Mass/Vol] 23 mg/dL Normal 5-40 [facility] Comment on above: Order Comment: Order Date: 03/25/24 Order Info: 666- - BMP Order Info: [id number] - LIPID Order Info: 3016-3 - TSH Order Info: 3027 - T4F Performed By: #### L 500.4100 #### [facility] [address] [place], [address] Triglyceride [Mass/Vol] 113 mg/dL Normal [facility] Comment on above: Order Comment: Order Date: 03/25/24 Order Info: 06 - BMP Order Info: 71223-6 - LIPID Order Info: 3016-3 - TSH Order Info: 3024-7 - T4F Result Comment: The drugs N-Acetylcysteine and Metamizole may falsely depress this assay. Serum Triglycerides Reference Interval Normal <150 mg/dL Borderline high 150 - 199 mg/dL High 200 - 499 mg/dL Very High > or = 500 mg/dL Performed By: #### L 500.4100 #### [facility] [address] [place], [address] Protein+Creatinine Ratio,Uri neon 03-25-2024 PROT:CRE RATIO 170 mg/g CRE Normal 0-200 [facility] Comment on above: Performed By: #### L 501.0900 #### [facility] [address] [place], [address] Protein (U) [Mass/Vol] 23.6 mg/dL High <11.9 [facility] Comment on above: Performed By: #### L 501.0900 #### [facility] [address] [place], [address] UR CREAT 139.00 mg/dL Normal NO RANGE EST. [facility] Comment on above: Performed By: #### L 501.0900 #### [facility] [address], [address] T4 Free Directon 03-25-2024 T4 FREE DIRECT 0.92 ng/dL Normal 0.76-1.46 [facility] Comment on above: Order Comment: Order Date: 03/25/24 Order Info: 0667-1 - BMP Order Info: 62029-9 - LIPID Order Info: 3016-3 - TSH Order Info: 3027 - T4F Performed By: #### L 506.0400 #### [facility] [address] [place], [address] Thyroid Stim Hormone (TSH)on 03-25-2024 TSH 0.122 uIU/mL Low 0.358-3.740 [facility] Comment on above: Order Comment: Order Date: 03/25/24 Order Info: 0667-1 - BMP Order Info: 64481-1 - LIPID Order Info: 3016-3 - TSH Order Info: 3027 - T4F Performed By: #### L 501.9520 #### [facility] [address] [place], [address] Absolute lymphocyte countOrd ered By: Mando Nichole on 05-21-2023 Lymphocytes Auto (Unsp spec) [#/Vol] 3.71 10*3/uL 0.83-4.51 [facility] Automated lymphocyte count a s percentage of total leukocytesOrdered By: Mando Gayner on 05-21-2023 Lymphocytes/100 WBC Auto (Unsp spec) 45.4 % 19-41 [facility] Basophil percentageOrdered B y: Mando Gaysilverio on 05-21-2023 Basophil percentage 0-5 SEEN /hpf 0-5 [facility] Basophils/100 WBC (Bld) 0.6 % 0-1 [facility] Bilirubin [Mass/Vol] 0.70 mg/dL 0.20-1.00 [facility] Comment on above: For patients on eltr ombopag therapy, use of Dimension [place] TBIL is not recommended. Chloride [Moles/Vol] 109 mmol/L 98-107 [facility] Cholesterol [Mass/Vol] 151 mg/dL <200 [facility] Comment on above: <200 mg/dL Desirable 200-240 mg/dL Borderline >240 mg/dL High Risk Eosinophils/100 WBC (Bld) 2.3 % 0-5 [facility] Glucose [Mass/Vol] 104 mg/dL 74-106 [facility] Comment on above: Fasting Glucose resu lt from 100 to 125 mg/dL suggests IMPAIRED HOMEOSTASIS per A.D.A. criteria. Hemoglobin (Bld) [Mass/Vol] 14.1 g/dL 12.0-15.0 [facility] Monocytes/100 WBC (Bld) 6.0 % 0-10 [facility] Neutrophils (Bld) [#/Vol] 3.7 10*3/uL 2.0-7.7 [facility] Neutrophils/100 WBC (Bld) 45.6 % 47-70 [facility] Potassium [Moles/Vol] 3.7 mmol/L 3.5-5.1 [facility] Protein [Mass/Vol] 6.8 g/dL 6.4-8.2 [facility] Sodium [Moles/Vol] 144 mmol/L 136-145 [facility] Triglyceride [Mass/Vol] 102 mg/dL <199 [facility] Comment on above: The drugs N-Acetylcy steine and Metamizole may falsely depress this assay.Serum Triglycerides Reference Interval Normal <150 mg/dL Borderline high 150 - 199 mg/dL High 200 - 499 mg/dL Very High > or = 500 mg/dL WBC (Bld) [#/Vol] 8.2 10*3/uL 4.4-11.0 [facility] Bilirubin Test strip Ql (U)O rdered By: Mando Nichole on 05-21-2023 Bilirubin Ql (U) Negative Negative [facility] Determination of erythrocyte mean corpuscular volume (MCV)Ordered By: Mando Nichole on 05-21-2023 MCV (RBC) [Entitic vol] 88.8 fL 81-99 [facility] Erythrocyte distribution wid th ratioOrdered By: Mando Nichole on 05-21-2023 Erythrocyte distribution width (RBC) [Ratio] 12.9 % 11.6-14.6 [facility] Erythrocyte distribution wid th standard deviationOrdered By: Mando Nichole on 05-21-2023 Erythrocyte distribution width (RBC) [Entitic vol] 42.4 fL 35.1-43.9 [facility] Hematocrit Auto (Bld) [Volum e fraction]Ordered By: Mando Nichole on 05-21-2023 Hematocrit (Bld) [Volume fraction] 42.6 % 37-47 [facility] Immature granulocytes/100 WB C Auto (Bld)Ordered By: Mando Nichole on 05-21-2023 Immature granulocytes/100 WBC (Bld) 0.100 % 0.0-0.9 [facility] Comment on above: IG% - Immature Granu locytes (promyelocytes, myelocytes and metamyelocytes) > 1% indicates that a LEFT SHIFT is Present. Ketones Test strip Ql (U)Ord ered By: Mando Nichole on 05-21-2023 Ketones Ql (U) Negative Negative [facility] - Chemistry and C hemistry - challengeOrdered By: Mando Nichole on 05-21-2023 Albumin/Globulin [Mass ratio] 1.3 {ratio} 0.9-2.4 [facility] ALP [Catalytic activity/Vol] 76 U/L 45-117 [facility] ALT [Catalytic activity/Vol] 23 U/L 13-56 [facility] Cholesterol in HDL [Mass/Vol] 59 mg/dL >40 [facility] Comment on above: The drugs N-Acetylcy steine and Metamizole may falsely depress this assay. Reference Range HDL <40 mg/dL Low HDL Cholesterol HDL >or= 60 mg/dL High HDL Cholesterol Cholesterol in LDL [Mass/Vol] 72 mg/dL 0-130 [facility] CO2 [Moles/Vol] 26.0 mmol/L 21.0-32.0 [facility] Globulin (S) [Mass/Vol] 2.9 g/dL 2.2-4.2 [facility] Urea nitrogen/Creatinine [Mass ratio] 18.6 mg/mg 10-20 [facility] - Hematology and Cell countsOrdered By: Mando Nichole on 05-21-2023 MCH (RBC) [Entitic mass] 29.4 pg 27.0-32.0 [facility] MCHC (RBC) [Mass/Vol] 33.1 g/dL 32-36 [facility] Nucleated RBC/100 WBC (Bld) [Ratio] 0 % 0-5 [facility] Platelet mean volume (Bld) [Entitic vol] 10.5 fL 6.2-12.0 [facility] Platelets (Bld) [#/Vol] 208 10*3/uL 150-450 [facility] Mucus LM Ql (Urine sed)Order ed By: Mando Nichole on 05-21-2023 Mucus Ql (Urine sed) RARE /hpf [facility] Nitrite Test strip Ql (U)Ord ered By: Mando Nichole on 05-21-2023 Nitrite Ql (U) Negative Negative [facility] No Panel InformationOrdered By: Mando Nichole on 05-21-2023 Urine RBC 25-50 SEEN /hpf 0-5 [facility] Estimated GFR (MDRD) Amer 68 mL/min >60 [facility] Comment on above: GFR Calc Estimated GFR (MDRD) Non-Af Amer 56 mL/min >60 [facility] Comment on above: Non- GFR Calc Vitamin D 25-Hydroxy 68.5 ng/mL [facility] Comment on above: Vitamin D 25(OH) Sta tus Range Deficiency <20 ng/mL (50nmol/L) Insufficiency 20 - 30 ng/mL (50 - 75 nmol/L) Sufficiency 30 - 100 ng/mL (75 - 250 nmol/L) Toxicity >100 ng/mL (>250 nmol/L) VLDL Cholesterol 20 mg/dL 5-40 [facility] Protein Test strip Ql (U)Ord ered By: Mando Nichole on 05-21-2023 Protein Ql (U) 100 mg/dl Negative [facility] RBC Auto (Bld) [#/Vol]Ordere d By: Mando Nichole on 05-21-2023 RBC (Bld) [#/Vol] 4.80 10*6/uL 4.2-5.4 [facility] Serum or plasma calcium pascual urement (mass/volume)Ordered By: Mando Nichole on 05-21-2023 Calcium [Mass/Vol] 9.6 mg/dL 8.5-10.1 [facility] Serum or plasma creatinine m easurement (mass/volume)Ordered By: Mando Nichole on 05-21-2023 Creatinine [Mass/Vol] 1.02 mg/dL 0.55-1.02 [facility] Comment on above: The validity of the calculated GFR & GFRAA in patients over 70 years has not been determined. Clinical correlation is essential. Serum or plasma urea nitroge n measurement (mass/volume)Ordered By: Mando Nichole on 05-21-2023 Urea nitrogen [Mass/Vol] 19 mg/dL 7-18 [facility] Squamous epithelial cells de tection in urine sediment by light microscopyOrdered By: Mando Nichole on 05-21-2023 Epithelial cells.squamous LM Ql (Urine sed) 5-10 SEEN /hpf 5-10 [facility] Thin prep Papanicolaou smear with manual screeningOrdered By: Mando Nichole on 05-21-2023 Protein (U) [Mass/Vol] 35.9 mg/dL 0.0-11.8 [facility] Thin prep Papanicolaou smear with manual screening 3.9 g/dL 3.2-5.0 [facility] Thin prep Papanicolaou smear with manual screening 21 U/L 15-37 [facility] Thin prep Papanicolaou smear with manual screening 9 5-15 [facility] Urine blood detectionOrdered By: Mando Nichole on 05-21-2023 RBC Ql (U) 250 /ul Negative [facility] Urine clarityOrdered By: Stan Nichole on 05-21-2023 Clarity (U) Cloudy Clear [facility] Urine color determinationOrd ered By: Mando Nichole on 05-21-2023 Color (U) Yellow Yellow [facility] Urine creatinine measurement (mass/volume)Ordered By: Mando Nichole on 05-21-2023 Creatinine (U) [Mass/Vol] 191.00 mg/dL NO RANGE EST. [facility] Urine glucose detectionOrder ed By: Mando Nichole on 05-21-2023 Glucose Ql (U) Normal mg/dl Normal [facility] Urine leukocyte esterase det ection by dipstickOrdered By: Mando Nichole on 05-21-2023 Leukocyte esterase Test strip Ql (U) 500 /ul Negative [facility] Urine pHOrdered By: Mando bush on 05-21-2023 pH (U) 6.5 [pH] 5.0 - 8.0 [facility] Urine protein/creatinine mas s ratioOrdered By: Mando Nichole on 05-21-2023 Protein/Creatinine (U) [Mass ratio] 188 mg/g CRE 0-200 [facility] Urine sediment bacteria coun t by microscopy (number/high power field)Ordered By: Mando Nichole on 05-21-2023 Bacteria LM.HPF (Urine sed) [#/Area] 2 /[HPF] None Seen [facility] Urine specific gravity measu rementOrdered By: Mando Nichole on 05-21-2023 Specific gravity (U) [Rel density] 1.020 1.002-1.030 [facility] Urine urobilinogen measureme ntOrdered By: Mando Nichole on 05-21-2023 Urobilinogen Ql (U) Normal mg/dl Normal [facility] Whole blood hemoglobin A1c/t otal hemoglobin ratio (mass fraction)Ordered By: Mando Nichole on 05-21-2023 HbA1c (Bld) [Mass fraction] 5.3 % 3.8-5.6 [facility] Comment on above: Normal < 5.7 % Predi abetic 5.7 - 6.4 % Diabetic >or= 6.5 % Please note range changes. Basophil percentageOrdered B y: Roberth Allison on 02-27-2023 Chloride [Moles/Vol] 110 mmol/L 98-107 [facility] Glucose [Mass/Vol] 102 mg/dL 74-106 [facility] Comment on above: Fasting Glucose resu lt from 100 to 125 mg/dL suggests IMPAIRED HOMEOSTASIS per A.D.A. criteria. Potassium [Moles/Vol] 4.0 mmol/L 3.5-5.1 [facility] Sodium [Moles/Vol] 143 mmol/L 136-145 [facility] WBC (Bld) [#/Vol] 7.2 10*3/uL 4.4-11.0 [facility] Blood erythrocytes count (nu mber/volume)Ordered By: Roberth Allison on 02-27-2023 RBC (Bld) [#/Vol] 4.24 10*6/uL 4.2-5.4 [facility] Blood hemoglobin measurement (mass/volume)Ordered By: Roberth Allison on 02-27-2023 Hemoglobin (Bld) [Mass/Vol] 12.6 g/dL 12.0-15.0 [facility] Blood platelet mean volumeOr dered By: Roberth Allison on 02-27-2023 Platelet mean volume (Bld) [Entitic vol] 10.3 fL 6.2-12.0 [facility] Determination of erythrocyte mean corpuscular volume (MCV)Ordered By: Roberth Allison on 02-27-2023 MCV (RBC) [Entitic vol] 90.3 fL 81-99 [facility] Hematocrit Auto (Bld) [Volum e fraction]Ordered By: Roberth Allison on 02-27-2023 Hematocrit (Bld) [Volume fraction] 38.3 % 37-47 [facility] - Chemistry and C hemistry - challengeOrdered By: Roberth Allison on 02-27-2023 CO2 [Moles/Vol] 28.0 mmol/L 21.0-32.0 [facility] Urea nitrogen/Creatinine [Mass ratio] 15.0 mg/mg 10-20 [facility] - Hematology and Cell countsOrdered By: Roberth Allison on 02-27-2023 Erythrocyte distribution width (RBC) [Entitic vol] 42.5 fL 35.1-43.9 [facility] Erythrocyte distribution width (RBC) [Ratio] 12.9 % 11.6-14.6 [facility] MCH (RBC) [Entitic mass] 29.7 pg 27.0-32.0 [facility] MCHC Auto (RBC) [Mass/Vol]Or dered By: Roberth Allison on 02-27-2023 MCHC (RBC) [Mass/Vol] 32.9 g/dL 32-36 [facility] No Panel InformationOrdered By: Roberth Allison on 02-27-2023 Estimated Creatinine Clearance Calc 28.74 ml/min [facility] Estimated GFR (MDRD) Amer 39 mL/min >60 [facility] Comment on above: GFR Calc Estimated GFR (MDRD) Non-Af Amer 32 mL/min >60 [facility] Comment on above: Non- GFR Calc Platelets bldOrdered By: Joanne Allison on 02-27-2023 Platelets (Bld) [#/Vol] 160 10*3/uL 150-450 [facility] Serum or plasma calcium pascual urement (mass/volume)Ordered By: Roberth Allison on 02-27-2023 Calcium [Mass/Vol] 9.1 mg/dL 8.5-10.1 [facility] Serum or plasma creatinine m easurement (mass/volume)Ordered By: Roberth Allison on 02-27-2023 Creatinine [Mass/Vol] 1.67 mg/dL 0.55-1.02 [facility] Comment on above: The validity of the calculated GFR & GFRAA in patients over 70 years has not been determined. Clinical correlation is essential. Serum or plasma urea nitroge n measurement (mass/volume)Ordered By: Roberth Allison on 02-27-2023 Urea nitrogen [Mass/Vol] 25 mg/dL 7-18 [facility] Thin prep Papanicolaou smear with manual screeningOrdered By: Roberth Allison on 02-27-2023 Thin prep Papanicolaou smear with manual screening 5 5-15 [facility] Absolute lymphocyte countOrd ered By: Lina Berman on 02-26-2023 Lymphocytes Auto (Unsp spec) [#/Vol] 3.56 10*3/uL 0.83-4.51 [facility] Basophil percentageOrdered B y: Lina Berman on 02-26-2023 Basophil percentage 0-5 SEEN /hpf 0-5 [facility] Basophils/100 WBC (Bld) 0.5 % 0-1 [facility] Bilirubin [Mass/Vol] 0.40 mg/dL 0.20-1.00 [facility] Comment on above: For patients on eltr ombopag therapy, use of Dimension [place] TBIL is not recommended. Chloride [Moles/Vol] 108 mmol/L 98-107 [facility] Eosinophils/100 WBC (Bld) 1.3 % 0-5 [facility] Glucose [Mass/Vol] 128 mg/dL 74-106 [facility] Comment on above: Fasting Glucose resu lt greater than or equal to 126 mg/dL suggests DIABETES MELLITUS per A.D.A. criteria. Neutrophils (Bld) [#/Vol] 6.8 10*3/uL 2.0-7.7 [facility] Neutrophils/100 WBC (Bld) 61.2 % 47-70 [facility] Potassium [Moles/Vol] 3.5 mmol/L 3.5-5.1 [facility] Protein [Mass/Vol] 6.8 g/dL 6.4-8.2 [facility] Sodium [Moles/Vol] 143 mmol/L 136-145 [facility] WBC (Bld) [#/Vol] 11.2 10*3/uL 4.4-11.0 [facility] Bilirubin Test strip Ql (U)O rdered By: Lina Berman on 02-26-2023 Bilirubin Ql (U) Negative Negative [facility] Blood erythrocytes count (nu mber/volume)Ordered By: Lina Berman on 02-26-2023 RBC (Bld) [#/Vol] 4.77 10*6/uL 4.2-5.4 [facility] Blood hemoglobin measurement (mass/volume)Ordered By: Lina Berman on 02-26-2023 Hemoglobin (Bld) [Mass/Vol] 14.0 g/dL 12.0-15.0 [facility] Blood lymphocytes/100 leukoc ytesOrdered By: Lina Berman on 02-26-2023 Lymphocytes/100 WBC (Bld) 31.9 % 19-41 [facility] Blood monocytes/100 leukocyt esOrdered By: Lina Berman on 02-26-2023 Monocytes/100 WBC (Bld) 4.8 % 0-10 [facility] Blood platelet mean volumeOr dered By: Lina Berman on 02-26-2023 Platelet mean volume (Bld) [Entitic vol] 10.2 fL 6.2-12.0 [facility] Determination of erythrocyte mean corpuscular volume (MCV)Ordered By: Lina Berman on 02-26-2023 MCV (RBC) [Entitic vol] 89.3 fL 81-99 [facility] Direct bilirubinOrdered By: Lina Berman on 02-26-2023 Bilirubin.direct [Mass/Vol] 0.13 mg/dL 0.00-0.30 [facility] Hematocrit Auto (Bld) [Volum e fraction]Ordered By: Lina Berman on 02-26-2023 Hematocrit (Bld) [Volume fraction] 42.6 % 37-47 [facility] Ketones Test strip Ql (U)Ord ered By: Lina Berman on 02-26-2023 Ketones Ql (U) Negative Negative [facility] Laboratory - Chemistry and C hemistry - challengeOrdered By: Lina Berman on 02-26-2023 ALP [Catalytic activity/Vol] 78 U/L 45-117 [facility] ALT [Catalytic activity/Vol] 26 U/L 13-56 [facility] CO2 [Moles/Vol] 29.0 mmol/L 21.0-32.0 [facility] Globulin (S) [Mass/Vol] 2.9 g/dL 2.2-4.2 [facility] Urea nitrogen/Creatinine [Mass ratio] 20.7 mg/mg 10-20 [facility] - Hematology and Cell countsOrdered By: Lina Berman on 02-26-2023 Erythrocyte distribution width (RBC) [Entitic vol] 41.7 fL 35.1-43.9 [facility] Erythrocyte distribution width (RBC) [Ratio] 12.7 % 11.6-14.6 [facility] Immature granulocytes/100 WBC (Bld) 0.300 % 0.0-0.9 [facility] Comment on above: IG% - Immature Granu locytes (promyelocytes, myelocytes and metamyelocytes) > 1% indicates that a LEFT SHIFT is Present. MCH (RBC) [Entitic mass] 29.4 pg 27.0-32.0 [facility] Nucleated RBC/100 WBC (Bld) [Ratio] 0 % 0-5 [facility] MCHC Auto (RBC) [Mass/Vol]Or dered By: Lina Berman on 02-26-2023 MCHC (RBC) [Mass/Vol] 32.9 g/dL 32-36 [facility] Mucus LM Ql (Urine sed)Order ed By: Lina Berman on 02-26-2023 Mucus Ql (Urine sed) 0 SEEN /hpf [facility] Nitrite Test strip Ql (U)Ord ered By: Lina Berman on 02-26-2023 Nitrite Ql (U) Negative Negative [facility] No Panel InformationOrdered By: Lina Berman on 02-26-2023 Troponin I High Sensitivity 8 pg/mL 3.0-54.0 [facility] Comment on above: Please Note: New [place] t Units and Gender Specific Reference Ranges. For more information see Policy Stat Procedure [place] High Sensitivity Troponin (TNIH) and attachments. Estimated Creatinine Clearance Calc 43.24 ml/min [facility] Estimated GFR (MDRD) Amer 62 mL/min >60 [facility] Comment on above: GFR Calc Estimated GFR (MDRD) Non-Af Amer 51 mL/min >60 [facility] Comment on above: Non- GFR Calc Troponin I High Sensitivity 10 pg/mL 3.0-54.0 [facility] Comment on above: Please Note: New [place] t Units and Gender Specific Reference Ranges. For more information see Policy Stat Procedure [place] High Sensitivity Troponin (TNIH) and attachments. Platelets bldOrdered By: Bruna Berman on 02-26-2023 Platelets (Bld) [#/Vol] 195 10*3/uL 150-450 [facility] Protein Test strip Ql (U)Ord ered By: Lina Berman on 02-26-2023 Protein Ql (U) 15 mg/dl Negative [facility] Serum or plasma albumin pascual urement (mass/volume)Ordered By: Lnia Berman on 02-26-2023 Albumin [Mass/Vol] 3.9 g/dL 3.2-5.0 [facility] Serum or plasma calcium pascual urement (mass/volume)Ordered By: Lina Breman on 02-26-2023 Calcium [Mass/Vol] 9.6 mg/dL 8.5-10.1 [facility] Serum or plasma creatinine m easurement (mass/volume)Ordered By: Lina Berman on 02-26-2023 Creatinine [Mass/Vol] 1.11 mg/dL 0.55-1.02 [facility] Comment on above: The validity of the calculated GFR & GFRAA in patients over 70 years has not been determined. Clinical correlation is essential. Serum or plasma urea nitroge n measurement (mass/volume)Ordered By: Lina Berman on 02-26-2023 Urea nitrogen [Mass/Vol] 23 mg/dL 7-18 [facility] Squamous epithelial cells de tection in urine sediment by light microscopyOrdered By: Lina Berman on 02-26-2023 Epithelial cells.squamous LM Ql (Urine sed) 0-5 SEEN /hpf 5-10 [facility] Thin prep Papanicolaou smear with manual screeningOrdered By: Lina Berman on 02-26-2023 Thin prep Papanicolaou smear with manual screening 23 U/L 15-37 [facility] Thin prep Papanicolaou smear with manual screening 6 5-15 [facility] Urine blood detectionOrdered By: Lina Berman on 02-26-2023 RBC Ql (U) 150 /ul Negative [facility] RBC Ql (U) 10-25 SEEN /hpf 0-5 [facility] Urine clarityOrdered By: Bruna Berman on 02-26-2023 Clarity (U) Clear Clear [facility] Urine color determinationOrd ered By: Lina Berman on 02-26-2023 Color (U) Yellow Yellow [facility] Urine glucose detectionOrder ed By: Lina Berman on 02-26-2023 Glucose Ql (U) Normal mg/dl Normal [facility] Urine leukocyte esterase det ection by dipstickOrdered By: Lina Berman on 02-26-2023 Leukocyte esterase Test strip Ql (U) 25 /ul Negative [facility] Urine pHOrdered By: Lina ferris on 02-26-2023 pH (U) 6.0 [pH] 5.0 - 8.0 [facility] Urine sediment bacteria coun t by microscopy (number/high power field)Ordered By: Lina Berman on 02-26-2023 Bacteria LM.HPF (Urine sed) [#/Area] RARE /hpf None Seen [facility] Urine specific gravity measu rementOrdered By: Lina Berman on 02-26-2023 Specific gravity (U) [Rel density] 1.025 1.002-1.030 [facility] Urobilinogen Auto test strip Ql (U)Ordered By: Lina Berman on 02-26-2023 Urobilinogen Ql (U) Normal mg/dl Normal [facility] Absolute lymphocyte countOrd ered By: Mando Nichole on 12-17-2022 Lymphocytes Auto (Unsp spec) [#/Vol] 3.67 10*3/uL 0.83-4.51 [facility] Basophil percentageOrdered B y: Mando Nichole on 12-17-2022 Basophil percentage 10-25 SEEN /hpf 0-5 [facility] Basophils/100 WBC (Bld) 1.0 % 0-1 [facility] Bilirubin [Mass/Vol] 0.70 mg/dL 0.20-1.00 [facility] Comment on above: For patients on eltr ombopag therapy, use of Dimension [place] TBIL is not recommended. Chloride [Moles/Vol] 109 mmol/L 98-107 [facility] Cholesterol [Mass/Vol] 130 mg/dL <200 [facility] Comment on above: <200 mg/dL Desirable 200-240 mg/dL Borderline >240 mg/dL High Risk Eosinophils/100 WBC (Bld) 5.2 % 0-5 [facility] Glucose [Mass/Vol] 101 mg/dL 74-106 [facility] Comment on above: Fasting Glucose resu lt from 100 to 125 mg/dL suggests IMPAIRED HOMEOSTASIS per A.D.A. criteria. Neutrophils (Bld) [#/Vol] 3.2 10*3/uL 2.0-7.7 [facility] Neutrophils/100 WBC (Bld) 41.3 % 47-70 [facility] Potassium [Moles/Vol] 3.6 mmol/L 3.5-5.1 [facility] Protein [Mass/Vol] 6.8 g/dL 6.4-8.2 [facility] Sodium [Moles/Vol] 142 mmol/L 136-145 [facility] Triglyceride [Mass/Vol] 97 mg/dL <199 [facility] Comment on above: The drugs N-Acetylcy steine and Metamizole may falsely depress this assay.Serum Triglycerides Reference Interval Normal <150 mg/dL Borderline high 150 - 199 mg/dL High 200 - 499 mg/dL Very High > or = 500 mg/dL WBC (Bld) [#/Vol] 7.9 10*3/uL 4.4-11.0 [facility] Bilirubin Test strip Ql (U)O rdered By: Mando Nichole on 12-17-2022 Bilirubin Ql (U) Negative Negative [facility] Blood erythrocytes count (nu mber/volume)Ordered By: Mando Nichole on 12-17-2022 RBC (Bld) [#/Vol] 4.81 10*6/uL 4.2-5.4 [facility] Blood hemoglobin measurement (mass/volume)Ordered By: Mando Nichole on 12-17-2022 Hemoglobin (Bld) [Mass/Vol] 14.4 g/dL 12.0-15.0 [facility] Blood lymphocytes/100 leukoc ytesOrdered By: Mando Nichole on 12-17-2022 Lymphocytes/100 WBC (Bld) 46.8 % 19-41 [facility] Blood monocytes/100 leukocyt esOrdered By: Mando Nichole on 12-17-2022 Monocytes/100 WBC (Bld) 5.6 % 0-10 [facility] Blood platelet mean volumeOr dered By: Mando Nichole on 12-17-2022 Platelet mean volume (Bld) [Entitic vol] 10.3 fL 6.2-12.0 [facility] Calcium oxalate crystals det ection in urine sediment by light microscopyOrdered By: Mando Nichole on 12-17-2022 Calcium oxalate crystals LM Ql (Urine sed) 2+ /hpf [facility] Determination of erythrocyte mean corpuscular volume (MCV)Ordered By: Mando Nichole on 12-17-2022 MCV (RBC) [Entitic vol] 90.6 fL 81-99 [facility] Hematocrit Auto (Bld) [Volum e fraction]Ordered By: Mando Nichole on 12-17-2022 Hematocrit (Bld) [Volume fraction] 43.6 % 37-47 [facility] Ketones Test strip Ql (U)Ord ered By: Mando Nichole on 12-17-2022 Ketones Ql (U) Negative Negative [facility] - Chemistry and C hemistry - challengeOrdered By: Mando Nichole on 12-17-2022 ALP [Catalytic activity/Vol] 78 U/L 45-117 [facility] ALT [Catalytic activity/Vol] 28 U/L 13-56 [facility] CO2 [Moles/Vol] 28.0 mmol/L 21.0-32.0 [facility] Globulin (S) [Mass/Vol] 3.1 g/dL 2.2-4.2 [facility] T4 [Mass/Vol] 8.3 ug/dL 4.8-13.9 [facility] Urea nitrogen/Creatinine [Mass ratio] 17.0 mg/mg 10-20 [facility] - Hematology and Cell countsOrdered By: Mando Nichole on 12-17-2022 Erythrocyte distribution width (RBC) [Entitic vol] 42.0 fL 35.1-43.9 [facility] Erythrocyte distribution width (RBC) [Ratio] 12.8 % 11.6-14.6 [facility] Immature granulocytes/100 WBC (Bld) 0.100 % 0.0-0.9 [facility] Comment on above: IG% - Immature Granu locytes (promyelocytes, myelocytes and metamyelocytes) > 1% indicates that a LEFT SHIFT is Present. MCH (RBC) [Entitic mass] 29.9 pg 27.0-32.0 [facility] Nucleated RBC/100 WBC (Bld) [Ratio] 0 % 0-5 [facility] MCHC Auto (RBC) [Mass/Vol]Or dered By: Mando Nichole on 12-17-2022 MCHC (RBC) [Mass/Vol] 33.0 g/dL 32-36 [facility] Mucus LM Ql (Urine sed)Order ed By: Mando Nichole on 12-17-2022 Mucus Ql (Urine sed) 0 SEEN /hpf [facility] Nitrite Test strip Ql (U)Ord ered By: Mando Nichole on 12-17-2022 Nitrite Ql (U) Negative Negative [facility] No Panel InformationOrdered By: Mando Nichole on 12-17-2022 Urine Transitional Epithelial Cells 0-5 SEEN /hpf 0-5 [facility] Estimated GFR (MDRD) Amer 65 mL/min >60 [facility] Comment on above: GFR Calc Estimated GFR (MDRD) Non-Af Amer 54 mL/min >60 [facility] Comment on above: Non- GFR Calc Thyroglobulin Antibody < 1.0 IU/mL 0.0-0.9 [facility] Comment on above: Thyroglobulin Antibo dy measured by [employer] Thyroglobulin Level 85.9 ng/mL 1.5-38.5 [facility] Comment on above: According to the [facility] [place] [employer],the reference interval for Thyroglobulin (TG) should berelated to euthyroid patients and not for patients whounderwent thyroidectomy. TG reference intervals for thesepatients depend on the residual mass of the thyroid tissueleft after surgery. Establishing a post-operative baselineis recommended. The assay limit of quantitation is 0.1ng/mLThyroglobulin measured by [employer]uel[employer] Deirdre [employer] Thyroid Stimulating Hormone (TSH) 0.16 uIU/mL 0.358-3.74 [facility] Vitamin D 25-Hydroxy 68.6 ng/mL [facility] Comment on above: Vitamin D 25(OH) Sta tus Range Deficiency <20 ng/mL (50nmol/L) Insufficiency 20 - 30 ng/mL (50 - 75 nmol/L) Sufficiency 30 - 100 ng/mL (75 - 250 nmol/L) Toxicity >100 ng/mL (>250 nmol/L) Platelets bldOrdered By: Stan Nichole on 12-17-2022 Platelets (Bld) [#/Vol] 194 10*3/uL 150-450 [facility] Protein Test strip Ql (U)Ord ered By: Mando Nichole on 12-17-2022 Protein Ql (U) 30 mg/dl Negative [facility] Serum or plasma albumin pascual urement (mass/volume)Ordered By: Mando Nichole on 12-17-2022 Albumin [Mass/Vol] 3.7 g/dL 3.2-5.0 [facility] Serum or plasma albumin/glob ulin mass ratioOrdered By: Mando Nicohle on 12-17-2022 Albumin/Globulin [Mass ratio] 1.2 {ratio} 0.9-2.4 [facility] Serum or plasma calcium pascual urement (mass/volume)Ordered By: Mando Nichole on 12-17-2022 Calcium [Mass/Vol] 9.8 mg/dL 8.5-10.1 [facility] Serum or plasma cholesterol in HDL measurement (mass/volume)Ordered By: Mando Nichole on 12-17-2022 Cholesterol in HDL [Mass/Vol] 62 mg/dL >40 [facility] Comment on above: The drugs N-Acetylcy steine and Metamizole may falsely depress this assay. Reference Range HDL <40 mg/dL Low HDL Cholesterol HDL >or= 60 mg/dL High HDL Cholesterol Serum or plasma cholesterol in VLDL measurement (mass/volume)Ordered By: Mando Nichole on 12-17-2022 Cholesterol in VLDL [Mass/Vol] 19 mg/dL 5-40 [facility] Serum or plasma creatinine m easurement (mass/volume)Ordered By: Mando Nichole on 12-17-2022 Creatinine [Mass/Vol] 1.06 mg/dL 0.55-1.02 [facility] Comment on above: The validity of the calculated GFR & GFRAA in patients over 70 years has not been determined. Clinical correlation is essential. Serum or plasma low density lipoprotein (LDL) cholesterol measurement (mass/volume)Ordered By: Mando Nichole on 12-17-2022 Cholesterol in LDL [Mass/Vol] 49 mg/dL 0-130 [facility] Serum or plasma thyroperoxid ase antibody assay (units/volume)Ordered By: Mando Nichole on 12-17-2022 TPO Ab Qn [IU]/mL 0-34 [facility] Comment on above: Performed at: - [place] [address] [id number] Director: Kylee Quesada MD, Phone: [phone] at: [facility] [id number] [place], [place] [id number] Director: Km Goldberg PhD, Phone: [phone] Serum or plasma urea nitroge n measurement (mass/volume)Ordered By: Mando Nichole on 12-17-2022 Urea nitrogen [Mass/Vol] 18 mg/dL 7-18 [facility] Squamous epithelial cells de tection in urine sediment by light microscopyOrdered By: Mando Nichole on 12-17-2022 Epithelial cells.squamous LM Ql (Urine sed) 0-5 SEEN /hpf 5-10 [facility] Thin prep Papanicolaou smear with manual screeningOrdered By: Mando Nichole on 12-17-2022 Thin prep Papanicolaou smear with manual screening 19 U/L 15-37 [facility] Thin prep Papanicolaou smear with manual screening 5 5-15 [facility] Thyroid stimulating immunogl obulins detectionOrdered By: Mando Nichole on 12-17-2022 Thyroid stimulating immunoglobulins Ql (S) <0.10 IU/L 0.00-0.55 [facility] Urine blood detectionOrdered By: Mando Nichole on 12-17-2022 RBC Ql (U) 25 /ul Negative [facility] RBC Ql (U) 0-5 SEEN /hpf 0-5 [facility] Urine clarityOrdered By: Stan Nichole on 12-17-2022 Clarity (U) Sl. Cloudy Clear [facility] Urine color determinationOrd ered By: Mando Nichole on 12-17-2022 Color (U) Yellow Yellow [facility] Urine creatinine measurement (mass/volume)Ordered By: Mando Nichole on 12-17-2022 Creatinine (U) [Mass/Vol] 179.00 mg/dL NO RANGE EST. [facility] Urine glucose detectionOrder ed By: Mando Nichole on 12-17-2022 Glucose Ql (U) Normal mg/dl Normal [facility] Urine leukocyte esterase det ection by dipstickOrdered By: Mando Nichole on 12-17-2022 Leukocyte esterase Test strip Ql (U) 100 /ul Negative [facility] Urine pHOrdered By: Mando bush on 12-17-2022 pH (U) 6.5 [pH] 5.0 - 8.0 [facility] Urine protein measurement (m ass/volume)Ordered By: Mando Nichole on 12-17-2022 Protein (U) [Mass/Vol] 19.3 mg/dL 0.0-11.8 [facility] Urine protein/creatinine mas s ratioOrdered By: Mando Nichole on 12-17-2022 Protein/Creatinine (U) [Mass ratio] 108 mg/g CRE 0-200 [facility] Urine sediment bacteria coun t by microscopy (number/high power field)Ordered By: Mando Nichole on 12-17-2022 Bacteria LM.HPF (Urine sed) [#/Area] 0 /[HPF] None Seen [facility] Urine sediment unidentified crystal count by microscopy (number/high powered field)Ordered By: Mando Nichole on 12-17-2022 Unidentified crystals LM.HPF (Urine sed) [#/Area] RARE /hpf None Seen [facility] Comment on above: RARE STARCH CRYSTALS .Previous reported result: RARE /hpfEdited by: CHRIS on 12/17/22:1125 Urine specific gravity measu rementOrdered By: Mando Nichole on 12-17-2022 Specific gravity (U) [Rel density] 1.020 1.002-1.030 [facility] Urobilinogen Auto test strip Ql (U)Ordered By: Mando Nichole on 12-17-2022 Urobilinogen Ql (U) Normal mg/dl Normal [facility] Whole blood hemoglobin A1c/t otal hemoglobin ratio (mass fraction)Ordered By: Mando Nichole on 12-17-2022 HbA1c (Bld) [Mass fraction] 5.3 % 3.8-5.6 [facility] Comment on above: Normal < 5.7 % Predi abetic 5.7 - 6.4 % Diabetic >or= 6.5 % Please note range changes. Rogers 04-21-2022 MATI Telephone (PODIWS) WEPLERTAMMI ([id number]) 1950 F Date Time Provider Department 04/21/22 RANI ALVARADO During your visit today, we recorded the following information about you: Rani Alvarado DPM 04/21/2022 7:46 PM Signed Please call patient to inform her that her xrays do not show any acute findings Would continue with boot until pain resolves and then can use powerstep insert MERVAT Villa LPN 04/22/2022 9:23 AM Signed Patient notified of results and provider's instructions. Patient verbalizes understanding. Marisela Grider LPN Allergies As of Date: 04/21/2022 Noted Allergy Reaction AMOXICILLIN 09/21/2018 14 - Other: See Comments Comments: did not work AUGMENTIN (AMOXICILLIN-POT CLAVUL*09/21/2018 6 - Diarrhea MACROBID (NITROFURANTOIN MONOHYD/*09/21/2018 8 - GI Upset PENICILLIN G 02/13/2006 14 - Other: See Comments Comments: patient states she got very weak and had to go to hospital . Not sure if reaction to PCN or the fact she had low potassium. Also lips and mouth tingling. Date Reviewed: 04/16/2022 Reviewed by: Marisela Grider LPN - Fully Assessed Reason for Visit: Results [95] Prescriptions as of 04/22/2022 - rosuvastatin (CRESTOR) 10 mg tablet - latanoprost (XALATAN) 0.005 % ophthalmic solution - terbinafine HCl (LAMISIL) 250 mg tablet - lactobacillus combination no.4 (PROBIOTIC) 3 billion cell cap Take by mouth. - calcium carbonate (OS-MADALYN 500) 500 mg calcium (1,250 mg) tablet Take by mouth. - Cholecalciferol, Vitamin D3, 25 mcg (1,000 unit) cap Cholecalciferol (Vitamin D3) Active 1000 UNIT DAILY June 07, 2013 3:57pm - acetaminophen (TYLENOL) 500 mg tablet Take 500 mg by mouth as needed. - LISINOPRIL-HYDROCHLORO THIAZIDE 10 MG-12.5 MG TAB TAKE 1/2 TAB DAILY - amlodipine besylate(NORVASC 10 MG TAB) Take one(1) tablet daily. - potassium chloride(KLOR-CON M20 20 MEQ TAB) Take one(1) tablet daily. - multivitamins(DAILY VITAMIN TAB) Take one(1) tablet daily. - ZOLOFT 50 MG TAB Take one(1) tablet daily. - ATIVAN 1 MG TAB Take one(1) tablet daily. 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,*10/01/2018 10/01/2018 Encounter Status:Closed by MARISELA GRIDER on 04/22/22 [facility] CNOVon 04-16-2022 CNOV Office Visit (PODIWS ) TAMMI TOLEDO ([id number]) 1950 F Date Time Provider Department 04/16/22 2:30 PM RANI ALVARADO PODIWS During your visit today, we recorded the following information about you: Marisela Grider LPN 04/16/2022 7:05 PM Signed AMB ROOMING INTAKE FLOWSHEET DATA Risk Screening Do you have concerns about personal safety or safety in the home?: No Pain Pain Level: 7 Pain Location: Foot-Right Description: Sharp, Aching Duration Amount of Time: 1 Duration Units: Months Frequency: Intermittent Intervention/Comfort measure: Reposition, Relaxation, Medication, Cold Patient presents with: Right Foot - New, Pain JERRI Hanson DPM 04/16/2022 7:05 PM Signed Initial Podiatric Office Visit: Chief Complaint: This [...] Duration Units: Months Frequency: Intermittent Intervention/Comfort measure: Reposition;Relaxation; Medication;Cold No results found for: HBA1C PCP: Mando [...] 1000 UNIT DAILY June 07, 2013 3:57pm LISINOPRIL-HYDROCHLORO THIAZIDE 10 MG-12.5 MG TAB TAKE 1/2 TAB [...] of breath. Psychology: Patient is engaged during conversati (more content not included)... Normal [facility] XR FOOT 3V AP/LAT/OBL RTon 0 2- XR FOOT 3V AP/LAT/OBL RT * * *Final Repo rt* * * DATE OF EXAM: Apr 16 2022 4:13PM WRX [id number] - XR FOOT 3V AP/LAT/OBL RT / PROCEDURE REASON: multiple diagnoses * * * * Physician Interpretation * * * * HISTORY: 72-YEAR-OLD FEMALE WITH Right foot pain Posterior tibial tendon dysfunction . PT STATES RIGHT PROXIMAL PHALANX PAIN NO INJURY TECHNIQUE: XR FOOT 3V AP/LAT/OBL RT Laterality: RIGHT Number of different views (projections): 3 COMPARISON: Outside exam of 04/03/2022 RESULT: Calcaneal enthesophyte insertion of the Achilles tendon plantar fascia. Thickening of Achilles tendon proximal to the insertion of the calcaneus consistent with tendinopathy. Mild hammertoe deformity second digit. Bones and joints the foot otherwise normal in appearance.. No erosions. No fracture. No joint space narrowing. On previous examination the Arches for prominent but otherwise the film was nonweightbearing, today's examination is weightbearing. IMPRESSION: NO ACUTE BONY ABNORMALITY. NO CHANGE COMPARED TO PREVIOUS EXAM. Control Clerk Auditing: PSCEmeli Transcribe Date/Time: Apr 21 2022 10:31A Dictated by : CEASAR ALARCON MD This examination was interpreted and the report reviewed and electronically signed by: CEASAR ALARCON MD on Apr 21 2022 10:34AM EST [id number] Normal [facility] XR FOOT GENERAL 3V AP/LAT/OB L RIGHTon 04-16-2022 [facility] Absolute lymphocyte countOrd ered By: Dr. Nichole on 03-18-2022 Lymphocytes Auto (Unsp spec) [#/Vol] 3.63 10*3/uL 0.83-4.51 [facility] Basophil percentageOrdered B y: Dr. Nichole on 03-18-2022 Basophils/100 WBC (Bld) 0.8 % 0-1 [facility] Bilirubin [Mass/Vol] 0.50 mg/dL 0.20-1.00 [facility] Comment on above: For patients on eltr ombopag therapy, use of Dimension [place] TBIL is not recommended. Chloride [Moles/Vol] 109 mmol/L 98-107 [facility] Cholesterol [Mass/Vol] 138 mg/dL <200 [facility] Comment on above: <200 mg/dL Desirable 200-240 mg/dL Borderline >240 mg/dL High Risk Eosinophils/100 WBC (Bld) 2.0 % 0-5 [facility] Glucose [Mass/Vol] 108 mg/dL 74-106 [facility] Comment on above: Fasting Glucose resu lt from 100 to 125 mg/dL suggests IMPAIRED HOMEOSTASIS per A.D.A. criteria. Neutrophils (Bld) [#/Vol] 3.2 10*3/uL 2.0-7.7 [facility] Neutrophils/100 WBC (Bld) 42.6 % 47-70 [facility] Potassium [Moles/Vol] 4.1 mmol/L 3.5-5.1 [facility] Protein [Mass/Vol] 6.3 g/dL 6.4-8.2 [facility] Sodium [Moles/Vol] 143 mmol/L 136-145 [facility] Triglyceride [Mass/Vol] 105 mg/dL <199 [facility] Comment on above: The drugs N-Acetylcy steine and Metamizole may falsely depress this assay.Serum Triglycerides Reference Interval Normal <150 mg/dL Borderline high 150 - 199 mg/dL High 200 - 499 mg/dL Very High > or = 500 mg/dL WBC (Bld) [#/Vol] 7.6 10*3/uL 4.4-11.0 [facility] Bilirubin Test strip Ql (U)O rdered By: Dr. Nichole on 03-18-2022 Bilirubin Ql (U) Negative Negative [facility] Blood erythrocytes count (nu mber/volume)Ordered By: Dr. Nichole on 03-18-2022 RBC (Bld) [#/Vol] 4.77 10*6/uL 4.2-5.4 [facility] Blood hemoglobin measurement (mass/volume)Ordered By: Dr. Nichole on 03-18-2022 Hemoglobin (Bld) [Mass/Vol] 14.6 g/dL 12.0-15.0 [facility] Blood lymphocytes/100 leukoc ytesOrdered By: Dr. Nichole on 03-18-2022 Lymphocytes/100 WBC (Bld) 48.1 % 19-41 [facility] Blood monocytes/100 leukocyt esOrdered By: Dr. Nichole on 03-18-2022 Monocytes/100 WBC (Bld) 6.2 % 0-10 [facility] Blood platelet mean volumeOr dered By: Dr. Nichole on 03-18-2022 Platelet mean volume (Bld) [Entitic vol] 10.8 fL 6.2-12.0 [facility] Determination of erythrocyte mean corpuscular volume (MCV)Ordered By: Dr. Nichole on 03-18-2022 MCV (RBC) [Entitic vol] 87.8 fL 81-99 [facility] Hematocrit Auto (Bld) [Volum e fraction]Ordered By: Dr. Nichole on 03-18-2022 Hematocrit (Bld) [Volume fraction] 41.9 % 37-47 [facility] Ketones Test strip Ql (U)Ord ered By: Dr. Nichole on 03-18-2022 Ketones Ql (U) Negative Negative [facility] Laboratory - Chemistry and C hemistry - challengeOrdered By: Dr. Nichole on 03-18-2022 ALP [Catalytic activity/Vol] 61 U/L 45-117 [facility] ALT [Catalytic activity/Vol] 29 U/L 13-56 [facility] CO2 [Moles/Vol] 26.0 mmol/L 21.0-32.0 [facility] Globulin (S) [Mass/Vol] 2.4 g/dL 2.2-4.2 [facility] Urea nitrogen/Creatinine [Mass ratio] 21.5 mg/mg 10-20 [facility] Laboratory - Hematology and Cell countsOrdered By: Dr. Nichole on 03-18-2022 Erythrocyte distribution width (RBC) [Entitic vol] 42.2 fL 35.1-43.9 [facility] Erythrocyte distribution width (RBC) [Ratio] 13.0 % 11.6-14.6 [facility] Immature granulocytes/100 WBC (Bld) 0.300 % 0.0-0.9 [facility] Comment on above: IG% - Immature Granu locytes (promyelocytes, myelocytes and metamyelocytes) > 1% indicates that a LEFT SHIFT is Present. MCH (RBC) [Entitic mass] 30.6 pg 27.0-32.0 [facility] Nucleated RBC/100 WBC (Bld) [Ratio] 0 % 0-5 [facility] MCHC Auto (RBC) [Mass/Vol]Or dered By: Dr. Nichole on 03-18-2022 MCHC (RBC) [Mass/Vol] 34.8 g/dL 32-36 [facility] Nitrite Test strip Ql (U)Ord ered By: Dr. Nichole on 03-18-2022 Nitrite Ql (U) Negative Negative [facility] No Panel InformationOrdered By: Dr. Nichole on 03-18-2022 Estimated GFR (MDRD) Amer 65 mL/min >60 [facility] Comment on above: GFR Calc Estimated GFR (MDRD) Non-Af Amer 53 mL/min >60 [facility] Comment on above: Non- GFR Calc Vitamin D 25-Hydroxy 71.9 ng/mL [facility] Comment on above: Vitamin D 25(OH) Sta tus Range Deficiency <20 ng/mL (50nmol/L) Insufficiency 20 - 30 ng/mL (50 - 75 nmol/L) Sufficiency 30 - 100 ng/mL (75 - 250 nmol/L) Toxicity >100 ng/mL (>250 nmol/L) Platelets bldOrdered By: Dr. Nichole on 03-18-2022 Platelets (Bld) [#/Vol] 202 10*3/uL 150-450 [facility] Protein Test strip Ql (U)Ord ered By: Dr. Nichole on 03-18-2022 Protein Ql (U) 30 mg/dl Negative [facility] Serum or plasma albumin pascual urement (mass/volume)Ordered By: Dr. Nichole on 03-18-2022 Albumin [Mass/Vol] 3.9 g/dL 3.2-5.0 [facility] Serum or plasma albumin/glob ulin mass ratioOrdered By: Dr. Nichole on 03-18-2022 Albumin/Globulin [Mass ratio] 1.6 {ratio} 0.9-2.4 [facility] Serum or plasma calcium pascual urement (mass/volume)Ordered By: Dr. Nichole on 03-18-2022 Calcium [Mass/Vol] 9.5 mg/dL 8.5-10.1 [facility] Serum or plasma cholesterol in HDL measurement (mass/volume)Ordered By: Dr. Nichole on 03-18-2022 Cholesterol in HDL [Mass/Vol] 60 mg/dL >40 [facility] Comment on above: The drugs N-Acetylcy steine and Metamizole may falsely depress this assay. Reference Range HDL <40 mg/dL Low HDL Cholesterol HDL >or= 60 mg/dL High HDL Cholesterol Serum or plasma cholesterol in VLDL measurement (mass/volume)Ordered By: Dr. Nichole on 03-18-2022 Cholesterol in VLDL [Mass/Vol] 21 mg/dL 5-40 [facility] Serum or plasma creatinine m easurement (mass/volume)Ordered By: Dr. Nichole on 03-18-2022 Creatinine [Mass/Vol] 1.07 mg/dL 0.55-1.02 [facility] Comment on above: The validity of the calculated GFR & GFRAA in patients over 70 years has not been determined. Clinical correlation is essential. Serum or plasma low density lipoprotein (LDL) cholesterol measurement (mass/volume)Ordered By: Dr. Nichole on 03-18-2022 Cholesterol in LDL [Mass/Vol] 57 mg/dL 0-130 [facility] Serum or plasma urea nitroge n measurement (mass/volume)Ordered By: Dr. Nichole on 03-18-2022 Urea nitrogen [Mass/Vol] 23 mg/dL 7-18 [facility] Thin prep Papanicolaou smear with manual screeningOrdered By: Dr. Nichole on 03-18-2022 Thin prep Papanicolaou smear with manual screening 20 U/L 15-37 [facility] Thin prep Papanicolaou smear with manual screening 8 5-15 [facility] Urine blood detectionOrdered By: Dr. Nichole on 03-18-2022 RBC Ql (U) Negative Negative [facility] Urine clarityOrdered By: Dr. Nichole on 03-18-2022 Clarity (U) Clear Clear [facility] Urine color determinationOrd ered By: Dr. Nichole on 03-18-2022 Color (U) Yellow Yellow [facility] Urine creatinine measurement (mass/volume)Ordered By: Dr. Nichole on 03-18-2022 Creatinine (U) [Mass/Vol] 254.00 mg/dL NO RANGE EST. [facility] Urine glucose detectionOrder ed By: Dr. Nichole on 03-18-2022 Glucose Ql (U) Normal mg/dl Normal [facility] Urine leukocyte esterase det ection by dipstickOrdered By: Dr. Nichole on 03-18-2022 Leukocyte esterase Test strip Ql (U) 25 /ul Negative [facility] Urine pHOrdered By: Dr. Elio fox on 03-18-2022 pH (U) 6.0 [pH] 5.0 - 8.0 [facility] Urine protein measurement (m ass/volume)Ordered By: Dr. Nichole on 03-18-2022 Protein (U) [Mass/Vol] 23.1 mg/dL 0.0-11.8 [facility] Urine protein/creatinine mas s ratioOrdered By: Dr. Nichole on 03-18-2022 Protein/Creatinine (U) [Mass ratio] 91 mg/g CRE 0-200 [facility] Urine specific gravity measu rementOrdered By: Dr. Nichole on 03-18-2022 Specific gravity (U) [Rel density] 1.025 1.002-1.030 [facility] Urobilinogen Auto test strip Ql (U)Ordered By: Dr. Nichole on 03-18-2022 Urobilinogen Ql (U) Normal mg/dl Normal [facility] Whole blood hemoglobin A1c/t otal hemoglobin ratio (mass fraction)Ordered By: Dr. Nichole on 03-18-2022 HbA1c (Bld) [Mass fraction] 5.5 % 3.8-5.6 [facility] Comment on above: Normal < 5.7 % Predi abetic 5.7 - 6.4 % Diabetic >or= 6.5 % Please note range changes. Absolute lymphocyte counton 02-14-2022 Lymphocytes Auto (Unsp spec) [#/Vol] 1.39 10*3/uL 0.83-4.51 [facility] Work Phone: Lymphocytes Auto (Unsp spec) [#/Vol] 4.47 10*3/uL 0.83-4.51 [facility] Work Phone: Basophil percentageon 2021 Basophils/100 WBC (Bld) 0.3 % 0-1 [facility] Work Phone: Chloride [Moles/Vol] 108 mmol/L 98-107 [facility] Work Phone: Eosinophils/100 WBC (Bld) 0.1 % 0-5 [facility] Work Phone: Glucose [Mass/Vol] 137 mg/dL 74-106 [facility] Work Phone: Comment on above: Fasting Glucose resu lt greater than or equal to 126 mg/dL suggests DIABETES MELLITUS per A.D.A. criteria. Neutrophils (Bld) [#/Vol] 7.3 10*3/uL 2.0-7.7 [facility] Work Phone: Neutrophils/100 WBC (Bld) 81.0 % 47-70 [facility] Work Phone: Potassium [Moles/Vol] 4.0 mmol/L 3.5-5.1 [facility] Work Phone: Sodium [Moles/Vol] 140 mmol/L 136-145 [facility] Work Phone: WBC (Bld) [#/Vol] 9.1 10*3/uL 4.4-11.0 [facility] Work Phone: Basophil percentage 0 SEEN /hpf 0-5 [facility] Work Phone: Basophils/100 WBC (Bld) 0.4 % 0-1 [facility] Work Phone: Chloride [Moles/Vol] 106 mmol/L 98-107 [facility] Work Phone: Eosinophils/100 WBC (Bld) 1.6 % 0-5 [facility] Work Phone: Glucose [Mass/Vol] 123 mg/dL 74-106 [facility] Work Phone: Comment on above: Fasting Glucose resu lt from 100 to 125 mg/dL suggests IMPAIRED HOMEOSTASIS per A.D.A. criteria. Neutrophils (Bld) [#/Vol] 9.5 10*3/uL 2.0-7.7 [facility] Work Phone: Neutrophils/100 WBC (Bld) 62.9 % 47-70 [facility] Work Phone: Potassium [Moles/Vol] 3.7 mmol/L 3.5-5.1 [facility] Work Phone: Sodium [Moles/Vol] 142 mmol/L 136-145 [facility] Work Phone: WBC (Bld) [#/Vol] 15.1 10*3/uL 4.4-11.0 [facility] Work Phone: Bilirubin Test strip Ql (U)o n 02-14-2022 Bilirubin Ql (U) Negative Negative [facility] Work Phone: [phone] Blood erythrocytes count (nu mber/volume)on 02-14-2022 RBC (Bld) [#/Vol] 4.29 10*6/uL 4.2-5.4 [facility] Work Phone: [phone] RBC (Bld) [#/Vol] 4.79 10*6/uL 4.2-5.4 [facility] Work Phone: [phone] Blood hemoglobin measurement (mass/volume)on 02-14-2022 Hemoglobin (Bld) [Mass/Vol] 12.7 g/dL 12.0-15.0 [facility] Work Phone: [phone] Hemoglobin (Bld) [Mass/Vol] 14.3 g/dL 12.0-15.0 [facility] Work Phone: [phone] Blood lymphocytes/100 leukoc yteson 02-14-2022 Lymphocytes/100 WBC (Bld) 15.4 % 19-41 [facility] Work Phone: [phone] Lymphocytes/100 WBC (Bld) 29.6 % 19- [facility] Work Phone: [phone] Blood monocytes/100 leukocyt eson 02-14-2022 Monocytes/100 WBC (Bld) 2.9 % 0-10 [facility] Work Phone: [phone] Monocytes/100 WBC (Bld) 5.2 % 0-10 [facility] Work Phone: [phone] Blood platelet mean volumeon 02-14-2022 Platelet mean volume (Bld) [Entitic vol] 10.6 fL 6.2-12.0 [facility] Work Phone: Platelet mean volume (Bld) [Entitic vol] 10.5 fL 6.2-12.0 [facility] Work Phone: [phone] Calcium oxalate crystals det ection in urine sediment by light microscopyon 02-14-2022 Calcium oxalate crystals LM Ql (Urine sed) 2+ /hpf [facility] Work Phone: [phone] Determination of erythrocyte mean corpuscular volume (MCV)on 02-14-2022 MCV (RBC) [Entitic vol] 90.7 fL 81-99 [facility] Work Phone: [phone] MCV (RBC) [Entitic vol] 89.6 fL 81-99 [facility] Work Phone: [phone] Hematocrit Auto (Bld) [Volum e fraction]on 02-14-2022 Hematocrit (Bld) [Volume fraction] 38.9 % 37-47 [facility] Work Phone: [phone] Hematocrit (Bld) [Volume fraction] 42.9 % 37-47 [facility] Work Phone: [phone] Ketones Test strip Ql (U)on 02-14-2022 Ketones Ql (U) Negative Negative [facility] Work Phone: [phone] Laboratory - Chemistry and C hemistry - challengeon 02-14-2022 CO2 [Moles/Vol] 26.0 mmol/L 21.0-32.0 [facility] Work Phone: [phone] Urea nitrogen/Creatinine [Mass ratio] 14.4 mg/mg 01-02 [facility] Work Phone: [phone] CO2 [Moles/Vol] 31.0 mmol/L 21.0-32.0 [facility] Work Phone: [phone] Urea nitrogen/Creatinine [Mass ratio] 14.0 mg/mg 01-02 [facility] Work Phone: [phone] Laboratory - Hematology and Cell countson 02-14-2022 Erythrocyte distribution width (RBC) [Entitic vol] 41.9 fL 35.1-43.9 [facility] Work Phone: [phone] Erythrocyte distribution width (RBC) [Ratio] 12.9 % 11.6-14.6 [facility] Work Phone: [phone] Immature granulocytes/100 WBC (Bld) 0.300 % 0.0-0.9 [facility] Work Phone: [phone] Comment on above: IG% - Immature Granu locytes (promyelocytes, myelocytes and metamyelocytes) > 1% indicates that a LEFT SHIFT is Present. MCH (RBC) [Entitic mass] 29.6 pg 27.0-32.0 [facility] Work Phone: [phone] Nucleated RBC/100 WBC (Bld) [Ratio] 0 % 0-5 [facility] Work Phone: [phone] Erythrocyte distribution width (RBC) [Entitic vol] 42.0 fL 35.1-43.9 [facility] Work Phone: [phone] Erythrocyte distribution width (RBC) [Ratio] 12.8 % 11.6-14.6 [facility] Work Phone: [phone] Immature granulocytes/100 WBC (Bld) 0.300 % 0.0-0.9 [facility] Work Phone: [phone] Comment on above: IG% - Immature Granu locytes (promyelocytes, myelocytes and metamyelocytes) > 1% indicates that a LEFT SHIFT is Present. MCH (RBC) [Entitic mass] 29.9 pg 27.0-32.0 [facility] Work Phone: [phone] Nucleated RBC/100 WBC (Bld) [Ratio] 0 % 0-5 [facility] Work Phone: [phone] MCHC Auto (RBC) [Mass/Vol]on 02-14-2022 MCHC (RBC) [Mass/Vol] 32.6 g/dL 32-36 [facility] Work Phone: [phone] MCHC (RBC) [Mass/Vol] 33.3 g/dL -36 [facility] Work Phone: [phone] Mucus LM Ql (Urine sed)on Mucus Ql (Urine sed) 0 SEEN /hpf [facility] Work Phone: Nitrite Test strip Ql (U)on 02-14-2022 Nitrite Ql (U) Negative Negative [facility] Work Phone: [phone] Panel Informationon 02-14 Estimated Creatinine Clearance Calc 35.53 ml/min [facility] Work Phone: [phone] Estimated GFR (MDRD) Amer 51 mL/min >60 [facility] Work Phone: [phone] Comment on above: GFR Calc Estimated GFR (MDRD) Non-Af Amer 42 mL/min >60 [facility] Work Phone: [phone] Comment on above: Non- GFR Calc Troponin I High Sensitivity 7 pg/mL 3.0-54.0 [facility] Work Phone: [phone] Comment on above: Please Note: New [place] t Units and Gender Specific Reference Ranges. For more information see Policy Stat Procedure [place] High Sensitivity Troponin (TNIH) and attachments. Estimated Creatinine Clearance Calc 36.36 ml/min [facility] Work Phone: [phone] Estimated GFR (MDRD) Amer 52 mL/min >60 [facility] Work Phone: [phone] Comment on above: GFR Calc Estimated GFR (MDRD) Non-Af Amer 43 mL/min >60 [facility] Work Phone: [phone] Comment on above: Non- GFR Calc Platelets bldon 02-14-2022 Platelets (Bld) [#/Vol] 173 10*3/uL 150-450 [facility] Work Phone: [phone] Platelets (Bld) [#/Vol] 223 10*3/uL 150-450 [facility] Work Phone: [phone] Protein Test strip Ql (U)on 02-14-2022 Protein Ql (U) 30 mg/dl Negative [facility] Work Phone: [phone] Serum or plasma calcium pascual urement (mass/volume)on 02-14-2022 Calcium [Mass/Vol] 8.8 mg/dL 8.5-10.1 [facility] Work Phone: [phone] Calcium [Mass/Vol] 10.0 mg/dL 8.5-10.1 [facility] Work Phone: Serum or plasma creatinine m easurement (mass/volume)on 02-14-2022 Creatinine [Mass/Vol] 1.32 mg/dL 0.55-1.02 [facility] Work Phone: Comment on above: The validity of the calculated GFR & GFRAA in patients over 70 years has not been determined. Clinical correlation is essential. Creatinine [Mass/Vol] 1.29 mg/dL 0.55-1.02 [facility] Work Phone: Comment on above: The validity of the calculated GFR & GFRAA in patients over 70 years has not been determined. Clinical correlation is essential. Serum or plasma urea nitroge n measurement (mass/volume)on 02-14-2022 Urea nitrogen [Mass/Vol] 19 mg/dL 7-18 [facility] Work Phone: [phone] Urea nitrogen [Mass/Vol] 18 mg/dL 7-18 [facility] Work Phone: [phone] Squamous epithelial cells de tection in urine sediment by light microscopyon 02-14-2022 Epithelial cells.squamous LM Ql (Urine sed) 5-10 SEEN /hpf 5-10 [facility] Work Phone: Thin prep Papanicolaou smear with manual screeningon 02-14-2022 Thin prep Papanicolaou smear with manual screening 6 5-15 [facility] Work Phone: [phone] Thin prep Papanicolaou smear with manual screening 5 5-15 [facility] Work Phone: [phone] Urine blood detectionon 12- RBC Ql (U) 250 /ul Negative [facility] Work Phone: [phone] RBC Ql (U) 50-100 SEEN /hpf 0-5 [facility] Work Phone: [phone] Urine clarityon 02-14-2022 Clarity (U) Sl. Cloudy Clear [facility] Work Phone: [phone] Urine color determinationon 02-14-2022 Color (U) Yellow Yellow [facility] Work Phone: Urine glucose detectionon Glucose Ql (U) Normal mg/dl Normal [facility] Work Phone: [phone] Urine leukocyte esterase det ection by dipstickon 02-14-2022 Leukocyte esterase Test strip Ql (U) 25 /ul Negative [facility] Work Phone: Urine pHon 02-14-2022 pH (U) 6.0 [pH] 5.0 - 8.0 [facility] Work Phone: [phone] Urine sediment bacteria coun t by microscopy (number/high power field)on 02-14-2022 Bacteria LM.HPF (Urine sed) [#/Area] 1 /[HPF] None Seen [facility] Work Phone: Comment on above: Previous reported re sult: 0 SEEN /hpfEdited by: MADI on 02/14/22:0108 AMENDED REPORT 02/14/22 0108 BACTERIA previously reported as: 0 SEEN /hpf Urine specific gravity measu rementon 02-14-2022 Specific gravity (U) [Rel density] 1.025 1.002-1.030 [facility] Work Phone: Urobilinogen Auto test strip Ql (U)on 02-14-2022 Urobilinogen Ql (U) Normal mg/dl Normal [facility] Work Phone: Absolute lymphocyte counton 11-28-2021 Lymphocytes Auto (Unsp spec) [#/Vol] 4.51 10*3/uL 0.83-4.51 [facility] Work Phone: Basophil percentageon 2021 Basophil percentage 3.1 mg/dL 2.5-4.9 [facility] Work Phone: Basophils/100 WBC (Bld) 0.6 % 0-1 [facility] Work Phone: [phone] Bilirubin [Mass/Vol] 0.50 mg/dL 0.20-1.00 [facility] Work Phone: [phone] Comment on above: For patients on eltr ombopag therapy, use of Dimension [place] TBIL is not recommended. Chloride [Moles/Vol] 107 mmol/L 98-107 [facility] Work Phone: Cholesterol [Mass/Vol] 128 mg/dL <200 [facility] Work Phone: Comment on above: <200 mg/dL Desirable 200-240 mg/dL Borderline >240 mg/dL High Risk Eosinophils/100 WBC (Bld) 2.7 % 0-5 [facility] Work Phone: Glucose [Mass/Vol] 107 mg/dL 74-106 [facility] Work Phone: Comment on above: Fasting Glucose resu lt from 100 to 125 mg/dL suggests IMPAIRED HOMEOSTASIS per A.D.A. criteria. Neutrophils (Bld) [#/Vol] 3.2 10*3/uL 2.0-7.7 [facility] Work Phone: Neutrophils/100 WBC (Bld) 37.6 % 47-70 [facility] Work Phone: Potassium [Moles/Vol] 3.8 mmol/L 3.5-5.1 [facility]: Protein [Mass/Vol] 6.9 g/dL 6.4-8.2 [facility] Work Phone: Sodium [Moles/Vol] 142 mmol/L 136-145 [facility] Work Phone: Triglyceride [Mass/Vol] 119 mg/dL <199 [facility] Work Phone: Comment on above: The drugs N-Acetylcy steine and Metamizole may falsely depress this assay.Serum Triglycerides Reference Interval Normal <150 mg/dL Borderline high 150 - 199 mg/dL High 200 - 499 mg/dL Very High > or = 500 mg/dL WBC (Bld) [#/Vol] 8.4 10*3/uL 4.4-11.0 [facility] Work Phone: Bilirubin Test strip Ql (U)o n 11-28-2021 Bilirubin Ql (U) Negative Negative [facility] Work Phone: Blood erythrocytes count (nu mber/volume)on 11-28-2021 RBC (Bld) [#/Vol] 4.83 10*6/uL 4.2-5.4 [facility] Work Phone: Blood hemoglobin measurement (mass/volume)on 11-28-2021 Hemoglobin (Bld) [Mass/Vol] 14.3 g/dL 12.0-15.0 [facility] Work Phone: [phone] Blood lymphocytes/100 leukoc yteson 11-28-2021 Lymphocytes/100 WBC (Bld) 53.6 % 19-41 [facility] Work Phone: [phone] Blood monocytes/100 leukocyt eson 11-28-2021 Monocytes/100 WBC (Bld) 5.4 % 0-10 [facility] Work Phone: Blood platelet mean volumeon 11-28-2021 Platelet mean volume (Bld) [Entitic vol] 10.8 fL 6.2-12.0 [facility] Work Phone: Determination of erythrocyte mean corpuscular volume (MCV)on 11-28-2021 MCV (RBC) [Entitic vol] 90.5 fL 81-99 [facility] Work Phone: Hematocrit Auto (Bld) [Volum e fraction]on 11-28-2021 Hematocrit (Bld) [Volume fraction] 43.7 % 37-47 [facility] Work Phone: Ketones Test strip Ql (U)on 11-28-2021 Ketones Ql (U) Negative Negative [facility] Work Phone: [phone] Laboratory - Chemistry and C hemistry - challengeon 11-28-2021 ALP [Catalytic activity/Vol] 66 U/L 45-117 [facility] Work Phone: ALT [Catalytic activity/Vol] 26 U/L 13-56 [facility] Work Phone: CO2 [Moles/Vol] 27.0 mmol/L 21.0-32.0 [facility] Work Phone: [phone] Globulin (S) [Mass/Vol] 3.2 g/dL 2.2-4.2 [facility] Work Phone: [phone] Urea nitrogen/Creatinine [Mass ratio] 15.3 mg/mg 10-20 [facility] Work Phone: [phone] Laboratory - Hematology and Cell countson 11-28-2021 Erythrocyte distribution width (RBC) [Entitic vol] 41.8 fL 35.1-43.9 [facility] Work Phone: [phone] Erythrocyte distribution width (RBC) [Ratio] 12.7 % 11.6-14.6 [facility] Work Phone: [phone] Immature granulocytes/100 WBC (Bld) 0.100 % 0.0-0.9 [facility] Work Phone: [phone] Comment on above: IG% - Immature Granu locytes (promyelocytes, myelocytes and metamyelocytes) > 1% indicates that a LEFT SHIFT is Present. MCH (RBC) [Entitic mass] 29.6 pg 27.0-32.0 [facility] Work Phone: [phone] Nucleated RBC/100 WBC (Bld) [Ratio] 0 % 0-5 [facility] Work Phone: [phone] MCHC Auto (RBC) [Mass/Vol]on 11-28-2021 MCHC (RBC) [Mass/Vol] 32.7 g/dL 32-36 [facility]: [phone] Nitrite Test strip Ql (U)on 11-28-2021 Nitrite Ql (U) Negative Negative [facility] Work Phone: [phone] No Panel Informationon 11-28 Estimated GFR (MDRD) Amer 62 mL/min >60 [facility] Work Phone: [phone] Comment on above: GFR Calc Estimated GFR (MDRD) Non-Af Amer 51 mL/min >60 [facility] Work Phone: [phone] Comment on above: Non- GFR Calc Parathyroid Hormone (Intact) 40.9 pg/mL 18.4-80.1 [facility] Work Phone: [phone] Vitamin D 25-Hydroxy 65.7 ng/mL [facility] Work Phone: Comment on above: Vitamin D 25(OH) Sta tus Range Deficiency <20 ng/mL (50nmol/L) Insufficiency 20 - 30 ng/mL (50 - 75 nmol/L) Sufficiency 30 - 100 ng/mL (75 - 250 nmol/L) Toxicity >100 ng/mL (>250 nmol/L) Platelets bldon 11-28-2021 Platelets (Bld) [#/Vol] 205 10*3/uL 150-450 [facility] Work Phone: [phone] Protein Test strip Ql (U)on 11-28-2021 Protein Ql (U) 30 mg/dl Negative [facility] Work Phone: [phone] Serum or plasma albumin pascual urement (mass/volume)on 11-28-2021 Albumin [Mass/Vol] 3.7 g/dL 3.2-5.0 [facility] Work Phone: [phone] Serum or plasma albumin/glob ulin mass ratioon 11-28-2021 Albumin/Globulin [Mass ratio] 1.2 {ratio} 0.9-2.4 [facility] Work Phone: [phone] Serum or plasma calcium pascual urement (mass/volume)on 11-28-2021 Calcium [Mass/Vol] 9.4 mg/dL 8.5-10.1 [facility] Work Phone: [phone] Serum or plasma cholesterol in HDL measurement (mass/volume)on 11-28-2021 Cholesterol in HDL [Mass/Vol] 53 mg/dL >40 [facility] Work Phone: Comment on above: The drugs N-Acetylcy steine and Metamizole may falsely depress this assay. Reference Range HDL <40 mg/dL Low HDL Cholesterol HDL >or= 60 mg/dL High HDL Cholesterol Serum or plasma cholesterol in VLDL measurement (mass/volume)on 11-28-2021 Cholesterol in VLDL [Mass/Vol] 24 mg/dL 5-40 [facility] Work Phone: Serum or plasma creatinine m easurement (mass/volume)on 11-28-2021 Creatinine [Mass/Vol] 1.11 mg/dL 0.55-1.02 [facility] Work Phone: Comment on above: The validity of the calculated GFR & GFRAA in patients over 70 years has not been determined. Clinical correlation is essential. Serum or plasma low density lipoprotein (LDL) cholesterol measurement (mass/volume)on 11-28-2021 Cholesterol in LDL [Mass/Vol] 51 mg/dL 0-130 [facility] Work Phone: [phone] Serum or plasma urea nitroge n measurement (mass/volume)on 11-28-2021 Urea nitrogen [Mass/Vol] 17 mg/dL 7-18 [facility] Work Phone: [phone] Thin prep Papanicolaou smear with manual screeningon 11-28-2021 Thin prep Papanicolaou smear with manual screening 16 U/L 15-37 [facility] Work Phone: [phone] Thin prep Papanicolaou smear with manual screening 8 -15 [facility] Work Phone: Urine blood detectionon 11-14 RBC Ql (U) 25 /ul Negative [facility] Work Phone: Urine clarityon 11-28-2021 Clarity (U) Clear Clear [facility] Work Phone: Urine color determinationon 11-28-2021 Color (U) Yellow Yellow [facility] Work Phone: Urine creatinine measurement (mass/volume)on 11-28-2021 Creatinine (U) [Mass/Vol] 204.00 mg/dL NO RANGE EST. [facility] Work Phone: [phone] Urine glucose detectionon Glucose Ql (U) Normal mg/dl Normal [facility] Work Phone: [phone] Urine leukocyte esterase det ection by dipstickon 11-28-2021 Leukocyte esterase Test strip Ql (U) 25 /ul Negative [facility] Work Phone: [phone] Urine pHon 11-28-2021 pH (U) 6.0 [pH] 5.0 - 8.0 [facility] Work Phone: Urine protein measurement (m ass/volume)on 11-28-2021 Protein (U) [Mass/Vol] 30.1 mg/dL 0.0-11.8 [facility] Work Phone: Urine protein/creatinine mas s ratioon 11-28-2021 Protein/Creatinine (U) [Mass ratio] 148 mg/g CRE 0-200 [facility] Work Phone: Urine specific gravity measu rementon 11-28-2021 Specific gravity (U) [Rel density] 1.025 1.002-1.030 [facility] Work Phone: Urobilinogen Auto test strip Ql (U)on 11-28-2021 Urobilinogen Ql (U) Normal mg/dl Normal [facility] Work Phone: Whole blood hemoglobin A1c/t otal hemoglobin ratio (mass fraction)on 11-28-2021 HbA1c (Bld) [Mass fraction] 5.5 % 3.8-5.6 [facility] Work Phone: Comment on above: Normal < 5.7 % Predi abetic 5.7 - 6.4 % Diabetic >or= 6.5 % Please note range changes. ANES Gunnar 10-01-2018 ANES POST HNO ID: [id number] Author: Jeanette Sorto Service: Anesthesiology Author Type: Anesthesiologist Type: Anesthesia PostOp Filed: 10/01/2018 9:47 AM Note Text: POST ANESTHESIA EVALUATION NOTE SERVICE DATE: 10/01/2018 SERVICE TIME: 9:46 AM : 1950 Vitals: 10/01/1875310/01/18933 Temp: 37.1 ?C (98.7 ?F) 36.5 ?C (97.7 ?F) 10/01/1875310/01/18933 BP: 133/69 125/64 10/01/1875310/01/18933 Pulse: 70 76 10/01/1875310/01/18933 Resp: 15 14 07/19/19 0934 SpO2: 94% Validated Vital Signs: Yes POST ANES STATUS: No apparent anesthetic complications. The patient is appropriately hydrated with stable respiratory and cardiovascular status. Patient has safe and adequate airway control. The patient has appropriate pain relief and no significant post operative nausea or vomiting. The patient has achieved baseline mental status. Intra-Operative Events: No Significant Anesthesia Events Further assessment by Anesthesia Service: None Other Remarks: SIGNATURE: Jeanette Sorto MD PATIENT NAME: Tammi Toledo DATE: October 01, 2018 TIME: 9:46 AM PAGER/CONTACT #: [id number] [facility] ANES PREOPon 10-01-2018 ANES PREOP HNO ID: [id number] Author: Jeanette Sorto Service: Anesthesiology Author Type: Anesthesiologist Type: Anesthesia PreOp Filed: 10/01/2018 8:19 AM Note Text: ANESTHESIOLOGY DAY OF SURGERY NOTE SERVICE DATE: 10/01/2018 SERVICE TIME: 8:00 AM : 1950 Procedure(s) (LRB): BLEPHAROPLASTY UPPER MEDICALLY NECESSARY (Bilateral) Surgeon(s): Hiro Hussein Estimated body mass index is 35.61 kg/m? as calculated from the following: Height as of this encounter: 168.3 cm (5' 6.25). Weight as of this encounter: 100.8 kg (222 lb 4.8 oz). Most recent hematocrit and potassium results: No results found for this basename: HCT,HEMATOCRIT,K,POTAS SIUM ANES DOS/PREOP NOTE: Vitals: 10/01/18 0754 BP: 133/69 Pulse: 70 Resp: 15 Temp: 37.1 ?C (98.7 ?F) Weight: 100.8 kg (222 lb 4.8 oz) Height: 168.3 cm (5' 6.25) ACTIVE PROBLEM LIST Essential Hypertension, Benign Adjustment Disorder With Depressed Mood Closed Fracture of Metatarsal Bone(s) Ganglion of Joint Abnormal Mammogram, Unspecified CYST BREAST PAST MEDICAL HISTORY Diagnosis Date - ADJUSTMENT DISORDER WITH DEPRESSED MOOD - BENIGN HYPERTENSION PAST SURGICAL HISTORY Procedure Laterality Date - DELIVERY ONLY , low cervical x2 - KNEE SCOPE,DIAGNOSTIC Arthroscopy, knee right - L'SCOPE CHOLECYSTECTOMY Cholecystectomy, lap - PAST SURGICAL HISTORY OF basket extraction of kidney stone - US FNA BREAST 09/13/08 U/S FNA outer mid right breast cyst No family history on file. Social History: Social History Tobacco Use - Smoking status: Never Smoker Substance Use Topics - Alcohol use: Yes Comment: occassional - Drug use: Not on file No current facility-administered medications on file prior to encounter. Current Outpatient Medications on File Prior to Encounter: acetaminophen (TYLENOL) 500 mg tablet Take 500 mg by mouth as needed. LISINOPRIL-HYDROCHLORO THIAZIDE 10 MG-12.5 MG TAB TAKE 1/2 TAB DAILY amlodipine besylate(NORVASC 10 MG TAB) Take one(1) tablet daily. potassium chloride(KLOR-CON M20 20 MEQ TAB) Take one(1) tablet daily. multivitamins(DAILY VITAMIN TAB) Take one(1) tablet daily. ZOLOFT 50 MG TAB Take one(1) tablet daily. ATIVAN 1 MG TAB Take one(1) tablet daily. Current Facility-Administered Medications Medication Dose Route Frequency Provider Last Rate Last Dose - lactated ringers infusion 30 mL/hr INTRAVENOUS CONTINUOUS Hiro Hussein Allergies: ALLERGIES Allergen Reactions - Amoxicillin Other: See Comments did not work - Augmentin [Amoxicil* Diarrhea - Macrobid [Nitrofura* GI Upset - Penicillin G Other: See Comments patient states she got very weak and had to go to hospital . Not sure if reaction to PCN or the fact she had low potassium. Also lips and mouth tingling. DOS EXAM: Adequate NPO Status: Yes Anesthetic Risks, Benefits, Alternatives, Personnel and Consent Discussed: Yes Patient agrees to proceed: Yes Previous Anesthesia: Nausea and/or vomiting Airway Assessment: MP 3; Neck ROM: Full ROM without neurologic symptoms; Airway Evaluation: Short Neck and Thick neck Symptoms of Sleep Apnea: Hypertension, BMI > 35 and Age over 50 (68 year old) Dentition: Teeth intact Additional Physical Exam: Lungs: Patient health status unchanged since recent history and physical. See history and physical for exam findings. Cardiac: Patient health status unchanged since recent history and physical. See history and physical for exam findings. Additional Pertinent Findings: N/A Blood Products: Not anticipated for this procedure Anesthetic Plan: MAC with general as back up Anesthetic Monitoring: Standard ASA Monitors Pain Management Plan: Parenteral or Oral ASA Class: 2 Other Medical Problems: None Chronic Beta Pam medication administered within 24 hours: N/A I have interviewed and examined the patient. I have reviewed the medical record and/or the pre-anesthesia evaluation, pertinent labs, and test results. Significant changes in the patient's condition since the History and Physical, not otherwise documented in primary service progress notes: No This contains updated information obtained within 48 hours of Surgery/Procedure. SIGNATURE: Jeanette Sorto MD PATIENT NAME: Tammi Toledo DATE: October 01, 2018 TIME: 8:00 AM CSN: [id number] [facility] HISTORY PHYSICALon 9 HISTORY PHYSICAL HNO ID: [id number] Author: Hiro Hussein Service: Ophthalmology Author Type: Physician Type: HANDP Filed: 10/01/2018 8:53 AM Note Text: UPDATED HISTORY AND PHYSICAL EXAMINATION SERVICE DATE: 10/01/2018 SERVICE TIME: 8:53 AM PHYSICAL EXAM MUST BE COMPLETED ON ADMISSION The History and Physical (completed in the past 30 days) has been reviewed and the patient has been examined. The contents accurately reflect the patient's condition with the following additions or revisions since the HANDP was completed. Examination indicates no changes. This HANDP can be found in the scanned documents dated 09/20/18. SIGNATURE: Hiro Hussein MD PATIENT NAME: Tammi Toledo DATE: October 01, 2018 TIME: 8:53 AM PAGER: [facility] OPERATIVE NOon 10-01-2018 OPERATIVE NO HNO ID: [id number] Author: Hiro Hussein Service: Ophthalmology Author Type: Physician Type: Operative Report Filed: 10/01/2018 9:31 AM Note Text: OPERATIVE/PROCEDURE REPORT OPHTHAMOLOGY LOG ID: [id number] Surgery/Procedure Date: 10/01/2018 Incision/Procedure Start Time: 9:03 AM Incision Close/Procedure End Time: 9:29 AM Surgeon(s)/Procedurali st(s) and Divisional Merchandising Manager(s): Surgeon(s) and Role: * Hiro Hussein - Primary Procedure(s): Procedure(s) (LRB): BLEPHAROPLASTY UPPER MEDICALLY NECESSARY (Bilateral) Preoperative Diagnosis: Dermatochalasis of both upper eyelids [H02.831, H02.834] Postoperative Diagnosis: Dermatochalasis of both upper eyelids [H02.831, H02.834] Operative Indications: The patient has a history of upper eyelid skin blocking their vision resulting in a visually significant scotoma of greater than 25 degrees which improves on eyelid taping. The skin hangs over the lid margins resulting in limited peripheral vision and difficulty with driving, along with fatigue with reading. Based on their symptoms, the surgery was planned. Blurry vision, fatigue with reading Anesthesia: Monitored Anesthesia Care Procedure Details: The patient was brought into the operating room, and placed under adequate local anesthesia following demarcation of the upper eyelids in the sitting position. A skin incision was made with a #15 blade, and the skin muscle flap was dissected from the temporal to nasal direction using unipolar cautery. Bleeding was controlled with bipolar cautery. Middle and medial fat pads were debulked. Several dog-ear adjustments were made along the medial aspect of the upper lid to achieve a good contour to the crease. Once this was done, the incision was closed using a combination of interrupted and running suture of 6-0 Prolene. A similar procedure was carried out on the opposite upper eyelid. Antibiotic ointment and ice compresses were placed over the eyes at the end of the case. The patient was returned to the recovery room in satisfactory condition. Estimated Blood Loss: Minimal unless noted here. Specimens: * No specimens in log * Implantable Devices: * No implants in log * Drains: None unless noted here. Complications: None I performed the entire procedure. SIGNATURE: Hiro Hussein MD PATIENT NAME: Tammi Toledo DATE: October 01, 2018 TIME: 9:31 AM PAGER/CONTACT #: [facility] 09-07-2018 [facility] Patient:Tammi Toledo MRN: Height:5' 6.25(1.683 m) Weight:222 lb 4.8 oz (100.835 kg) Outpatient Medications as of 10/01/18: acetaminophen (TYLENOL) 500 mg tablet LISINOPRIL-HYDROCHLORO THIAZIDE 10 MG-12.5 MG TAB amlodipine besylate(NORVASC 10 MG TAB) potassium chloride(KLOR-CON M20 20 MEQ TAB) multivitamins(DAILY VITAMIN TAB) ZOLOFT 50 MG TAB ATIVAN 1 MG TAB Admission/Clinic Administered Medications as of 10/01/18: lactated ringers infusion Problem List: Essential hypertension, benign [I10] Adjustment disorder with depressed mood [F43.21] Closed fracture of metatarsal bone(s) [S92.309A] Ganglion of joint [M67.40] Abnormal mammogram, unspecified [R92.8] CYST BREAST [N60.09] Dermatochalasis of both upper eyelids [H02.831, H02.834] Allergies: Amoxicillin Augmentin [Amoxicillin-Pot Clavulanate] Macrobid [Nitrofurantoin Monohyd/M-Cryst] Penicillin G Date Verified: 10/01/18 Lab Values No results within the last 30 days for the following basenames: K,HCT No progress notes entered within the past 30 days Normal [facility] Vital Signs Date Time Vital Sign Value Performing Clinician Faci lity 02-27-2023 17:47-0500 Body temperature 97.2 [degF] Dr. Mando Nichole Work Phone: [facility] 02-27-2023 17:47-0500 Diastolic blood pressure 84 mm[Hg] Dr. Mando Nichole Work Phone: [facility] 02-27-2023 17:47-0500 Heart rate 67 /min Dr. Mando Nichole Work Phone: [facility] 02-27-2023 17:47-0500 Respiratory rate 19 /min Dr. Mando Nichole Work Phone: [facility] 02-27-2023 17:47-0500 SaO2% (BldA) [Mass fraction] 95 % Dr. Mando Nichole Work Phone: [facility] 02-27-2023 17:47-0500 Systolic blood pressure 140 mm[Hg] Dr. Mando Nichole Work Phone: [facility] 02-27-2023 14:09-0500 Body height 170.[address] Mando Nichole Work Phone: [facility] 02-27-2023 14:09-0500 Body mass index (BMI) [Ratio] 33 kg/m2 Dr. Mando Nichole Work Phone: [facility] 02-27-2023 14:09-0500 Body weight 95.[address] Mando Nichole Work Phone: [facility] 02-26-2023 08:59-0500 Body temperature 97.6 [degF] [facility] 02-26-2023 08:59-0500 Diastolic blood pressure 54 mm[Hg] [facility] 02-26-2023 08:59-0500 Heart rate 72 /min [facility] 02-26-2023 08:59-0500 Respiratory rate 15 /min [facility] 02-26-2023 08:59-0500 SaO2% (BldA) [Mass fraction] 99 % [facility] 02-26-2023 08:59-0500 Systolic blood pressure 117 mm[Hg] [facility] 02-26-2023 08:25-0500 Inhaled oxygen flow rate 2 L/min [facility] 02-26-2023 05:49-0500 Body height 170.18 cm [facility] 02-26-2023 05:49-0500 Body mass index (BMI) [Ratio] 34.4 kg/m2 [facility] 02-26-2023 05:49-0500 Body weight 99.8 kg [facility] 02-14-2022 18:15-0500 Body temperature 98.3 [degF] [facility] Work Phone: 02-14-2022 18:15-0500 Diastolic blood pressure 67 mm[Hg] [facility] Work Phone: 02-14-2022 18:15-0500 Heart rate 68 /min [facility] Work Phone: 02-14-2022 18:15-0500 Inhaled oxygen flow rate 3 L/min [facility] Work Phone: 02-14-2022 18:15-0500 Respiratory rate 16 /min [facility] Work Phone: 02-14-2022 18:15-0500 SaO2% (BldA) [Mass fraction] 99 % [facility] Work Phone: 02-14-2022 18:15-0500 Systolic blood pressure 139 mm[Hg] [facility] Work Phone: 02-14-2022 07:23-0500 Body height 167.64 cm [facility] Work Phone: 02-14-2022 07:23-0500 Body mass index (BMI) [Ratio] 35.9 kg/m2 [facility] Work Phone: 02-14-2022 07:23-0500 Body weight 100.78 kg [facility] Work Phone: 02-14-2022 02:40-0500 Body temperature 98.2 [degF] [facility] Work Phone: 02-14-2022 02:40-0500 Diastolic blood pressure 70 mm[Hg] [facility] Work Phone: 02-14-2022 02:40-0500 Heart rate 72 /min [facility] Work Phone: 02-14-2022 02:40-0500 Respiratory rate 16 /min [facility] Work Phone: 02-14-2022 02:40-0500 SaO2% (BldA) [Mass fraction] 97 % [facility] Work Phone: 02-14-2022 02:40-0500 Systolic blood pressure 113 mm[Hg] [facility] Work Phone: 02-13-2022 23:58-0500 Body height 167.64 cm [facility] Work Phone: 02-13-2022 23:58-0500 Body mass index (BMI) [Ratio] 36.1 kg/m2 [facility] Work Phone: 02-13-2022 23:58-0500 Body weight 101.6 kg [facility] Work Phone: 10-15-2021 10:29-0400 Body height 167.64 cm [facility] Work Phone: Encounters Encounter Date Encounter Type Care Provider Facility Start: 01-25-2025 ambulatory Mando Nichole Facilit y:[facility] [facility] Start: 01-25-2025 ambulatory Mando Nichole Facilit y:[facility] Start: 01-24-2025 End: 01-24-2025 ambulatory Mando Nichole Facility:[facility] [place] Start: 01-19-2025 ambulatory Mando Nichole Facilit y:[facility] Start: 01-18-2025 ambulatory Mando Nichole Facilit y:[facility] Start: 01-18-2025 ambulatory Mando Nichole Facilit y:[facility] Start: 01-13-2025 ambulatory Mando Nichole Facilit y:[facility] Start: 07-22-2024 End: 07-22-[address] Mando Nichole MD Work Phone: [facility] Work Phone: Start: 07-22-2024 End: 07-22-[address] Mando Nichole MD -[facility] Start: 07-22-2024 End: 07-22-2024 ambulatory Mando Nichole Facility:[facility] Start: 07-20-2024 End: 07-20-[address] Mando Nichole MD Work Phone: [facility] Work Phone: Start: 07-20-2024 End: 07-20-[address] Nathaniel Henson MD -[facility] Work Phone: Start: 07-20-2024 End: 07-20-2024 ambulatory Mando Nichole Facility:[facility] Start: 03-25-2024 End: 03-25-2024 ambulatory Mando Nichole Facility:[facility] Start: 06-11-2023 End: 06-11-[address] Mando Nichole Work Phone: [facility] Work Phone: Start: 06-11-2023 End: 06-11-[address] Mando Nichole Work Phone: [facility], [facility] Work Phone: Start: 05-21-2023 End: 05-21-[address] Mando Nichole Work Phone: [facility] Work Phone: Start: 05-21-2023 End: 05-21-[address] [facility] Work Phone: Start: 02-27-2023 Non-patient / Non-visit Dr. Mando Nichole Work Phone: [facility] Work Phone: Start: 02-26-2023 End: 02-27-2023 Evaluation and management of inpatient [facility] Work Phone: Start: 12-17-2022 End: 12-17-2022 [facility] Work Phone: Start: 07-04-2022 End: 07-04-2022 ambulatory [facility] Work Phone: Start: 07-04-2022 End: 07-04-2022 Patient encounter procedure [facility] - [facility] Start: 06-12-2022 End: 06-12-2022 ambulatory [facility] Work Phone: Start: 06-12-2022 End: 06-12-2022 Patient encounter procedure [facility]Cat Scan, [facility] Start: 04-21-2022 Telephone encounter Rani Reid Work Phone: Podiatry Comment on above: Results Start: 04-16-2022 End: 04-16-2022 ambulatory RANI ALVARADO Facility:[facility] Start: 04-16-2022 End: 04-16-2022 Subsequent hospital visit by physician [facility] Work Phone: Radiology Comment on above: Right foot pain [M79 .671] Start: 04-16-2022 End: 04-16-2022 Patient encounter procedure Rani Alvarado Work Phone: Podiatry Comment on above: Right foot pain (Bel mert Dx); Posterior tibial tendon dysfunction Start: 04-03-2022 End: 04-03-2022 Patient encounter procedure [facility] Start: 03-18-2022 End: 03-18-2022 ambulatory [facility] Work Phone: Start: 03-18-2022 End: 03-18-2022 [facility] Start: 02-14-2022 End: 02-14-2022 Evaluation and management of inpatient [facility] Start: 11-28-2021 End: 11-28-2021 ambulatory [facility] Work Phone: Start: 11-28-2021 End: 11-28-2021 [facility] Start: 10-15-2021 End: 10-15-2021 Patient encounter procedure [facility]-Outpatient Bone Densitometry Procedures Date Procedure Procedure Detail Performing Clinician Start: 07-22-2024 Vitamin D, 25-hydrox y measurement Dr. Mando Nichole MD Work Phone: Comment on above: Vitamin D StatusDefi ciency: <20 ng/mL (50nmol/L)Insufficiency: 20-30 ng/mL (50-75 nmol/L)Sufficiency: 30-100 ng/mL (75-250 nmol/L)Toxicity: >100 ng/mL (>250 nmol/L) Start: 07-20-2024 CT of soft tissues o f neck with contrast Dr. Mando Nichole MD Work Phone: Start: 06-11-2023 US scan of thyroid Dr. Mando Nichole Work Phone: Start: 02-27-2023 Insertion of stent i nto ureter Dr. Mando Nichole Work Phone: Start: 02-26-2023 CT of abdomen and pe lvis without contrast Start: 07-04-2022 MRI of lower extremity Start: 06-12-2022 CT of abdomen and pe lvis without contrast Start: 04-16-2022 Radex foot complete minimum 3 views Rani Alvarado Work Phone: Start: 04-03-2022 X-ray of both feet Start: 02-14-2022 Extracorporeal shock wave lithotripsy Start: 02-14-2022 CT of abdomen and pe lvis without contrast Start: 10-15-2021 Dual energy X-ray absorptiometry Plan of Treatment Date Care Activity Detail Author Start: 02-27-2023 Patient discharge [facility] Start: 02-27-2023 Insertion of stent i nto ureter Cysto,Retrograde,Insert ion Stent (Right) [facility] Start: 02-26-2023 Following clinical pathway protocol [facility] Start: 02-26-2023 Ambulation without limitation [facility] Start: 02-26-2023 Assessment of risk o f venous thromboembolism [facility] Start: 02-26-2023 Incentive spirometry [facility] Start: 02-26-2023 Insertion of cathete r into peripheral vein [facility] Start: 02-26-2023 Oxygen therapy [facility] Start: 02-26-2023 Providing care accor ding to standard [facility] Start: 02-26-[address] [facility] Start: 02-26-2023 Verification routine [facility] Start: 02-26-2023 Admission procedure [facility] Start: 02-26-[address] [facility] Start: 02-26-2023 Hospital admission, emergency, from emergency room, medical nature [facility] Start: 02-26-2023 Troponin I measurement [facility] Start: 02-26-2023 Patient referral to dietitian [facility] Start: 11-14-2022 Covid-19 Vaccine () Covid-19 Vaccine ( season) [facility] Start: 11-14-2022 Influenza vaccination Influenza Vacc ine (#1) [facility] Start: 03-16-2022 ADVANCE DIRECTIVE DISCUSSION ADVANCE DIRECTIVE DISCUSSION [facility] Start: 03-16-2022 DEPRESSION ASSESSMENT DEPRESSION ASS ESSMENT [facility] Start: 02-14-2022 Patient discharge [facility] Work Phone: Start: 02-14-2022 Anes lithotrp xtrcor p shock wave w/o water bath ANESTH KIDNEY STONE DESTRUCT [facility] Work Phone: Start: 02-14-2022 Cysto w/insert urete ral stent CYSTOSCOPY AND TREATMENT [facility] Work Phone: Start: 02-14-2022 Blood chemistry [facility] Work Phone: Start: 02-14-2022 Following clinical pathway protocol [facility] Work Phone: Start: 02-14-2022 Provision of activit y privileges [facility] Work Phone: Start: 02-14-2022 Admission procedure [facility] Work Phone: Start: 10-15-2021 Dual energy X-ray absorptiometry [facility] Work Phone: Start: 2013 BONE DENSITY BONE DENSITY [facility] Start: 2013 Bone Density Screening Bone Density Screening [facility] Start: 2013 Pneumococcal Vaccine : 65+ (1 - PCV) Pneumococcal Vaccine: 65+ (1 - PCV) [facility] Start: 2013 PNEUMOCOCCAL: 65+ (1 - PCV) PNEUMOCOCCAL: 65+ (1 - PCV) [facility] Start: 1998 SHINGRIX VACCINE (1 of 2) OREILLY GRIX VACCINE (1 of 2) [facility] Start: 1993 COLOGUARD (FIT-DNA) COLOGUARD (FIT-D NA) [facility] Start: 1993 Colonoscopy COLONOSCOPY [facility] Start: 1993 COLORECTAL CANCER SCREENING COLORECTAL CANCER SCREENING [facility] Start: [address] COLONOGRAPHY [facility] Start: 1993 DIABETES SCREEN DIABETES SCREEN [facility] Start: 1993 Diabetes Screening Diabetes Screenin g [facility] Start: 1993 FECAL OCCULT BLOOD FECAL OCCULT BLOO D [facility] Start: 1993 Lipid 1996 panel - S argelia or Plasma Lipid Screening [facility] Start: 1993 LIPID SCREEN LIPID SCREEN [facility] Start: 1993 SIGMOIDOSCOPY SIGMOIDOSCOPY [facility] Start: 1988 Mammography [facility] Start: 1967 Urine microalbumin profile [facility] Start: 1966 ANNUAL PCP TEAM ADMITTING REPRESENTATIVE IVANNA DISEASE VISIT ANNUAL PCP TEAM CHRONIC DISEASE VISIT [facility] Start: 1966 BP CONTROLLED (<130/80) BP CONTROLLE D (<130/80) [facility] Start: 1966 HEPATITIS C SCREENING HEPATITIS C SC JEFFREY [facility] Anion gap measurement [facility] Work Phone: BUN/Creatinine ratio [facility] Work Phone: Calcium [Mass/volume ] in Serum or Plasma [facility] Work Phone: Carbon dioxide, tota l [Moles/volume] in Serum or Plasma [facility] Work Phone: Chloride [Moles/volu me] in Serum or Plasma [facility] Work Phone: Creatinine [Moles/vo lume] in Serum or Plasma [facility] Work Phone: Glucose [Mass/volume ] in Serum or Plasma [facility] Work Phone: Hematocrit [Volume Fraction] of Blood [facility] Work Phone: Hemoglobin [Mass/vol ume] in Blood [facility] Work Phone: Leukocytes [#/volume ] in Blood [facility] Work Phone: Mean corpuscular hemoglobin concentration determination [facility] Work Phone: Mean corpuscular hemoglobin determination [facility] Work Phone: Measurement of renal function [facility] Work Phone: Neutrophil count [facility] Work Phone: Neutrophil percent differential count [facility] Work Phone: Patient referral [facility] Work Phone: Platelets [#/volume] in Blood [facility] Work Phone: Potassium [Moles/vol ume] in Serum or Plasma [facility] Work Phone: Red blood cell count [facility] Work Phone: Red cell distributio n width determination [facility] Work Phone: Sodium [Moles/volume ] in Serum or Plasma [facility] Work Phone: Urea nitrogen [Mass/volume] in Serum or Plasma [facility] Work Phone: End: 05-16-2023 XR FOOT GENERAL 3V AP/LAT/OBL RIGHT XR FOOT GENERAL 3V AP/LAT/OBL RIGHT Radiology Routine Right foot pain Posterior tibial tendon dysfunction 1 Occurrences starting 04/16/2022 until 05/16/2023 [facility] Work Phone: Comment on above: 1 Occurrences starti ng 04/16/2022 until 05/16/2023 XR FOOT GENERAL 3V AP/LAT/OBL RIGHT XR FOOT GENERAL 3V AP/LAT/OBL RIGHT Radiology Routine Right foot pain Posterior tibial tendon dysfunction 04/16/2022 4:13 PM EST [facility] Work Phone: [facility] Immunizations Immunization Date Immunization Notes Care Provider Naomie martínez 12-23-2021 influenza, injectabl e, quadrivalent, preservative free [facility] 12-23-2021 influenza, seasonal, injectable [facility] 12-23-2021 influenza virus vaccine, unspecified formulation [facility] Work Phone: [facility] 06-07-2013 tetanus and diphther ia toxoids, adsorbed, preservative free, for adult use (2 Lf of tetanus toxoid and 2 Lf of diphtheria toxoid) [facility] 12-14-2012 Influenza virus vaccine W [facility] Payers Date Payer Category Payer Self-pay [id number] 2018 Medicare AETNA MEDICARE A ETNA MEDICARE PPO [id number] 2018-Present [phone] [address] [place] [address] PPO [id number] 2012 Private Health Insurance 101 [id number] Unknown [id number] 62 Unknown [id number] 62 Unknown [id number] 62 Unknown [id number] 62 Unknown [id number] 62 Unknown [id number] 62 Unknown [id number] 62 Unknown [id number] 62 Unknown [id number] 62 Unknown [id number] 62 Social History Date Type Detail Facility Start: 07-27-2019 End: 02-26-2023 Tobacco smoking status VAIS Unknown if ever smoked [facility] Start: 1950 Sex Assigned At Female [facility] Start: 04-16-2022 End: 02-26-2023 Tobacco smoking status NHIS Never smoked tobacco [facility] Work Phone: Start: 04-16-2022 Tobacco use and exposure Smokeless tobacco non-user [facility] Work Phone: Start: 04-16-2022 Alcohol intake Current drinke r of alcohol (finding) [facility] Start: 1950 Sex Assigned At Not on file [facility] Start: 04-16-2022 History of Social function [facility] Start: 04-16-2022 Tobacco use panel [facility] Start: 06-07-[address] [facility] Start: 06-07-[address] [facility] Start: 06-07-2013 Spouse/ Signif icant Other [facility] Start: 06-07-2013 Non-smoker [facility] NEGATED: Highlighted row [facility] Medical Equipment Procedure Code Equipment Code Equipment Origin al Text Equipment Identifier Dates Lithotripsy, [id number] ([id number]) Polymeric uret eral stent [id number] FDA Start: 02-14-2022 Cystoscopy, with retrograde pyelogram and ureteral stent insertion ([id number]) Polymeric ureteral stent ()[id number] FDA Start: 02-27-2023 STENT,URETERAL 6 FR PIG 6X26 FDA Start: 12-01-2017 STENT,URETERAL 6 FR PIG 6X26 FDA Start: 12-01-2017 STENT,URETERAL 6 FR PIG 6X26 FDA Start: 12-01-2017 STENT,URETERAL 6 FR PIG 6X26 FDA Start: 12-01-2017 STENT,URETERAL 6 FR PIG 6X26 FDA Start: 12-01-2017 STENT,URETERAL 6 FR PIG 6X26 FDA Start: 12-01-2017 STENT,URETERAL 6 FR PIG 6X26 FDA Start: 12-01-2017 STENT,URETERAL 6 FR PIG 6X26 FDA Start: 12-01-2017 STENT,URETERAL 6 FR PIG 6X26 FDA Start: 12-01-2017 STENT,URETERAL 6 FR PIG 6X26 FDA Start: 12-01-2017 STENT,URETERAL 6 FR PIG 6X26 FDA Start: 12-01-2017 STENT,URETERAL 6 FR PIG 6X26 FDA Start: 12-01-2017 STENT,URETERAL 6 FR PIG 6X26 FDA Start: 12-01-2017 Goals Date Patient Goal Desired Activity /State Functional Status Date Assessment Result Facility 02-27-2023 Functional status Ambulates;Up ad river [facility] Work Phone: 02-14-2022 Functional status Ambulates [facility] Work Phone: Mental Status Date Assessment Result Facility 02-27-2023 Cognitive function Level Of Cons ciousness Awake;Appropriate [facility] Work Phone: 02-26-2023 Cognitive function Appropriate;Cooperativ e [facility] Work Phone: 02-14-2022 Cognitive function Touch/Shaking [facility] Work Phone: 02-14-2022 Cognitive function Level Of Cons ciousness Awake;Alert;Appropriate;Follow s Commands [facility] Work Phone: Clinical Notes 10-01-2018 to 07-21-2024 Note Date & Type Note Facility 07-21-2024 Radiology Diagnostic study note [facility] Imaging Services [address] [place], [place] [address] Soft Tissue Neck WITH Contrast MR#: [id number] Acct: [id number] Name: TAMMI TOLEDO Rep #: [id number] : 1950 F 74 From: Allyssa Umaña MD PCP: Dr. Mando Nichole MD Status: RE G CLI Study:Soft Tissue Neck WITH Contrast Date of Exam: 07/20/24 Exam# [id number] Ordering Dr: Nathaniel Henson MD PROCEDURE: SOFT TISSUE NECK WITH CONTRAST 07/20/2024 REASON FOR EXAM: NECK MASS TECHNIQUE: CT of the soft tissues of the neck from the orbits to the upper mediastinum withintravenous contrast. CONTRAST: 75 cc Isovue 370 One or more dose reduction techniques were used (e.g., Automated exposure control, adjustment of the mA and/or kV according to patient size, use of iterative reconstruction technique). RADIATION DOSE SUMMARY: CTDlvol: ? MGy DLP: ? MGycm COMPARISON: None FINDINGS: Scanning performed from inferior to superior. Orbits symmetric. Nasopharynx unremarkable. No parotid mass or asymmetry. No submandibular glandular asymmetry. Heterogeneous density seen in both thyroid lobes. No proximal esophageal compression. No mucosal asymmetry. No pathologic adenopathy. CT/Soft Tissue Neck WITH Contrast IMPRESSION: No visible neck mass or mucosal abnormality. Reading [facility] CC: Dr. Nathaniel Henson MD; Dr. Mando Nichole MD ~ Control Clerk Auditing: Signed [facility] 02-27-2023 Discharge summary Note Date/Time February 27, 2023 4:34pm [facility] Medical Records Department [address] [place] [address] Instructions for Home/Discharge Instructions 02/27/23 1633 MR#: [id number] Acct: [id number] Name: TAMMI TOLEDO Rep #:[id number] : 1950 72 From: Homar Orta MD PCP: Dr. Mando Nichole MD Status:AD M IN Discharge Instructions Diet Discharge Diet: No restrictions Activity Discharge Activity: Return to Normal Activity and May Not Drive (while taking narcotic pain medications.) Dressing / Incision Call your doctor if you observe: Fever of 101 or Higher Follow Up Care Please Follow Up With: Homar Orta MD When: Call [phone] for an appointment Test Results: Test results from this visit will be discussed in further detail at your follow-up appointment, if applicable. Discharge Plan Admission Admit Date/Time: 02/26/23 08:48 Attending Provider: Roberth Allison Primary Care Provider: Mando Nichole Consulting Providers: Homar Orta Discharge Orders/Prescriptions Prescriptions: No Action calcium carbonate [Calcium 500] 500 mg calcium (1,250 mg) tablet 1,200 mg PO BID amlodipine 10 MG tablet 10 mg PO QHS Patient Comments: blood pressure sertraline 50 MG tablet 50 mg PO DAILY Patient Comments: depression multivitamin,tj-wgzz-pwrsiywd 1 TABLET tablet 1 tab PO DAILY Patient Comments: vitamin lisinopril-hydrochlorothiazide 10-12.5 mg tablet 0.5 tab PO QHS Patient Comments: blood pressure latanoprost 0.005 % drops 1 drp EACH EYE QHS Patient Comments: instill 1 drop into both eyes at bedtime rosuvastatin 10 mg tablet 10 mg PO QHS Probiotic 3 billion cell Capsule 3,000 mmu cells PO DAILY Rx Instructions: administer with a meal ciprofloxacin HCl [Cipro] 500 mg tablet 500 mg PO BID Qty: 10 0RF oxycodone-acetaminophen 5-325 mg tablet 1 tab PO Q6H PRN (Reason: pain) 7 Days Qty: 20 0RF lisinopril 20 mg tablet 20 mg PO BID Vitamin D 1000unit 1,000 units 1,000 unit PO DAILY calcium carbonate [Calcium 600] 600 mg calcium (1,500 mg) tablet 600 mg PO DAILY Referrals / Follow Up: Mando Nichole MD [Primary Care Provider] - 02/27/23 1634<Electronically signed by Homar Orta MD>Homar Orta MD CC: Dr. Mando Nichole MD; Dr. Homar Orta MD ~ Signed [facility] Work Phone: 1(134) 979-983412-15-[address] [facility] 02-27-2023 Progress note Author Roberth [facility] February 27, 2023 1:54pm Note Date/Time February 27, 2023 1:54pm [facility] Medical Records Department [address] [place] [address] Progress Note - Hospitalist 02/27/23 1351 MR#: [id number] Acct: [id number] Name: TAMMI TOLEDO Rep #:[id number] : 1950 72 From: Roberth Gardner akila CABELLO PCP: Dr. Mando Nichole MD Status:AD M IN [facility] Reason for Visit Reason for Visit: Diagnoses Calculus of ureter (02/26/23) Unspecified renal colic (02/26/23) Subjective Subjective Patient seen at bedside this morning. Sitting comfortably in bed, conversing normally, no acute distress. Denies any right-sided flank pain or low back painthis morning, states pain medications have been very helpful for her. Is looking forward to her procedure today and wants to go home soon afterward if possible. No other acute concerns today. Objective Data Objective Data Vital Signs: Vital Signs Temp Pulse Resp BP Pulse Ox O2 Del Method O2 Flow Rate 97.8 F 66 16 126/63 H 99 Room Air 2 02/27/23 09:44 02/27/23 09:44 02/27/23 09:44 02/27/23 09:44 02/27/23 09:44 02/27/23 11:30 02/26/23 08:25 Oxygen Flow Rate (L/min) 2 Oxygen Delivery Method Room Air Weight: 95.5 kg Body Mass Index (BMI) 33.0 Intake & Output: Intake and Output for Last 24 Hours 02/25/23 02/26/23 02/27/23 23:59 23:59 23:59 Intake Total 1640 / 1640 Balance 1640 / 1640 Lab / Micro Data 02/27/23 06:27 02/27/23 06:27 Labs: Laboratory Results - last 24 hr 02/27/23 06:27: WBC 7.2, RBC 4.24, Hgb 12.6, Hct 38.3, MCV 90.3, MCH 29.7, MCHC 32.9, RDW Std Deviation 42.5, RDW Coeff of Alphonso 12.9, Plt Count 160, MPV 10.3, Sodium 143, Potassium 4.0, Chloride 110 H, Carbon Dioxide 28.0, Anion Gap 5, BUN25 H, Creatinine 1.67 H, Estim Creat Clear Calc 28.74, Est GFR (MDRD) Af Amer 39L, Est GFR (MDRD) Non-Af 32 L, BUN/Creatinine Ratio 15.0, Glucose 102, Calcium 9.1 Rhythm Strip Rhythm Strip: Sinus Rhythm Rate: 55 Ectopy: None Physical Exam Const alert, oriented x3, no apparent distress, healthy appearing and well nourished Constitutional Narrative: Pleasant elderly female, obese, sitting comfortably bed, conversing normally, noacute distress. General Appearance: cooperative, comfortable, well kempt and well developed HEENT normocephalic, head/scalp atraumatic, hearing grossly normal bilaterally, nasal mucous membranes and turbinates normal and moist oral mucous membranes Eyes PERRL, EOMs intact bilaterally and conjunctivae normal Neck full ROM, no lymphadenopathy and supple Lymph Lymphatic: no lymphadenopathy noted Chest inspection of chest normal Resp normal respiratory effort, normal air movement, no use of accessory muscles and clear to auscultation bilaterally Cardio regular rate, regular rhythm, no murmurs and peripheral pulses 2+ throughout GI normal to inspection, nondistended, normoactive bowel sounds, soft to palpation,non-tender and non-distended Negative for no CVA tenderness Back/Spine normal ROM Extremity normal to inspection, full ROM and no pedal edema Skin no rashes or lesions noted Neuro moves all extremities and no focal motor deficits Speech: speech normal Psych mental status grossly normal Assessment & Plan Assessment/Plan (1) Right ureteral calculus: (2) Renal colic on right side: PLAN: Plan Patient is a 72-year-old female who presented to [facility] ED on 02/26/2023 with acute onset right flank pain. 1. Right sided nephrolithiasis with renal colic CT abdomen pelvis on admit showed a large 1.1 cm stone in the right ureteropelvic junction causing moderate obstructive changes. UA showed 150 occult blood, 15 protein, no findings concerning for UTI. Hemodynamically stable on admission. Patient had significant improvement in her pain in the ED with IV pain medication. S/p 1 L IV fluids in the ED as well. ? Urology following. Planning for cystoscopy and right ureteral stent placementthis afternoon. Pain control with IV Toradol as needed, tramadol as needed. Zofran and Compazine as needed for nausea. Possibly home this evening versus tomorrow depending on patient does with procedure. 2. Mild leukocytosis, resolved ? WBC count 11.2 on admit, improved to 7 on 02/27. Suspect secondary to acute stress reaction versus hemoconcentration. No need to monitor further. 3. History of recurrent nephrolithiasis ? Follows outpatient with Dr. Orta with urology. Last kidney stone was in 02/2022, had left kidney stone at that time that was 1.1 cm and required cystoscopywith left stent placement and extracorporeal shockwave lithotripsy. Stent has since been removed without issue. Chronic medical conditions: ? Hypertension: Holding home amlodipine, lisinopril and hydrochlorothiazide given mild hypotension on admission and procedure today. Will plan to restart postoperatively as able. ? Hyperlipidemia: Continue home rosuvastatin. ? Depression: Continue home sertraline. DVT prophylaxis: Lovenox CODE STATUS: Full code, verified Expected disposition: Home, 1 to 2 days Total clinical time spent by myself addressing the patient's medical issues, reviewing all the data, and collaborating with patient's care team: 35 minutes. Charges/Coding Visit Charges Inpatient E&M: 30216 Subs Hosp L2 02/27/23 1354 <Electronically signed by Roberth Allison DO> Cosigner Signature (if applicable): CC: ~ Signed [facility] Work Phone: 1(974) 625-900812-14-2023 History and physical note Author Roberth Allison [facility] February 26, 2023 3:26pm Note Date/Time February 26, 2023 8:47am [facility] Medical Records Department [address] [facility] [place] [address] H&P Exam - Hospitalist 02/26/23 0841 MR#: [id number] Acct: [id number] Name: TAMMI TOLEDO Rep #:[id number] : 1950 72 From: Roberth sanon DO PCP: Dr. Mando Nichole MD Status:AD M IN Location: [facility] [id number] HPI - General General Date of Admission: 02/26/23 Date of Service: 02/26/23 HPI Narrative TAMMI TOLEDO, is a 72 F who presented to [facility] ED on 02/26/2023 with acute onset right flank pain. Patient seen at bedside in the ED, present. Patient received IV pain medication and IV nausea medication prior to my arrival to the room. On my exam, patient appeared fairlycomfortable in bed and stated she felt significantly improved after those medications were given. States that she had acute onset right-sided flank pain earlier this morning. She has a history of recurrent kidney stones and this pain felt very similar to previous pain. She follows with urology outpatient. Her last kidney stone was back in February of last year and she required stent placement and lithotripsy at that time. Stent has since been removed. She otherwise states she has been fairly healthy at baseline, lives at home with [facility] and does everything around home for his without issue. Denies any fevers or chills. No other acute concerns. [facility] Medical History Depression High cholesterol Hypertension Left ureteral calculus Multinodular goiter Nephrolithiasis Osteoarthritis Post-menopausal Skin cancer of forehead Home Medications amlodipine 10 mg tablet 10 mg PO QHS blood pressure 06/07/13 [History Last Taken 12/09/17 09:00 Y] multivitamin,ki-atya-pdpnbxty 27 mg-0.4 mg tablet 1 tab PO DAILY supplement 06/07/13 [History Last Taken 06/07/13] sertraline 50 mg tablet 50 mg PO DAILY mood 06/07/13 [History Last Taken 06/07/13] lisinopril 10 mg-hydrochlorothiazide 12.5 mg tablet 0.5 tab PO QHS blood pressure 01/11/19 [History Last Taken Unknown] calcium carbonate 500 mg calcium (1,250 mg) tablet (Calcium 500) 1,200 mg PO BIDsupplement 07/27/19 [History Last Taken Unknown] ciprofloxacin HCl 500 mg tablet (Cipro) 500 mg PO BID #10 tabs 02/14/22 [Rx Last Taken Unknown] lactobacillus combination no.4 3 billion cell capsule (Probiotic) 3,000 mmu cells PO DAILY supplement 02/14/22 [History Last Taken Unknown] latanoprost 0.005 % eye drops 1 drp EACH EYE QHS glaucoma 02/14/22 [History Last Taken Unknown] oxycodone-acetaminophen 5 mg-325 mg tablet 1 tab PO Q6H PRN pain 7 days #20 tabs104/17/21 [Rx Last Taken Unknown] rosuvastatin 10 mg tablet 10 mg PO QHS cholesterol 02/14/22 [History Last Taken Unknown] Allergy/AdvReac Type Severity Reaction Status Date / Time Penicillins Allergy Swelling Verified 02/26/23 05:52 Family History Father Diabetes Heart disease Mother Breast cancer Surgical History History of blepharoplasty History of History of knee replacement History of laparoscopic cholecystectomy History of lithotripsy History of Mohs micrographic surgery for skin cancer Social History Smoking Status: Never smoker alcohol intake: current substance use type: does not use ROS Constitutional Constitutional: Denies change in weight, chills, fatigue, fever(s) or weakness Cardiovascular Cardiovascular: Denies chest pain or dyspnea on exertion Respiratory/Chest Respiratory/Chest: Denies cough Gastrointestinal Gastrointestinal: Reports nausea; Denies abdominal pain, constipation, diarrhea or vomiting Genitourinary Genitourinary: Reports dysuria, flank pain and low back pain Musculoskeletal Musculoskeletal: Denies arthralgias Neurologic Neurologic: Denies dizziness or focal weakness Vital Signs Vital Signs Vital Signs: 02/26/23 05:49 02/26/23 08:14 Temperature 96.5 F L Temperature Source Temporal Pulse Rate 68 51 L Respiratory Rate 16 12 Blood Pressure 164/66 H 96/58 L Blood Pressure Mean 98 70 Pulse Ox 98 97 Oxygen Delivery Method Room Air Room Air Weight Weight: 99.8 kg Body Mass Index (BMI) 34.4 Physical Exam Const alert, oriented x3, no apparent distress, healthy appearing and well nourished Constitutional Narrative: Pleasant elderly female, obese, sitting comfortably bed, conversing normally, noacute distress. General Appearance: cooperative, comfortable, well kempt and well developed HEENT normocephalic, head/scalp atraumatic, hearing grossly normal bilaterally, nasal mucous membranes and turbinates normal and moist oral mucous membranes Eyes PERRL, EOMs intact bilaterally and conjunctivae normal Neck full ROM, no lymphadenopathy and supple Lymph Lymphatic: no lymphadenopathy noted Chest inspection of chest normal Resp normal respiratory effort, normal air movement, no use of accessory muscles and clear to auscultation bilaterally Cardio regular rate, regular rhythm, no murmurs and peripheral pulses 2+ throughout GI normal to inspection, nondistended, normoactive bowel sounds, soft to palpation,non-tender and non-distended Back/Spine normal ROM Extremity normal to inspection, full ROM and no pedal edema Skin no rashes or lesions noted Neuro moves all extremities and no focal motor deficits Speech: speech normal Psych mental status grossly normal Results Lab / Micro Data 02/26/23 06:05 02/26/23 06:05 Labs: Laboratory Results - last 24 hr 02/26/23 06:05: WBC 11.2 H, RBC 4.77, Hgb 14.0, Hct 42.6, MCV 89.3, MCH 29.4, MCHC 32.9, RDW Std Deviation 41.7, RDW Coeff of Alphonso 12.7, Plt Count 195, MPV 10.2, Immature Gran % (Auto) 0.300, Neut % (Auto) 61.2, Lymph % (Auto) 31.9, Butts % (Auto) 4.8, Eos % (Auto) 1.3, Baso % (Auto) 0.5, Absolute Neuts (auto) 6.8, Absolute Lymphs (auto) 3.56, Nucleated RBC % 0, Sodium 143, Potassium 3.5, Chloride 108 H, Carbon Dioxide 29.0, Anion Gap 6, BUN 23 H, Creatinine 1.11 H, Estim Creat Clear Calc 43.24, Est GFR (MDRD) Af Amer 62, Est GFR (MDRD) Non-Af 51 L, BUN/Creatinine Ratio 20.7 H, Glucose 128 H, Calcium 9.6, Total Bilirubin 0.40, Direct Bilirubin 0.13, AST 23, ALT 26, Alkaline Phosphatase 78, Troponin IHigh Sens 10, Total Protein 6.8, Albumin 3.9, Globulin 2.9 02/26/23 07:20: Urine Color Yellow, Urine Clarity Clear, Urine pH 6.0, Ur Specific Mather 1.025, Urine Protein 15 H, Urine Glucose (UA) Normal, Urine Ketones Negative, Urine Occult Blood 150 H, Urine Nitrite Negative, Urine Bilirubin Negative, Urine Urobilinogen Normal, Ur Leukocyte Esterase 25 H, UrineRBC 10-25 SEEN, Urine WBC 0-5 SEEN, Ur Squamous Epith Cells 0-5 SEEN, Urine Bacteria RARE, Urine Mucus 0 SEEN Rhythm Strip Rhythm Strip: Sinus Rhythm Rate: 55 Ectopy: None Imagaing Radiology Impression Abdomen/Pelvis CT 02/26/23 06:15 IMPRESSION: 1. There is a large, 1.1 cm stone in the right ureteropelvic junction causing moderate obstructive changes. 2. Small nonobstructing stones in the kidneys bilaterally. Electronically Signed: Anthony Monk MD at 7:08 EST , Assessment & Plan Assessment/Plan (1) Right ureteral calculus: (2) Renal colic on right side: PLAN: Plan Patient is a 72-year-old female who presented to [facility] ED on 02/26/2023 with acute onset right flank pain. 1. Right sided nephrolithiasis with renal colic CT abdomen pelvis on admit showed a large 1.1 cm stone in the right ureteropelvic junction causing moderate obstructive changes. UA showed 150 occult blood, 15 protein, no findings concerning for UTI. Hemodynamically stable on admission. Patient had significant improvement in her pain in the ED with IV pain medication. S/p 1 L IV fluids in the ED as well. ? Admit under inpatient status to [facility]. Urology consulted. Planning for cystoscopy and right ureteral stent placement tomorrow afternoon. N.p.o. at midnight. Pain control with IV Toradol as needed, tramadol as needed. Zofran and Compazine as needed for nausea. Okay for p.o. intake for now, can consider maintenance IV fluids if patient's p.o. intake is very poor. 2. Mild leukocytosis ? WBC count 11.2 on admit. Suspect secondary to acute stress reaction in setting of nephrolithiasis noted above. Follow-up a.m. CBC. 3. History of recurrent nephrolithiasis ? Follows outpatient with Dr. Orta with urology. Last kidney stone was in 02/2022, had left kidney stone at that time that was 1.1 cm and required cystoscopy with left stent placement and extracorporeal shockwave lithotripsy. Stent has since been removed without issue. Chronic medical conditions: ? Hypertension: Holding home amlodipine, lisinopril and hydrochlorothiazide given mild hypotension on admission and was planned for procedure tomorrow. Will plan to restart postoperatively as able. ? Hyperlipidemia: Continue home rosuvastatin. ? Depression: Continue home sertraline. DVT prophylaxis: Lovenox CODE STATUS: Full code, verified Expected disposition: Home, 2 to 3 days Total clinical time spent by myself addressing the patient's medical issues, reviewing all the data, and collaborating with patient's care team: 55 minutes. Charges/Coding Visit Charges Inpatient E&M: 50621 Init Hosp L2 02/26/23 1526 <Electronically signed by Roberth Allison DO> Cosigner Signature (if applicable): CC: Dr. Roberth Allison DO; Dr. Mando Nichole MD~ Signed [facility] Work Phone: 1([phone]) 482-621112-14-2023 Consult note Author Homar Orta [facility] February 26, 2023 1:46pm Note Date/Time February 26, 2023 1:46pm [facility] Medical Records Department [address] [place] [address] Consultation - Urology 02/26/23 1344 MR#: [id number] Acct: [id number] Name: TAMMI TOLEDO Rep #:[id number] : 1950 72 From: Homar Orta MD PCP: Dr. Mando Nichole MD Status:AD M IN [id number] Assessment & Plan Assessment/Plan (1) Renal colic on right side: PLAN: npo at midnight plan for right stent placement at [facility] for stone. (2) Right ureteral calculus: HPI Consult Data Date of Consult: 02/26/23 HPI Narrative Reason for Consultation: right kidney stone HPI Narrative: TAMMI TOLEDO, is a 72 F who presents female admitted to hospital has a large stone in right UPJ plan do do a cysto and right stent placement for stone tomorrow. [facility] Medical History Depression High cholesterol Hypertension Left ureteral calculus Multinodular goiter Nephrolithiasis Osteoarthritis Post-menopausal Skin cancer of forehead Home Medications amlodipine 10 mg tablet 10 mg PO QHS blood pressure 06/07/13 [History Last Taken 12/09/17 09:00 Y] multivitamin,gd-ulks-bvozuncg 27 mg-0.4 mg tablet 1 tab PO DAILY supplement 06/07/13 [History Last Taken 06/07/13] sertraline 50 mg tablet 50 mg PO DAILY mood 06/07/13 [History Last Taken 06/07/13] lisinopril 10 mg-hydrochlorothiazide 12.5 mg tablet 0.5 tab PO QHS blood pressure 01/11/19 [History Last Taken Unknown] calcium carbonate 500 mg calcium (1,250 mg) tablet (Calcium 500) 1,200 mg PO BIDsupplement 07/27/19 [History Last Taken Unknown] ciprofloxacin HCl 500 mg tablet (Cipro) 500 mg PO BID #10 tabs 02/14/22 [Rx Last Taken Unknown] lactobacillus combination no.4 3 billion cell capsule (Probiotic) 3,000 mmu cells PO DAILY supplement 02/14/22 [History Last Taken Unknown] latanoprost 0.005 % eye drops 1 drp EACH EYE QHS glaucoma 02/14/22 [History Last Taken Unknown] oxycodone-acetaminophen 5 mg-325 mg tablet 1 tab PO Q6H PRN pain 7 days #20 tabs104/17/21 [Rx Last Taken Unknown] rosuvastatin 10 mg tablet 10 mg PO QHS cholesterol 02/14/22 [History Last Taken Unknown] Allergy/AdvReac Type Severity Reaction Status Date / Time Penicillins Allergy Swelling Verified 02/26/23 05:52 Family History Father Diabetes Heart disease Mother Breast cancer Surgical History History of blepharoplasty History of History of knee replacement History of laparoscopic cholecystectomy History of lithotripsy History of Mohs micrographic surgery for skin cancer Social History Smoking Status: Never smoker alcohol intake: current substance use type: does not use Physical Exam Const alert and oriented x3 General Appearance: cooperative HEENT normocephalic, head/scalp atraumatic, EAC's normal and TM's normal bilaterally Eyes PERRL and EOMs intact bilaterally Pupil: sluggish Neck no lymphadenopathy, supple and no JVD General: trachea midline Lymph Lymphatic: no lymphadenopathy noted, lymphedema and lymphadenopathy Resp normal respiratory effort, normal air movement and clear to auscultation bilaterally Cardio regular rate, regular rhythm and peripheral pulses 2+ throughout GI soft to palpation, non-tender and non-distended Extremity normal capillary refill and no clubbing, cyanosis or edema General Extremity: no tenderness to palpation of joints or extremities Skin no rashes or lesions noted General Skin Exam: turgor normal Lesions: no lesions Rashes: no rashes Neuro CN's II-XII intact bilaterally Speech: speech normal Motor Exam: strength 5/5 throughout; Negative for general weakness Psych thought process normal, cooperative and affect normal Appearance: appropriate Medical Records Data Attestation: I reviewed the patient's medical records Lab / Micro Data 02/26/23 06:05 02/26/23 06:05 Labs: Laboratory Results - last 24 hr 02/26/23 06:05: WBC 11.2 H, RBC 4.77, Hgb 14.0, Hct 42.6, MCV 89.3, MCH 29.4, MCHC 32.9, RDW Std Deviation 41.7, RDW Coeff of Alphonso 12.7, Plt Count 195, MPV 10.2, Immature Gran % (Auto) 0.300, Neut % (Auto) 61.2, Lymph % (Auto) 31.9, Butts % (Auto) 4.8, Eos % (Auto) 1.3, Baso % (Auto) 0.5, Absolute Neuts (auto) 6.8, Absolute Lymphs (auto) 3.56, Nucleated RBC % 0, Sodium 143, Potassium 3.5, Chloride 108 H, Carbon Dioxide 29.0, Anion Gap 6, BUN 23 H, Creatinine 1.11 H, Estim Creat Clear Calc 43.24, Est GFR (MDRD) Af Amer 62, Est GFR (MDRD) Non-Af 51 L, BUN/Creatinine Ratio 20.7 H, Glucose 128 H, Calcium 9.6, Total Bilirubin 0.40, Direct Bilirubin 0.13, AST 23, ALT 26, Alkaline Phosphatase 78, Troponin IHigh Sens 10, Total Protein 6.8, Albumin 3.9, Globulin 2.9 02/26/23 07:20: Urine Color Yellow, Urine Clarity Clear, Urine pH 6.0, Ur Specific Mather 1.025, Urine Protein 15 H, Urine Glucose (UA) Normal, Urine Ketones Negative, Urine Occult Blood 150 H, Urine Nitrite Negative, Urine Bilirubin Negative, Urine Urobilinogen Normal, Ur Leukocyte Esterase 25 H, UrineRBC 10-25 SEEN, Urine WBC 0-5 SEEN, Ur Squamous Epith Cells 0-5 SEEN, Urine Bacteria RARE, Urine Mucus 0 SEEN 02/26/23 09:01: Troponin I High Sens 8 Rhythm Strip Rhythm Strip: Sinus Rhythm Rate: 55 Ectopy: None Imagaing Radiology Impression Abdomen/Pelvis CT 02/26/23 06:15 IMPRESSION: 1. There is a large, 1.1 cm stone in the right ureteropelvic junction causing moderate obstructive changes. 2. Small nonobstructing stones in the kidneys bilaterally. Electronically Signed: Anthony Monk MD at 7:08 EST , 02/26/23 1346 <Electronically signed by Homar Orta MD> Cosigner Signature (if applicable): CC: Dr. Mando Nichole MD; Dr. Homar Orta MD~ Signed [facility] Work Phone: 1(521) 287-754012-14-2023 Discharge summary Author Lina Berman [facility] February 26, 2023 9:36am Note Date/Time February 26, 2023 6:23am [facility] Medical Records Department [address] [place] [address] Emergency Department Summary 02/26/23 MR#: [id number] Acct: [id number] Name: TAMMI TOLEDO Rep #:[id number] : 1950 72 From: Lina Green PCP: Dr. Mando Nichole MD Status:AD M IN Location: [place] [id number] HPI History of Present Illness Chief Complaint: Flank Pain Informant: patient Narrative Narrative: Patient is a 72-year-old female with history of kidney stones, follows with Dr. Orta, presenting with sudden onset of right flank pain. Patient states it woke her up from sleep around 2 AM. The pain radiates to her back. Initially she thought she had a stomach ache but the pain is worsened. Initially she tookImodium thinking maybe that was what was causing her issues. She has some nausea but no vomiting. Denies any diarrhea. Denies any dysuria or hematuria. Notes that her urination flow has seemed off since the symptoms started at 2 AM. This does feel like her prior kidney stones. No other abdominal pain, chest pain, shortness of breath or any other complaints at this time. Was in her normal state of health when she went to bed last night. Did not take any other [id number]-[id number] medications including Tylenol ibuprofen prior to arrival. States she has required instrumentation in the past for kidney stones. States her last kidney stone was a couple years ago. [facility] Medical History Depression High cholesterol Hypertension Left ureteral calculus Multinodular goiter Nephrolithiasis Osteoarthritis Post-menopausal Skin cancer of forehead Home Medications amlodipine 10 mg tablet 10 mg PO QHS blood pressure 06/07/13 [History Last Taken 12/09/17 09:00 Y] multivitamin,zv-pynf-uxagcoir 27 mg-0.4 mg tablet 1 tab PO DAILY supplement 06/07/13 [History Last Taken 06/07/13] sertraline 50 mg tablet 50 mg PO DAILY mood 06/07/13 [History Last Taken 06/07/13] lisinopril 10 mg-hydrochlorothiazide 12.5 mg tablet 0.5 tab PO QHS blood pressure 01/11/19 [History Last Taken Unknown] calcium carbonate 500 mg calcium (1,250 mg) tablet (Calcium 500) 1,200 mg PO BIDsupplement 07/27/19 [History Last Taken Unknown] ciprofloxacin HCl 500 mg tablet (Cipro) 500 mg PO BID #10 tabs 02/14/22 [Rx Last Taken Unknown] lactobacillus combination no.4 3 billion cell capsule (Probiotic) 3,000 mmu cells PO DAILY supplement 02/14/22 [History Last Taken Unknown] latanoprost 0.005 % eye drops 1 drp EACH EYE QHS glaucoma 02/14/22 [History Last Taken Unknown] oxycodone-acetaminophen 5 mg-325 mg tablet 1 tab PO Q6H PRN pain 7 days #20 tabs104/17/21 [Rx Last Taken Unknown] rosuvastatin 10 mg tablet 10 mg PO QHS cholesterol 02/14/22 [History Last Taken Unknown] Allergy/AdvReac Type Severity Reaction Status Date / Time Penicillins Allergy Swelling Verified 02/26/23 05:52 Family History Father Diabetes Heart disease Mother Breast cancer Surgical History History of blepharoplasty History of History of knee replacement History of laparoscopic cholecystectomy History of lithotripsy History of Mohs micrographic surgery for skin cancer Social History Smoking Status: Never smoker alcohol intake: current substance use type: does not use ROS ROS ED Constitutional Constitutional ED: Denies chills or fever(s) Cardiovascular Cardiovascular: Denies chest pain Respiratory/Chest Respiratory/Chest: Denies cough Gastrointestinal Gastrointestinal: Reports abdominal pain and nausea; Denies constipation, diarrhea or vomiting Genitourinary Genitourinary ED: Denies dysuria, hematuria or urinary frequency Musculoskeletal Musculoskeletal: Reports back pain; Denies arthralgias or myalgias Integumentary Denies rash Neurologic Neurologic: Denies headache(s) Hematologic/Lymphatic Hematologic/Lymphatic: Denies easy bleeding or easy bruising EXAM Physical Exam Const Vital Signs: 02/26/23 05:49 02/26/23 08:14 02/26/23 08:20 Temperature 96.5 F L Temperature Source Temporal Pulse Rate 68 51 L Respiratory Rate 16 12 Blood Pressure 164/66 H 96/58 L Blood Pressure Mean 98 70 Pulse Ox 98 97 75 Oxygen Delivery Method Room Air Room Air Room Air Oxygen Flow Rate (L/min) 02/26/23 08:25 Temperature Temperature Source Pulse Rate Respiratory Rate Blood Pressure Blood Pressure Mean Pulse Ox 97 Oxygen Delivery Method Nasal Cannula Oxygen Flow Rate (L/min) 2 Positive well nourished and well developed General Appearance ED: well developed and NAD HEENT Reports moist mucous membranes Eyes PERRL and EOMs intact bilaterally Neck supple Chest Wall inspection of chest normal and palpation of chest normal Resp normal respiratory effort and clear to auscultation bilaterally Cardio regular rate and regular rhythm GI normal to inspection, nondistended, normoactive bowel sounds and non-tender GI Narrative: Negative Chaudhry sign Palpation: Negative for guarding Back/Spine no CVA tenderness Back/Spine Narrative: Points to her right flank as area of pain however it is not reproducible on palpation Thoracic Spine / Upper Back: Negative for thoracic spinal tenderness or paraspinal muscle tenderness Extremity normal to inspection General Extremety ED: Negative for edema General Extremity: Negative for edema Neuro oriented x3 Sensorium / Orientation: alert Motor Exam: Negative for general weakness Psych mental status grossly normal Skin no rashes or lesions noted and no wounds MDM MDM MDM Narrative Medical decision making narrative: Evaluate for sudden onset of right flank pain. Given her history high suspicionfor renal colic as a cause of her pain. Will obtain CT of the abdomen pelvis tofurther evaluate as well as CBC, BMP, liver panel and urinalysis. Patient is given IV morphine and Zofran as well as IV fluids for symptom control. CT reviewed by myself is consistent with a large obstructing proximal kidney stone. Radiologist read agreed shows a 1.1 cm stone at the right UPJ causing moderate obstructive changes. Patient does notify nursing staff that she is developing chest pain. She states it is on the left side of her chest. Does not radiate. Has not had chest pain like this before. EKG is obtained which shows sinus bradycardia no acute ischemic changes. Will add on a cardiac workupas well. Patient is then ordered fentanyl and Zofran. Her blood pressure is now soft at 96/58. She states she does not feel lightheaded. She notes her blood pressures normally 120s. Patient reevaluated and chest pain is resolved. Delta high-sensitivity troponinis pending. Case discussed with Dr. Orta who is amenable for taking the patient for surgical management of the kidney stone tomorrow afternoon. Given her chest pain as well as age will admit to the medicine service. Amenable to this plan of care. Case discussed with hospitalist, Dr. Allison. Lab Data Attestation: I reviewed the patient's lab results. Labs: Laboratory Results - last 24 hr 02/26/23 02/26/23 06:05 07:20 WBC 11.2 H RBC 4.77 Hgb 14.0 Hct 42.6 MCV 89.3 MCH 29.4 MCHC 32.9 RDW Std Deviation 41.7 RDW Coeff of Alphonso 12.7 Plt Count 195 MPV 10.2 Immature Gran % (Auto) 0.300 Neut % (Auto) 61.2 Lymph % (Auto) 31.9 Butts % (Auto) 4.8 Eos % (Auto) 1.3 Baso % (Auto) 0.5 Absolute Neuts (auto) 6.8 Absolute Lymphs (auto) 3.56 Nucleated RBC % 0 Sodium 143 Potassium 3.5 Chloride 108 H Carbon Dioxide 29.0 Anion Gap 6 BUN 23 H Creatinine 1.11 H Estim Creat Clear Calc 43.24 Est GFR (MDRD) Af Amer 62 Est GFR (MDRD) Non-Af 51 L BUN/Creatinine Ratio 20.7 H Glucose 128 H Calcium 9.6 Total Bilirubin 0.40 Direct Bilirubin 0.13 AST 23 ALT 26 Alkaline Phosphatase 78 Troponin I High Sens 10 Total Protein 6.8 Albumin 3.9 Globulin 2.9 Urine Color Yellow Urine Clarity Clear Urine pH 6.0 Ur Specific Mather 1.025 Urine Protein 15 H Urine Glucose (UA) Normal Urine Ketones Negative Urine Occult Blood 150 H Urine Nitrite Negative Urine Bilirubin Negative Urine Urobilinogen Normal Ur Leukocyte Esterase 25 H Urine RBC 10-25 SEEN Urine WBC 0-5 SEEN Ur Squamous Epith Cells 0-5 SEEN Urine Bacteria RARE Urine Mucus 0 SEEN Radiography Diagnostic Testing: Clinical Impression(s) from Imaging Studies Abdomen/Pelvis CT 02/26/23 06:15 IMPRESSION: 1. There is a large, 1.1 cm stone in the right ureteropelvic junction causing moderate obstructive changes. 2. Small nonobstructing stones in the kidneys bilaterally. Electronically Signed: Anthony Monk MD at 7:08 EST , Rhythm Strip Rhythm Strip: Sinus Rhythm Rate: 55 Ectopy: None EKG Initial EKG: Attestation: I personally reviewed and interpreted this EKG as follows: Interpretation: Sinus Bradycardia Comments: Sinus bradycardia at a rate of 55 bpm Left axis deviation Incomplete right bundle tash block Normal ST segments Prior EKG tracings: available for review Prior: Unchanged Management Discussion w/another healthcare provider: Hospitalist and Alarm Installation Technician Discharge Plan Dx/Rx/DC Orders Clinical Impression: Right ureteral calculus, Chest pain, Renal colic on right side Disposition Disposition: Acute Care Hospital [facility] Discharge Date/Time: 02/26/23 09:29 What to do if you have Problems For any increased pain, shortness of breath, bleeding, nausea or vomiting, chestpain, or any unexpected problems, contact your Primary Care Provider. Call [facility] ([phone]) or report to the closest Emergency Room. Call 911 if necessary. 02/26/23 0936 <Electronically signed by Lina Berman DO> Cosigner Signature (if applicable): CC: Dr. Mando Nichole MD ~ Signed [facility] Work Phone: [phone]) 321-337712-14-2023 Discharge summary Author Lina [facility] February 26, 2023 9:36am Note Date/Time February 26, 2023 6:23am [facility] Medical Records Department [address] [place] [id number] Emergency Department Summary 02/26/23 MR#: [id number] Acct: [id number] Name: TAMMI TOLEDO Rep #:[id number] : 1950 72 From: Lina Green PCP: Dr. Mando Nichole MD Status:AD M IN Location: [place] [address] HPI History of Present Illness Chief Complaint: Flank Pain Informant: patient Narrative Narrative: Patient is a 72-year-old female with history of kidney stones, follows with Dr. Orta, presenting with sudden onset of right flank pain. Patient states it woke her up from sleep around 2 AM. The pain radiates to her back. Initially she thought she had a stomach ache but the pain is worsened. Initially she tookImodium thinking maybe that was what was causing her issues. She has some nausea but no vomiting. Denies any diarrhea. Denies any dysuria or hematuria. Notes that her urination flow has seemed off since the symptoms started at 2 AM. This does feel like her prior kidney stones. No other abdominal pain, chest pain, shortness of breath or any other complaints at this time. Was in her normal state of health when she went to bed last night. Did not take any other fnxn-jhg-pmsiwma medications including Tylenol ibuprofen prior to arrival. States she has required instrumentation in the past for kidney stones. States her last kidney stone was a couple years ago. [facility] Medical History Depression High cholesterol Hypertension Left ureteral calculus Multinodular goiter Nephrolithiasis Osteoarthritis Post-menopausal Skin cancer of forehead Home Medications amlodipine 10 mg tablet 10 mg PO QHS blood pressure 06/07/13 [History Last Taken 12/09/17 09:00 Y] multivitamin,yq-tnub-zxvtjfjw 27 mg-0.4 mg tablet 1 tab PO DAILY supplement 06/07/13 [History Last Taken 06/07/13] sertraline 50 mg tablet 50 mg PO DAILY mood 06/07/13 [History Last Taken 06/07/13] lisinopril 10 mg-hydrochlorothiazide 12.5 mg tablet 0.5 tab PO QHS blood pressure 01/11/19 [History Last Taken Unknown] calcium carbonate 500 mg calcium (1,250 mg) tablet (Calcium 500) 1,200 mg PO BIDsupplement 07/27/19 [History Last Taken Unknown] ciprofloxacin HCl 500 mg tablet (Cipro) 500 mg PO BID #10 tabs 02/14/22 [Rx Last Taken Unknown] lactobacillus combination no.4 3 billion cell capsule (Probiotic) 3,000 mmu cells PO DAILY supplement 02/14/22 [History Last Taken Unknown] latanoprost 0.005 % eye drops 1 drp EACH EYE QHS glaucoma 02/14/22 [History Last Taken Unknown] oxycodone-acetaminophen 5 mg-325 mg tablet 1 tab PO Q6H PRN pain 7 days #20 tabs104/17/21 [Rx Last Taken Unknown] rosuvastatin 10 mg tablet 10 mg PO QHS cholesterol 02/14/22 [History Last Taken Unknown] Allergy/AdvReac Type Severity Reaction Status Date / Time Penicillins Allergy Swelling Verified 02/26/23 05:52 Family History Father Diabetes Heart disease Mother Breast cancer Surgical History History of blepharoplasty History of History of knee replacement History of laparoscopic cholecystectomy History of lithotripsy History of Mohs micrographic surgery for skin cancer Social History Smoking Status: Never smoker alcohol intake: current substance use type: does not use ROS ROS ED Constitutional Constitutional ED: Denies chills or fever(s) Cardiovascular Cardiovascular: Denies chest pain Respiratory/Chest Respiratory/Chest: Denies cough Gastrointestinal Gastrointestinal: Reports abdominal pain and nausea; Denies constipation, diarrhea or vomiting Genitourinary Genitourinary ED: Denies dysuria, hematuria or urinary frequency Musculoskeletal Musculoskeletal: Reports back pain; Denies arthralgias or myalgias Integumentary Denies rash Neurologic Neurologic: Denies headache(s) Hematologic/Lymphatic Hematologic/Lymphatic: Denies easy bleeding or easy bruising EXAM Physical Exam Const Vital Signs: 02/26/23 05:49 02/26/23 08:14 02/26/23 08:20 Temperature 96.5 F L Temperature Source Temporal Pulse Rate 68 51 L Respiratory Rate 16 12 Blood Pressure 164/66 H 96/58 L Blood Pressure Mean 98 70 Pulse Ox 98 97 75 Oxygen Delivery Method Room Air Room Air Room Air Oxygen Flow Rate (L/min) 02/26/23 08:25 Temperature Temperature Source Pulse Rate Respiratory Rate Blood Pressure Blood Pressure Mean Pulse Ox 97 Oxygen Delivery Method Nasal Cannula Oxygen Flow Rate (L/min) 2 Positive well nourished and well developed General Appearance ED: well developed and NAD HEENT Reports moist mucous membranes Eyes PERRL and EOMs intact bilaterally Neck supple Chest Wall inspection of chest normal and palpation of chest normal Resp normal respiratory effort and clear to auscultation bilaterally Cardio regular rate and regular rhythm GI normal to inspection, nondistended, normoactive bowel sounds and non-tender GI Narrative: Negative Chaudhry sign Palpation: Negative for guarding Back/Spine no CVA tenderness Back/Spine Narrative: Points to her right flank as area of pain however it is not reproducible on palpation Thoracic Spine / Upper Back: Negative for thoracic spinal tenderness or paraspinal muscle tenderness Extremity normal to inspection General Extremety ED: Negative for edema General Extremity: Negative for edema Neuro oriented x3 Sensorium / Orientation: alert Motor Exam: Negative for general weakness Psych mental status grossly normal Skin no rashes or lesions noted and no wounds MDM MDM MDM Narrative Medical decision making narrative: Evaluate for sudden onset of right flank pain. Given her history high suspicionfor renal colic as a cause of her pain. Will obtain CT of the abdomen pelvis tofurther evaluate as well as CBC, BMP, liver panel and urinalysis. Patient is given IV morphine and Zofran as well as IV fluids for symptom control. CT reviewed by myself is consistent with a large obstructing proximal kidney stone. Radiologist read agreed shows a 1.1 cm stone at the right UPJ causing moderate obstructive changes. Patient does notify nursing staff that she is developing chest pain. She states it is on the left side of her chest. Does not radiate. Has not had chest pain like this before. EKG is obtained which shows sinus bradycardia no acute ischemic changes. Will add on a cardiac workupas well. Patient is then ordered fentanyl and Zofran. Her blood pressure is now soft at 96/58. She states she does not feel lightheaded. She notes her blood pressures normally 120s. Patient reevaluated and chest pain is resolved. Delta high-sensitivity troponinis pending. Case discussed with Dr. Orta who is amenable for taking the patient for surgical management of the kidney stone tomorrow afternoon. Given her chest pain as well as age will admit to the medicine service. Amenable to this plan of care. Case discussed with hospitalist, Dr. Allison. Lab Data Attestation: I reviewed the patient's lab results. Labs: Laboratory Results - last 24 hr 02/26/23 02/26/23 06:05 07:20 WBC 11.2 H RBC 4.77 Hgb 14.0 Hct 42.6 MCV 89.3 MCH 29.4 MCHC 32.9 RDW Std Deviation 41.7 RDW Coeff of Alphonso 12.7 Plt Count 195 MPV 10.2 Immature Gran % (Auto) 0.300 Neut % (Auto) 61.2 Lymph % (Auto) 31.9 Butts % (Auto) 4.8 Eos % (Auto) 1.3 Baso % (Auto) 0.5 Absolute Neuts (auto) 6.8 Absolute Lymphs (auto) 3.56 Nucleated RBC % 0 Sodium 143 Potassium 3.5 Chloride 108 H Carbon Dioxide 29.0 Anion Gap 6 BUN 23 H Creatinine 1.11 H Estim Creat Clear Calc 43.24 Est GFR (MDRD) Af Amer 62 Est GFR (MDRD) Non-Af 51 L BUN/Creatinine Ratio 20.7 H Glucose 128 H Calcium 9.6 Total Bilirubin 0.40 Direct Bilirubin 0.13 AST 23 ALT 26 Alkaline Phosphatase 78 Troponin I High Sens 10 Total Protein 6.8 Albumin 3.9 Globulin 2.9 Urine Color Yellow Urine Clarity Clear Urine pH 6.0 Ur Specific Mather 1.025 Urine Protein 15 H Urine Glucose (UA) Normal Urine Ketones Negative Urine Occult Blood 150 H Urine Nitrite Negative Urine Bilirubin Negative Urine Urobilinogen Normal Ur Leukocyte Esterase 25 H Urine RBC 10-25 SEEN Urine WBC 0-5 SEEN Ur Squamous Epith Cells 0-5 SEEN Urine Bacteria RARE Urine Mucus 0 SEEN Radiography Diagnostic Testing: Clinical Impression(s) from Imaging Studies Abdomen/Pelvis CT 02/26/23 06:15 IMPRESSION: 1. There is a large, 1.1 cm stone in the right ureteropelvic junction causing moderate obstructive changes. 2. Small nonobstructing stones in the kidneys bilaterally. Electronically Signed: Anthony Monk MD at 7:08 EST , Rhythm Strip Rhythm Strip: Sinus Rhythm Rate: 55 Ectopy: None EKG Initial EKG: Attestation: I personally reviewed and interpreted this EKG as follows: Interpretation: Sinus Bradycardia Comments: Sinus bradycardia at a rate of 55 bpm Left axis deviation Incomplete right bundle tash block Normal ST segments Prior EKG tracings: available for review Prior: Unchanged Management Discussion w/another healthcare provider: Hospitalist and Alarm Installation Technician Discharge Plan Dx/Rx/DC Orders Clinical Impression: Right ureteral calculus, Chest pain, Renal colic on right side Disposition Disposition: Acute Care Hospital [facility] Discharge Date/Time: 02/26/23 09:29 What to do if you have Problems For any increased pain, shortness of breath, bleeding, nausea or vomiting, chestpain, or any unexpected problems, contact your Primary Care Provider. Call [employer] ([phone]) or report to the closest Emergency Room. Call 911 if necessary. 02/26/23 0936 <Electronically signed by Lina Berman DO> Cosigner Signature (if applicable): CC: Dr. Mando Nichole MD ~ Signed [facility] Work Phone: [phone] 447-773002-07-2023 Miscellaneous Notes* Telephone Encounter - Marisela Grider LPN - 04/22/2022 9:21 AM EST Patient notified of results and provider's instructions. Patient verbalizes understanding. Marisela Grider LPN * Telephone Encounter - Rani Alvarado - 04/21/2022 7:45 PM EST Please call patient to inform her that her xrays do not show any acute findings Would continue with boot until pain resolves and then can use powerstep insert Rani Alvarado DPM documented [facility]23 NoteHNO ID: [id number] Author: Corazon Decker RN Service: ? Author Type: Registered Nurse Type: Progress Notes Filed: 04/16/2022 7:05 PM Note Text: Per Dr. Alvarado, Tammi was provided with airselect short boot, size Large, and instructed/educated in its application, wear, and care. All questions were answered, and patient was able to demonstrate competence with the necessary skills to utilize the above equipment. Patient signed DJO Patient agreement. [employer] to bill patient's insurance for product. Corazon Decker [facility] NoteHNO ID: [id number] Author: RT Gertrudis(R) Service: ? Author Type: Technologist Type: Progress Notes Filed: 04/16/2022 4:14 PM Note Text: Radiology Service Progress Note PATIENT NAME: Tammi Toledo DATE OF SERVICE: April 16, 2022 TIME: [...] BY: RT Gertrudis(R) April 16, 2022 4:14 [facility]02-01-2023 NoteHNO ID: [id number] Author: Rani Alvarado Service: ? Author Type: Physician Type: Progress [...] Duration Units: Months Frequency: Intermittent Intervention/Comfort measure: Reposition;Relaxation;Medication;Cold No results found for: HBA1C PCP: Mando [...] callosities present. Musculoskeletal/Orthopaedic: P (more content not included)...[facility]02-01-2023 NoteHNO ID: [id number] Author: Marisela Grider LPN Service: ? Author [...] Right Foot - New, Pain Marisela Grider [facility]02-01-2023 History of Present illness Narrative* Corazon Decker RN - 04/16/2022 3:[address] Alvarado, Tammi was provided with airselect short boot, size Large, and instructed/educatedin its application, wear, and care. All questions were answered, and patient was able to demonstrate competence with the necessary skills to utilize the above equipment. Patient signed DJO Patient agreement. [employer] to bill patient's insurance for product. Corazon Decker RN * Rani Alvarado - 04/16/2022 2:45 PM EST Initial Podiatric Office Visit: Chief Complaint: This [...] Duration Units: Months Frequency: Intermittent Intervention/Comfort measure: Reposition;Relaxation;Medication;Cold No results found for: HBA1C PCP: Mando [...] by mouth as needed. (Patient not taking: Reportedon 04/16/2022) potassium chloride(KLOR-CON M20 20 MEQ TAB) Take one(1) tablet daily. (Patient not taking: Reportedon 04/16/2022) ATIVAN 1 MG TAB Take one(1) [...] ordered 5. F/u in 3 weeks Rani Alvarado DPM Podiatry [address] [facility] [address] Dept: [phone] Dept * Marisela Grider LPN - 04/16/2022 2:30 PM EST AMB ROOMING INTAKE FLOWSHEET DATA Risk Screening Do you have concerns about personal safety or safety in the home?: No Pain Pain Level: 7 Pain Location: Foot-Right Description: Sharp, Aching Duration Amount of Time: 1 Duration Units: Months Frequency: Intermittent Intervention/Comfort measure: Reposition, Relaxation, Medication, Cold Patient presents with: Right Foot - New, Pain Marisela Grider LPN documented in this encounterK[facility]-2023 History of Present illness Narrative* Carol Ann Barlow RT(R) - 04/16/2022 3:30 PM EST Radiology Service Progress Note PATIENT NAME: Tammi Toledo DATE OF SERVICE: April 16, 2022 TIME: 4:14 PM PATIENT IDENTITY VERIFICATION COMPLETED USING TWO (2) IDENTIFIERS: Name and Date of confirmedby patient verbally. FALL SCREENING: Has the patient had 2 falls in the last year or 1 fall with injury or currently using an Ambulatory Assistive Device (Walker, Cane, Wheelchair, Crutches, etc.)? No PATIENT GENDER DATA: Female. status: : No status: NO. PATIENT RELEVANT IMPLANT DATA REVIEWED: Not Applicable RADIOLOGY DEPARTMENT: General X-ray: Exam(s) Completed: Lower Extremity X- Ray(s): Foot, Right and Wt. Bearing PERIPHERAL IV DATA: Not applicable SIGNED BY: RT Gertrudis(R) April 16, 2022 4:14 PM documented in this encounterK[facility]02-01-2023 Instructions* Patient Instructions* Rani Alvarado - 04/16/2022 2:57 PM EST Recommend boot immobilization for 2-3 weeks or until pain is resolved One pain is resolved, return to powerstep insert Ice foot and ankle x10 minutes twice daily. Use of cold water bath tub would suffice. Take oral steroid as prescribed If you develop any shortness of breath or calf pain, present to the hospital ER. Rani Alvarado DPM documented in this encounterK[facility]07-19-2019 History of Past illness Narrative* Problem Noted Date Resolved Date Dermatochalasis of both upper eyelids 10/01/2018 10/01/2018 documented as of this encounter (statuses as of 04/17/2022) [facility] of Past illness Narrative* Problem Noted Date Resolved Date Dermatochalasis of both upper eyelids 10/01/2018 10/01/2018 documented as of this encounter (statuses as of 04/22/2022) [facility] History of Past illness Narrative* Problem Noted Date Diagnosed Date Resolved Date Dermatochalasis of both upper eyelids 10/01/2018 10/01/2018 documented as of this encounter (statuses as of 01/17/2023) [facility] Author Roberth Allison [facility] February 27, 2023 7:14pm Note Date/Time February 27, 2023 7:11pm [facility] Medical Records Department [address] [place] [id number] Instructions for Home/Discharge Instructions 02/27/231909 MR#: [id number] Acct: [id number] Name: TAMMI TOLEDO Rep #:[id number] 1 : 1950 72 From: Roberth Gardner akila DO PCP: Dr. Mando Nichole MD Status:AD M IN Discharge Instructions Diet Discharge Diet: No restrictions Activity Discharge Activity: Return to Normal Activity Dressing / Incision Call your doctor if you observe: Fever of 101 or Higher Follow Up Care Please Follow Up With: Homar Orta MD Test Results: Test results from this visit will be discussed in further detail at your follow- up appointment, if applicable. Discharge Plan Admission Admit Date/Time: 02/26/23 08:48 Primary Reason for Your Visit: kidney stone Attending Provider: Roberth Allison Primary Care Provider: Mando Nichole Consulting Providers: Homar Orta Instructions Additional Instructions / Restrictions: Take new medications as noted below. Discharge Orders/Prescriptions Prescriptions: New tamsulosin [Flomax] 0.4 mg capsule 0.4 mg PO DAILY Qty: 10 0RF phenazopyridine [Pyridium] 100 mg tablet 100 mg PO TID Qty: 15 0RF No Action calcium carbonate [Calcium 500] 500 mg calcium (1,250 mg) tablet 1,200 mg PO BID amlodipine 10 MG tablet 10 mg PO QHS Patient Comments: blood pressure sertraline 50 MG tablet 50 mg PO DAILY Patient Comments: depression multivitamin,as-ybmg-wbbqrsgq 1 TABLET tablet 1 tab PO DAILY Patient Comments: vitamin lisinopril-hydrochlorothiazide 10-12.5 mg tablet 0.5 tab PO QHS Patient Comments: blood pressure latanoprost 0.005 % drops 1 drp EACH EYE QHS Patient Comments: instill 1 drop into both eyes at bedtime rosuvastatin 10 mg tablet 10 mg PO QHS Probiotic 3 billion cell Capsule 3,000 mmu cells PO DAILY Rx Instructions: administer with a meal ciprofloxacin HCl [Cipro] 500 mg tablet 500 mg PO BID Qty: 10 0RF oxycodone-acetaminophen 5-325 mg tablet 1 tab PO Q6H PRN (Reason: pain) 7 Days Qty: 20 0RF lisinopril 20 mg tablet 20 mg PO BID Vitamin D 1000unit 1,000 units 1,000 unit PO DAILY calcium carbonate [Calcium 600] 600 mg calcium (1,500 mg) tablet 600 mg PO DAILY Referrals / Follow Up: Mando Nichole MD [Primary Care Provider] - Disposition Disposition (needs filled in before D/C Order can be placed): Home, Self Care 02/27/231913<Electronically signed by Roberth Allison DO>Roberth Allison DO CC: Dr. Mando Nichole MD; Dr. Homar Orta MD ~ Signed [facility] Work Phone: Discharge summary Author Roberth Allison [facility] February 27, 2023 7:25pm Note Date/Time February 27, 2023 7:15pm [facility] Medical Records Department [address] [place] [address] Discharge Summary 02/27/231914 MR#: [id number] Acct: [id number] Name: TAMMI TOLEDO Rep #:[id number] 4 : 1950 72 From: Roberth Kendra sanon DO PCP: Dr. Mando Nichole MD Status:AD M IN Location: [place] [address] Providers Date of Admission: 02/26/23 Date of Discharge: 02/27/23 Primary Care Physician: Dr. Mando Nichole MD Consultations 02/26/23 08:46 Consult: Urology Routine Consulting Provider: Homar Orta Reason for Consult: stone EMERGENT Consult: No MD Notified: Yes Date Notified: 02/26/23 Time Notified: 08:47 Method of Notification: ED Physician Initiated Reason For Visit: NEPHROLITHIASIS Diagnosis Discharge Diagnosis (1) Right ureteral calculus: Status: Acute Code(s): N20.1 - Calculus of ureter (2) Renal colic on right side: Status: Acute Code(s): N23 - Unspecified renal colic Medications at Discharge Home Medications amlodipine 10 mg tablet 10 mg PO QHS blood pressure 06/07/13 multivitamin,qa-dtdg-ighfskge 27 mg-0.4 mg tablet 1 tab PO DAILY supplement 06/07/13 sertraline 50 mg tablet 50 mg PO DAILY mood 06/07/13 lisinopril 10 mg-hydrochlorothiazide 12.5 mg tablet 0.5 tab PO QHS blood pressure 01/11/19 calcium carbonate 500 mg calcium (1,250 mg) tablet (Calcium 500) 1,200 mg PO BIDsupplement 07/27/19 ciprofloxacin HCl 500 mg tablet (Cipro) 500 mg PO BID #10 tabs 02/14/22 lactobacillus combination no.4 3 billion cell capsule (Probiotic) 3,000 mmu cells PO DAILY supplement 02/14/22 latanoprost 0.005 % eye drops 1 drp EACH EYE QHS glaucoma 02/14/22 oxycodone-acetaminophen 5 mg-325 mg tablet 1 tab PO Q6H PRN pain 7 days #20 tabs104/17/21 rosuvastatin 10 mg tablet 10 mg PO QHS cholesterol 02/14/22 Vitamin D 1000unit 1,000 unit PO DAILY supplement 02/27/23 calcium carbonate 600 mg calcium (1,500 mg) tablet (Calcium) 600 mg PO DAILY supplement 02/27/23 lisinopril 20 mg tablet 20 mg PO BID high blood pressure 02/27/23 phenazopyridine 100 mg tablet (Pyridium) 100 mg PO TID #15 tabs 02/27/23 tamsulosin 0.4 mg capsule (Flomax) 0.4 mg PO DAILY #10 caps 02/27/23 Hospital Course Operations None Procedures - (cystoscopy, retrograde pyelogram and right ureteral stent placement; CT abdomen/pelvis) Summary of Care Provided Minutes Spent on Discharge: 25 Hospital Course: Patient is a 72-year-old female who presented to [facility] ED on 02/26/2023 with acute onset right flank pain. Short hospital course as noted below. Patient was discharged home in stable condition on 02/27. 1. Right sided nephrolithiasis with renal colic CT abdomen pelvis on admit showed a large 1.1 cm stone in the right ureteropelvic junction causing moderate obstructive changes. UA showed 150 occult blood, 15 protein, no findings concerning for UTI. Hemodynamically stable on admission. Patient had significant improvement in her pain in the ED with IV pain medication. S/p 1 L IV fluids in the ED as well. ? Urology followed. S/p cystoscopy, retrograde pyelogram and right ureteral stent placement with Dr. Orta on 02/27. Patient tolerated procedure well. Per Urology, patient okay to go home with antibiotics and their office with callto get her set up for outpatient treatment of the stone with laser lithotripsy. 2. Mild leukocytosis, resolved ? WBC count 11.2 on admit, improved to 7 on 02/27. Suspect secondary to acute stress reaction versus hemoconcentration. No need to monitor further. 3. History of recurrent nephrolithiasis ? Follows outpatient with Dr. Orta with urology. Last kidney stone was in 02/2022, had left kidney stone at that time that was 1.1 cm and required cystoscopy with left stent placement and extracorporeal shockwave lithotripsy. Stent has since been removed without issue. Chronic medical conditions: ? Hypertension: Held home BP medications on day of procedure. Okay to resume ondischarge. ? Hyperlipidemia: Continued home rosuvastatin. ? Depression: Continued home sertraline. Total clinical time spent by myself addressing the patient's discharge needs: 25minutes. Physical Exam Const alert, oriented x3, no apparent distress, healthy appearing and well nourished Constitutional Narrative: Pleasant elderly female, obese, sitting comfortably bed, conversing normally, noacute distress. General Appearance: cooperative, comfortable, well kempt and well developed HEENT normocephalic, head/scalp atraumatic, hearing grossly normal bilaterally, nasal mucous membranes and turbinates normal and moist oral mucous membranes Eyes PERRL, EOMs intact bilaterally and conjunctivae normal Neck full ROM, no lymphadenopathy and supple Lymph Lymphatic: no lymphadenopathy noted Chest inspection of chest normal Resp normal respiratory effort, normal air movement, no use of accessory muscles and clear to auscultation bilaterally Cardio regular rate, regular rhythm, no murmurs and peripheral pulses 2+ throughout GI normal to inspection, nondistended, normoactive bowel sounds, soft to palpation,non-tender and non-distended Negative for no CVA tenderness Back/Spine normal ROM Extremity normal to inspection, full ROM and no pedal edema Skin no rashes or lesions noted Neuro moves all extremities and no focal motor deficits Speech: speech normal Psych mental status grossly normal Weight / BMI Weight Weight: 95.5 kg Body Mass Index (BMI) 33.0 ABG / Lab / Microbiology Data 02/27/23 06:27 02/27/23 06:27 Laboratory: Laboratory Results - last 24 hr 02/27/23 06:27: WBC 7.2, RBC 4.24, Hgb 12.6, Hct 38.3, MCV 90.3, MCH 29.7, MCHC 32.9, RDW Std Deviation 42.5, RDW Coeff of Alphonso 12.9, Plt Count 160, MPV 10.3, Sodium 143, Potassium 4.0, Chloride 110 H, Carbon Dioxide 28.0, Anion Gap 5, BUN25 H, Creatinine 1.67 H, Estim Creat Clear Calc 28.74, Est GFR (MDRD) Af Amer 39L, Est GFR (MDRD) Non-Af 32 L, BUN/Creatinine Ratio 15.0, Glucose 102, Calcium 9.1 D/C Instructions Discharge Diet: No restrictions Call your doctor if you observe: Fever of 101 or Higher Please Follow Up With: Homar Orta MD When: Call [phone] for an appointment Meaningful Use Info Meaningful Use Diagnoses (Choose all that apply): None applicable Discharge Plan Admission Admit Date/Time: 02/26/23 08:48 Primary Reason for Your Visit: kidney stone Attending Provider: Roberth Allison Primary Care Provider: Mando Nichole Consulting Providers: Homar Orta Instructions Additional Instructions / Restrictions: Take new medications as noted below. Discharge Orders/Prescriptions Prescriptions: New tamsulosin [Flomax] 0.4 mg capsule 0.4 mg PO DAILY Qty: 10 0RF phenazopyridine [Pyridium] 100 mg tablet 100 mg PO TID Qty: 15 0RF No Action calcium carbonate [Calcium 500] 500 mg calcium (1,250 mg) tablet 1,200 mg PO BID amlodipine 10 MG tablet 10 mg PO QHS Patient Comments: blood pressure sertraline 50 MG tablet 50 mg PO DAILY Patient Comments: depression multivitamin,yz-htim-pahqeiwa 1 TABLET tablet 1 tab PO DAILY Patient Comments: vitamin lisinopril-hydrochlorothiazide 10-12.5 mg tablet 0.5 tab PO QHS Patient Comments: blood pressure latanoprost 0.005 % drops 1 drp EACH EYE QHS Patient Comments: instill 1 drop into both eyes at bedtime rosuvastatin 10 mg tablet 10 mg PO QHS Probiotic 3 billion cell Capsule 3,000 mmu cells PO DAILY Rx Instructions: administer with a meal ciprofloxacin HCl [Cipro] 500 mg tablet 500 mg PO BID Qty: 10 0RF oxycodone-acetaminophen 5-325 mg tablet 1 tab PO Q6H PRN (Reason: pain) 7 Days Qty: 20 0RF lisinopril 20 mg tablet 20 mg PO BID Vitamin D 1000unit 1,000 units 1,000 unit PO DAILY calcium carbonate [Calcium 600] 600 mg calcium (1,500 mg) tablet 600 mg PO DAILY Referrals / Follow Up: Mando Nichole MD [Primary Care Provider] - Disposition Disposition (needs filled in before D/C Order can be placed): Home, Self Care Charges/Coding Visit Charges Inpatient E&M: 39513 Disch Hosp 02/27/231924 <Electronically signed by Roberth Allison DO> Cosigner Signature (if applicable): CC: Dr. Roberth Allison DO; Dr. Mando Nichole MD~ Signed [facility] Work Phone: Evaluation noteNo assessment information available [facility] Work Phone: Evaluation note* Diagnosis Onset Date Resolution Status Hydronephrosis acute Leukocytosis acute Nephrolithiasis chronic [facility] Work Phone: Evaluation note* Diagnosis Onset Date Resolution Status Hydronephrosis acute Left renal stone acute Leukocytosis acute Nephrolithiasis chronic [facility] Work Phone: Evaluation note* Diagnosis Right foot pain- Primary Pain in limb Posterior tibial tendon dysfunction Other disorders of synovium, tendon, and bursa [facility]* Diagnosis Right foot pain Pain in limb Posterior tibial tendon dysfunction Other disorders of synovium, tendon, and bursa [facility]* Diagnosis Onset Date Resolution Status Chest pain acute Renal colic on right side ac dread Right ureteral calculus acut e [facility] Work Phone: Evaluation note* Diagnosis Onset Date Resolution Status Chest pain resolved Renal colic on right side re solved Right ureteral calculus reso lved [facility] Work Phone: Hospital Discharge instructions Additional Instructions Implant Used?: Yes [facility] Work Phone: Reason for referral (narrative)* Diagnostic Procedure Only (Routine) - Closed Specialty Diagnoses / Procedures Referred By Florencia patino Referred To Contact XR IMAGING Diagnoses Right foot pain Posterior tibial tendon dysfunction Procedures XR FOOT GENERAL 3V AP/LAT/OBL RIGHT RADEX FOOT COMPLETE MINIMUM 3 VIEWS Rani Alvarado [address] [place] [address] Xr Imaging Referral ID Status Reason Start Date Expiration Date V isits Requested Visits Authorized [id number] Closed Auto-Generate d Referral 04/16/2022 05/16/2023 1 1 [facility] for referral (narrative)* Diagnostic Procedure Only (Routine) - Closed Specialty Diagnoses / Procedures Referred By Contanni patino Referred To Contact XR IMAGING Diagnoses Right foot pain Posterior tibial tendon dysfunction Procedures XR FOOT GENERAL 3V AP/LAT/OBL RIGHT RADEX FOOT COMPLETE MINIMUM 3 VIEWS Rani Alvarado [address] [place] [address] [place] [address] Referral ID Status Reason Start Date Expiration Date V isits Requested Visits Authorized [id number] Closed Auto-Generate d Referral 04/16/2022 05/16/2023 1 1 [facility])No reason for referral information availableWKettering [facility] Work Phone: Reason for visit Narrative* Diagnostic Procedure Only (Routine) - Closed Specialty Diagnoses / Procedures Referred By Contac t Referred To Contact XR IMAGING Diagnoses Right foot pain Posterior tibial tendon dysfunction Procedures XR FOOT GENERAL 3V AP/LAT/OBL RIGHT RADEX FOOT COMPLETE MINIMUM 3 VIEWS Rani Alvarado [address] [place] [address] [place] [address] Referral ID Status Reason Start Date Expiration Date V isits Requested Visits Authorized [id number] Closed Auto-Generate d Referral 04/16/2022 05/16/2023 1 1 [facility] Summary Purpose Family History No Family History Records Found Relationship Condition Age at Onset Recorded Date/T joshua father Diabetes mellitus Unknown Cardiac disease Unknown mother Malignant neoplasm of breast Unknown Advance Directives No Advanced Directives Records Found Advance Directive Response Recorded Date/ Time Advance Directives Yes January 03, 2014 10:57am Living Will Yes December 04, 2017 2:06pm Power of Fur Cleaner Yes November 2:06pm Advance Directive Response Recorded Date/ Time Name of Medical Power of Fur Cleaner Noel Oneal February 14, 2022 12:09am Advance Directives Yes January 03, 2014 9:57am Living Will Yes February 14 12:09am Power of Fur Cleaner Yes February 14, 2022 12:09am Advance Directive Response Recorded Date/ Time Name of Medical Power of Fur Cleaner Haris Toledo February 14, 2022 4:59am Advance Directives Yes January 03, 2014 9:57am Living Will Yes February 14 4:59am Power of Fur Cleaner Yes February 14, 2022 4:59am Advance Directive Response Recorded Date/ Time Advance Directives Yes January 03, 2014 10:57am Living Will Yes February 14 5:59am Power of Fur Cleaner Yes February 14, 2022 5:59am Advance Directive Response Recorded Date/ Time Advance Directives Yes January 03, 2014 9:57am Living Will No February 26, 2 023 5:52am Power of Fur Cleaner No February 26, 2023 5:52am Advance Directive Response Recorded Date/ Time Name of Medical Power of Fur Cleaner Haris Tol[place] - February 26, 2023 10:40am Advance Directives Yes January 03, 2014 10:57am Living Will Yes February 26, 2 023 10:40am Power of Fur Cleaner Yes February 26, 2023 10:40am Advance Directive Response Recorded Date/ Time Name of Medical Power of Fur Cleaner Haris Tol[place] - February 26, 2023 9:40am Advance Directives Yes January 03, 2014 9:57am Living Will Yes February 26, 023 9:40am Power of Fur Cleaner Yes February 26, 2023 9:40am Advance Directive Response Recorded Date/ Time Advance Directives Yes January 03, 2014 10:57am Chief Complaint and Reason for Visit Chief Complaint OSTEO Chief Complaint NEPHROLITHIASIS Reason for Visit Hydronephrosis Leukocytosis Nephrolithiasis Chief Complaint NEPHROLITHIASIS Reason for Visit Hydronephrosis Left renal stone Leukocytosis Nephrolithiasis Chief Complaint EORDER- right foot p ain GROSS HEMATURIA, CALCULUS OF KIDNEY Chief Complaint EORDER- right foot p ain GROSS HEMATURIA, CALCULUS OF KIDNEY STRESS FRACTURE RIGHT FOOT Chief Complaint EORDER NEPHROLITHIASIS Reason for Visit Chest pain Renal colic on right side Right ureteral calculus Chief Complaint NEPHROLITHIASIS NEPHROLITHIASIS EORDER Reason for Visit Chest pain Renal colic on right side Right ureteral calculus Chief Complaint NEPHROLITHIASIS NEPHROLITHIASIS EORDER SINGLE THYROID NODULE Reason for Visit Chest pain Renal colic on right side Right ureteral calculus Chief Complaint EORDER NEPHROLITHIASIS NEPHROLITHIASIS Reason for Visit Chest pain Renal colic on right side Right ureteral calculus Chief Complaint Admit Date Localized swelling, mass and lump, neck July 20, 2024 7:53am Additional Source Comments INFORMATION SOURCE (unrecogn ized section and content) DATE CREATED AUTHOR 10/01/2018 [facility] DATE CREATED AUTHOR AUTHOR'S ORGANIZ ATION 04/23/2022 [facility] DATE CREATED AUTHOR AUTHOR'S ORGANIZ ATION 01/26/2025 [facility] Goals (unrecognized section and content) Goals may be documented in a n alternate sectionGoals may be documented in an alternate sectionGoals may be documented in an alternate sectionGoals may be documented in an alternate sectionGoals may be documented in an alternate sectionGoals may be documented in an alternate sectionGoals may be documented in an alternate sectionGoals may be documented in an alternate section Source Comments (unrecognize d section and content) In the event this informatio n is protected by the Federal Confidentiality of Alcohol and Drug Abuse Patient Records regulations: The Federal rules restrict any use of the information to criminally investigate or prosecute any alcohol or drug abuse patient.[facility] the event this information is protected by the Federal Confidentiality of Alcohol and Drug Abuse Patient Records regulations: The Federal rules restrict any use of the information to criminally investigate or prosecute any alcohol or drug abuse patient.[facility] the event this information is protected by the Federal Confidentiality of Alcohol and Drug Abuse Patient Records regulations: The Federal rules restrict any use of the information to criminally investigate or prosecute any alcohol or drug abuse patient.[facility] Reason for Visit (unrecogniz ed section and content) Reason Comments New Pain Reason Comments Results Care Teams (unrecognized sec tion and content) Account Advisor Relationship Specialty Start Date End Date Mando Patricia MD [address] [place] [address] [id number] PCP - General 06/26/00 Account Advisor Relationship Specialty Start Date End Date Mando Patricia MD [address] [place] [address] [phone] PCP - General 06/26/00 Team Status: Active Member Role Status Dates Dr. Mando Nichole MD Family Provider Active Dr. Mando Nichole MD Primary Care Provider Active Team Status: Inactive Member Role Status Dates Dr. Mando Nichole MD Primary Care Pr ovider, Attending Provider, Referring Provider Active Team Status: Inactive Member Role Status Dates Dr. Mando Nichole MD Primary Care Provider Active Taty Hernandez NITROGLYCERIN SUPERVISOR, NITROGLYCERIN SUPERVISOR-C Attending Provider, Referring Pro vider Active Team Status: Inactive Member Role Status Dates Dr. Mando Nichole MD Primary Care Provider Active Dr. Homar Orta MD Attending Provider, Referr ing Provider Active Team Status: Inactive Member Role Status Dates Dr. Mando Nichole MD Primary Care Provider Active Dr. Sebastian Ruby , DPM Attending Provider, Referrin g Provider Active Account Advisor Relationship Specialty Start Date End Date Mando Patricia MD [address] [place] [id number] PCP - General 06/26/00 Team Status: Active Member Role Status Dates Dr. Mando Nichole MD Primary Care Provider Active Dr. Lina Berman DO Emergency Provider Active Dr. Homar Orta MD Other Provider Active Dr. Roberth Allison DO Admit Provider, Attending Provider Active Team Status: Active Member Role Status Dates Dr. Mando Nichole MD Primary Care Provider Active Dr. Lina Berman DO Emergency Provider Active Dr. Roberth Mosteller , DO Admit Provi nory, Attending Provider, Other Provider Active Dr. Homar Orta MD Other Provider Active Team Status: Inactive Member Role Status Dates Dr. Mando Nichole MD Primary Care Provider Active Dr. Lina Berman , Emergency Provider Active Dr. Roberth Allison , DO Admit Provider, Attending Provider Active Dr. Homar Orta MD Other Provider Active Team Status: Active Member Role Status Dates Dr. Mando Nichole MD Primary Care Provider Active Team Status: Inactive Member Role Status Dates Dr. Mando Nichole MD Primary Care Provider Active Start: July 20, 2024 End: July 20, 2024 Dr. Nathaniel Henson MD Attending Provider Activ e Start: July 20, 2024 End: July 20, 2024 Dr. Nathaniel Henson MD Referring Provider Activ e Start: July 20, 2024 End: July 20, 2024 Team Status: Active Member Role Status Dates Dr. Mando Nichole MD Primary Care Provider Active Start: July 22, 2024 Dr. Mando Nichole MD Attending Provider Active Start: July 22, 2024 Dr. Mando Nichole MD Referring Provider Active Start: July 22, 2024 Team Status: Inactive Member Role Status Dates Dr. Mando Nichole MD Primary Care Provider Active Start: July 22, 2024 End: July 22, 2024 Dr. Mando Nichole MD Attending Provider Active Start: July 22, 2024 End: July 22, 2024 Dr. Mando Nichole MD Referring Provider Active Start: July 22, 2024 End: July 22, 2024 FOR RECORDS PERTAINING TO PATIENTS WHO ARE [...] BE BASED ON THE PRIMARY CLINICAL RECORDS. [facility] [employer] [facility]. provides no warranty or guarantee of the accuracy or completeness of information in this document.
[2025-03-03] MEDS: Lactated Ringers 1,000 ML 15 ML IV (07:16)
--- NOTE | 2025-03-03 07:38 | PCM.PRE.AN2 ---
ASA Classification* ASA Classification ASA Classification: 2 Assessment & Plan Anesthesia* Anesthesia Assessment Anesthesia Assessment: Discussed sedation and/or anesthesia options, risks, benefits, and alternatives with patient/parents/legal guardian/POA. Questions invited. The patient/parents/legal guardian/POA seems to understand and agrees to proceed with anesthesia plan. Reviewed the physical assessment, medical history, allergy history and patient home medications list prior to surgery/procedure/anesthetic and documented any changes. Performed airway and anesthesia risk assessments. Anesthesia Type Anesthesia Type: General History Source History Obtained from:: Patient and Chart Anesthesia Focused Assessment* Temperature: 98.9 F Pulse Rate: 80 Blood Pressure: 121/81 Respiratory Rate: 18 Pulse Ox: 97 Oxygen Delivery Method: Room Air Airway Assessment Mouth opens: >3 cm Mallampati Score: III Teeth Condition: Caps/Crowns (Patient does have several crowns.) and Implants (Patient has several implants. They are tight.) Neck Range of motion (ROM): Limited ROM (Somewhat Decreased) Labs Anesthesia Preop lab: CBC WBC, (4.4-11.0) 4.6 K/mm3 07/22/24, 09:05 RBC, (4.2-5.4) 4.65 M/mm3 07/22/24, 09:05 Hgb, (12.0-15.0) 13.7 g/dL 07/22/24, 09:05 Hct, (37-47) 41.1 % 07/22/24, 09:05 Plt Count, (150-450) 135 K/mm3 L 07/22/24, 09:05 CHEMISTRY Potassium, (3.3-5.1) 3.5 mmol/L 07/22/24, 09:05 Sodium, (133-145) 143 mmol/L 07/22/24, 09:05 Phosphorus, (2.5-4.9) 2.8 mg/dL 12/11/23, 15:58 BUN, (4-19) 15 mg/dL 07/22/24, 09:05 Creatinine, (0.70-1.20) 0.95 mg/dL 07/22/24, 09:05 Glucose, (70-99) 107 mg/dL H 07/22/24, 09:05 TSH, (0.300-4.200) 0.207 uIU/mL L 07/22/24, 09:05 COAG Pre-Assessment Diagnosis/Proposed Procedure Planned Operative Procedure(s): (L) Breast,left u/s wire loc Lumpectomy,[place] Node,blue dye & radiotracer Anesthesia History 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 When Was Last Pacemaker Check QUESTION #4 FULL TEXT: You/Your Family Experience fever (hyperthermia) with Anesthesia Last Oral Intake Last Oral intake: Last Oral Intake NPO since 21:00 03/03/25 07:04 Meds taken in AM with sips of Yes 03/03/25 07:04 water? 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 Female Yes 02/24/25 14:21 HX of Motion Sickness Yes 02/24/25 14:21 HX of N/V After Surgery Yes 02/24/25 14:21 Non-Smoker Yes 02/24/25 14:21 Duration of Surgery greater Yes 02/24/25 14:21 than 60 minutes Number of Risk Factors 5 02/24/25 14:21 PONV Score Severe Risk 02/24/25 14:21 Height & Weight Height & Weight: Anesthesia: Height & Weight Height 5 ft 7 in 03/03/25 07:04 Weight: 99.2 kg 03/03/25 07:04 Body Mass Index (BMI) 34.2 03/03/25 07:04 Respiratory Assessment Respiratory Assessment - deputy fire marshal: Respiratory Tract Infection Hx - deputy fire marshal Hx Respiratory Tract Infection No 02/24/25 14:21 STOP Sleep Apnea STOP Sleep Apnea - deputy fire marshal: STOP Sleep Apnea - deputy fire marshal Hx Hypertension No 02/24/25 14:21 Hx Sleep Apnea No 02/24/25 14:21 CPAP No 02/27/23 17:02 BIPAP No 02/26/23 09:40 Do you snore loudly (louder No 02/24/25 14:21 than talking or can be heard Do you often feel tired/ No 02/24/25 14:21 fatigued/ sleepy during daytime? Has anyone observed you stop No 02/24/25 14:21 breathing during sleep? STOP Results Negative 02/24/25 14:21 QUESTION #5 FULL TEXT : Do you snore loudly (louder than talking or can be heard through closed doors)? 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 Specify any problems Hx of Preganancy in last 3 No 02/24/25 14:21 Months Nurse Filling Out Transfusion VCHRISTIN 02/24/25 14:21 & Questions: Date: 02/24/25 02/24/25 14:21 Time: 14:22 02/24/25 14:21 Patient unable to answer at this time (ie. confused, unrespo /Reproduction History /Reproductive History - deputy fire marshal: /Reproductive Hx- deputy fire marshal Hx Now No 02/24/25 14:21 Gestational Age (in weeks): EDC: Hx Hx Para Hx Section SAB No 02/24/25 14:21 Does the father of the baby or his family experience fever w Father of the baby Malignant Hypertension history comment Active Medications Active Medications: Current Medications Generic Name Dose Route Start Last Admin Trade Name Freq PRN Reason Stop Dose Admin Clindamycin Phosphate 900 mg in 50 mls @ 75 mls/hr 03/03/25 07:00 Cleocin IV 03/03/25 07:39 INTRAOP ONE Lactated Ringer's 1,000 mls @ 15 mls/hr 03/03/25 07:00 03/03/25 07:16 IV 15 mls/hr .Q48H SANYA Administration PFSH Medical History Cancer Anxiety Alcohol use Arthritis Easy bruising Injury of head and neck GERD (gastroesophageal reflux disease) Neuropathy of both feet Post-menopausal High cholesterol Multinodular goiter Depression Left ureteral calculus Hypertension Skin cancer of forehead Osteoarthritis Nephrolithiasis Home Medications ?Medication ?Instructions ?Recorded ?Last Taken ?Type amlodipine 10 mg tablet 10 mg PO QHS blood pressure 06/07/13 03/02/25 History multivitamin,vu-peet-zdlgeium 27 1 tab PO DAILY supplement 06/07/13 03/02/25 History mg-0.4 mg tablet sertraline 50 mg tablet 50 mg PO DAILY mood 06/07/13 03/02/25 History lactobacillus combination no.4 3 3,000 mmu cells PO DAILY supplement 02/14/22 03/02/25 History billion cell capsule (Probiotic) latanoprost 0.005 % eye drops 1 drp EACH EYE QHS glaucoma 02/14/22 03/02/25 History rosuvastatin 10 mg tablet 10 mg PO QHS cholesterol 02/14/22 03/02/25 History lisinopril 20 mg tablet 20 mg PO BID high blood pressure 02/27/23 03/02/25 History omeprazole 20 mg capsule,delayed 20 mg PO QDAY 01/24/25 03/03/25 History release calcium 600 mg (as 1 tab PO DAILY 02/24/25 03/02/25 History carbonate)-vitamin D3 5 mcg (200 unit) tablet (Calcium 600 + D(3)) Allergy/AdvReac Type Severity Reaction Status Date / Time Penicillins Allergy Swelling Verified 03/03/25 06:59 nitrofurantoin (From AdvReac Mild Other Verified 03/03/25 06:59 Macrobid) Family History Father Diabetes Heart disease Mother Breast cancer Surgical History History of total left hip arthroplasty History of cystoscopy History of Mohs micrographic surgery for skin cancer History of History of laparoscopic cholecystectomy History of lithotripsy History of knee replacement History of blepharoplasty Social History Smoking Status: Never smoker alcohol intake: current substance use type: does not use Review of Systems (Anesthesia) ROS Narrative System reviewed and no additional complaints, except as documented.
--- NOTE | 2025-03-03 08:00 | NM_ITS ---
PROCEDURE: LYMPH NODE INJECTION ONLY 03/03/2025 TECHNIQUE: 590 uCi of Lymphoseek was injected subdermally 1 cm above the left nipple for lymphoscintigraphy. RADIOPHARMACEUTICAL DOSE: 590 uCi. COMPARISON: None FINDINGS: 590 uCi of Lymphoseek injected subdermally 1 cm above the left nipple for lymphoscintigraphy. NM/Lymph Node Injection Only IMPRESSION: 590 uCi of Lymphoseek injected subdermally 1 cm above the left nipple for lymph oscintigraphy. Reading Location: [id number]
--- NOTE | 2025-03-03 08:17 | PCM.HP.BLA ---
History and Physical Date of Admission: 03/03/25 Date of Service: 02/21/25 MR#: [id number] Acct: [id number] Name: DANIELE TOLEDO Rep #: [id number] : 1950 Provider: Dr. Nataliya Chavez MD Age/Sex: 74/F Location: [facility] Status: Signed Intake Vital Signs 01/24/2515:22 02/22/2508:59 Height 5 ft 7 in 5 ft 7 in Weight: 219 lb 220 lb BMI 34.2 34.4 BP 163/84 H 153/78 H Blood Pressure Location Rt brachial Rt brachial Position Sitting Sitting Respiration 17 18 Pulse 77 83 Pulse Source Monitor Monitor Pulse Oximetry (%) 96 99 Oxygen Delivery Method room air room air Intake Visit Reasons: DISCUSS BREAST TREATMENT Chief Complaint: discuss breast treatment Is patient in pain?: No Allergies Penicillins Allergy (Verified 02/21/25 08:59) Swelling nitrofurantoin (From Macrobid) Adverse Reaction (Mild, Verified 02/21/25 08:59) Other Medications ?Medication ?Instructions ?Recorded ?Confirmed ?Type amlodipine 10 mg tablet 10 mg PO QHS blood pressure 06/07/13 02/21/25 History multivitamin,qe-jbnl-kafdkywm 27 1 tab PO DAILY supplement 06/07/13 02/21/25 History mg-0.4 mg tablet sertraline 50 mg tablet 50 mg PO DAILY mood 06/07/13 02/21/25 History calcium carbonate (Calcium 500) 1,200 mg PO BID supplement 07/27/19 02/21/25 History lactobacillus combination no.4 3 3,000 mmu cells PO DAILY supplement 02/14/22 02/21/25 History billion cell capsule (Probiotic) latanoprost 0.005 % eye drops 1 drp EACH EYE QHS glaucoma 02/14/22 02/21/25 History rosuvastatin 10 mg tablet 10 mg PO QHS cholesterol 02/14/22 02/21/25 History Vitamin D 1000unit 1,000 unit PO DAILY supplement 02/27/23 02/21/25 History calcium carbonate (Calcium 600) 600 mg PO DAILY supplement 02/27/23 02/21/25 History lisinopril 20 mg tablet 20 mg PO BID high blood pressure 02/27/23 02/21/25 History aspirin 325 mg tablet 325 mg PO QDAY PRN 01/24/25 02/21/25 History omeprazole 20 mg capsule,delayed 20 mg PO QDAY 01/24/25 02/21/25 History release Have you fallen in the past year?: No PFSH Medical History Post-menopausal High cholesterol Multinodular goiter Depression Left ureteral calculus Hypertension Skin cancer of forehead Osteoarthritis Nephrolithiasis Surgical History History of Mohs micrographic surgery for skin cancer History of History of laparoscopic cholecystectomy History of lithotripsy History of knee replacement History of blepharoplasty Family History Father Diabetes Heart disease Mother Breast cancer Social History Smoking Status: Never smoker alcohol intake: current substance use type: does not use HPI HPI HPI: 74-year-old female presents to discuss left breast biopsy pathology and treatment options. Patient's area at 830 on the left breast was positive for invasive ductal carcinoma grade 3 ER/RI positive, HER2/lanette negative. Patient's lymph node was negative. Patient did state that she did have her COVID shot in between her screening and diagnostic mammogram/ultrasound. ========= MICROSCOPIC DIAGNOSIS A. Left breast, 930, 5 cm FN, needle biopsies: - Focus of atypical ductal hyperplasia - One atrophic breast lobule with an intraductal aggregate of acellular calcification B. Left breast, 9:00, 5 cm FN: - Small amount of atrophic breast tissue and adipose tissue with extensive areas of extravasated blood C. Left breast, 830, 4 cm FN: - Infiltrating ductal adenocarcinoma, grade III (See Comments) D. Left axilla lymph node: - Benign lymph node ROS General General: Yes fatigue; No weight change, appetite, colon cancer or breast cancer HEENT HEENT: Yes eye surgery; No difficulty swallowing, eye injury, swollen glands or hoarseness Endo Endocrine: No thyroid disease, diabetes mellitus, thyroid cancer, Hair loss, heat intolerance or cold intolerance Skin Skin: No rash or changing moles Breast Breast: Yes abnormal mammogram and abnormal US Musc Musculoskeletal: Yes arthritis; No back problems, rheumatoid arthritis, gout or joint pain Cardio Cardiovascular: Yes high blood pressure; No murmur, pacemaker, heart disease, atrial fibrillation, heart attack, heart stent, palpitations, shortness of breath with exertion or chest pain Psych Psychiatric: Yes depression and anxiety; No hearing voices Resp Respiratory: Yes shortness of breath, No sleep apnea, No cough, No COPD, No asthma, No emphysema and No wheezing Gastro Gastrointestinal: No abdominal pain, No nausea or vomiting, No diarrhea, No constipation, No blood in stool, Yes acid reflux, No hemorrhoids, No ulcers, No gallbladder problem and No black,tarry stools [place] Hematologic: No blood thinners, No blood disorders, No bleeding, No anemia and No blood clots Neuro Neurologic: No numbness and No tingling Exam Const General: cooperative, healthy appearing and no acute distress HENWV Head: normal to inspection Resp Effort & Inspection: normal respiratory effort Cardio Rate: regular rate GI Inspection: non-distended Neuro General: patient oriented x3 Extrem General: no clubbing, cyanosis or edema Psych Affect: normal affect Assessment and Plan Assessment and Plan (1) Invasive ductal carcinoma of left breast: Status: Acute Orders: Orders Lymph Node Injection Only 03/03/25 N63.20 - Unspecified lump in the left breast, unspecified quadrant Plan I have given the patient options for initial surgical treatment. Options are the following: lumpectomy followed by radiation therapy vs. mastectomy vs. mastectomy followed by immediate reconstruction. I have described the procedures to the patient. I have described the advantages and disadvantages of the options, but I have told the patient that among the options, the survival rate for breast cancer is the same. I have told the patient that with all the surgeries that a sentinel lymph node biopsy is required. I have described the procedure of sentinel lymph node biopsy to the patient. I have told the patient that if the biopsy is positive greater than 2 for metastatic disease, then a full axillary lymph node dissection is typically considered. I have told the patient that adjuvant chemotherapy will be required should the lymph nodes reveal metastatic disease. Also, a full lymph node dissection will increase the risk for lymphedema, especially if there are 4 or more lymph nodes positive for metastatic disease and radiation to the axilla is also required. I have told the patient the risks of surgery, including but not limited to: infection, bleeding, scar tissue, seroma and persistent seroma, lymph leak, injury to any blood vessels, injury to any nerves (particularly the long thoracic, the thoracodorsal, and the second intercostal brachial and the resultant sequelae), lymphedema, cosmetic deformity, dysesthesias, wound infections, further surgery (especially if margins are not clear), complications of anesthesia, etc. the patient understands. Patient plans for left ultrasound guided lumpectomy, sentinel lymph node biopsy with nuclear tracer and blue dye. No plans for axillary lymph node dissection. Clinically patient is negative as well. I have answered all the patient?s questions at this point to her satisfaction and she has no further questions. Nataliya Chavez M.D. Pager: [phone] [facility] [address] [place] [address], [address] [place] [address] Office: [phone] Coding Level of Care Code Off vis,est,level 3 Diagnoses Invasive ductal carcinoma of left breast C50.912 Additional Codes Intake - Is patient in pain?: No (4958F) Clinical Quality Measures Falls Risk Screening/Assistive Devices Have you fallen in the past year?: No 02/22/25 0733 <Electronically signed by Nataliya Chavez MD> Date Nataliya Chavez MD
--- NOTE | 2025-03-03 08:30 | BREAST_PTH ---
PATIENT: DANIELE TOLEDO LOC: [facility] [place] U#:[id number] AGE/SX: 74/F ROOM: RE03/03/[address]: Dr. Nataliya Chavez MD : [id number] BED: DIS: 03/03/2025 SPEC #: [id number] RECD: 03/03/25 09:48 STATUS: TAMERA REQ #: [id number] YOLANDA: 03/03/25 08:[address]: Nataliya Chavez DEPT: SURGICAL PATHOLOGY RECD BY: Kam Allen ENTERED: 03/03/25 11:14 SP TYPE: BREAST OTHR DR: Dr. Keith Nichole MD Tissues: A - Lymph node, NOS B - Lymph node, NOS C - Left breast, NOS D - Left breast, NOS Procedures: Frozen Section (charge) Immunohistochemical Stains Frozen Section Add'l ([facility]) Surgery Specimen Level IV Surgery Specimen Level V IHC Stain ADDITIONAL HEADER OPERATION: Breast lumps, left u/s wire loc lumpectomy, sentinel node PRE-OP DIAGNOSIS: Invasive ductal left breast carcinoma TISSUE SUBMITTED: A. Left axillary sentinel nodes-frozen section, B. Left axillary sentinel nodes-mammography than frozen, C. Left breast mass, D. New medial margin, left breast mass FROZEN SECTION DIAGNOSIS A. Left axillary sentinel nodes: Negative for macrometastasis MS:id 03/03/2025 B. Left axillary sentinel nodes: Negative for macrometastasis MS:id 03/03/2025 MICROSCOPIC DIAGNOSIS A. Lymph node, [place], left axillary, #1, excision: - Negative for metastasis (0/1). - pankeratin IHC supports the diagnosis. B. Lymph node, [place], left axillary, #2, excision: - Negative for metastasis (0/1). - pankeratin IHC supports the diagnosis. C. Breast, left, mass, lumpectomy: - Invasive ductal carcinoma Grade 3 and DCIS with comedo necrosis (associated with the padlock clip), surgical margins free. - pT2, pN0(sn) - ER: positive (90%, intermediate to strong intensity) - WY: positive (60%, intermediate to strong intensity) - HER2 IHC: equivocal (score 2+) - HER2 FISH: pending, to be reported in an addendum - Ki67: 70% - Invasive ductal carcinoma Grade 3 and DCIS high nuclear grade (associated with the barbell clip), surgical margins free. - DCIS (associated with the ribbon clip), surgical margins free. - high nuclear grade - < 1 mm from the posterior margin. - See note. - See Synoptic Report. Note: It is uncertain whether the invasive carcinoma associated with the padlock and barbell clips represents a single tumor or two separate tumors. Given the histologic similarity, a single malignant process is favored. ER, WY, HER2 IHC and Ki67 on the tumor associated with the barbell clip are pending and will be reported in an addendum. Recommend correlation with clinical and imaging findings. D. Breast, left, new medial margin, re-excision: - Focal atypical ductal hyperplasia, 1 mm from the inferior aspect of the new medial margin. - CK5/6 IHC supports the histologic impression. SYNOPTIC REPORT FOR INVASIVE BREAST CARCINOMA Specimen (P=partial, M=mastectomy):?P Laterality (R=right, L=left):?L Focality (U=unifocal, M=multifocal):?Unknown Tumor size (cm):?3.3 x 2.4 x 1.7 cm (gross dimensions)* *tumor measures at least 1.5 cm on glass slides, but due to sectioning, this may not reflect the greatest dimension. Histologic type:?invasive ductal carcinoma of no special type Histologic grade:?3 ??? Tubule score (1-3):?3 ??? Nuclear score (1-3):?3 ??? Mitotic score (1-3):?2 Skin, nipple epidermis, skeletal muscle (I=involved, N=negative, NA=not applicable):?NA Lymphovascular invasion (E=extensive, F=focal, N=not identified):?N Margins of main specimen (P=positive, N=negative):?N Distance to closest margin of main specimen (mm):?4 mm Designation of closest margin of main specimen:?posterior Designation of other margins of main specimen </=1 mm:?NA Re-resection margin status (P=positive, N=negative, NA=not applicable):?N ? DCIS (P=present, N=not identified):?P ?? Nuclear grade:?high grade ?? Comedo necrosis (P=present, N=not identified):?P ?? Extensive intraductal component (P=present, N=not identified):?P ?? Margins of main specimen (P=positive, N=negative):?N ?? Distance to closest margin of main specimen (mm):?< 1 mm ?? Designation of closest margin of main specimen:?posterior ?? Designation of other margins of main specimen </=2 mm:?NA ???Longest span </= 2 mm to margin of main specimen (mm):?5 mm ?? Re-resection margin status (P=positive, N=negative, NA=not applicable):?N ? Regional lymph nodes: ?? Total number of lymph nodes:?2 ???Number of sentinel lymph nodes:?2 ?? Number with macrometastases:?0 ?? Number with micrometastases:?0 ?? Number with isolated tumor cells:?0 ???Size of largest micki metastasis (mm):?NA ?? Size of extranodal extension (mm) (N=not identified):?NA ? Estrogen receptor:?positive (90%, intermediate to strong intensity) Progesterone receptor:?positive (60%, intermediate to strong intensity) HER2 IHC:?equivocal (score 2+) HER2 FISH:?pending at [facility], to be reported in an addendum Ki67: 70% Specimen in which ER/WY/HER2 performed:?[id number] (tumor associated with padlock clip) Additional ER, WY, HER2 and Ki67 are pending on the tumor associated with the barbell clip and will be reported in an addendum. pTNM:?pT2 pN0(sn) Additional findings:?fibrocystic mastopathy (including intraductal papillomatosis, usual ductal hyperplasia, sclerosing adenosis, fibroadenomatoid change, atypical ductal hyperplasia), scattered microcalcifications, patchy fat necrosis; IHC for CK5/6 confirms the histologic impression. Comment:?A radiograph of the breast specimen was performed to assist in the sectioning of the specimen and the image was reviewed and correlated with the histological findings. ? The above synoptic report complies, in slightly modified form, with the guidelines of the [employer] [place] and the Association of Directors of Anatomic and Surgical Pathology for the reporting of cancer specimens ? MICROSCOPIC DESCRIPTION Slides are reviewed. All matched controls reacted appropriately. These tests were developed and their performance characteristics determined by [facility]. They may not have been cleared or approved by the U.S. Food and Drug Administration. The FDA has determined that such clearance or approval is not necessary. The above immunohistochemical markers and/or special?stains have been reviewed by the Pathologist. GROSS DESCRIPTION A. Received fresh for frozen section diagnosis labeled patient's name and date of . Designated as #1 left axillary sentinel lymph nodes is a 2.5 x 1.8 x 0.9 cm lymph node with attached fat. The lymph node is sectioned and entirely submitted for frozen section diagnosis and subsequently placed in cassette A1 for permanent sections while the remainder of the fat is submitted cassette A2. B. Received fresh for frozen section diagnosis labeled the patient's name and date of . Designated as #2 left axillary sentinel nodes additional is a 1.8 x 1.0 x 0.6 cm fatty lymph node with attached fat. The lymph node is sectioned and entirely submitted for frozen section diagnosis and subsequently placed in cassette B1 for permanent sections, with the remainder of the fat submitted in cassette B2. C. Received fresh labeled with the patient's name and date of . Designated as #3 left breast mass is a 5.7 x 4.2 x 3.8 cm lumpectomy with an exposed localization wire exiting from the superior aspect. There is a short suture designated as middle of superior margin and a long suture designated as middle of the medial margin. Skin is not present. The specimen is inked as follows: Superior: RedInferior: BlueMedial: YellowLateral: OrangeAnterior: GreenPosterior: Black The specimen is serially sectioned from superior to inferior (into 9 slices) revealing a 3.3 x 2.4 x 1.7 cm dorantes-white, indurated, ill-defined mass with irregular borders spanning slices #3-8. A barbell biopsy clip is identified within the mass in slice #7. The mass is located the following distances from each margin: Anterior: 0.1 cm (slice #5)Inferior: 0.7 cmMedial: 0.3 cm (slice #6)Lateral: 1.5 cm (slice #4)Posterior: 0.1 cm (slice #6)Superior: 2.1 cm There is firm fibrosis with patchy, apparent fat necrosis along the posterior aspect of slices #2-#3, containing a ribbon clip in slice #2. There is also a 0.7 x 0.3 x 0.2 cm red to yellow somewhat circumscribed area of fibrosis in slice #2, abutting the posterior/medial margins. Review of postoperative imaging confirms the presence of a localization wire and 3 biopsy clips. The padlock biopsy clip is not identified grossly . Wheat Buyer sections are submitted, sequentially from slice #1 to slice #9 as follows: C1: Slice #1, superior margin, perpendicular (red)C2: Slice #2, patchy fibrosis along posterior aspect with biopsy site containing ribbon clip (black)C3: Slice #2, red to yellow circumscribed area of fibrosis with anterior/medial/posterior (green/yellow/black)C4: Slice #3, patchy fibrosis along posterior aspect and remainder of red to yellow circumscribed area of fibrosis (black)C5: Slice #4, mass, no marginsC6: Slice #4, anterior/posterior margins (green/black)C7: Slice #5, mass to anterior/posterior/medial (green/black/yellow)C8: Slice #6, mass to anterior/posterior/medial (green/black/yellow)C9: Slice #6, mass to anterior/posterior (green/black)C10: Slice #6, lateral margin (orange)C11: Slice #7, mass with biopsy site containing barbell biopsy clip to medial/posterior (yellow/black)C12: Slice #7, mass to anterior (green)C13: Slice #7, mass to anterior/posterior (green/black)C14: Slice #8, mass to anterior/posterior (black/green)C15: Slice #9, inferior margin, perpendicular (blue) Cold ischemic time: 19 minutesFormalin fixation time: 57 hours, 4 minutes D. Received in formalin labeled with the patient's name and date of . Designated as new medial margin left breast mass is a 3.3 x 2.0 x 1.0 cm portion of dorantes-yellow fibrofatty tissue with orientation. There is a short suture designated as superior margin and a long suture designated as new medial margin. The new medial margin is inked yellow. The specimen is serially sectioned from superior to inferior revealing focally fibrotic, yellow cut surfaces. Definitive lesions are not grossly appreciated. Entirely submitted, sequentially from superior to inferior in 3 cassettes. Cold ischemic time: <1-minuteFormalin fixation time: 57 hours, 23 minutes AK 03/03/2025 CPT:[id number] ADDENDUM ADDENDUM ADDENDUM ADDENDUM ADDENDUM ADDENDUM ADDENDUM ADDENDUM ADDENDUM ADDENDUM 03/15/2025 11:09 ADDENDUM 03/15/2025 11:09 ADDENDUM 03/15/2025 11:09 ADDENDUM 03/15/2025 11:09 ADDENDUM 03/15/2025 11:09 C. This addendum is to report the additional IHCs on the tumor associated with the barbell clip: ER: positive (90-100%, intermediate to strong intensity) WY: positive (50%, intermediate to strong intensity) HER2 IHC: equivocal (score 2+) HER2 FISH: pending at [facility], to be reported in a subsequent addendum Ki67: 90%
[2025-03-03] MEDS: fentaNYL 100 MCG/2 ML Ampul IV (08:33)
[2025-03-03] MEDS: Lidocaine 1% (5 ml sdv) 5 ML Vial IV (08:34)
--- NOTE | 2025-03-03 08:49 | BI_ITS ---
EXAM: BREAST BIOPSY SPECIMEN 03/03/2025 CLINICAL HISTORY: F, Age 74 y/o , Biopsy specimen. TECHNIQUE: Procedure Code: BIB Modality: MG Procedure: BREAST BIOPSY SPECIMEN COMPARISON: Prior exam(s) dated prior mammogram dated January 25, 2025. FINDINGS: TISSUE DENSITY: There are scattered areas of fibroglandular density The specimen contains the mass lesion. BI/Breast Biopsy Specimen IMPRESSION: OVERALL FINAL ASSESSMENT: BIRADS 6: Known Biopsy-Proven Malignancy. RECOMMENDATION: Awaiting pathology results. Additional Recommendation none A letter with findings and recommendations will be mailed to the patient. Reading Location: [id number]
--- NOTE | 2025-03-03 10:28 | OP.PCM_ITS ---
Oncology: Beryl Requirements . Oncology surgical intervention performed: [place] Node Biopsy for Breast Cancer performed [place] Node Bx - Breast Cancer: Synoptic Portion: Element Response Options Operation performed with curative intent. [ Yes; No. ] Tracer(s) used to identify sentinel nodes in the upfront surgery (non- neoadjuvant) setting (select all that apply). [Dye; Radioactive tracer; Superparamagnetic iron oxide; Other (with explanation); N/A. ] Tracer(s) used to identify sentinel nodes in the neoadjuvant setting (select all that apply).[ Dye; Radioactive tracer; Superparamagnetic iron oxide; Other (with explanation); N/A.] All nodes (colored or non-colored) present at the end of a dye-filled lymphatic channel were removed. [Yes; No (with explanation); N/A. ] All significantly radioactive nodes were removed. [Yes; No (with explanation); N/A.] All palpably suspicious nodes were removed. [Yes; No (with explanation); N/A. ] Biopsy-proven positive nodes marked with clips prior to chemotherapy were identified and removed. 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 Helper: Tommy Sanderson Tasks completed by first front ventilator: Opening & closing and Retracting Type of Anesthesia: General/Supplemental RN Documented Start/Stop Times: Operation Date: 03/03/25 08:30 Case Time Into Pre-Op 03/03/25 06:48 Out of Pre-Op 03/03/25 08:19 Anesthesia Start 03/03/25 08:27 Into Room 03/03/25 08:27 Procedure Start 03/03/25 08:57 Procedure End 03/03/25 10:43 Anesthesia End 03/03/25 10:52 Out of Room 03/03/25 10:52 Into Recovery 03/03/25 10:56 Out of Recovery 03/03/25 12:32 Into Phase II Recovery 03/03/25 12:33 Out of Phase II 03/03/25 13:58 Procedure Start Time: 08:57 Procedure Stop Time: 10:43 Select all DRAINS/GRAFTS/IMPLANTS that apply: None Special Medications: Clindamycin 9 mg IV x 1 Estimated Blood Loss: 5 cc Specimen collected: Yes Description of specimen(s) removed: 1 left axillary sentinel node, 2 additional left axillary sentinel node, 3 left lumpectomy, 4. New left medial margin Description of surgery: In AC the breast tissue was injected Lymphoseek. 30 minutes later the patient was taken to the operating room and general anesthesia was induced. 5 cc of Lymphazurin 1% blue dye was injected in the 4 quadrants periareolar along with 10 cc of normal saline. This was massaged gently for 5 minutes. The left breast and axilla were prepped and draped in usual sterile fashion. A timeout was completed verifying correct patient, procedure, site, positioning, special equipment prior to beginning procedure. Handheld gamma probe was used to identify the location of the hottest spot in the axilla. Prior to the incision, the counts were 35. The incision was made in the hot and blue was identified. The probe was placed in contact with the node in the 10 count was 569. The bed of the node measured 12 counts. 1 additional palpable node was also sent. No additional blue or hot nodes or palpable were detected. Frozen had 2 negative lymph nodes. Ultrasound was use for localization of the breast mass using the Kopan's needle. The wire was placed just inferiorly to the mass. A radial incision was planned in such a way as to minimize the amount of dissection to reach the mass. Flaps were raised in the location of the wire confirmed. The wire was delivered into the wound. 2 silk [id number] stay suture was placed around the wire and used for traction. Dissection was then taken down circumferentially, taking care to include the entire localization needle and wide margin of grossly normal tissue. The specimen and entire localizing wire were removed. The specimen was oriented and sent to radiology with the localization studies. Confirmation was received that the entire target lesion had been resected along with the other 2 previously placed clips for biopsies which were benign at that area. 3 medium clips were placed in the line at the deep area of the cavity. The cavities were irrigated. Hemostasis was checked. The breast and axillary incisions were closed with interrupted sutures of 3-0 Vicryl and subcuticular sutures of 4-0 Monocryl. No attempt was made to close the space. Dermabond placed on both incisions and supportive bra placed. The patient tolerated procedure well was taken to the postanesthesia care in stable condition Surgical Findings: See operative report Complications Complications: No
--- NOTE | 2025-03-03 10:30 | DCINST_ITS ---
Discharge Instructions Diet Discharge Diet: No restrictions Activity Discharge Activity: May Not Drive (for 2-3 days or while taking narcotic pain meds.) May shower in (days): 1 Lifting Restrictions: 10 pounds for 1 week. Dressing / Incision Call your doctor if your incision/area has: Continuous Slow Oozing, Sudden Increased Bleeding, Increased Pain/ Swelling and Increased Redness Call your doctor if you observe: Fever of 101 or Higher Suture Line Care: Avoid Pulling/Pushing and Avoid Pinching/Bending Remove Dressing in: 1 day Additional Dressing/Incision Instructions:: Remove bulky dressing tomorrow. May leave op-site dressing for 3-4 days. Dermabond (glue) was used at the axillary incision this may start to peel off in about 5 days. Okay to remove Steri- Strips from the breast incision in 7 to 10 days. Follow Up Care Please Follow Up With: Nataliya Chavez MD When: Please call [phone] for an appointment to be seen in 2 week. Test Results: Test results from this visit will be discussed in further detail at your follow- up appointment, if applicable. Discharge Plan Admission Attending Provider: Nataliya Chavez Primary Care Provider: Keith Nichole Instructions Print Language: Austrian Discharge Orders/Prescriptions Prescriptions: New tramadol 50 mg tablet 50 mg PO Q6H PRN (Reason: pain) Qty: 10 0RF Continued omeprazole 20 mg capsule,delayed release(DR/EC) 20 mg PO QDAY amlodipine 10 MG tablet 10 mg PO QHS Patient Comments: blood pressure sertraline 50 MG tablet 50 mg PO DAILY Patient Comments: depression multivitamin,ad-beyi-yvrkbouy 1 TABLET tablet 1 tab PO DAILY Patient Comments: vitamin latanoprost 0.005 % drops 1 drp EACH EYE QHS Patient Comments: instill 1 drop into both eyes at bedtime rosuvastatin 10 mg tablet 10 mg PO QHS Probiotic 3 billion cell Capsule 3,000 mmu cells PO DAILY Rx Instructions: administer with a meal lisinopril 20 mg tablet 20 mg PO BID calcium carbonate-vitamin D3 [Calcium 600 + D(3)] 600 mg-5 mcg (200 unit) tablet 1 tab PO DAILY Referrals / Follow Up: Keith Nichole MD [Primary Care Provider, Family Practice] Disposition Disposition (needs filled in before D/C Order can be placed): Home, Self Care
--- NOTE | 2025-03-03 11:01 | PCM.POST.ANE ---
Anesthesia: Postop Eval I Current Vital Signs Temperature: 97.5 F Pulse Rate: 68 Blood Pressure: 110/60 Respiratory Rate: 16 Pulse Ox: 96 Oxygen Delivery Method: Nasal Cannula Oxygen Flow Rate (L/min): 6 Assessment Airway patent: Yes Spontaneous unlabored respirations: Yes Mental status: Awake and Calm nausea: No Vomiting: No Anesthesia Complication: No Fluid Hydration Crystalloid volume administer (ml): 1,500 Total IV fluid infused: 1,500 Progress Note Anesthesia document: Postop Eval 1 completed: Yes
--- NOTE | 2025-03-03 20:18 | POSTOPAN2_ITS ---
Anesthesia Postop Eval I Sum Postop Eval Completion status Anesthesia document: Postop Eval 1 completed: Yes Anesthesia Postop Eval I Summary Anesthesia Postop Eval I Summary: Anesthesia Postop Eval I: Assessment Summary Airway patent Yes 03/03/25 11:03 [email or web address] Spontaneous unlabored Yes 03/03/25 11:03 [email or web address] respirations Mental status Awake,Calm 03/03/25 11:03 [email or web address] [email or web address] nausea No 03/03/25 11:03 [email or web address] [email or web address] Vomiting No 03/03/25 11:03 [email or web address] Anesthesia Postop Eval I: Fluid Summary Crystalloid volume administer 1,500 03/03/25 11:03 [email or web address] (ml) Colloids volume administered ( ml) Blood Product volume administered (ml) Total IV fluid infused 1,500 03/03/25 11:03 [email or web address] Anesthesia Postop Eval I: Summary Notes Anesthesia Complication No 03/03/25 11:03 [email or web address] Anesthesia Complication Comment: Post-operative progress note Anesthesia: Postop Eval II Evaluation Mental status: Awake and Calm Pain Level: 1 nausea: No Vomiting: No Complications Anesthesia Complication: No
--- NOTE | 2025-03-03 20:18 | PCM.POSTANE2 ---
Anesthesia Postop Eval I Sum Postop Eval Completion status Anesthesia document: Postop Eval 1 completed: Yes Anesthesia Postop Eval I Summary Anesthesia Postop Eval I Summary: Anesthesia Postop Eval I: Assessment Summary Airway patent Yes 03/03/25 11:03 [email or web address] Spontaneous unlabored Yes 03/03/25 11:03 [email or web address] respirations Mental status Awake,Calm 03/03/25 11:03 [email or web address] nausea No 03/03/25 11:03 [email or web address] [email or web address] Vomiting No 03/03/25 11:03 [email or web address] [email or web address] Anesthesia Postop Eval I: Fluid Summary Crystalloid volume administer 1,500 03/03/25 11:03 [email or web address] (ml) Colloids volume administered ( ml) Blood Product volume administered (ml) Total IV fluid infused 1,500 03/03/25 11:03 [email or web address] [email or web address] Anesthesia Postop Eval I: Summary Notes Anesthesia Complication No 03/03/25 11:03 [email or web address] Anesthesia Complication Comment: Post-operative progress note Anesthesia: Postop Eval II Evaluation Mental status: Awake and Calm Pain Level: 1 nausea: No Vomiting: No Complications Anesthesia Complication: No
== END 2025-03-03 13:57 | disposition home or self-care (01) ==
LOC: SDC 06:36 → AC 06:36
PROVIDERS: PCP Family Medicine; Referring Provider Family Medicine; Visit Provider Surgery
PROC: 0HBV0ZZ Excision of Bilateral Breast, Open Approach (ICD-10-PCS; CPT 19302; principal; 2025-03-03 08:15)
DX: C50.912 Malignant neoplasm of unspecified site of left female breast (principal); I10 Essential (primary) hypertension; E78.00 Pure hypercholesterolemia, unspecified; Z79.899 Other long term (current) drug therapy; Z80.3 Family history of malignant neoplasm of breast
CPT/HCPCS: 19302; 38900; 00400; 38792; 76098; 88305; 88307; 88331; 88332; 88341; 88342; A4648; A9520; J2405; Q9968